=== PATIENT | female | born 1960 | race Caucasian/White ===

== ENCOUNTER 2020-05-14 14:41 | Outpatient (CLI) | payer OTHER, SELFPAY ==
--- NOTE | ~2020-05-14 | MM_ITS ---
EXAMINATION: MM screening trupti BI w alexandre HISTORY: Screening mammogram TECHNIQUE: Craniocaudal and mediolateral oblique 3-D tomosynthesis images were obtained and synthetic 2-D images were generated. Bilateral rotated lateral cc views. CAD analysis was submitted and interp reted. COMPARISON: No prior mammogram is available for comparison at this institution. BREAST PARENCHYMAL COMPOSITION: There are scattered areas of fibroglandular density. FINDINGS: 3.5 mm circumscribed low-density opacity in the lower outer left breast, likely benign. Son ographic correlation is recommended. Otherwise there is no evidence of suspicious mass, calcification, or architectural distortion to sugg est malignancy in either breast. Occasional benign calcified microhematomas. IMPRESSION: 1. 3.5 mm circumscribed mass, lower outer left breast 2. Targeted left breast ultrasound examination is recommended. BI-RADS Category 0: Incomplete: Needs additional imaging evaluation. Reviewed, dictated and finalized at location A. 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
== END 2020-05-14 14:42 | disposition home or self-care (01) ==
LOC: ANHIMG 14:51
PROVIDERS: PCP Internal Medicine; Visit Provider Obstetrics & Gynecology
DX: Z12.31 Encounter for screening mammogram for malignant neoplasm of breast (principal); R92.8 Other abnormal and inconclusive findings on diagnostic imaging of breast
CPT/HCPCS: 77063; 77067

== ENCOUNTER 2024-11-04 15:56 | Inpatient (IN) | payer SELFPAY ==
[2024-11-04] VITALS (21 sets, daily range): BP systolic 124–160; BP diastolic 69–125; PULSE 86–142; RESP 12–32; TEMP 36.6–37.1; O2SAT 96–100; BMI 18.3; BMI 21.4
--- NOTE | ~2024-11-04 | CT_ITS ---
EXAMINATION: CT diagnostic chest wo con DATE: 11/10/2024 09:56 INDICATION: COPD, hypoxia TECHNIQUE: Computed tomography (CT) of the chest was performed without intravenous contrast. Additional 3D reconstructions utilizing coronal maximum intensity projection (MIP) were performed. Automated exposure control and iterative reconstruction technique were employed. The dose-length product was 14 1.50 mGy-cm. COMPARISON: 11/04/2024 FINDINGS: Mild emphysema. Partial collapse of the right middle lobe, atelectasis at the paramediastinal right upper lobe and sagittal oriented band of discoid atelectasis in the lingula, all new since the prior study. Also new are regions of groundglass opacity and septal line thickening peripherally in the right upper lobe which are suspicious for pneumonia. No pleural effusion. There is a 9 x 7 mm spiculated nodule at the anteromedial right upper lobe. Heart size is normal. Atherosclerotic coronary artery calcification is. No pericardial effusion. Thoracic aorta is normal in caliber. No pathologically enlarged thoracic lymphadenopathy. Minimal thoracic spondylosis. IMPRESSION: 1. A few new peripheral regions of groundglass opacity and septal line thickening the right upper lobe suspicious for pneumonia. 2. New partial collapse of the right middle lobe and additional atelectasis in the left upper lobe and lingula. 3. Mild emphysema with indeterminate spiculated 8 mm right upper lobe nodule. Recommend further evaluation with either PET/CT or 3 month follow-up chest CT. Reviewed, dictated and finalized at location A. IMPRESSION: 1. A few new peripheral regions of groundglass opacity and septal line thickeni ng the right upper lobe suspicious for pneumonia. 2. New partial collapse of the right middle lobe and additional atelectasis in the left upper lobe and lingula. 3. Mild emphysema with indeterminate spiculated 8 mm right upper lobe nodule. R ecommend further evaluation with either PET/CT or 3 month follow-up chest CT.
--- NOTE | ~2024-11-04 | XR_ITS ---
XR chest 1V portable 11/14/2024 08:22 Indication: Pneumonia Procedure: AP portable chest Comparison: 11/04/[address] dated 11/10/2024 Findings: There is a small nodular opacity in the right suprahilar region likely corresponding to spiculated nodule seen on recent CT examination. Recommend follow-up evaluation with pet/CT or three-month follow-up chest CT. Left lung clear. No pleural effusion or edema. No pneumothorax. Impression: 1: No acute cardiopulmonary disease. 2: Nodular asymmetry right suprahilar region likely corresponding to spiculated nodule seen on recent CT. Recommend correlation with pet/CT scan or follow-up [address] chest[address] Reviewed, dictated and finalized at location O. Impression: 1: No acute cardiopulmonary disease. 2: Nodular asymmetry right suprahilar region likely corresponding to spiculated nodule seen on recent CT. Recommend correlation with pet/CT scan or follow-up [address] chest.
--- NOTE | ~2024-11-04 | XR_ITS ---
XR chest 1V portable 11/12/2024 16:59 Indication: COPD. Lethargy. Procedure: AP portable chest Comparison: 11/04/2024 Findings: Heart size normal. Bibasilar infiltrates may represent atelectasis or developing pneumonia. No pleural effusion, edema or pneumothorax. Impression: 1: Bibasilar infiltrates may represent atelectasis or developing pneumonia. Reviewed, dictated and finalized at location O. Impression: 1: Bibasilar infiltrates may represent atelectasis or developing pneumonia.
--- NOTE | ~2024-11-04 | XR_ITS ---
Exam: X-ray chest one view portable CLINICAL HISTORY: Shortness of breath Comparisons: None. TECHNIQUE: 2 frontal images of the chest were obtained. FINDINGS: Heart is not enlarged. No pneumothorax. No pleural effusion. No free air in the diaphragm. Lungs hyperinflated. Small opacities in the lower lungs. IMPRESSION: 1. Small opacities in the lower lungs which represents atelectasis/scarring or infiltrates. 2. Lungs are hyperinflated. Reviewed, dictated and finalized at location A.
--- NOTE | ~2024-11-04 | CT_ITS ---
EXAMINATION: CTA chest PE protocol DATE: 11/04/2024 18:27 CDT INDICATION: Shortness of breath with near, pulmonary embolus suspected clinically TECHNIQUE: Computed tomographic angiography (CTA) of the chest was performed with 100 mL Omnipaque-35 0 intravenous contrast. The dose-length product was 154.50 mGy-cm. Maximum intensity projection 3D-re constructions of the aorta and other arteries were constructed by the technologist on a separate work station. COMPARISON: None. FINDINGS/OBSERVATIONS: PULMONARY ARTERIES: No filling defect is identified within the main or proximal pulmonary artery. The main pulmonary artery is not enlarged. THORACIC AORTA: No aneurysmal dilatation or dissection is present. The great vessels are intact LUNGS: Centrilobular emphysematous disease. The lungs are otherwise clear. MEDIASTINUM: No morphologically suspicious or pathologically enlarged lymph nodes are identified with in the mediastinum or bilateral axilla. BONES OF THE CHEST: No acute fracture. Age-appropriate degenerative disease. No lytic or blastic lesions. HEART: The heart is of normal size, without pericardial effusion. IMPRESSION: No pulmonary embolus. No thoracic aortic dissection. Centrilobular emphysematous disease Reviewed, dictated and finalized at location A.
--- NOTE | 2024-11-04 16:07 | ECG_ITS ---
Test Date: 2024-11-04 16:31:16 Measurements Intervals [place] Rate: 90 P: 88 [place]: 134 QRS: 61 QRSD: 82 T: 73 QT: 351 QTc: 430 Interpretive Statements SINUS RHYTHM WITH MARKED SINUS ARRHYTHMIA POSSIBLE LEFT ATRIAL ENLARGEMENT BORDERLINE R WAVE PROGRESSION, ANTERIOR LEADS ST-T WAVE ABNORMALITY IN ANTEROLAT/INF LEADS- CONSIDER ISCHEMIA BASELINE ARTIFACT- I, II, III, AVR, AVL, AVF, V1, V4-V6 ABNORMAL ECG No previous ECG available for comparison Electronically Signed On 11-04-2024 16:37:09 CDT by Mirza Wang D.O.
--- NOTE | 2024-11-04 16:10 | PC.NURSE ---
NC turned to 4L spo2 maintaining at 100%
--- NOTE | 2024-11-04 16:21 | ED_ITS ---
HPI - SOB/Dyspnea General Chief Complaint: Shortness of Breath/Dyspnea Stated Complaint: SOB Time Seen by Provider: 11/04/24 15:59 History of Present Illness HPI Narrative: This is a 64-year-old female with no significant past medical history presents the ED for shortness of breath. Patient states that for the past couple days, she has been having runny nose and a nonproductive cough. She states that couple hours ago, she had onset shortness of breath point she was struggling to walk, prompting her to call EMS. No prior pulmonary disease that she is aware of. She has never had this issue before. Denies fevers, chills, chest pain, nausea vomiting, diarrhea constipation, abdominal pain. Related Data Home Medications ?Medication ?Instructions ?Recorded ?Confirmed ?Last Taken ?Type doxepin 10 mg capsule 10 mg PO .QHS 03/28/19 Unknown History estradiol 1 mg tablet 1 mg PO DAILY 03/28/19 Unknown History Allergies Allergy/AdvReac Type Severity Reaction Status Date / Time codeine Allergy Unknown Nausea and Verified 10/31/16 12:15 Vomiting ofloxacin Allergy Unknown Verified 10/31/16 12:15 Penicillins Allergy Unknown Verified 12/08/17 11:43 Review of Systems 2 Review of Systems: Gen.: Denies fevers or chills Eyes: Denies eye pain or visual change ENT: Denies congestion Respiratory: Shortness of breath, cough. CV: Denies chest pain or palpitations GI: Denies abdominal pain nausea, emesis or diarrhea denies burning, urgency, frequency or hematuria Musculoskeletal: Denies back pain or muscle pain Neuro: Denies numbness, tingling, weakness or focal weakness Skin: Denies rash Except as documented, all other systems reviewed and negative [facility] Surgical History Surgical History H/O exploratory laparotomy H/O joint replacement BL H/O: hysterectomy 1999 Family History Family History Father Type 2 diabetes mellitus Glaucoma Grandparent Leukemia CAD (coronary artery disease) Cancer Mother Lung disease Social History Social History Smoking status: Heavy tobacco smoker Alcohol intake: never Exam 2 Narrative: APPEARANCE: Moderate distress, sitting up in bed EYES: EOMI HEENT: Normocephalic, atraumatic, OMM RESPIRATORY: On 4 L nasal cannula. Diminished breath sounds throughout with end-expiratory wheezes. Significant accessory muscle use. CARDIOVASCULAR: Regular rate and rhythm without murmurs rubs or gallops. ABDOMINAL: Soft, nontender, nondistended, no rebound or guarding MUSCULOSKELETAl: Moves all extremities. No clubbing, cyanosis or edema. NEURO: Awake and alert. Following commands, speech normal, no focal deficits SKIN:: Warm, dry. No rashes lesions or abrasions PSYCHIATRIC: Normal affect/mood, Course Vital Signs Vital signs: Vital Signs Pulse Rate 109 H 11/04/24 15:54 Respiratory Rate 22 H 11/04/24 15:54 Blood Pressure 144/85 H 11/04/24 15:54 Pulse Oximetry 100 11/04/24 15:54 Oxygen Delivery Nasal Cannula 11/04/24 15:54 Oxygen Flow Rate 6 11/04/24 15:54 Temperature 97.8 F 11/04/24 16:01 Pulse Rate 118 H 11/04/24 17:31 Respiratory Rate 19 11/04/24 17:31 Blood Pressure 134/89 11/04/24 17:31 Pulse Oximetry 96 11/04/24 17:31 Oxygen Delivery Nasal Cannula 11/04/24 16:04 Oxygen Flow Rate 6 11/04/24 16:04 MDM - SOB/Dyspnea MDM Narrative Medical decision making narrative: 64-year-old female presenting for shortness of breath. On initial evaluation, patient was in moderate acute distress using accessory muscles. She has diminished breath sounds throughout with expiratory wheezes throughout. She was on 6 L nasal cannula due to hypoxia. She was given a DuoNeb and 125 mg Solu- Medrol. Chest x-ray showed emphysema with possible left basilar opacities. She was given Rocephin and doxycycline. She remained rather tachycardic so CTA chest was obtained which showed no evidence of pulmonary embolism. She remains on new supplemental oxygen so she will require admission for acute hypoxic respiratory failure due to COPD exacerbation. Discussed with hospitalist who will admit the patient. Differential Diagnosis Differential diagnosis: Likely acute exacerbation of chronic obstructive airways disease, congestive heart failure, community acquired pneumonia and asthma with exacerbation Lab Data Attestation: I reviewed the patient's lab results. 11/04/24 16:13 11/04/24 16:13 Labs: Lab Results 11/04/24 Range/Units 16:13 WBC 9.3 (4.5-10.0) K/mm3 RBC 4.57 (4.2-5.4) M/mm3 Hgb 14.2 (12.0-15.0) g/dL Hct 43.1 (37.0-47.0) % MCV 94.3 (80-100) fl MCH 31.1 (26-34) pg MCHC 32.9 (32-36) g/dl RDW 13.3 (11.5-14.5) % Plt Count 296 (150-375) k/mm3 MPV 9.3 (7.4-10.4) fl Immature Gran % (Auto) 0.2 (0-0.5) % Neut % (Auto) 58.2 (45.5-73.1) % Lymph % (Auto) 21.1 (18.3-44.2) % [place] % (Auto) 6.9 (2.6-8.5) % Eos % (Auto) 12.6 H (0-4.4) % Baso % (Auto) 1.0 (0.2-1.2) % Lymph # (Auto) 1.97 (0.9-3.2) K/mm3 [place] # (Auto) 0.6 (0.1-0.6) K/mm3 Eos # (Auto) 1.2 H (0-0.3) K/mm3 Baso # (Auto) 0.1 (0.0-0.1) K/mm3 Abs Immat Gran (auto) 0.02 (0.00-0.031) K/mm3 Absolute Neuts (auto) 5.4 (1.3-6.7) K/mm3 Absolute Nucleated RBC 0.000 (0.0-0.012) K/mm3 Nucleated RBC % 0.0 (0.0-0.2) % Sodium 141 (137-145) mmol/L Potassium 4.0 (3.4-5.0) mmol/L Chloride 107 (98-107) mmol/L Carbon Dioxide 25 (22-30) mmol/L Anion Gap 9 (4-12) mmol/L BUN 13 (7-17) mg/dL Creatinine 0.80 (0.7-1.0) mg/dL Estim Creat Clear Calc 58 ml/min Estimated GFR > 60 (59 - ) Glucose 127 H (65-110) mg/dL Calcium 9.6 (8.4-10.2) mg/dL Total Bilirubin 0.6 (0.2-1.3) mg/dL AST 37 H (14-36) U/L ALT 22 (6-35) U/L Alkaline Phosphatase 79 (38-126) U/L Troponin I < 0.012 (0.000-0.034) ng/mL NT-Pro-B Natriuret Pep 702 H (19.9-100) pg/mL Total Protein 8.1 (6.3-8.2) g/dL Albumin 4.6 (3.5-5.1) g/dL Influenza A (RT-PCR) Negative (Negative) Influenza B (RT-PCR) Negative (Negative) RSV (RT-PCR) Negative (Negative) SARS-CoV-2 RNA (RT-PCR) Negative (Negative) ABG Data ABG results: 11/04/24 16:36 Puncture Site Left radial ABG pH 7.378 ABG pCO2 38.0 ABG pO2 88.6 ABG PO2/FiO2 Ratio 2.73 ABG HCO3 21.9 L ABG O2 Saturation 96.6 ABG O2 Content 19.7 ABG Base Excess -2.8 A-a Gradient 98.7 Oxyhemoglobin 95.8 Total Hemoglobin 14.6 O2 Delivery Device Nasal cannula O2 Liters/Min 3.5 FiO2 33 Attestation: I personally reviewed and interpreted this ABG as follows: Interpretation: No acute abnormalities ECG Data EKG #1: Attestation: I personally reviewed and interpreted this ECG as follows: ECG completion date: 11/04/24 ECG completion time: 16:31 Interpretation: Sinus rhythm with sinus arrhythmia, normal axis, left atrial enlargement, ST depressions in inferior leads no ST elevations or T-wave changes Discharge Plan Discharge Clinical Impression: Acute hypoxemic respiratory failure, Acute exacerbation of chronic obstructive pulmonary disease Community acquired pneumonia Qualifiers: Laterality: left Lung location: lower lobe of lung Qualified Code(s): J18.9 - Pneumonia, unspecified organism Nicotine dependence Qualifiers: Nicotine product type: cigarettes Substance use status: unspecified nicotine- induced disorder Qualified Code(s): F17.219 - Nicotine dependence, cigarettes, with unspecified nicotine-induced disorders Patient Disposition: Still a Patient Condition: Stable Patient Language: Spanish Prescriptions: No Action doxepin 10 mg capsule 10 mg PO .QHS estradiol 1 mg tablet 1 mg PO DAILY citalopram 20 mg tablet 20 mg PO DAILY Qty: 30 0RF Rx Instructions: PLEASE CALL OFFICE TO SCHEDULE APPOINTMENT Follow-up/Referrals: Tonio Sorto, [Primary Care Provider] -
[2024-11-04 16:22] LABS: Hematocrit 43.1 % (37.0-47.0); Hemoglobin 14.2 g/dL (12.0-15.0); Immature Granulocyte Percent A 0.2 % (0-0.5); Lymphocytes Absolute Auto 1.97 K/mm3 (0.9-3.2); Mean Corpuscular HGB Conc 32.9 g/dl (32-36); Mean Corpuscular Hemoglobin 31.1 pg (26-34); Mean Corpuscular Volume 94.3 fl (80-100); Nucleated Red Blood Cells Absolute Auto 0.000 K/mm3 (0.0-0.012); Nucleated Red Blood Cells Perc 0.0 % (0.0-0.2); Platelet Count Result 296 k/mm3 (150-375); Red Blood Count 4.57 M/mm3 (4.2-5.4); White Blood Count 9.3 K/mm3 (4.5-10.0)
[2024-11-04 16:30] LABS: Alanine Aminotransferase 22 U/L (6-35); Albumin Level 4.6 g/dL (3.5-5.1); Alkaline Phosphatase 79 U/L (38-126); Anion Gap 9 mmol/L (4-12); Aspartate Amino Transferase 37 U/L (14-36); Bilirubin,Total 0.6 mg/dL (0.2-1.3); Blood Urea Nitrogen 13 mg/dL (7-17); Calcium 9.6 mg/dL (8.4-10.2); Carbon Dioxide 25 mmol/L (22-30); Chloride 107 mmol/L (98-107); Estimated CRCL calculation 58 ml/min; Estimated Glomerular Filt Rate > 60; Glucose 127 mg/dL (65-110); Potassium 4.0 mmol/L (3.4-5.0); Sodium 141 mmol/L (137-145); Total Protein 8.1 g/dL (6.3-8.2)
[2024-11-04] MEDS: IPRATROPIUM 0.5 MG/ALBUTEROL SULFATE 2.5 MG AMPUL.NEB 3 ML INHALATION (16:31)
[2024-11-04 16:40] LABS: Alveolar/Arterial O2 Gradient 98.7 mmHg; Fractional Inspired Oxygen 33 %; HCO3 ABG 21.9 mEq/l (22.0-26.0); Oxygen Content ABG 19.7 %vol (16.0-22.0); Oxygen Saturation ABG 96.6 % (95.0-100.0); PCO2 ABG 38.0 mmHg (35.0-45.0); PO2 ABG 88.6 mmHg (80.0-100.0); PO2 FiO2 Ratio Arterial Blood 2.73 %
[2024-11-04 16:41] LABS: Troponin I < 0.012 ng/mL (0.000-0.034)
[2024-11-04 16:42] LABS: Liters per Minute 3.5 LPM; Modified Allen's Test Pass; Site Drawn LEFT RADIAL
[2024-11-04] MEDS: LORazepam INJ (*CRX) 2 MG/ML VIAL 0.5 MG IV PUSH (16:57)
[2024-11-04 16:59] LABS: NT Pro B Type Natriuretic Pept 702 pg/mL (19.9-100)
--- OUTSIDE RECORDS SUMMARY | 2024-11-04 17:24 | XMS_ITS | Clinical Summary ---
Author Organization [facility] Address [address] [place] [address] Care Team Providers Care Budget Accountant Name Role Phone Sadi Rob MD Primary Care Provider Allergies Active Allergy Reactions Criticality Noted Date Comments Codeine Nausea & Vomiting Low 12/09/2016 Ofloxacin Blisters High 12/09/2016 Penicillins Rash Medium 12/09/2016 Medications estradiol (ESTRACE) 1 mg tablet Take 1 mg by mouth daily. Active doxycycline (doxycycline) 100 mg capsule doxycycline hyclate 100 mg tablet TAKE 1 TABLET BY MOUTH TWICE A DAY FOR 10 DAYS Active mometasone (NASONEX) 50 mcg/actuation nasal spray mometasone 50 mcg/actuation nasal spray USE 2 SPRAYS IN EACH NOSTRIL EVERY DAY Active nitrofurantoin monohydrate (MACROBID) 100 mg capsule Active Active Problems Problem Noted Date Diagnosed Date Abnormal mammography 02/09/2021 Surgical History Surgery Date Site/Laterality Comments KNEE ARTHROSCOPY HYSTERECTOMY EYE SURGERY Medical History Medical History Date Comments Anemia Depression Family History Medical History Relation Name Comments Arthritis Father Depression Father Gout Father Heart disease Father Kidney disease Father Cancer Maternal Grandfather Heart disease Maternal Grandfather Arthritis Mother COPD Mother Relation Name Status Comments Father Maternal Grandfather Mother Social History Tobacco Use Types Packs/Day Years Used Date Smoking Tobacco: Every Day Smokeless Tobacco: Current Personal Safety Answer Date Recorded Getting School Help Needed Not on file 05/17 Comments Unknown Sex and Gender Information Value Date Recorded Sex Assigned at Not on file Legal Sex Female 5:55 PM [employer]AND INSTRUMENT [employer] Gender Identity Female 02/06/2021 7:36 PM [employer] INSTRUMENT [employer] Sexual Orientation Straight 02/06/2021 7: 36 PM [employer]AND INSTRUMENT [employer] Obstetrics History Last Filed Vital Signs Vital Sign Reading Time Taken Comments Blood Pressure 131/74 06/08/2018 1:10 PM CDT Pulse 76 06/08/2018 1:10 PM CDT Temperature - - Respiratory Rate - - Oxygen Saturation - - Inhaled Oxygen Concentration - - Weight 60.3 kg (132 lb 15 oz) 02/07/2021 8:43 AM BAND INSTRUMENT [employer] Height 182.9 cm (6') 02/07/2021 8:43 AM BAND INSTRUMENT [employer]KER Body Mass Index 18.03 02/07/2021 8:43 AM BAND INSTRUMENT [employer] Plan of Treatment Not on file Insurance [employer] O/POS Care Teams Budget Accountant Relationship Specialty Start Date End Date Sadi Rob MD PCP - General Obstetrics and Gynecology 01/28/21
--- NOTE | 2024-11-04 17:37 | PC.NURSE ---
COVID SWAB WAS SENT TO LAB WITH OTHER LAB SPECIMENS, LAB WAS CONTACTED AND WAITING FOR THEM TO RUN COVID SWAB THAT HAS BEEN SENT TO THE LAB
[2024-11-04] MEDS: cefTRIAXone 2 GM in SODIUM CHLORIDE 0.9% IV 100 ML 200 ML IVPB (18:44)
[2024-11-04 19:22] LABS: Influenza A QL RT-PCR Negative (Negative); Influenza B QL RT-PCR Negative (Negative); RSV RNA, RT-PCR Negative (Negative); SARS-CoV-2 RNA PCR Negative (Negative)
[2024-11-04] MEDS: DOXYCYCLINE IV 100 MG in SODIUM CHLORIDE 0.9% IV 100 ML IVPB (20:13)
--- NOTE | 2024-11-04 20:56 | P.HP_ITS ---
H&P: HPI History of Present Illness Date/Time: 11/04/24 20:56 Chief Complaint: shortness of breath Narrative: 64-year-old female denies past medical history, not on any prescription presents the hospital with shortness of breath. Patient states that she was a 40 smoker and recently quit. She states for the last few days she has had a cough. Today she states that she was extremely short of breath and was afraid she was going to . So she called EMS. On bedside exam patient short of breath. Lab work in the ED shows ABG with pH is 7.37, pCO2 of 38, PO2 of 88, bicarb of 21.9, glucose of 127, AST of 37, proBNP of 702, influenza A/B, RSV and COVID negative. CTA shows no PE embolism with central lobular emphysema disease. Patient states that she has never been diagnosed with COPD. She states that b esides past history of smoking she has no long issues. Review of Systems Review of Systems: 12 systems were reviewed and are negativ e except for as per HPI. [facility] Surgical History Surgical History H/O exploratory laparotomy H/O joint replacement BL H/O: hysterectomy 1999 Family History Family History Father Type 2 diabetes mellitus Glaucoma Grandparent Leukemia CAD (coronary artery disease) Cancer Mother Lung disease Social History Social History Smoking packs per day: 1.5 Smoking cigarettes per day: 30.0 Smoking status: Former smoker Tobacco type: cigarettes Second hand tobacco smoke exposure: Yes Smoking end date: 10/21/24 Alcohol intake: unknown Substance use: current Substance use type: marijuana Lack of Transportation: YES Lack of Food: Never True Current Housing: I Have Housing Concerned About Future Housing: No Difficulty Paying Gas/Electric Bills: No Difficulty Paying for Meds: No Currently Unemployed: No Education: High School Diploma/GED Difficulty w/ Childcare or Family Care: No Spiritual care concerns: No Meds Home Medications and Allergies Allergies Allergy/AdvReac Type Severity Reaction Status Date / Time codeine Allergy Unknown Nausea and Verified 11/04/24 20:58 Vomiting ofloxacin Allergy Unknown SHORT OF Verified 11/04/24 20:58 BREATH Penicillins Allergy Unknown UNKNOWN Verified 11/04/24 20:58 Vital Signs Vital Signs - 24 hr 11/04/24 15:54 11/04/24 16:01 11/04/24 16:04 Temperature 97.8 F Pulse Rate 109 H 88 Respiratory Rate 22 H 19 Blood Pressure 144/85 H 136/71 Pulse Oximetry 100 100 99 Oxygen Delivery Nasal Cannula Nasal Cannula Oxygen Flow Rate 6 6 11/04/24 16:08 11/04/24 16:15 11/04/24 16:16 Temperature Pulse Rate 101 H 104 H 122 H Respiratory Rate 16 32 H 21 H Blood Pressure 124/93 H Pulse Oximetry 100 99 97 Oxygen Delivery Oxygen Flow Rate 11/04/24 16:30 11/04/24 16:32 11/04/24 16:39 Temperature Pulse Rate 91 97 86 Respiratory Rate 22 H 19 15 Blood Pressure 144/86 H Pulse Oximetry 100 100 Oxygen Delivery Oxygen Flow Rate 11/04/24 16:45 11/04/24 16:46 11/04/24 16:47 Temperature Pulse Rate 142 H 133 H 125 H Respiratory Rate 27 H 25 H 22 H Blood Pressure 160/125 H Pulse Oximetry 100 Oxygen Delivery Oxygen Flow Rate 11/04/24 16:47 11/04/24 17:00 11/04/24 17:01 Temperature Pulse Rate 121 H 105 H 105 H Respiratory Rate 18 14 Blood Pressure 142/73 H Pulse Oximetry 97 99 99 Oxygen Delivery Oxygen Flow Rate 11/04/24 17:15 11/04/24 17:16 11/04/24 17:30 Temperature Pulse Rate 98 94 134 H Respiratory Rate 12 19 19 Blood Pressure 134/69 Pulse Oximetry 98 98 96 Oxygen Delivery Oxygen Flow Rate 11/04/24 17:31 11/04/24 20:14 Temperature 98.7 F Pulse Rate 118 H 104 H Respiratory Rate 19 18 Blood Pressure 134/89 154/81 H Pulse Oximetry 96 100 Oxygen Delivery Oxygen Flow Rate Exam Narrative: General: Tachypneic, anxious HEENT: normocephalic, atraumatic. Mucous membranes moist. EOMI, PERRLA, bilateral sclera anicteric, no conjunctival injection. Neck supple without JVD, lymphadenopathy, or bruit. Respiratory: Expiratory wheezes to ascultation bilaterally. No rales/rhonic/ Cardiovascular: Regular rate and rhythm, normal S1-S2 upon ascultation. No murmurs, rubs, or clicks. PMI is nondisplaced, capillary refill less than 3 second. Abdomen: Soft, round, no pulsatile masses, nondistended and nontender. No rebound, no guarding. No CVA tenderness, no hepatosplenomegaly. Bowel sounds present to all four quadrants. No high pitch or tinkling sounds, resonant to percussion. Extremities: No cyanosis, clubbing, or edema present. Pulses are palpable 2/2. Active ROM to all four extremities. Neuro: Alert and orientated x 4. PERRLA. Cranial nerves 2-12 intact without focal deficit. Skin: Warm, dry, and intact, without rash, erythema, or lesion. Psych: Anxious 2 L O2 H&P: Results Labs Labs: Short CBC 11/04/24 Range/Units 16:13 WBC 9.3 (4.5-10.0) K/mm3 Hgb 14.2 (12.0-15.0) g/dL Hct 43.1 (37.0-47.0) % Plt Count 296 (150-375) k/mm3 BMP 11/04/24 16:13 Sodium 141 Potassium 4.0 Chloride 107 Carbon Dioxide 25 BUN 13 Creatinine 0.80 Glucose 127 H Calcium 9.6 Cardiac Enzymes 11/04/24 Range/Units 16:13 Troponin I < 0.012 (0.000-0.034) ng/mL Liver Function 11/04/24 Range/Units 16:13 Total Bilirubin 0.6 (0.2-1.3) mg/dL AST 37 H (14-36) U/L ALT 22 (6-35) U/L Alkaline Phosphatase 79 (38-126) U/L Albumin 4.6 (3.5-5.1) g/dL Assessment and Plan Assessment and plan (1) COPD (chronic obstructive pulmonary disease): Code(s): J44.9 - Chronic obstructive pulmonary disease, unspecified Status: Acute Assessment and Plan: Patient states that she has a history of COPD pulm consult Continue Rocephin and doxy DuoNebs change to Xopenex due to tachycardia IV Solu-Medrol followed by prednisone (2) Acute hypoxemic respiratory failure: Code(s): J96.01 - Acute respiratory failure with hypoxia Status: Acute Assessment and Plan: Secondary to above See plan above (3) Community acquired pneumonia: Qualifiers: Laterality: left Lung location: lower lobe of lung Qualified Code(s): J18.9 - Pneumonia, unspecified organism Code(s): J18.9 - Pneumonia, unspecified organism Status: Acute Assessment and Plan: See plan above (4) Nicotine dependence: Qualifiers: Nicotine product type: cigarettes Substance use status: unspecified nicotine-induced disorder Qualified Code(s): F17.219 - Nicotine dependence, cigarettes, with unspecified nicotine-induced disorders Code(s): F17.200 - Nicotine dependence, unspecified, uncomplicated Status: Acute Assessment and Plan: Nicotine patch ordered (5) Elevated brain natriuretic peptide (BNP) level: Code(s): R79.89 - Other specified abnormal findings of blood chemistry Status: Acute Assessment and Plan: Echocardiogram pending (6) Elevated liver enzymes: Code(s): R74.8 - Abnormal levels of other serum enzymes Status: Acute Assessment and Plan: CMP in the morning (7) Tachycardia: Code(s): R00.0 - Tachycardia, unspecified Status: Acute Assessment and Plan: EKG shows sinus tachycardia DuoNebs changed to Xopenex Quality VTE Prophylaxis VTE prophylaxis: mechanical ordered and pharmacologic ordered Hospitalist MIPS Advance Care Plan I have confirmed that the patient's Advanced Care Plan is present, code status is documented, or surrogate decision maker is listed in patient medical record.: Yes Medication Reconciliation I have utilized all available resources to obtain, update and review the patie nts current medications (includes all prescriptions, OTC, herbals, cannabis, and nutritional supplements).: Yes
[2024-11-04] MEDS: guaiFENesin 12 HR 600 MG TABCR 1200 MG PO (23:04)
--- NOTE | 2024-11-04 23:04 | ECG_ITS ---
Test Date: 2024-11-04 23:19:10 Measurements Intervals [place] Rate: 100 P: 81 NC: 152 QRS: 37 QRSD: 79 T: 63 QT: 361 QTc: 467 Interpretive Statements SINUS TACHYCARDIA POSSIBLE LEFT ATRIAL ENLARGEMENT BORDERLINE ST ABNORMALITY- ANTEROLAT/INF LEADS BASELINE ARTIFACT- I, II, III, AVR, AVL, AVF, V3 BORDERLINE ECG Compared to ECG 11/04/2024 16:31:16 Possible ischemia no longer present Electronically Signed On 11-05-2024 07:18:18 CDT by Mirza Wang D.O.
[2024-11-05] VITALS (20 sets, daily range): BP systolic 146; BP diastolic 65–76; PULSE 87–133; RESP 18–28; TEMP 36.1–37.2; O2SAT 90–99
--- NOTE | 2024-11-05 | ECHO_ITS ---
Patient Info Name: Jessica Kramer Age: 64 years : 1960 Gender: Female Ht: 71 in Wt: 128 lbs BSA: 1.69 m2 HR: 127 bpm BP: 146 / 70 mmHg Technical Quality: Fair Exam Date: 11/05/2024 9:15 AM Patient Status: O Admit Date: 11/04/2024 Exam Type: CA echo doppler color flow Complete two-dimensional, color flow and Doppler transthoracic echocardiogram is performed. Staff Referring Physician: Cain Lucas Abstract Writer: Naomi Thompson Attending Provider: Rogelio Cifuentes MD Summary 1. Complete two-dimensional, color flow and Doppler transthoracic echocardiogram is performed. 2. Left ventricular chamber dimension is normal. 3. Left ventricular systolic function is normal, estimated at 60-65. 4. The left ventricular diastolic function is grade I diastolic dysfunction. 5. E/e' 9 is minimally elevated. 6. There is trace tricuspid valve regurgitation. Left Ventricle E/e' 9 is minimally elevated. Left ventricular chamber dimension is normal. Left ventricular systolic function is normal, estimated at 60-65. The left ventricular diastolic function is grade I diastolic dysfunction. Right Ventricle Right ventricular chamber dimension is normal. Right ventricular systolic function is normal. Left Atria Left atrial chamber dimension is normal. Right Atria Right atrial chamber dimension is normal. Aortic Valve The aortic valve is trileaflet. There is no aortic valve stenosis. There is no aortic valve regurgitation. Pulmonic Valve There is no pulmonic regurgitation. Mitral Valve There is no mitral valve stenosis. There is no mitral valve regurgitation. Tricuspid Valve There is trace tricuspid valve regurgitation. RVSP is not measured due to an inadequate TR jet. Pericardium/Pleural There is no pericardial effusion. Inferior Vena Cava Normal inferior vena cava with >50% collapse upon inspiration consistent with normal right atrial pressure, 5 mmHg. Aorta The aortic root size at the sinus of Valsalva is normal. Left Ventricular Outflow Tract Name Value Normal LVOT 2D LVOT Diameter 1.8 cm LVOT Doppler LVOT Peak Velocity 110 cm/s LVOT Peak Gradient 5 mmHg LVOT Mean Gradient 3 mmHg LVOT VTI 22 cm LVOT VTI/AV VTI Ratio 0.8 LVOT Stroke Volume 58 ml LVOT CO 13.9 l/min LVOT CI 8.2 l/min/m2 Pulmonic Valve Name Value Normal PV Doppler PV Peak Velocity 98 cm/s PV Peak Gradient 4 mmHg Mitral Valve Name Value Normal MV Diastolic Function MV E Peak Velocity 68 cm/s MV A Peak Velocity 83 cm/s MV E/A 0.8 MV Decel Time (PW) 160 ms MV Annular TDI MV E/e' (Septal) 8.0 MV E/e' (Lateral) 11.4 MV E/e' (Average) 9.7 Tricuspid Valve Name Value Normal Estimated PAP/RSVP RA Pressure 5 mmHg <=5 TV Annular TDI TV Lateral Alisia s' Velocity 11.0 cm/s >=9.5 Aorta Name Value Normal Ascending Aorta Ao Root Diameter (MM) 2.5 cm Ao Root Diam Index (MM) 1.5 cm/m2 Aortic Valve Name Value Normal AV Doppler AV Peak Velocity 139 cm/s AV Peak Gradient 8 mmHg AV Mean Gradient 5 mmHg AV VTI 28 cm AV Area (Cont Eq VTI) 2.1 cm2 >=3.0 AV Area (Cont Eq Jorge) 2.1 cm2 AV DI (Jorge) 0.79 AV Regurgitation 2D LVOT Area 2.6 cm2 Ventricles Name Value Normal LV Dimensions 2D/MM IVS Diastolic Thickness (2D) 0.8 cm 0.6-1.0 LVID Diastole (2D) 3.9 cm 3.8-5.2 LVIW Diastolic Thickness (2D) 0.7 cm 0.6-0.9 LVID Systole (2D) 2.6 cm 2.2-3.5 LVOT Diameter 1.8 cm LV Mass (2D Cubed) 82.51 g 67.00-162.00 LV Mass Index (2D Cubed) 49 g/m2 43-95 Relative Wall Thickness (2D) 0.36 <=0.42 LV Fractional Shortening/Ejection Fraction 2D/MM LV Fractional Shortening (2D) 34 % 27-45 LV EF (2D Teichholz) 64 % LV Diastolic Volume (4C MOD) 66 ml LV EF (4C MOD) 57 % LV Diastolic Volume (2C MOD) 71 ml LV EF (2C MOD) 59 % LV Diastolic Volume (BP MOD) 71 ml 46-106 LV Diastolic Volume Index (BP MOD) 42 ml/m2 29-61 LV Systolic Volume (BP MOD) 29 ml 14-42 LV Systolic Volume Index (BP MOD) 17 ml/m2 8-24 LV EF (BP MOD) 59 % 54-74 LV Diastolic Length (4C) 6.4 cm LV Systolic Length (4C) 5.5 cm LV Stroke Volume (4C MOD) 38 ml RV Dimensions 2D/MM RVID Diastole (2D) 2.7 cm 2.1-3.5 Atria Name Value Normal LA Dimensions LA Dimension (MM) 0.0 cm 2.7-3.8 LA Volume (4C A-L) 17 ml LA Volume (BP A-L) 16 ml RA Dimensions RA Systolic Major [place] Length (4C) 2.9 cm 2.2-2.8 RA Area (4C) 6.7 cm2 <=18.0 Report Signatures
[2024-11-05] MEDS: IPRATROPIUM BR 0.02% INH SOLN 0.5 MG/2.5 ML VIAL INHALATION ×5 (00:07→20:49)
[2024-11-05 05:48] LABS: Hematocrit 43.0 % (37.0-47.0); Hemoglobin 14.1 g/dL (12.0-15.0); Immature Granulocyte Percent A 0.6 % (0-0.5); Lymphocytes Absolute Auto 0.90 K/mm3 (0.9-3.2); Mean Corpuscular HGB Conc 32.8 g/dl (32-36); Mean Corpuscular Hemoglobin 31.1 pg (26-34); Mean Corpuscular Volume 94.7 fl (80-100); Nucleated Red Blood Cells Absolute Auto 0.000 K/mm3 (0.0-0.012); Nucleated Red Blood Cells Perc 0.0 % (0.0-0.2); Platelet Count Result 309 k/mm3 (150-375); Red Blood Count 4.54 M/mm3 (4.2-5.4); White Blood Count 7.9 K/mm3 (4.5-10.0)
[2024-11-05 06:10] LABS: Alanine Aminotransferase 28 U/L (6-35); Albumin Level 4.8 g/dL (3.5-5.1); Alkaline Phosphatase 68 U/L (38-126); Anion Gap 13 mmol/L (4-12); Aspartate Amino Transferase 44 U/L (14-36); Bilirubin,Total 0.5 mg/dL (0.2-1.3); Blood Urea Nitrogen 11 mg/dL (7-17); Calcium 9.6 mg/dL (8.4-10.2); Carbon Dioxide 20 mmol/L (22-30); Chloride 108 mmol/L (98-107); Estimated CRCL calculation 66 ml/min; Estimated Glomerular Filt Rate > 60; Glucose 170 mg/dL (65-110); Potassium 3.9 mmol/L (3.4-5.0); Sodium 141 mmol/L (137-145); Total Protein 8.4 g/dL (6.3-8.2)
--- OUTSIDE RECORDS SUMMARY | 2024-11-05 08:45 | XMS_ITS | Clinical Summary ---
Author Organization [facility] Address [address] [place] [address] Care Team Providers Care Liner Assembler Name Role Phone Sadi Rob MD Primary [...] on file Legal Sex Female 5:55 PM BIT BENDER Gender Identity Female 02/06/2021 7:36 PM BIT BENDER Sexual Orientation Straight 02/06/2021 7: 36 PM BIT BENDER Obstetrics History Last Filed Vital Signs Vital Sign Reading Time Taken Comments Blood Pressure 131/74 06/08/2018 1:10 PM CDT Pulse 76 06/08/2018 1:10 PM CDT Temperature - - Respiratory Rate - - Oxygen Saturation - - Inhaled Oxygen Concentration - - Weight 60.3 kg (132 lb 15 oz) 02/07/2021 8:43 AM BIT BENDER Height 182.9 cm (6') 02/07/2021 8:43 AM BIT BENDER Body Mass Index 18.03 02/07/2021 8:43 AM BIT BENDER Plan of Treatment Not on file Insurance [employer] O/POS Care Teams Liner Assembler Relationship Specialty Start Date End Date Sadi Rob MD PCP - General Obstetrics and Gynecology 01/28/21
[2024-11-05] MEDS: guaiFENesin 12 HR 600 MG TABCR 1200 MG PO (08:48)
[2024-11-05] MEDS: ENOXAPARIN 40 MG/0.4 ML SYRINGE SUB-Q (08:49)
--- NOTE | 2024-11-05 14:41 | PM.IMPN ---
Progress Note: A&P Assessment and Plan (1) Acute exacerbation of chronic obstructive pulmonary disease: Code(s): J44.1 - Chronic obstructive pulmonary disease with (acute) exacerbation Status: Acute Assessment and Plan: No PE or infiltrate by CTA chest Continue ceftriaxone and doxycycline (begun in ED 11/04/2024) Continue IV methylprednisolone Continue nebulized levalbuterol and ipratropium 11/05/24: Discussed that she needs PFT and likely maintenance inhaler after discharge (2) Nicotine dependence: Qualifiers: Nicotine product type: cigarettes Substance use status: unspecified nicotine-induced disorder Qualified Code(s): F17.219 - Nicotine dependence, cigarettes, with unspecified nicotine-induced disorders Code(s): F17.200 - Nicotine dependence, unspecified, uncomplicated Status: Acute Assessment and Plan: Stopped smoking over two weeks ago so likely does not need nicotine patch (3) Acute hypoxemic respiratory failure: Code(s): J96.01 - Acute respiratory failure with hypoxia Status: Acute Assessment and Plan: Due to COPD exacerbation (4) Tachycardia: Code(s): R00.0 - Tachycardia, unspecified Status: Acute Assessment and Plan: Sinus tachycardia is likely due to acute illness, anxiety, beta-agonist (5) Elevated liver enzymes: Code(s): R74.8 - Abnormal levels of other serum enzymes Status: Acute Assessment and Plan: Minimal elevation of AST, NL ALT Denied alcohol intake Possibly reactive vs steatohepatitis, viral hepatitis less likely F/u lab Subjective Date/time seen: 11/05/24 14:41 Interval history: Presented to ED 11/04 with progressive SOB, cough, yellow sputum. At admission was unable to speak w/o sob. Smoked 15 cigarettes per day for about 40 years prior to quitting about 18 days ago. 11/05 sputum thick and green. Pressure on chest resolved. Still coughing. SOB only with activity. Denied chest pain, edema, gi/gu changes, fever, abnormal bleeding. Review of Systems Review of Systems: All systems reviewed & are unremarkable except as noted in HPI and below Exam Narrative: HEENT: PERRL, sclerae nonicteric, pharyngeal mucosa pink and intact NECK: No JVD, adenopathy, or thyromegaly CHEST: Mildly tachypneic, diffuse inspiratory and expiratory wheezes with prolonged expiratory phase, no crackles HEART: NL S1/S2, regular, tachycardic, no murmur ABDOMEN: BS+, soft, nontender, no mass, no bruits EXTREMITIES: No cyanosis, edema, or clubbing NEUROLOGIC: CN intact and symmetric to inspection. MUSCULOSKELETAL: Tone and strength symmetric PSYCH: Alert. Oriented to person, place, and time; anxious and intermittently tearful Objective Data Vital Signs Vital Signs: Vital Signs - 24 hr 11/04/24 15:54 11/04/24 16:01 11/04/24 16:04 Temperature 97.8 F Pulse Rate 109 H 88 Respiratory Rate 22 H 19 Blood Pressure 144/85 H 136/71 Pulse Oximetry 100 100 99 Oxygen Delivery Nasal Cannula Nasal Cannula Oxygen Flow Rate 6 6 11/04/24 16:08 11/04/24 16:15 11/04/24 16:16 Temperature Pulse Rate 101 H 104 H 122 H Respiratory Rate 16 32 H 21 H Blood Pressure 124/93 H Pulse Oximetry 100 99 97 Oxygen Delivery Oxygen Flow Rate 11/04/24 16:30 11/04/24 16:32 11/04/24 16:39 Temperature Pulse Rate 91 97 86 Respiratory Rate 22 H 19 15 Blood Pressure 144/86 H Pulse Oximetry 100 100 Oxygen Delivery Oxygen Flow Rate 11/04/24 16:45 11/04/24 16:46 11/04/24 16:47 Temperature Pulse Rate 142 H 133 H 125 H Respiratory Rate 27 H 25 H 22 H Blood Pressure 160/125 H Pulse Oximetry 100 Oxygen Delivery Oxygen Flow Rate 11/04/24 16:47 11/04/24 17:00 11/04/24 17:01 Temperature Pulse Rate 121 H 105 H 105 H Respiratory Rate 18 14 Blood Pressure 142/73 H Pulse Oximetry 97 99 99 Oxygen Delivery Oxygen Flow Rate 11/04/24 17:15 11/04/24 17:16 11/04/24 17:30 Temperature Pulse Rate 98 94 134 H Respiratory Rate 12 19 19 Blood Pressure 134/69 Pulse Oximetry 98 98 96 Oxygen Delivery Oxygen Flow Rate 11/04/24 17:31 11/04/24 20:14 11/04/24 22:00 Temperature 98.7 F 98.5 F Pulse Rate 118 H 104 H 103 H Respiratory Rate 19 18 22 H Blood Pressure 134/89 154/81 H 143/80 H Pulse Oximetry 96 100 98 Oxygen Delivery Oxygen Flow Rate 11/04/24 23:35 11/05/24 00:12 11/05/24 00:13 Temperature Pulse Rate 100 99 Respiratory Rate 20 Blood Pressure Pulse Oximetry 99 Oxygen Delivery Nasal Cannula Oxygen Flow Rate 4 11/05/24 00:20 11/05/24 02:52 11/05/24 04:00 Temperature Pulse Rate 96 93 87 Respiratory Rate 20 18 Blood Pressure Pulse Oximetry Oxygen Delivery Oxygen Flow Rate 11/05/24 05:25 11/05/24 08:00 11/05/24 08:00 Temperature 98.1 F Pulse Rate 115 H 120 H Respiratory Rate 24 H Blood Pressure 146/70 H Pulse Oximetry 95 90 Oxygen Delivery Nasal Cannula Oxygen Flow Rate 2 11/05/24 08:02 11/05/24 08:02 11/05/24 08:15 Temperature Pulse Rate 118 H 95 Respiratory Rate 28 H 24 H Blood Pressure Pulse Oximetry 90 Oxygen Delivery Nasal Cannula Oxygen Flow Rate 2 11/05/24 13:25 11/05/24 13:33 Temperature Pulse Rate 111 H 104 H Respiratory Rate 20 20 Blood Pressure Pulse Oximetry Oxygen Delivery Oxygen Flow Rate Intake/Output Intake/Output: Intake & Output 11/02/24 11/03/24 11/04/24 11/05/24 23:59 23:59 23:59 23:59 Intake Total 100 540 Balance 100 540 Meds/Results Medications: Active Medications Generic Name Dose Route Start Last Admin Trade Name Freq PRN Reason Stop Dose Admin Acetaminophen 650 mg 11/04/24 21:31 Acetaminophen 325 Mg Tablet PO Q4H PRN Mild Pain (1-3) or Fever Docusate Sodium 100 mg 11/04/24 21:31 Docusate Sodium 100 Mg Capsule PO BID PRN Constipation Enoxaparin Sodium 40 mg 11/05/24 09:00 11/05/24 08:49 Enoxaparin 40 Mg/0.4 Ml Syringe SUB-Q 40 mg DAILY ANDRWE Administration Guaifenesin 1,200 mg 11/04/24 21:45 11/05/24 08:48 Guaifenesin 12 Hr 600 Mg Tabcr PO 1,200 mg Q12HR ANDREW Administration Ipratropium [place] 0.5 mg 11/05/24 02:00 11/05/24 13:23 Ipratropium Br 0.02% Inh Soln 0.5 Mg/2.5 Ml Vial INHALATION 0.5 mg Q6HRT ANDREW Administration Levalbuterol HCl 0.63 mg 11/05/24 02:00 11/05/24 13:23 Levalbuterol Neb 1.25 Mg/3 Ml INHALATION 0.63 mg Q6HRT [facility] Administration Nicotine 1 patch 11/04/24 21:35 11/05/24 09:48 Nicotine (*Pbkc) 21 Mg Patch TRANSDERM Not Given DAILY [facility] Perflutren Lipid Microsphere 0 ml 11/04/24 21:33 Perflutren Lipid Microspheres 1.5 Ml Vial Diluted To 10 Ml Total Volume IV PUSH 11/07/24 21:34 ONCE PRN adequate visualization Protocol Prednisone 40 mg 11/05/24 08:00 11/05/24 08:48 Prednisone 20 Mg Tablet PO 40 mg DAILY@0800 [facility] Administration Radiology Results: ITS Impressions Chest X-Ray 11/04/24 17:04 IMPRESSION: 1. Small opacities in the lower lungs which represents atelectasis/scarring or infiltrates. 2. Lungs are hyperinflated. Chest CTA 11/04/24 18:27 IMPRESSION: No pulmonary embolus. No thoracic aortic dissection. Centrilobular emphysematous disease Labs Labs: Laboratory Results - last 24 hr 11/04/24 11/04/24 11/05/24 16:13 16:36 05:22 WBC 9.3 7.9 RBC 4.57 4.54 Hgb 14.2 14.1 Hct 43.1 43.0 MCV 94.3 94.7 MCH 31.1 31.1 MCHC 32.9 32.8 RDW 13.3 13.2 Plt Count 296 309 MPV 9.3 9.5 Immature Gran % (Auto) 0.2 0.6 H Neut % (Auto) 58.2 86.6 H Lymph % (Auto) 21.1 11.4 L [place] % (Auto) 6.9 1.1 L Eos % (Auto) 12.6 H 0.0 Baso % (Auto) 1.0 0.3 Lymph # (Auto) 1.97 0.90 [place] # (Auto) 0.6 0.1 Eos # (Auto) 1.2 H 0.0 Baso # (Auto) 0.1 0.0 Abs Immat Gran (auto) 0.02 0.05 H Absolute Neuts (auto) 5.4 6.8 H Absolute Nucleated RBC 0.000 0.000 Nucleated RBC % 0.0 0.0 Puncture Site Left radial ABG pH 7.378 ABG pCO2 38.0 ABG pO2 88.6 ABG PO2/FiO2 Ratio 2.73 ABG HCO3 21.9 L ABG O2 Saturation 96.6 ABG O2 Content 19.7 ABG Base Excess -2.8 A-a Gradient 98.7 Oxyhemoglobin 95.8 Total Hemoglobin 14.6 O2 Delivery Device Nasal cannula O2 Liters/Min 3.5 FiO2 33 Sodium 141 141 Potassium 4.0 3.9 Chloride 107 108 H Carbon Dioxide 25 20 L Anion Gap 9 13 H BUN 13 11 Creatinine 0.80 0.67 L Estim Creat Clear Calc 58 66 Estimated GFR > 60 > 60 Glucose 127 H 170 H Calcium 9.6 9.6 Total Bilirubin 0.6 0.5 AST 37 H 44 H ALT 22 28 Alkaline Phosphatase 79 68 Troponin I < 0.012 NT-Pro-B Natriuret Pep 702 H Total Protein 8.1 8.4 H Albumin 4.6 4.8 Influenza A (RT-PCR) Negative Influenza B (RT-PCR) Negative RSV (RT-PCR) Negative SARS-CoV-2 RNA (RT-PCR) Negative
[2024-11-05] MEDS: cefTRIAXone 1 GM in SODIUM CHLORIDE 0.9% IV 50 ML 100 ML IVPB (15:50)
[2024-11-05] MEDS: DOXYCYCLINE HYCLATE 100 MG TABLET PO (17:25)
[2024-11-05] MEDS: LORazepam INJ (*CRX) 2 MG/ML VIAL 0.5 MG IV PUSH (20:20)
[2024-11-05] MEDS: ACETAMINOPHEN 325 MG TABLET 650 MG PO (20:42)
[2024-11-06] VITALS (18 sets, daily range): BP systolic 136–153; BP diastolic 68–75; PULSE 83–151; RESP 16–20; TEMP 35.8–36.7; O2SAT 93–97
[2024-11-06] MEDS: IPRATROPIUM BR 0.02% INH SOLN 0.5 MG/2.5 ML VIAL INHALATION ×4 (02:24→19:43)
[2024-11-06] MEDS: DOXYCYCLINE HYCLATE 100 MG TABLET PO ×2 (06:33→17:31)
[2024-11-06] MEDS: ACETAMINOPHEN 325 MG TABLET 650 MG PO (06:35)
[2024-11-06 06:44] LABS: Alanine Aminotransferase 19 U/L (6-35); Albumin Level 4.5 g/dL (3.5-5.1); Alkaline Phosphatase 64 U/L (38-126); Anion Gap 7 mmol/L (4-12); Aspartate Amino Transferase 33 U/L (14-36); Bilirubin,Total 0.4 mg/dL (0.2-1.3); Blood Urea Nitrogen 20 mg/dL (7-17); Calcium 9.5 mg/dL (8.4-10.2); Carbon Dioxide 25 mmol/L (22-30); Chloride 108 mmol/L (98-107); Estimated CRCL calculation 66 ml/min; Estimated Glomerular Filt Rate > 60; Glucose 135 mg/dL (65-110); Potassium 4.2 mmol/L (3.4-5.0); Sodium 140 mmol/L (137-145); Total Protein 7.6 g/dL (6.3-8.2)
[2024-11-06 07:08] LABS: Thyroid Stimulating Hormone Reflex 0.322 uIU/mL (0.465-4.68)
[2024-11-06 07:09] LABS: Hepatitis B Surface Antigen Negative (Negative)
[2024-11-06] MEDS: cefTRIAXone 1 GM in SODIUM CHLORIDE 0.9% IV 50 ML 100 ML IVPB (08:22)
[2024-11-06] MEDS: ENOXAPARIN 40 MG/0.4 ML SYRINGE SUB-Q (08:23)
[2024-11-06 08:44] LABS: Free T4 Free Thyroxine Reflex 0.94 ng/dL (0.78-2.19)
[2024-11-06 09:53] LABS: Total Triiodothyronine (T3) 0.75 NG/ML (0.82-1.58)
--- NOTE | 2024-11-06 11:58 | P.PNIM_ITS ---
Progress Note: A&P Assessment and Plan (1) Acute exacerbation of chronic obstructive pulmonary disease: Code(s): J44.1 - Chronic obstructive pulmonary disease with (acute) exacerbation Status: Acute Assessment and Plan: * No PE or infiltrate by CTA chest * Continue ceftriaxone and doxycycline (begun in ED 11/04/2024) * Continue IV methylprednisolone * Continue nebulized levalbuterol and ipratropium * 11/05/24: Discussed that she needs PFT and likely maintenance inhaler after discharge 11/06/24: * Await Pulmonology evaluation. * Continue Ceftriaxone and Doxy, Solumedrol, Xopenex and Duoneb. * Wean oxygen as tolerated. (2) Anxiety: Code(s): F41.9 - Anxiety disorder, unspecified Status: Acute Assessment and Plan: * Start Prozac 20 mg po Daily. * Start Buspar 5 mg Q12 hrs BID. (3) Choking: Code(s): T17.308A - Unspecified foreign body in larynx causing other injury, initial encounter Status: Acute Assessment and Plan: 11/06/24: * Pt with witnessed choking event by RN today. * Bedside swallow eval ordered. (4) Nicotine dependence: Qualifiers: Nicotine product type: cigarettes Substance use status: unspecified nicotine-induced disorder Qualified Code(s): F17.219 - Nicotine dependence, cigarettes, with unspecified nicotine-induced disorders Code(s): F17.200 - Nicotine dependence, unspecified, uncomplicated Status: Acute Assessment and Plan: * Stopped smoking over two weeks ago so likely does not need nicotine patch 11/06/24: * Refuses need for any treatment at this time. (5) Acute hypoxemic respiratory failure: Code(s): J96.01 - Acute respiratory failure with hypoxia Status: Acute Assessment and Plan: * Due to COPD exacerbation 11/06/24: * No further signs of respiratory decompensation. (6) Tachycardia: Code(s): R00.0 - Tachycardia, unspecified Status: Acute Assessment and Plan: * Sinus tachycardia is likely due to acute illness, anxiety, beta-agonist 11/06/24: * Pt is very anxious and tearful as noted in HPI. She will be treated with SSRI and Buspar starting today, but also suspect that her Beta-agonist requirement is playing a role. (7) Elevated liver enzymes: Code(s): R74.8 - Abnormal levels of other serum enzymes Status: Resolved Assessment and Plan: * Minimal elevation of AST, NL ALT * Denied alcohol intake * Possibly reactive vs steatohepatitis, viral hepatitis less likely * F/u lab 11/06/24: * Resolved abnormal function. Time Spent With Patient Time with patient: 25 - 35 minutes Subjective Date/time seen: 11/06/24 11:58 Interval history: This very pleasant 64 year old female pt with no historical hx known other than she quit smoking cigarettes 18 days ago. She was admitted yesterday to the hospital for acute SOB. Pt becomes very tearful talking to me and notes that she is thinking a lot about her who passed two years ago and used to work in construction and she keeps seeing the machinery from the new construction site outside and she is thinking/mourning him. 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 She becomes tearful again stating she was told yesterday that she likely has Emphysema and it will ultimately kill her. Pt appears very anxious overall and admits she has not followed up with a physician for her own health as she should. She is going to be evaluated here by pulmonology and she is reassured that she has already taken the most important step of stopping smoking and we can help her manage the rest. She felt reassured after this and she was offered the initiation of SSRI and Buspar and she accepts. The RN tells me that pt had a witnessed episode of choking today attempting to take a drink. A bedside swallow evaluation is also ordered at this time. Review of Systems Review of Systems: All systems reviewed & are unremarkable except as noted in HPI and below Exam Narrative: General: well appearing, appears stated age. HEENT: Atraumatic/Normocephalic, MMM Respiratory: Coarse inspiratory and expiratory rhonchi present. No wheezing. No rales. Pt has prolonged expiratory phase present. Cardiovascular: RRR, S1 and S2 present without S3, S4,m,r,g,h Abdomen: Soft, NT, BS+x4 Extremities: No cyanosis, clubbing, or edema present. Pulses are palpable 2/2. Active ROM to all four extremities. Neuro: A&Ox4. PERRLA. CN 2-12 intact without any focal deficit. Skin: Warm, dry, and intact, without rash, erythema, or lesion. Psych: Pleasant, tearful and anxious at times. Objective Data Vital Signs Vital Signs: Vital Signs - 24 hr 11/05/24 12:00 11/05/24 13:25 11/05/24 13:33 Temperature Pulse Rate 117 H 111 H 104 H Respiratory Rate 20 20 Blood Pressure Pulse Oximetry Oxygen Delivery Oxygen Flow Rate 11/05/24 14:00 11/05/24 16:00 11/05/24 20:00 Temperature 99.0 F Pulse Rate 133 H 119 H 102 H Respiratory Rate 20 Blood Pressure 146/65 H Pulse Oximetry 94 Oxygen Delivery Oxygen Flow Rate 11/05/24 20:00 11/05/24 20:50 11/05/24 20:55 Temperature Pulse Rate 102 H 109 H 109 H Respiratory Rate 20 20 Blood Pressure Pulse Oximetry 94 96 Oxygen Delivery Nasal Cannula Nasal Cannula Oxygen Flow Rate 1 2 11/05/24 21:05 11/05/24 22:00 11/05/24 22:30 Temperature 97.0 F L Pulse Rate 105 H 110 H Respiratory Rate 20 20 Blood Pressure 146/76 H Pulse Oximetry 95 94 Oxygen Delivery Nasal Cannula Oxygen Flow Rate 1 11/06/24 00:00 11/06/24 02:07 11/06/24 02:24 Temperature Pulse Rate 96 151 H 94 Respiratory Rate 20 Blood Pressure Pulse Oximetry Oxygen Delivery Oxygen Flow Rate 11/06/24 02:35 11/06/24 04:00 11/06/24 06:00 Temperature 97.0 F L Pulse Rate 120 H 88 93 Respiratory Rate 20 16 Blood Pressure 136/68 Pulse Oximetry 93 Oxygen Delivery Oxygen Flow Rate 11/06/24 08:13 11/06/24 08:20 Temperature Pulse Rate 116 H 97 Respiratory Rate 20 Blood Pressure Pulse Oximetry 97 Oxygen Delivery Nasal Cannula Oxygen Flow Rate 1 Intake/Output Intake/Output: Intake & Output 11/03/24 11/04/24 11/05/24 11/06/24 23:59 23:59 23:59 23:59 Intake Total 100 2170 440 Balance 100 2170 440 Meds/Results Medications: Active Medications Generic Name Dose Route Start Last Admin Trade Name Freq PRN Reason Stop Dose Admin Acetaminophen 650 mg 11/04/24 21:31 11/06/24 06:35 Acetaminophen 325 Mg Tablet PO 650 mg Q4H PRN Administration Mild Pain (1-3) or Fever Docusate Sodium 100 mg 11/04/24 21:31 Docusate Sodium 100 Mg Capsule PO BID PRN Constipation Doxycycline Hyclate 100 mg 11/05/24 18:30 11/06/24 06:33 Doxycycline Hyclate 100 Mg Tablet PO 100 mg Q12H ANDREW Administration Enoxaparin Sodium 40 mg 11/05/24 09:00 11/06/24 08:23 Enoxaparin 40 Mg/0.4 Ml Syringe SUB-Q 40 mg DAILY ANDREW Administration Guaifenesin 200 mg 11/05/24 14:46 Guaifenesin 200 Mg/10 Ml Udc PO Q4H PRN Cough Ceftriaxone Sodium 1 gm/ 50 mls @ 100 mls/hr 11/05/24 14:50 11/06/24 08:22 Sodium Chloride IVPB 100 mls/hr QAM ANDREW Administration Ipratropium [place] 0.5 mg 11/05/24 02:00 11/06/24 08:09 Ipratropium Br 0.02% Inh Soln 0.5 Mg/2.5 Ml Vial INHALATION 0.5 mg Q6HRT ANDREW Administration Levalbuterol HCl 0.63 mg 11/05/24 02:00 11/06/24 08:09 Levalbuterol Neb 1.25 Mg/3 Ml INHALATION 0.63 mg Q6HRT ANDREW Administration Lorazepam 0.5 mg 11/05/24 14:45 11/05/24 20:20 Lorazepam Inj (*Crx) 2 Mg/Ml Vial IV PUSH 0.5 mg Q6H PRN Administration Anxiety Methylprednisolone Sodium Succinate 60 mg 11/05/24 21:00 11/06/24 08:23 Methylprednisolone Sod Succ 125 Mg Vial IV PUSH 60 mg Q12HR ANDREW Administration Perflutren Lipid Microsphere 0 ml 11/04/24 21:33 Perflutren Lipid Microspheres 1.5 Ml Vial Diluted To 10 Ml Total Volume IV PUSH 11/07/24 21:34 ONCE PRN adequate visualization Protocol Radiology Results: ITS Impressions Chest X-Ray 11/04/24 17:04 IMPRESSION: 1. Small opacities in the lower lungs which represents atelectasis/scarring or infiltrates. 2. Lungs are hyperinflated. Chest CTA 11/04/24 18:27 IMPRESSION: No pulmonary embolus. No thoracic aortic dissection. Centrilobular emphysematous disease Labs Labs: Laboratory Results - last 24 hr 11/06/24 05:29 Sodium 140 Potassium 4.2 Chloride 108 H Carbon Dioxide 25 Anion Gap 7 BUN 20 H Creatinine 0.67 L Estim Creat Clear Calc 66 Estimated GFR > 60 Glucose 135 H Calcium 9.5 Total Bilirubin 0.4 AST 33 ALT 19 Alkaline Phosphatase 64 Total Protein 7.6 Albumin 4.5 TSH (Reflex) 0.322 L Free T4 0.94 Total T3 0.75 L Hep Bs Antigen Negative Hepatitis C Ab Screen Negative Quality VTE Prophylaxis VTE prophylaxis: pharmacologic ordered
--- NOTE | 2024-11-06 13:24 | PCSTNOTE ---
Please refer to the Bedside Swallow Evaluation in the EMR. Please note, silent aspiration cannot be ruled out at bedside.
[2024-11-06] MEDS: LORazepam INJ (*CRX) 2 MG/ML VIAL 0.5 MG IV PUSH (18:33)
[2024-11-07] VITALS (24 sets, daily range): BP systolic 142–169; BP diastolic 73–103; PULSE 76–154; RESP 17–20; TEMP 35.7–36.2; O2SAT 86–99
[2024-11-07] MEDS: IPRATROPIUM BR 0.02% INH SOLN 0.5 MG/2.5 ML VIAL INHALATION ×5 (01:47→20:28)
--- NOTE | 2024-11-07 03:19 | ECG_ITS ---
Test Date: 2024-11-07 03:31:59 Measurements Intervals [place] Rate: 133 P: 82 GA: 137 QRS: 42 QRSD: 74 T: 74 QT: 283 QTc: 422 Interpretive Statements SINUS TACHYCARDIA ST-T WAVE ABNORMALITY IN ANTEROLAT/INF LEADS- CONSIDER ISCHEMIA BASELINE ARTIFACT- I, II, III, AVR, AVL, V3-V6 ABNORMAL ECG Compared to ECG 11/04/2024 23:19:10 ST (T wave) deviation now present POSSIBLE ISCHEMIA NOW PRESENT Electronically Signed On 11-07-2024 07:10:13 CDT by Mirza Wang D.O.
[2024-11-07] MEDS: KETOROLAC 30 MG/ML VIAL (*BKC) IV PUSH (03:34)
[2024-11-07] MEDS: LORazepam INJ (*CRX) 2 MG/ML VIAL 0.5 MG IV PUSH ×3 (03:35→19:34)
[2024-11-07 04:37] LABS: Troponin I < 0.012 ng/mL (0.000-0.034)
[2024-11-07] MEDS: DOXYCYCLINE HYCLATE 100 MG TABLET PO ×2 (05:06→17:44)
[2024-11-07] MEDS: ENOXAPARIN 40 MG/0.4 ML SYRINGE SUB-Q (08:54)
[2024-11-07] MEDS: cefTRIAXone 1 GM in SODIUM CHLORIDE 0.9% IV 50 ML 100 ML IVPB (08:54)
[2024-11-07] MEDS: guaiFENesin 12 HR 600 MG TABCR 1200 MG PO ×2 (09:50→20:48)
--- NOTE | 2024-11-07 09:56 | P.CONPL_ITS ---
Assessment and Plan Assessment and plan (1) Acute exacerbation of chronic obstructive pulmonary disease: Code(s): J44.1 - Chronic obstructive pulmonary disease with (acute) exacerbation Status: Acute Assessment and Plan: Patient does smoke tobacco since age 21 on and off at 1 and half packs per day at her peak, total pack years 45 pack years, Quit 2 weeks ago. Smokes 1/2 marijuana cigarette a night for the last 7 years, quit 1 month ago. Exposed to secondhand smoke from her mother. 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 Patient tells me she had PFTs 15-20 years ago and she was told that these were fine. She denies asthma or chronic bronchitis. At baseline 2 weeks ago patient says she had no respiratory limitations in her activities of daily living and cut her grass and do gardening without respiratory limitations. She is on no home oxygen. On 11/04 the patient presented to the ER with 1-2 days worsening fatigue, rhinorrhea, cough, dyspnea on exertion and shortness of breath at rest. Her blood pressure was 144/85, heart rate 109, respirations 22, saturations were 100% on 6 L. She had decreased breath sounds and expiratory wheezes bilaterally. Her white blood cell count was 9.3, eosinophils 12.8=0757/uL, her creatinine was 0.8, BNP 702, COVID, influenza, RSV RT PCR assay negative. ABG on 3.5 L nasal cannula 7.38//89. CT angiogram of the chest showed no PE, mild apical predominant centrilobular emphysema with no infiltrates or effusions. Patient was treated for COPD exacerbation with bronchodilators, Solu-Medrol, Rocephin and doxycycline. 11/07/2024: Patient tells me she is improved but minimally improved. She has 15% back to her normal. She still has rest shortness of breath, dyspnea on exertion, wheezing. Nebulizers to help her. She has yellow to green phlegm with no Hemoptysis. When I enter the room she was on 3 L nasal cannula saturations 99%. I decreased her to room air and her saturations were 92%. Plan: I congratulated her on quitting tobacco 2 weeks ago and quitting marijuana 1 month ago. Will continue to treat patient for COPD exacerbation. She is still wheezing. She is on day 4 Solu-Medrol 60 q.12 and still has wheezes. I will change her to 30 q.6. I will increase the frequency of her ipratropium and levalbuterol nebulizers from q.6 hours to q.4 hours. Patient is on Rocephin and doxycycline day 4 of both. She had no focal infiltrates on her CT scan of the chest and will discontinue Rocephin today. I will order alpha 1 anti trypsin genotype and level for tomorrow. I have ordered a respiratory pathogen panel looking for etiology of her COPD exacerbation. I will order overnight oximetry on room air to assess for nocturnal hypoxemia. Discussed with Dr. Calvillo, will follow with you. History of Present Illness History of Present Illness Consult date: 11/07/24 Chief complaint: COPD Exacerbation Narrative: 2024: This is a new pulmonary consult for COPD exacerbation. 64-year-old with no previous medical diagnosis on no home medicines. Patient does smoke tobacco since age 21 on and off at 1 and half packs per day at her peak, total pack years 45 pack years, Quit 2 weeks ago. Smokes 1/2 marijuana cigarette a night for the last 7 years, quit 1 month ago. Exposed to secondhand smoke from her mother. 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 Patient tells me she had PFTs 15-20 years ago and she was told that these were fine. She denies asthma or chronic bronchitis. At baseline 2 weeks ago patient says she had no respiratory limitations in her activities of daily living and cut her grass and do gardening without respiratory limitations. She is on no home oxygen. On 11/04 the patient presented to the ER with 1-2 days worsening fatigue, rhinorrhea, cough, dyspnea on exertion and shortness of breath at rest. Her blood pressure was 144/85, heart rate 109, respirations 22, saturations were 100% on 6 L. She had decreased breath sounds and expiratory wheezes bilaterally. Her white blood cell count was 9.3, eosinophils 12.0=4437/uL, her creatinine was 0.8, BNP 702, COVID, influenza, RSV RT PCR assay negative. ABG on 3.5 L nasal cannula 7.38/38/89. CT angiogram of the chest showed no PE, mild apical predominant centrilobular emphysema with no infiltrates or effusions. Patient was treated for COPD exacerbation with bronchodilators, Solu-Medrol, Rocephin and doxycycline. 11/07/2024: Patient tells me she is improved but minimally improved. She has 15% back to her normal. She still has rest shortness of breath, dyspnea on exertion, wheezing. Nebulizers to help her. She has yellow to green phlegm with no Hemoptysis. When I enter the room she was on 3 L nasal cannula saturations 99%. I decreased her to room air and her saturations were 92%. DATA: 11/05/24: Summary 1. Complete two-dimensional, color flow and Doppler transthoracic echocardiogram is performed. 2. Left ventricular chamber dimension is normal. 3. Left ventricular systolic function is normal, estimated at 60-65. 4. The left ventricular diastolic function is grade I diastolic dysfunction. 5. E/e' 9 is minimally elevated. 6. There is trace tricuspid valve regurgitation. Right Ventricle Right ventricular chamber dimension is normal. Right ventricular systolic function is normal. Right Atria Right atrial chamber dimension is normal. Tricuspid Valve There is trace tricuspid valve regurgitation. RVSP is not measured due to an inadequate TR jet. 11/04/24: EXAMINATION: CTA chest PE protocol INDICATION: Shortness of breath with near, pulmonary embolus suspected clinically COMPARISON: None. FINDINGS/OBSERVATIONS: PULMONARY ARTERIES: No filling defect is identified within the main or proximal pulmonary artery. The main pulmonary artery is not enlarged. THORACIC AORTA: No aneurysmal dilatation or dissection is present. The great vessels are intact LUNGS: Centrilobular emphysematous disease. The lungs are otherwise clear. MEDIASTINUM: No morphologically suspicious or pathologically enlarged lymph nodes are identified within the mediastinum or bilateral axilla. BONES OF THE CHEST: No acute fracture. Age-appropriate degenerative disease. No lytic or blastic lesions. HEART: The heart is of normal size, without pericardial effusion. IMPRESSION: No pulmonary embolus. No thoracic aortic dissection. Centrilobular emphysematous disease. Review of Systems 2 Constitutional: Constitutional: Reports no additional constitutional complaints Eyes: Eyes: Reports no additional eye complaints ENT: Reports system reviewed and no additional complaints, except as documented Cardiovascular: Cardiovascular: Reports no additional cardiovascular complaints Respiratory: Respiratory: Reports no additional respiratory complaints Gastrointestinal: Gastrointestinal: Reports no additional gastrointestinal complaints Musculoskeletal: Musculoskeletal: Reports no additional musculoskeletal complaints Neurologic: Reports system reviewed and no additional complaints, except as documented Psychiatric: Psychiatric: Reports no additional psychiatric complaints Endocrine: Endocrine: Reports no additional endocrine complaints Hematologic/Lymphatic: Hematologic/Lymphatic: Reports no additional hematologic/lymphatic complaints Allergic/Immunologic: Allergic/Immunologic: Reports no additional allergic/immunologic complaints FOR[facility], [facility] Past Medical History Medical History (Updated 11/06/24 @ 12:19 by ZENIA Fowler) Choking Anxiety Surgical History Surgical History H/O exploratory laparotomy H/O joint replacement BL H/O: hysterectomy 1999 Family History Family History Father Type 2 diabetes mellitus Glaucoma Grandparent Leukemia CAD (coronary artery disease) Cancer Mother Lung disease Social History Social History Smoking packs per day: 1.5 Smoking cigarettes per day: 30.0 Smoking status: Former smoker Tobacco type: cigarettes Second hand tobacco smoke exposure: Yes Smoking end date: 10/21/24 Alcohol intake: unknown Substance use: current Substance use type: marijuana Lack of Transportation: YES Lack of Food: Never True Current Housing: I Have Housing Concerned About Future Housing: No Difficulty Paying Gas/Electric Bills: No Difficulty Paying for Meds: No Currently Unemployed: No Education: High School Diploma/GED Difficulty w/ Childcare or Family Care: No Spiritual care concerns: No Meds Home Medications and Allergies Home Medications ?Medication ?Instructions ?Recorded ?Confirmed ?Type No Home Medications 11/05/24 11/05/24 History Allergies Allergy/AdvReac Type Severity Reaction Status Date / Time codeine Allergy Unknown Nausea and Verified 11/04/24 20:58 Vomiting ofloxacin Allergy Unknown SHORT OF Verified 11/04/24 20:58 BREATH Penicillins Allergy Unknown UNKNOWN Verified 11/04/24 20:58 fluoxetine AdvReac Severe Suicidal Verified 11/06/24 16:09 Ideation Vital Signs Vital Signs - 24 hr 11/06/24 12:00 11/06/24 14:00 11/06/24 14:15 Temperature 36.7 C Pulse Rate 88 102 H 107 H Respiratory Rate 20 18 Blood Pressure 149/68 H Pulse Oximetry 96 Oxygen Delivery Oxygen Flow Rate 11/06/24 14:24 11/06/24 16:00 11/06/24 19:43 Temperature Pulse Rate 104 H 94 102 H Respiratory Rate 20 18 Blood Pressure Pulse Oximetry Oxygen Delivery Oxygen Flow Rate 11/06/24 19:53 11/06/24 20:00 11/06/24 20:30 Temperature 35.8 C L Pulse Rate 102 H 91 85 Respiratory Rate 18 16 Blood Pressure 153/75 H Pulse Oximetry 93 Oxygen Delivery Oxygen Flow Rate 11/07/24 00:00 11/07/24 01:45 11/07/24 02:00 Temperature Pulse Rate 77 102 H 102 H Respiratory Rate 18 18 Blood Pressure Pulse Oximetry Oxygen Delivery Oxygen Flow Rate 11/07/24 03:16 11/07/24 04:00 11/07/24 04:30 Temperature 35.7 C L Pulse Rate 153 H 115 H 120 H Respiratory Rate 18 Blood Pressure 169/103 H 154/86 H Pulse Oximetry 93 99 Oxygen Delivery Oxygen Flow Rate 11/07/24 04:35 11/07/24 04:40 11/07/24 05:00 Temperature 36.1 C L Pulse Rate 154 H 80 83 Respiratory Rate 20 Blood Pressure 169/103 H 150/85 H Pulse Oximetry 89 L 98 Oxygen Delivery Nasal Cannula Oxygen Flow Rate 1 11/07/24 08:39 11/07/24 08:39 11/07/24 08:51 Temperature Pulse Rate 120 H 120 H 111 H Respiratory Rate 20 20 20 Blood Pressure Pulse Oximetry 86 L Oxygen Delivery Room Air Oxygen Flow Rate Exam 2 Const: General: cooperative, healthy appearing and comfortable O rientation/consciousness: oriented to person, oriented to place and oriented to time HENMT: Head: normal to inspection Ears: hearing grossly normal bilaterally Eyes: General: appearance normal, both eyes and all related structures Neck: Neck: normal visual inspection Chest: Chest palpation & inspection: normal inspection of the chest Resp: Effort & Inspection: normal respiratory effort and able to speak in complete sentences Auscultation: no crackles, no rales, no rhonchi, wheezes and lung sounds not diminished Other: Inspiratory and expiratory wheezes Cardio: Jugular venous distension: no JVD GI: Inspection: normal to inspection GI Palp: No abdominal tenderness Skin: General skin exam: normal color Neuro: General: oriented to person, oriented to place and oriented to time Extrem: General: normal to inspection Psych: Appearance: grossly normal Results Laboratory Findings 11/05/24 05:22 11/06/24 05:29 ABG, PT/INR, D-dimer: ABG ABG pH 7.378 (7.350-7.450) 11/04/24 16:36 ABG pCO2 38.0 mmHg (35.0-45.0) 11/04/24 16:36 ABG pO2 88.6 mmHg (80.0-100.0) 11/04/24 16:36 ABG O2 Saturation 96.6 % (95.0-100.0) 11/04/24 16:36 Abnormal lab findings: Abnormal Labs 11/04/24 11/04/24 11/05/24 16:13 16:36 05:22 Immature Gran % (Auto) 0.6 H Neut % (Auto) 86.6 H Lymph % (Auto) 11.4 L [place] % (Auto) 1.1 L Eos % (Auto) 12.6 H Eos # (Auto) 1.2 H Abs Immat Gran (auto) 0.05 H Absolute Neuts (auto) 6.8 H ABG HCO3 21.9 L Chloride 108 H Carbon Dioxide 20 L Anion Gap 13 H BUN Creatinine 0.67 L Glucose 127 H 170 H AST 37 H 44 H NT-Pro-B Natriuret Pep 702 H Total Protein 8.4 H TSH (Reflex) Total T3 11/06/24 05:29 Immature Gran % (Auto) Neut % (Auto) Lymph % (Auto) [place] % (Auto) Eos % (Auto) Eos # (Auto) Abs Immat Gran (auto) Absolute Neuts (auto) ABG HCO3 Chloride 108 H Carbon Dioxide Anion Gap BUN 20 H Creatinine 0.67 L Glucose 135 H AST NT-Pro-B Natriuret Pep Total Protein TSH (Reflex) 0.322 L Total T3 0.75 L Diagnostic Findings Additional studies: ITS Impressions Chest X-Ray 11/04/24 17:04 IMPRESSION: 1. Small opacities in the lower lungs which represents atelectasis/scarring or infiltrates. 2. Lungs are hyperinflated. Chest CTA 11/04/24 18:27
--- NOTE | 2024-11-07 15:09 | P.PNIM_ITS ---
Progress Note: A&P Assessment and Plan (1) Acute exacerbation of chronic obstructive pulmonary disease: Code(s): J44.1 - Chronic obstructive pulmonary disease with (acute) exacerbation Status: Acute Assessment and Plan: * No PE or infiltrate by CTA chest * Continue ceftriaxone and doxycycline (begun in ED 11/04/2024) * Continue IV methylprednisolone * Continue nebulized levalbuterol and ipratropium Pulmonary consulted Oxygen supplementation and wean as tolerated (2) Anxiety: Code(s): F41.9 - Anxiety disorder, unspecified Status: Acute Assessment and Plan: * Start Prozac 20 mg po Daily. * Start Buspar 5 mg Q12 hrs BID. (3) Choking: Code(s): T17.308A - Unspecified foreign body in larynx causing other injury, initial encounter Status: Acute Assessment and Plan: On 11/06/2024. Swallow evaluation (4) Nicotine dependence: Qualifiers: Nicotine product type: cigarettes Substance use status: unspecified nicotine-induced disorder Qualified Code(s): F17.219 - Nicotine dependence, cigarettes, with unspecified nicotine-induced disorders Code(s): F17.200 - Nicotine dependence, unspecified, uncomplicated Status: Acute Assessment and Plan: * Stopped smoking over two weeks ago so likely does not need nicotine patch 11/06/24: * Refuses need for any treatment at this time. (5) Acute hypoxemic respiratory failure: Code(s): J96.01 - Acute respiratory failure with hypoxia Status: Acute Assessment and Plan: * Due to COPD exacerbation (6) Tachycardia: Code(s): R00.0 - Tachycardia, unspecified Status: Acute Assessment and Plan: * Sinus tachycardia is likely due to acute illness, anxiety, beta-agonist Switched to Xopenex (7) Elevated liver enzymes: Code(s): R74.8 - Abnormal levels of other serum enzymes Status: Resolved Assessment and Plan: * Minimal elevation of AST, NL ALT * Denied alcohol intake * Possibly reactive vs steatohepatitis, viral hepatitis less likely * F/u lab with resolution Subjective Date/time seen: 11/07/24 15:09 Interval history: Feels short of breath still wheezy. No nausea vomiting no abdominal pain Review of Systems Review of Systems: All systems reviewed & are unremarkable except as noted in HPI and below Exam Narrative: General: well appearing, appears stated age. HEENT: Atraumatic/Normocephalic, MMM Respiratory: Coarse inspiratory and expiratory rhonchi present. No wheezing. No rales. Cardiovascular: RRR, S1 and S2 present without S3, S4,m,r,g,h Abdomen: Soft, NT, BS+x4 Extremities: No cyanosis, clubbing, or edema present. Pulses are palpable 2/2. Active ROM to all four extremities. Neuro: A&Ox4. PERRLA. CN 2-12 intact without any focal deficit. Skin: Warm, dry, and intact, without rash, erythema, or lesion. Psych: Pleasant, anxious at times. Objective Data Vital Signs Vital Signs: Vital Signs - 24 hr 11/06/24 16:00 11/06/24 19:43 11/06/24 19:53 Temperature Pulse Rate 94 102 H 102 H Respiratory Rate 18 18 Blood Pressure Pulse Oximetry Oxygen Delivery Oxygen Flow Rate 11/06/24 20:00 11/06/24 20:30 11/07/24 00:00 Temperature 96.4 F L Pulse Rate 91 85 77 Respiratory Rate 16 Blood Pressure 153/75 H Pulse Oximetry 93 Oxygen Delivery Oxygen Flow Rate 11/07/24 01:45 11/07/24 02:00 11/07/24 03:16 Temperature 96.3 F L Pulse Rate 102 H 102 H 153 H Respiratory Rate 18 18 18 Blood Pressure 169/103 H Pulse Oximetry 93 Oxygen Delivery Oxygen Flow Rate 11/07/24 04:00 11/07/24 04:30 11/07/24 04:35 Temperature Pulse Rate 115 H 120 H 154 H Respiratory Rate Blood Pressure 154/86 H 169/103 H Pulse Oximetry 99 89 L Oxygen Delivery Nasal Cannula Oxygen Flow Rate 1 11/07/24 04:40 11/07/24 05:00 11/07/24 08:00 Temperature 97 F L Pulse Rate 80 83 Respiratory Rate 20 Blood Pressure 150/85 H Pulse Oximetry 98 93 Oxygen Delivery Nasal Cannula Oxygen Flow Rate 1 11/07/24 08:00 11/07/24 08:39 11/07/24 08:39 Temperature Pulse Rate 76 120 H 120 H Respiratory Rate 20 20 Blood Pressure Pulse Oximetry 86 L Oxygen Delivery Room Air Oxygen Flow Rate 11/07/24 08:51 11/07/24 12:31 11/07/24 12:31 Temperature Pulse Rate 111 H 115 H 115 H Respiratory Rate 20 20 20 Blood Pressure Pulse Oximetry 91 Oxygen Delivery Nasal Cannula Oxygen Flow Rate 1 11/07/24 12:43 Temperature Pulse Rate 111 H Respiratory Rate 20 Blood Pressure Pulse Oximetry Oxygen Delivery Oxygen Flow Rate Intake/Output Intake/Output: Intake & Output 11/04/24 11/05/24 11/06/24 11/07/24 23:59 23:59 23:59 23:59 Intake Total 100 2170 2070 150 Balance 100 2170 2070 150 Meds/Results Medications: Active Medications Generic Name Dose Route Start Last Admin Trade Name Freq PRN Reason Stop Dose Admin Acetaminophen 650 mg 11/04/24 21:31 11/06/24 06:35 Acetaminophen 325 Mg Tablet PO 650 mg Q4H PRN Administration Mild Pain (1-3) or Fever Buspirone HCl 5 mg 11/06/24 12:20 11/07/24 08:54 Buspirone Hcl 5 Mg Tablet PO 5 mg Q12HR ANDREW Administration Docusate Sodium 100 mg 11/04/24 21:31 Docusate Sodium 100 Mg Capsule PO BID PRN Constipation Doxycycline Hyclate 100 mg 11/05/24 18:30 11/07/24 05:06 Doxycycline Hyclate 100 Mg Tablet PO 100 mg Q12H ANDREW Administration Enoxaparin Sodium 40 mg 11/05/24 09:00 11/07/24 08:54 Enoxaparin 40 Mg/0.4 Ml Syringe SUB-Q 40 mg DAILY ANDREW Administration Guaifenesin 200 mg 11/05/24 14:46 11/07/24 03:23 Guaifenesin 200 Mg/10 Ml Udc PO 200 mg Q4H PRN Administration Cough Guaifenesin 1,200 mg 11/07/24 09:30 11/07/24 09:50 Guaifenesin 12 Hr 600 Mg Tabcr PO 1,200 mg Q12HR ANDREW Administration Ipratropium [facility] [facility] 0.5 mg 11/07/24 12:00 11/07/24 12:29 Ipratropium Br 0.02% Inh Soln 0.5 Mg/2.5 Ml Vial INHALATION 0.5 mg Q4HRT ANDREW Administration Levalbuterol HCl 0.63 mg 11/07/24 12:00 11/07/24 12:29 Levalbuterol Neb 1.25 Mg/3 Ml INHALATION 0.63 mg Q4HRT ANDREW Administration Lorazepam 0.5 mg 11/05/24 14:45 11/07/24 10:28 Lorazepam Inj (*Crx) 2 Mg/Ml Vial IV PUSH 0.5 mg Q6H PRN Administration Anxiety Methylprednisolone Sodium Succinate 30 mg 11/07/24 12:00 11/07/24 13:10 Methylprednisolone Sod Succ 40 Mg Vial IV PUSH 30 mg Q6HR ANDREW Administration Perflutren Lipid Microsphere 0 ml 11/04/24 21:33 Perflutren Lipid Microspheres 1.5 Ml Vial Diluted To 10 Ml Total Volume IV PUSH 11/07/24 21:34 ONCE PRN adequate visualization Protocol Radiology Results: ITS Impressions Chest X-Ray 11/04/24 17:04 IMPRESSION: 1. Small opacities in the lower lungs which represents atelectasis/scarring or infiltrates. 2. Lungs are hyperinflated. Chest CTA 11/04/24 18:27 IMPRESSION: No pulmonary embolus. No thoracic aortic dissection. Centrilobular emphysematous disease Labs Labs: Laboratory Results - last 24 hr 11/07/24 04:00 Troponin I < 0.012
[2024-11-07] MEDS: SALINE 0.65% NAS SOLN 44 ML BTL 1 SPRAY NASAL (17:44)
[2024-11-07] MEDS: ACETAMINOPHEN 325 MG TABLET 650 MG PO (19:33)
--- NOTE | 2024-11-07 22:36 | PC.NURSE ---
TONIGHT AFTER READING SUPERINTENDENT METERS NOTE ABOUT OVERNIGHT PULSE OXIMETRY TESTING. RECOMMENDED TO ATTEMPT TO PUT PATIENT ON ROOM AIR AND MEASURE PULSE OXIMETRY THROUGH TELE MONITOR. PATIENT AGREEDED AND MADE CHARGE AWARE. AFTER ATTEMPTING THIS PATIENT'S HR WAS CONSISTENTLY TACHYCARDIC IN THE 130-150'S NORMAL SINUS. RECOMMENDED TO PATIENT TO PUT BACK ON OXYGEN, PATIENT AT THIS TIME REFUSING TO WEAR OXYGEN, MADE CHARGE NURSE AWAY. 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
--- NOTE | 2024-11-07 23:33 | PCRCNOTE ---
Pt does not want to do apnea link @ this time, has stated several reasons
[2024-11-08] VITALS (26 sets, daily range): BP systolic 141–178; BP diastolic 78–105; PULSE 83–126; RESP 18–24; TEMP 35.8–36.4; O2SAT 85–96
[2024-11-08] MEDS: IPRATROPIUM BR 0.02% INH SOLN 0.5 MG/2.5 ML VIAL INHALATION ×6 (01:10→20:57)
[2024-11-08] MEDS: DOXYCYCLINE HYCLATE 100 MG TABLET PO ×2 (05:26→18:10)
[2024-11-08] MEDS: LORazepam INJ (*CRX) 2 MG/ML VIAL 0.5 MG IV PUSH ×2 (05:27→20:27)
--- NOTE | 2024-11-08 08:05 | P.PNIM_ITS ---
Progress Note: A&P Assessment and Plan (1) Acute exacerbation of chronic obstructive pulmonary disease: Code(s): J44.1 - Chronic obstructive pulmonary disease with (acute) exacerbation Status: Acute Assessment and Plan: * No PE or infiltrate by CTA chest * Continue ceftriaxone and doxycycline (begun in ED 11/04/2024) * Continue IV methylprednisolone * Continue nebulized levalbuterol and ipratropium Pulmonary consulted Oxygen supplementation and wean as tolerated On pep therapy (2) Anxiety: Code(s): F41.9 - Anxiety disorder, unspecified Status: Acute Assessment and Plan: * On Prozac 20 mg po Daily. * On Buspar 5 mg Q12 hrs BID. (3) Choking: Code(s): T17.308A - Unspecified foreign body in larynx causing other injury, initial encounter Status: Acute Assessment and Plan: On 11/06/2024. Swallow evaluation (4) Nicotine dependence: Qualifiers: Nicotine product type: cigarettes Substance use status: unspecified nicotine-induced disorder Qualified Code(s): F17.219 - Nicotine dependence, cigarettes, with unspecified nicotine-induced disorders Code(s): F17.200 - Nicotine dependence, unspecified, uncomplicated Status: Acute Assessment and Plan: * Stopped smoking over two weeks ago so likely does not need nicotine patch 11/06/24: * Refuses need for any treatment at this time. (5) Acute hypoxemic respiratory failure: Code(s): J96.01 - Acute respiratory failure with hypoxia Status: Acute Assessment and Plan: * Due to COPD exacerbation (6) Tachycardia: Code(s): R00.0 - Tachycardia, unspecified Status: Acute Assessment and Plan: * Sinus tachycardia is likely due to acute illness, anxiety, beta-agonist Switched to Xopenex (7) Elevated liver enzymes: Code(s): R74.8 - Abnormal levels of other serum enzymes Status: Resolved Assessment and Plan: * Minimal elevation of AST, NL ALT * Denied alcohol intake * Possibly reactive vs steatohepatitis, viral hepatitis less likely * F/u lab with resolution Subjective Date/time seen: 11/08/24 08:05 Interval history: Feels about the same today. Short of breath with exertion. Still having cough quite frequently. Greenish in color sputum Review of Systems Review of Systems: All systems reviewed & are unremarkable except as noted in HPI and below Exam Narrative: General: well appearing, appears stated age. HEENT: Atraumatic/Normocephalic, MMM Respiratory: Coarse inspiratory and expiratory rhonchi present. No rales. Cardiovascular: RRR, S1 and S2 present without S3, S4,m,r,g,h Abdomen: Soft, NT, BS+x4 Extremities: No cyanosis, clubbing, or edema present. Pulses are palpable 2/2. Active ROM to all four extremities. Neuro: A&Ox4. PERRLA. CN 2-12 intact without any focal deficit. Skin: Warm, dry, and intact, without rash, erythema, or lesion. Psych: Pleasant, anxious at times. Objective Data Vital Signs Vital Signs: Vital Signs - 24 hr 11/07/24 08:39 11/07/24 08:39 11/07/24 08:51 Temperature Pulse Rate 120 H 120 H 111 H Respiratory Rate 20 20 20 Blood Pressure Pulse Oximetry 86 L Oxygen Delivery Room Air Oxygen Flow Rate 11/07/24 12:00 11/07/24 12:31 11/07/24 12:31 Temperature Pulse Rate 92 115 H 115 H Respiratory Rate 20 20 Blood Pressure Pulse Oximetry 91 Oxygen Delivery Nasal Cannula Oxygen Flow Rate 1 11/07/24 12:43 11/07/24 14:32 11/07/24 16:00 Temperature 97.0 F L Pulse Rate 111 H 127 H 97 Respiratory Rate 20 17 Blood Pressure 146/73 H Pulse Oximetry 92 Oxygen Delivery Oxygen Flow Rate 11/07/24 16:36 11/07/24 16:36 11/07/24 16:53 Temperature Pulse Rate 109 H 109 H 119 H Respiratory Rate 20 20 20 Blood Pressure Pulse Oximetry 90 Oxygen Delivery Nasal Cannula Oxygen Flow Rate 1 11/07/24 20:00 11/07/24 20:00 11/07/24 20:29 Temperature Pulse Rate 108 H 110 H Respiratory Rate 20 Blood Pressure Pulse Oximetry Oxygen Delivery Room Air Oxygen Flow Rate 11/07/24 20:42 11/07/24 20:45 11/07/24 20:46 Temperature 97.1 F L Pulse Rate 109 H 120 H 98 Respiratory Rate 20 20 20 Blood Pressure 142/79 H Pulse Oximetry 91 93 Oxygen Delivery Nasal Cannula Oxygen Flow Rate 1 11/08/24 00:00 11/08/24 01:11 11/08/24 01:23 Temperature Pulse Rate 94 101 H 98 Respiratory Rate 20 20 Blood Pressure Pulse Oximetry Oxygen Delivery Oxygen Flow Rate 11/08/24 04:00 11/08/24 04:45 11/08/24 04:59 Temperature Pulse Rate 87 99 103 H Respiratory Rate 20 20 Blood Pressure Pulse Oximetry Oxygen Delivery Oxygen Flow Rate 11/08/24 05:00 11/08/24 06:25 11/08/24 07:41 Temperature 96.4 F L Pulse Rate 116 H Respiratory Rate 20 Blood Pressure 178/105 H 141/78 H Pulse Oximetry 85 L 92 Oxygen Delivery Nasal Cannula Oxygen Flow Rate 2 11/08/24 07:41 11/08/24 07:53 Temperature Pulse Rate 98 112 H Respiratory Rate 20 20 Blood Pressure Pulse Oximetry Oxygen Delivery Oxygen Flow Rate Intake/Output Intake/Output: Intake & Output 11/05/24 11/06/24 11/07/24 11/08/24 23:59 23:59 23:59 23:59 Intake Total 2170 2070 1100 380 Balance 2170 2070 1100 380 Meds/Results Medications: Active Medications Generic Name Dose Route Start Last Admin Trade Name Freq PRN Reason Stop Dose Admin Acetaminophen 650 mg 11/04/24 21:31 11/07/24 19:33 Acetaminophen 325 Mg Tablet PO 650 mg Q4H PRN Administration Mild Pain (1-3) or Fever Buspirone HCl 5 mg 11/06/24 12:20 11/07/24 20:48 Buspirone Hcl 5 Mg Tablet PO 5 mg Q12HR ANDREW Administration Docusate Sodium 100 mg 11/04/24 21:31 Docusate Sodium 100 Mg Capsule PO BID PRN Constipation Doxycycline Hyclate 100 mg 11/05/24 18:30 11/08/24 05:26 Doxycycline Hyclate 100 Mg Tablet PO 100 mg Q12H ANDREW Administration Enoxaparin Sodium 40 mg 11/05/24 09:00 11/07/24 08:54 Enoxaparin 40 Mg/0.4 Ml Syringe SUB-Q 40 mg DAILY ANDREW Administration Guaifenesin 200 mg 11/05/24 14:46 11/07/24 03:23 Guaifenesin 200 Mg/10 Ml Udc PO 200 mg Q4H PRN Administration Cough Guaifenesin 1,200 mg 11/07/24 09:30 11/07/24 20:48 Guaifenesin 12 Hr 600 Mg Tabcr PO 1,200 mg Q12HR ANDREW Administration Ipratropium [place] 0.5 mg 11/07/24 12:00 11/08/24 07:35 Ipratropium Br 0.02% Inh Soln 0.5 Mg/2.5 Ml Vial INHALATION 0.5 mg Q4HRT ANDREW Administration Levalbuterol HCl 0.63 mg 11/07/24 12:00 11/08/24 07:35 Levalbuterol Neb 1.25 Mg/3 Ml INHALATION 0.63 mg Q4HRT ANDREW Administration Lorazepam 0.5 mg 11/05/24 14:45 11/08/24 05:27 Lorazepam Inj (*Crx) 2 Mg/Ml Vial IV PUSH 0.5 mg Q6H PRN Administration Anxiety Methylprednisolone Sodium Succinate 30 mg 11/07/24 12:00 11/08/24 05:26 Methylprednisolone Sod Succ 40 Mg Vial IV PUSH 30 mg Q6HR ANDREW Administration Sodium Chloride 1 spray 11/07/24 16:55 11/07/24 17:44 Saline 0.65% Flynn Soln 44 Ml Btl NASAL 1 spray Q6HR PRN Administration Congestion Radiology Results: ITS Impressions Chest X-Ray 11/04/24 17:04 IMPRESSION: 1. Small opacities in the lower lungs which represents atelectasis/scarring or infiltrates. 2. Lungs are hyperinflated. Chest CTA 11/04/24 18:27 IMPRESSION: No pulmonary embolus. No thoracic aortic dissection. Centrilobular emphysematous disease
[2024-11-08] MEDS: guaiFENesin 12 HR 600 MG TABCR 1200 MG PO ×2 (08:52→20:28)
[2024-11-08] MEDS: ENOXAPARIN 40 MG/0.4 ML SYRINGE SUB-Q (08:54)
--- NOTE | 2024-11-08 09:24 | P.PNPL_ITS ---
Progress Note: A&P Assessment and Plan (1) Acute exacerbation of chronic obstructive pulmonary disease: Code(s): J44.1 - Chronic obstructive pulmonary disease with (acute) exacerbation Status: Acute Assessment and Plan: Patient does smoke tobacco since age 21 on and off at 1 and half packs per day at her peak, total pack years 45 pack years, Quit 2 weeks ago. Smokes 1/2 marijuana cigarette a night for the last 7 years, quit 1 month ago. Exposed to secondhand smoke from her mother. 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 Patient tells me she had PFTs 15-20 years ago and she was told that these were fine. She denies asthma or chronic bronchitis. At baseline 2 weeks ago patient says she had no respiratory limitations in her activities of daily living and cut her grass and do gardening without respiratory limitations. She is on no home oxygen. On 11/04 the patient presented to the ER with 1-2 days worsening fatigue, rhinorrhea, cough, dyspnea on exertion and shortness of breath at rest. Her blood pressure was 144/85, heart rate 109, respirations 22, saturations were 100% on 6 L. She had decreased breath sounds and expiratory wheezes bilat erally. Her white blood cell count was 9.3, eosinophils 12.8=1432/uL, her creatinine was 0.8, BNP 702, COVID, influenza, RSV RT PCR assay negative. ABG on 3.5 L nasal cannula 7.38/38/89. CT angiogram of the chest showed no PE, mild apical predominant centrilobular emphysema with no infiltrates or effusions. Patient was treated for COPD exacerbation with bronchodilators, Solu-Medrol, Rocephin and doxycycline. 11/07/2024: Patient tells me she is improved but minimally improved. She has 15% back to her normal. She still has rest shortness of breath, dyspnea on exertion, wheezing. Nebulizers to help her. She has yellow to green phlegm with no Hemoptysis. When I enter the room she was on 3 L nasal cannula saturations 99%. I decreased her to room air and her saturations were 92%. Plan: I congratulated her on quitting tobacco 2 weeks ago and quitting marijuana 1 month ago. Will continue to treat patient for COPD exacerbation. She is still wheezing. She is on day 4 Solu-Medrol 60 q.12 and still has wheezes. I will change her to 30 q.6. I will increase the frequency of her ipratropium and levalbuterol nebulizers from q.6 hours to q.4 hours. Patient is on Rocephin and doxycycline day 4 of both. She had no focal infiltrates on her CT scan of the chest and will discontinue Rocephin today. I will order alpha 1 anti trypsin genotype and level for tomorrow. I have ordered a respiratory pathogen panel looking for etiology of her COPD exacerbation. I will order overnight oximetry on room air to assess for nocturnal hypoxemia. 11/08/24: Patient tells me is she is improved. She coughed up green phlegm this morning and says that her breathing is much better after this. She denies hemoptysis. She has intermittent wheezing. Currently she is on 2 L nasal cannula with saturations 92%. She tells me she has improved and ready for discharge today. Smoking cessation counseling was provided. She has quit about 2 weeks ago and says that she called a friend who has removed all smoking remnants from her house today. From a pulmonary perspective patient is ready to be discharged on these pulmonary medications: Prednisone 40 mg p.o. q.day x2 days Doxycycline 100 mg p.o. b.i.d. x2 days Triple inhaler: Beta agonist, muscarinic antagonist and inhaled corticosteroids that insurance will cover (Trelegy 200/62.5/24 at 1 puffs Q day or Breztri 160/9/4.8 at 2 puffs BID) OR Beta agonsit and inhaled corticosteroid (Advair discus 500/50 at 1 puff BID, Advair HFA 230/21 at 2 puffs BID, Breo Ellipts 200/25 at 1 puff Q day, Dulera 200/5 at 2 puffs BID, or symbicort 160/4.5 at 2 puffs BID) PLUS Muscarinic antagonist that insurance will cover (atrovent 2 puffs Q 6 HR, incruse ellipta 62.5 at 1 puffs Q day, spireva 18 mics at 1 puff Q day or spireva respimat 2.5 mics at 2 puff Q day). Rescue albuterol 2 puffs q.4 hours p.r.n. shortness of breath or wheezing. Guaifenesin 1200 mg p.o. b.i.d. p.r.n. congestion Oxygen At rest and with activity per formal home O2 assessment which I have ordered. oxygen at night at the same L flow as she requires with activity. Smoking cessation. Follow-up in the Pulmonary Clinic in 4 weeks. I gave her a business card and informed our production control scheduler. Discussed with Dr. Calvillo, will sign off, call with questions. Subjective Date/time seen: 11/08/24 09:24 Interval history: 11/07/2024: This is a new pulmonary consult for COPD exacerbation. 64-year-old with no previous medical diagnosis on no home medicines. Patient does smoke tobacco since age 21 on and off at 1 and half packs per day at her peak, total pack years 45 pack years, Quit 2 weeks ago. Smokes 1/2 marijuana cigarette a night for the last 7 years, quit 1 month ago. Exposed to secondhand smoke from her mother. 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 Patient tells me she had PFTs 15-20 years ago and she was told that these were fine. She denies asthma or chronic bronchitis. At baseline 2 weeks ago patient says she had no respiratory limitations in her activities of daily living and cut her grass and do gardening without respiratory limitations. She is on no home oxygen. On 11/04 the patient presented to the ER with 1-2 days worsening fatigue, rhinorrhea, cough, dyspnea on exertion and shortness of breath at rest. Her blood pressure was 144/85, heart rate 109, respirations 22, saturations were 100% on 6 L. She had decreased breath sounds and expiratory wheezes bilaterally. Her white blood cell count was 9.3, eosinophils 12.4=7780/uL, her creatinine was 0.8, BNP 702, COVID, influenza, RSV RT PCR assay negative. ABG on 3.5 L nasal cannula 7.38/38/89. CT angiogram of the chest showed no PE, mild apical predominant centrilobular emphysema with no infiltrates or effusions. Patient was treated for COPD exacerbation with bronchodilators, Solu-Medrol, Rocephin and doxycycline. 11/07/2024: Patient tells me she is improved but minimally improved. She has 15% back to her normal. She still has rest shortness of breath, dyspnea on exertion, wheezing. Nebulizers to help her. She has yellow to green phlegm with no Hemoptysis. When I enter the room she was on 3 L nasal cannula saturations 99%. I decreased her to room air and her saturations were 92%. 11/08/24: Patient tells me is she is improved. She coughed up green phlegm this morning and says that her breathing is much better after this. She denies hemoptysis. She has intermittent wheezing. Currently she is on 2 L nasal cannula with saturations 92%. She tells me she has improved and ready for d ischarge today. DATA: 11/05/24: Echo Summary 1. Complete two-dimensional, color flow and Doppler transthoracic echocardiogram is performed. 2. Left ventricular chamber dimension is normal. 3. Left ventricular systolic function is normal, estimated at 60-65. 4. The left ventricular diastolic function is grade I diastolic dysfunction. 5. E/e' 9 is minimally elevated. 6. There is trace tricuspid valve regurgitation. Right Ventricle Right ventricular chamber dimension is normal. Right ventricular systolic function is normal. Right Atria Right atrial chamber dimension is normal. Tricuspid Valve There is trace tricuspid valve regurgitation. RVSP is not measured due to an inadequate TR jet. 11/04/24: EXAMINATION: CTA chest PE protocol INDICATION: Shortness of breath with near, pulmonary embolus suspected clinically COMPARISON: None. FINDINGS/OBSERVATIONS: PULMONARY ARTERIES: No filling defect is identified within the main or proximal pulmonary artery. The main pulmonary artery is not enlarged. THORACIC AORTA: No aneurysmal dilatation or dissection is present. The great vessels are intact LUNGS: Centrilobular emphysematous disease. The lungs are otherwise clear. MEDIASTINUM: No morphologically suspicious or pathologically enlarged lymph nodes are identified within the mediastinum or bilateral axilla. BONES OF THE CHEST: No acute fracture. Age-appropriate degenerative disease. No lytic or blastic lesions. HEART: The heart is of normal size, without pericardial effusion. IMPRESSION: No pulmonary embolus. No thoracic aortic dissection. Centrilobular emphysematous disease. Review of Systems Constitutional: Constitutional: Reports no additional constitutional complaints Eyes: Eyes: Reports no additional eye complaints ENT: Reports system reviewed and no additional complaints, except as documented Cardiovascular: Cardiovascular: Reports no additional cardiovascular complaints Respiratory: Respiratory: Reports no additional respiratory complaints Gastrointestinal: Gastrointestinal: Reports no additional gastrointestinal complaints Musculoskeletal: Musculoskeletal: Reports no additional musculoskeletal complaints Neurologic: Reports system reviewed and no additional complaints, except as documented Psychiatric: Psychiatric: Reports no additional psychiatric complaints Endocrine: Endocrine: Reports no additional endocrine complaints Hematologic/Lymphatic: Hematologic/Lymphatic: Reports no additional hematologic/lymphatic complaints Allergic/Immunologic: Allergic/Immunologic: Reports no additional allergic/immunologic complaints Exam Const: General: cooperative, healthy appearing and comfortable Orientation/consciousness: oriented to person, oriented to place and oriented to time HENMT: Head: normal to inspection Ears: hearing grossly normal bilaterally Eyes: General: appearance normal, both eyes and all related structures Neck: Neck: normal visual inspection Chest: Chest palpation & inspection: normal inspection of the chest Resp: Effort & Inspection: normal respiratory effort and able to speak in complete sentences Auscultation: no crackles, no rales, no rhonchi, no wheezes and lung sounds not diminished Other: No wheezes today Cardio: Jugular venous distension: no JVD GI: Inspection: normal to inspection Skin: General skin exam: normal color Neuro: General: oriented to person, oriented to place and oriented to time Extrem: General: normal to inspection Psych: Appearance: grossly normal Objective Data Vital Signs Vital Signs: Vital Signs - 24 hr 11/07/24 12:00 11/07/24 12:31 11/07/24 12:31 Temperature Pulse Rate 92 115 H 115 H Respiratory Rate 20 20 Blood Pressure Pulse Oximetry 91 Oxygen Delivery Nasal Cannula Oxygen Flow Rate 1 11/07/24 12:43 11/07/24 14:32 11/07/24 16:00 Temperature 36.1 C L Pulse Rate 111 H 127 H 97 Respiratory Rate 20 17 Blood Pressure 146/73 H Pulse Oximetry 92 Oxygen Delivery Oxygen Flow Rate 11/07/24 16:36 11/07/24 16:36 11/07/24 16:53 Temperature Pulse Rate 109 H 109 H 119 H Respiratory Rate 20 20 20 Blood Pressure Pulse Oximetry 90 Oxygen Delivery Nasal Cannula Oxygen Flow Rate 1 11/07/24 20:00 11/07/24 20:00 11/07/24 20:29 Temperature Pulse Rate 108 H 110 H Respiratory Rate 20 Blood Pressure Pulse Oximetry Oxygen Delivery Room Air Oxygen Flow Rate 11/07/24 20:42 11/07/24 20:45 11/07/24 20:46 Temperature 36.2 C L Pulse Rate 109 H 120 H 98 Respiratory Rate 20 20 20 Blood Pressure 142/79 H Pulse Oximetry 91 93 Oxygen Delivery Nasal Cannula Oxygen Flow Rate 1 11/08/24 00:00 11/08/24 01:11 11/08/24 01:23 Temperature Pulse Rate 94 101 H 98 Respiratory Rate 20 20 Blood Pressure Pulse Oximetry Oxygen Delivery Oxygen Flow Rate 11/08/24 04:00 11/08/24 04:45 11/08/24 04:59 Temperature Pulse Rate 87 99 103 H Respiratory Rate 20 20 Blood Pressure Pulse Oximetry Oxygen Delivery Oxygen Flow Rate 11/08/24 05:00 11/08/24 06:25 11/08/24 07:41 Temperature 35.8 C L Pulse Rate 116 H Respiratory Rate 20 Blood Pressure 178/105 H 141/78 H Pulse Oximetry 85 L 92 Oxygen Delivery Nasal Cannula Oxygen Flow Rate 2 11/08/24 07:41 11/08/24 07:53 Temperature Pulse Rate 98 112 H Respiratory Rate 20 20 Blood Pressure Pulse Oximetry Oxygen Delivery Oxygen Flow Rate Intake/Output Intake/Output: Intake & Output 11/05/24 11/06/24 11/07/24 11/08/24 23:59 23:59 23:59 23:59 Intake Total 2170 2070 1100 380 Balance 2170 2070 1100 380 Meds/Results Medications: Active Medications Generic Name Dose Route Start Last Admin Trade Name Freq PRN Reason Stop Dose Admin Acetaminophen 650 mg 11/04/24 21:31 11/07/24 19:33 Acetaminophen 325 Mg Tablet PO 650 mg Q4H PRN Administration Mild Pain (1-3) or Fever Buspirone HCl 5 mg 11/06/24 12:20 11/08/24 08:52 Buspirone Hcl 5 Mg Tablet PO 5 mg Q12HR ANDREW Administration Docusate Sodium 100 mg 11/04/24 21:31 Docusate Sodium 100 Mg Capsule PO BID PRN Constipation Doxycycline Hyclate 100 mg 11/05/24 18:30 11/08/24 05:26 Doxycycline Hyclate 100 Mg Tablet PO 100 mg Q12H ANDREW Administration Enoxaparin Sodium 40 mg 11/05/24 09:00 11/08/24 08:54 Enoxaparin 40 Mg/0.4 Ml Syringe SUB-Q 40 mg DAILY ANDREW Administration Guaifenesin 200 mg 11/05/24 14:46 11/07/24 03:23 Guaifenesin 200 Mg/10 Ml Udc PO 200 mg Q4H PRN Administration Cough Guaifenesin 1,200 mg 11/07/24 09:30 11/08/24 08:52 Guaifenesin 12 Hr 600 Mg Tabcr PO 1,200 mg Q12HR ANDREW Administration Ipratropium [place] 0.5 mg 11/07/24 12:00 11/08/24 07:35 Ipratropium Br 0.02% Inh Soln 0.5 Mg/2.5 Ml Vial INHALATION 0.5 mg Q4HRT ANDREW Administration Levalbuterol HCl 0.63 mg 11/07/24 12:00 11/08/24 07:35 Levalbuterol Neb 1.25 Mg/3 Ml INHALATION 0.63 mg Q4HRT ANDREW Administration Lorazepam 0.5 mg 11/05/24 14:45 11/08/24 05:27 Lorazepam Inj (*Crx) 2 Mg/Ml Vial IV PUSH 0.5 mg Q6H PRN Administration Anxiety Methylprednisolone Sodium Succinate 30 mg 11/07/24 12:00 11/08/24 05:26 Methylprednisolone Sod Succ 40 Mg Vial IV PUSH 30 mg Q6HR ANDREW Administration Sodium Chloride 1 spray 11/07/24 16:55 11/07/24 17:44 Saline 0.65% [place] Soln 44 Ml Btl NASAL 1 spray Q6HR PRN Administration Congestion Radiology Results: ITS Impressions Chest X-Ray 11/04/24 17:04 IMPRESSION: 1. Small opacities in the lower lungs which represents atelectasis/scarring or infiltrates. 2. Lungs are hyperinflated. Chest CTA 11/04/24 18:27
--- NOTE | 2024-11-08 10:40 | HOMEO2EVAL ---
Evaluation was performed at [facility] Home Oxygen Evaluation RC: Home Oxygen (O2) Evaluation Start: 11/08/24 09:02 Freq: ONCE Status: Active Protocol: RPE Activity Type Activity Date Activity User E-sign Co-sign Detail Recorded Client Recorded Date Recorded By Document 11/08/24 10:00 [email or web address] [email or web address] 11/08/24 10:40 VIKY Document 11/08/24 10:01 [email or web address] [email or web address] 11/08/24 10:40 VIKY Document 11/08/24 10:02 [email or web address] [email or web address] 11/08/24 10:40 VIKY Document 11/08/24 10:06 [email or web address] [email or web address] 11/08/24 10:40 VIKY Document 11/08/24 10:20 [email or web address] [email or web address] 11/08/24 10:40 VIKY 11/08/24 11/08/24 11/08/24 10:00 10:01 10:02 Home O2 Evaluation [Oxygen] -Test Phase Resting Resting Resting -Oxygen Delivery Room Air Nasal Cannula Nasal Cannula -Oxygen Flow Rate (L/min) 1 2 [Pulse Oximetry] -Pulse Oximetry (90-100 %) 86 L 87 L 93 [Pulse Rate] -Pulse Rate (60-100 beats/min) 98 [Exercise] -Ambulation Distance (feet) -Ambulation Distance (meters) [Comments] -Home Oxygen Evaluation Comments [Charges] -Evaluation Charges O2 Evaluation by Pulmonary 11/08/24 11/08/24 10:06 10:20 Home O2 Evaluation [Oxygen] -Test Phase Exercise Resting -Oxygen Delivery Nasal Cannula Nasal Cannula -Oxygen Flow Rate (L/min) 2 2 [Pulse Oximetry] -Pulse Oximetry (90-100 %) 90 93 [Pulse Rate] -Pulse Rate (60-100 beats/min) 126 H 100 [Exercise] -Ambulation Distance (feet) 600 -Ambulation Distance (meters) 182.87 [Comments] -Home Oxygen Evaluation Comments Patient requires 2 liters home O2 with rest and exertion [Charges] -Evaluation Charges
--- NOTE | 2024-11-08 10:40 | PCRCNOTE ---
Home O2 eval done, pt requires 2 liters resting and activity, POC requested. Set up with IV resp care. Transport concentrator in room for D/C home. DME
--- NOTE | 2024-11-08 14:30 | PC.NURSE ---
Dr Isaacs notified of patients's heart rate in 170's while coughing. Patient sat dropped to 86% when coughing and became sob. After coughing stopped heart rate went back in low 100's and o2 sat in 90's again.
[2024-11-09] VITALS (21 sets, daily range): BP systolic 146–164; BP diastolic 82–87; PULSE 84–112; RESP 18–22; TEMP 36.3–36.9; O2SAT 90–96
[2024-11-09] MEDS: IPRATROPIUM BR 0.02% INH SOLN 0.5 MG/2.5 ML VIAL INHALATION ×5 (05:04→19:18)
[2024-11-09] MEDS: DOXYCYCLINE HYCLATE 100 MG TABLET PO ×2 (05:20→17:07)
--- NOTE | 2024-11-09 08:02 | P.PNIM_ITS ---
Progress Note: A&P Assessment and Plan (1) Acute exacerbation of chronic obstructive pulmonary disease: Code(s): J44.1 - Chronic obstructive pulmonary disease with (acute) exacerbation Status: Acute Assessment and Plan: * No PE or infiltrate by CTA chest * Continue ceftriaxone and doxycycline (begun in ED 11/04/2024) * Continue IV methylprednisolone * Continue nebulized levalbuterol and ipratropium Pulmonary consulted Oxygen supplementation and wean as tolerated home oxygen evaluation with oxygen requirement 2l at rest and activity. did not tolerate overnight pulse oximetry to evaluate nocturnal oxygen needs On pep therapy (2) Anxiety: Code(s): F41.9 - Anxiety disorder, unspecified Status: Acute Assessment and Plan: * On Prozac 20 mg po Daily. * On Buspar 5 mg Q12 hrs BID. (3) Choking: Code(s): T17.308A - Unspecified foreign body in larynx causing other injury, initial encounter Status: Acute Assessment and Plan: Swallow evaluation (4) Nicotine dependence: Qualifiers: Nicotine product type: cigarettes Substance use status: unspecified nicotine-induced disorder Qualified Code(s): F17.219 - Nicotine dependence, cigarettes, with unspecified nicotine-induced disorders Code(s): F17.200 - Nicotine dependence, unspecified, uncomplicated Status: Acute Assessment and Plan: * Stopped smoking over two weeks ago so likely does not need nicotine patch * Refuses need for any treatment at this time. (5) Acute hypoxemic respiratory failure: Code(s): J96.01 - Acute respiratory failure with hypoxia Status: Acute Assessment and Plan: * Due to COPD exacerbation (6) Tachycardia: Code(s): R00.0 - Tachycardia, unspecified Status: Acute Assessment and Plan: * Sinus tachycardia is likely due to acute illness, anxiety, beta-agonist Switched to Xopenex (7) Elevated liver enzymes: Code(s): R74.8 - Abnormal levels of other serum enzymes Status: Resolved Assessment and Plan: * Minimal elevation of AST, NL ALT * Denied alcohol intake * Possibly reactive vs steatohepatitis, viral hepatitis less likely * F/u lab with resolution Subjective Date/time seen: 11/09/24 08:02 Interval history: was wanting to go home yesterday, but had respiratory distress with ambulation yesterday and held. still sob with exertion. no chest pain. cough with thick mucus still present. continues on mucinex and steroid Review of Systems Review of Systems: All systems reviewed & are unremarkable except as noted in HPI and below Exam Narrative: General: well appearing, appears stated age. HEENT: Atraumatic/Normocephalic, MMM Respiratory: Coarse inspiratory and expiratory rhonchi present. No rales. Cardiovascular: RRR, S1 and S2 present without S3, S4,m,r,g,h Abdomen: Soft, NT, BS+x4 Extremities: No cyanosis, clubbing, or edema present. Pulses are palpable 2/2. Active ROM to all four extremities. Neuro: A&Ox4. PERRLA. CN 2-12 intact without any focal deficit. Skin: Warm, dry, and intact, without rash, erythema, or lesion. Psych: Pleasant, anxious at times. Objective Data Vital Signs Vital Signs: Vital Signs - 24 hr 11/08/24 10:00 11/08/24 10:01 11/08/24 10:02 Temperature Pulse Rate 98 Respiratory Rate Blood Pressure Pulse Oximetry 86 L 87 L 93 Oxygen Delivery Room Air Nasal Cannula Nasal Cannula Oxygen Flow Rate 1 2 Fraction of Inspired Oxygen 11/08/24 10:06 11/08/24 10:20 11/08/24 11:49 Temperature Pulse Rate 126 H 100 104 H Respiratory Rate 24 H Blood Pressure Pulse Oximetry 90 93 Oxygen Delivery Nasal Cannula Nasal Cannula Oxygen Flow Rate 2 2 Fraction of Inspired Oxygen 11/08/24 12:00 11/08/24 14:00 11/08/24 15:55 Temperature 97.5 F L Pulse Rate 104 H 105 H 89 Respiratory Rate 22 H 20 Blood Pressure 159/86 H Pulse Oximetry 96 Oxygen Delivery Oxygen Flow Rate Fraction of Inspired Oxygen 11/08/24 16:00 11/08/24 16:05 11/08/24 20:00 Temperature Pulse Rate 100 91 Respiratory Rate 20 Blood Pressure Pulse Oximetry 91 Oxygen Delivery Nasal Cannula Oxygen Flow Rate 2 Fraction of Inspired Oxygen 11/08/24 20:00 11/08/24 20:20 11/08/24 20:58 Temperature 97.1 F L Pulse Rate 114 H 92 83 Respiratory Rate 18 20 Blood Pressure 160/85 H Pulse Oximetry 92 Oxygen Delivery Oxygen Flow Rate Fraction of Inspired Oxygen 11/08/24 21:00 11/09/24 00:00 11/09/24 04:00 Temperature Pulse Rate 97 91 91 Respiratory Rate 20 Blood Pressure Pulse Oximetry 85 L Oxygen Delivery Nasal Cannula Oxygen Flow Rate 2 Fraction of Inspired Oxygen 28 11/09/24 05:04 11/09/24 05:13 11/09/24 05:30 Temperature 98.4 F Pulse Rate 100 95 105 H Respiratory Rate 20 20 22 H Blood Pressure 164/82 H Pulse Oximetry 93 Oxygen Delivery Oxygen Flow Rate Fraction of Inspired Oxygen 11/09/24 07:46 11/09/24 07:56 Temperature Pulse Rate 108 H 96 Respiratory Rate 20 20 Blood Pressure Pulse Oximetry Oxygen Delivery Oxygen Flow Rate Fraction of Inspired Oxygen Intake/Output Intake/Output: Intake & Output 11/06/24 11/07/24 11/08/24 11/09/24 23:59 23:59 23:59 23:59 Intake Total 2069 1100 800 200 Balance 2069 1100 800 200 Meds/Results Medications: Active Medications Generic Name Dose Route Start Last Admin Trade Name Freq PRN Reason Stop Dose Admin Acetaminophen 650 mg 11/04/24 21:31 11/07/24 19:33 Acetaminophen 325 Mg Tablet PO 650 mg Q4H PRN Administration Mild Pain (1-3) or Fever Buspirone HCl 5 mg 11/06/24 12:20 11/08/24 20:28 Buspirone Hcl 5 Mg Tablet PO 5 mg Q12HR ANDREW Administration Docusate Sodium 100 mg 11/04/24 21:31 Docusate Sodium 100 Mg Capsule PO BID PRN Constipation Doxycycline Hyclate 100 mg 11/05/24 18:30 11/09/24 05:20 Doxycycline Hyclate 100 Mg Tablet PO 100 mg Q12H ANDREW Administration Enoxaparin Sodium 40 mg 11/05/24 09:00 11/08/24 08:54 Enoxaparin 40 Mg/0.4 Ml Syringe SUB-Q 40 mg DAILY ANDREW Administration Guaifenesin 200 mg 11/05/24 14:46 11/07/24 03:23 Guaifenesin 200 Mg/10 Ml Udc PO 200 mg Q4H PRN Administration Cough Guaifenesin 1,200 mg 11/07/24 09:30 11/08/24 20:28 Guaifenesin 12 Hr 600 Mg Tabcr PO 1,200 mg Q12HR ANDREW Administration Ipratropium [place] 0.5 mg 11/07/24 12:00 11/09/24 07:44 Ipratropium Br 0.02% Inh Soln 0.5 Mg/2.5 Ml Vial INHALATION 0.5 mg Q4HRT ANDREW Administration Levalbuterol HCl 0.63 mg 11/07/24 12:00 11/09/24 07:43 Levalbuterol Neb 1.25 Mg/3 Ml INHALATION 0.63 mg Q4HRT ANDREW Administration Lorazepam 0.5 mg 11/05/24 14:45 11/08/24 20:27 Lorazepam Inj (*Crx) 2 Mg/Ml Vial IV PUSH 0.5 mg Q6H PRN Administration Anxiety Prednisone 40 mg 11/09/24 12:00 Prednisone 20 Mg Tablet PO DAILY@0800 ANDREW Sodium Chloride 1 spray 11/07/24 16:55 11/07/24 17:44 Saline 0.65% Flynn Soln 44 Ml Btl NASAL 1 spray Q6HR PRN Administration Congestion Radiology Results: ITS Impressions Chest X-Ray 11/04/24 17:04 IMPRESSION: 1. Small opacities in the lower lungs which represents atelectasis/scarring or infiltrates. 2. Lungs are hyperinflated. Chest CTA 11/04/24 18:27 IMPRESSION: No pulmonary embolus. No thoracic aortic dissection. Centrilobular emphysematous disease Labs Labs: Laboratory Results - last 24 hr 11/07/24 16:16 Chlamy pneumoniae PCR Not detected Adenovirus (PCR) Not detected B. pertussis DNA (PCR) Not detected B.parapertussis DNA PCR Not detected Coronavirus OC43 (PCR) Not detected Coronavirus HKU1 (PCR) Not detected Coronavirus 229E (PCR) Not detected Coronavirus NL63 (PCR) Not detected Human Metapneumovir PCR Not detected Influenza A (H1) PCR Not detected Influ A (H1/09) PCR Not detected Influenza A (H3) PCR Not detected Influenza Type A (PCR) Not detected Influenza Type B (PCR) Not detected M. pneumoniae (PCR) Not detected Parainfluenza 1 (PCR) Not detected Parainfluenza 2 (PCR) Not detected Parainfluenza 3 (PCR) Not detected Parainfluenza 4 (PCR) Not detected RSV (PCR) Not detected Entero/Rhino (PCR) Not detected SARS-CoV-2 (PCR) Not detected
[2024-11-09] MEDS: LORazepam (*CRX) 0.5 MG TABLET PO ×2 (08:26→17:07)
[2024-11-09] MEDS: ENOXAPARIN 40 MG/0.4 ML SYRINGE SUB-Q (08:28)
--- NOTE | 2024-11-09 09:50 | PM.PNPUL ---
Progress Note: A&P Assessment and Plan (1) Acute exacerbation of chronic obstructive pulmonary disease: Code(s): J44.1 - Chronic obstructive pulmonary disease with (acute) exacerbation Status: Acute Assessment and Plan: Patient does smoke tobacco since age 21 on and off at 1 and half packs per day at her peak, total pack years 45 pack years, Quit 2 weeks ago. Smokes 1/2 marijuana cigarette a night for the last 7 years, quit 1 month ago. Exposed to secondhand smoke from her mother. 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 Patient tells me she had PFTs 15-20 years ago and she was told that these were fine. She denies asthma or chronic bronchitis. At baseline 2 weeks ago patient says she had no respiratory limitations in her activities of daily living and cut her grass and do gardening without respiratory limitations. She is on no home oxygen. On 11/04 the patient presented to the ER with 1-2 days worsening fatigue, rhinorrhea, cough, dyspnea on exertion and shortness of breath at rest. Her blood pressure was 144/85, heart rate 109, respirations 22, saturations were 100% on 6 L. She had decreased breath sounds and expiratory wheezes bilaterally. Her white blood cell count was 9.3, eosinophils 12.3=4008/uL, her creatinine was 0.8, BNP 702, COVID, influenza, RSV RT PCR assay negative. ABG on 3.5 L nasal cannula 7.38/38/89. CT angiogram of the chest showed no PE, mild apical predominant centrilobular emphysema with no infiltrates or effusions. Patient was treated for COPD exacerbation with bronchodilators, Solu-Medrol, Rocephin and doxycycline. 11/07/2024: Patient tells me she is improved but minimally improved. She has 15% back to her normal. She still has rest shortness of breath, dyspnea on exertion, wheezing. Nebulizers to help her. She has yellow to green phlegm with no Hemoptysis. When I enter the room she was on 3 L nasal cannula saturations 99%. I decreased her to room air and her saturations were 92%. Plan: I congratulated her on quitting tobacco 2 weeks ago and quitting marijuana 1 month ago. Will continue to treat patient for COPD exacerbation. She is still wheezing. She is on day 4 Solu-Medrol 60 q.12 and still has wheezes. I will change her to 30 q.6. I will increase the frequency of her ipratropium and levalbuterol nebulizers from q.6 hours to q.4 hours. Patient is on Rocephin and doxycycline day 4 of both. She had no focal infiltrates on her CT scan of the chest and will discontinue Rocephin today. I will order alpha 1 anti trypsin genotype and level for tomorrow. I have ordered a respiratory pathogen panel looking for etiology of her COPD exacerbation. I will order overnight oximetry on room air to assess for nocturnal hypoxemia. 11/08/24: Patient tells me is she is improved. She coughed up green phlegm this morning and says that her breathing is much better after this. She denies hemoptysis. She has intermittent wheezing. Currently she is on 2 L nasal cannula with saturations 92%. She tells me she has improved and ready for discharge today. Smoking cessation counseling was provided. She has quit about 2 weeks ago and says that she called a friend who has removed all smoking remnants from her house today. Home O2 assessment: Rest room air saturation 86%. Rest nasal cannula 1 L saturation 87%. Rest nasal cannula 2 L saturation 93%. Exercise nasal cannula 2 L saturation 90%. Patient ambulated 183 m. Patient requires 2 L at rest and with exertion. Later in the day patient had an episode where phlegm got stuck in her throat and she could not breathe and turned blue. Eventually she expectorated and improved. Discharge was canceled. 11/09/24: Patient slept overnight on 2 L nasal cannula. This morning she was doing well and then she walked to the door on room air and became dizzy and hypoxemic. I entered the room immediately after this and her saturations on 2 L were 83%. I increased her to 5 L nasal cannula and her saturations were 90%. She was no longer dizzy after 5 minutes. Patient still complains of chest tightness, she has thick green phlegm with no hemoptysis. She states she is talking better and overall improved from when she was admitted. She is afebrile. Her weight today is 60.5. Her respiratory pathogen panel is negative. Patient had an overnight oximetry on 2 L nasal cannula with recording duration of 8 hours and 43 minutes. Average saturation 85%, low saturation 74%. Time with saturation less than or equal to 88% was 390 minutes, oxygen desaturation index 5.1. Plan: Patient has no wheezing today. I will discontinue her Solu-Medrol and place her on prednisone 40 mg p.o. q.day, I will start budesonide nebulizers 500 mcg Q 12 hours. I will continue levalbuterol and ipratropium nebulizers q.4 hours, continue guaifenesin 1200 b.i.d., continue Cornet flutter valve. Discussed with Dr. Calvillo, will follow with you Subjective Date/time seen: 11/09/24 09:50 Interval history: 11/07/2024: This is a new pulmonary consult for COPD exacerbation. 64-year-old with no previous medical diagnosis on no home medicines. Patient does smoke tobacco since age 21 on and off at 1 and half packs per day at her peak, total pack years 45 pack years, Quit 2 weeks ago. Smokes 1/2 marijuana cigarette a night for the last 7 years, quit 1 month ago. Exposed to secondhand smoke from her mother. 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 Patient tells me she had PFTs 15-20 years ago and she was told that these were fine. She denies asthma or chronic bronchitis. At baseline 2 weeks ago patient says she had no respiratory limitations in her activities of daily living and cut her grass and do gardening without respiratory limitations. She is on no home oxygen. On 11/04 the patient presented to the ER with 1-2 days worsening fatigue, rhinorrhea, cough, dyspnea on exertion and shortness of breath at rest. Her blood pressure was 144/85, heart rate 109, respirations 22, saturations were 100% on 6 L. She had decreased breath sounds and expiratory wheezes bilaterally. Her white blood cell count was 9.3, eosinophils 12.6=0121/uL, her creatinine was 0.8, BNP 702, COVID, influenza, RSV RT PCR assay negative. ABG on 3.5 L nasal cannula 7.38/38/89. CT angiogram of the chest showed no PE, mild apical predominant centrilobular emphysema with no infiltrates or effusions. Patient was treated for COPD exacerbation with bronchodilators, Solu-Medrol, Rocephin and doxycycline. 11/07/2024: Patient tells me she is improved but minimally improved. She has 15% back to her normal. She still has rest shortness of breath, dyspnea on exertion, wheezing. Nebulizers to help her. She has yellow to green phlegm with no Hemoptysis. When I enter the room she was on 3 L nasal cannula saturations 99%. I decreased her to room air and her saturations were 92%. 11/08/24: Patient tells me is she is improved. She coughed up green phlegm this morning and says that her breathing is much better after this. She denies hemoptysis. She has intermittent wheezing. Currently she is on 2 L nasal cannula with saturations 92%. She tells me she has improved and ready for discharge today. Home O2 assessment: Rest room air saturation 86%. Rest nasal cannula 1 L saturation 87%. Rest nasal cannula 2 L saturation 93%. Exercise nasal cannula 2 L saturation 90%. Patient ambulated 183 m. Patient requires 2 L at rest and with exertion. Later in the day patient had an episode where phlegm got stuck in her throat and she could not breathe and turned blue. Eventually she expectorated and improved. Discharge was canceled. 11/09/24: Patient slept overnight on 2 L nasal cannula. This morning she was doing well and then she walked to the door on room air and became dizzy and hypoxemic. I entered the room immediately after this and her saturations on 2 L were 83%. I increased her to 5 L nasal cannula and her saturations were 90%. She was no longer dizzy after 5 minutes. Patient still complains of chest tightness, she has thick green phlegm with no hemoptysis. She states she is talking better and overall improved from when she was admitted. She is afebrile. Her weight today is 60.5. Her respiratory pathogen panel is negative. Patient had an overnight oximetry on 2 L nasal cannula with recording duration of 8 hours and 43 minutes. Average saturation 85%, low saturation 74%. Time with saturation less than or equal to 88% was 390 minutes, oxygen desaturation index 5.1. DATA: 11/08/24: Patient had an overnight oximetry on 2 L nasal cannula with recording duration of 8 hours and 43 minutes. Average saturation 85%, low saturation 74%. Time with saturation less than or equal to 88% was 390 minutes, oxygen desaturation index 5.1. 11/08/2024: Home O2 assessment: Rest room air saturation 86%. Rest nasal cannula 1 L saturation 87%. Rest nasal cannula 2 L saturation 93%. Exercise nasal cannula 2 L saturation 90%. Patient ambulated 183 m. Patient requires 2 L at rest and with exertion. 11/05/24: Echo Summary 1. Complete two-dimensional, color flow and Doppler transthoracic echocardiogram is performed. 2. Left ventricular chamber dimension is normal. 3. Left ventricular systolic function is normal, estimated at 60-65. 4. The left ventricular diastolic function is grade I diastolic dysfunction. 5. E/e' 9 is minimally elevated. 6. There is trace tricuspid valve regurgitation. Right Ventricle Right ventricular chamber dimension is normal. Right ventricular systolic function is normal. Right Atria Right atrial chamber dimension is normal. Tricuspid Valve There is trace tricuspid valve regurgitation. RVSP is not measured due to an inadequate TR jet. 11/04/24: EXAMINATION: CTA chest PE protocol INDICATION: Shortness of breath with near, pulmonary embolus suspected clinically COMPARISON: None. FINDINGS/OBSERVATIONS: PULMONARY ARTERIES: No filling defect is identified within the main or proximal pulmonary artery. The main pulmonary artery is not enlarged. THORACIC AORTA: No aneurysmal dilatation or dissection is present. The great vessels are intact LUNGS: Centrilobular emphysematous disease. The lungs are otherwise clear. MEDIASTINUM: No morphologically suspicious or pathologically enlarged lymph nodes are identified within the mediastinum or bilateral axilla. BONES OF THE CHEST: No acute fracture. Age-appropriate degenerative disease. No lytic or blastic lesions. HEART: The heart is of normal size, without pericardial effusion. IMPRESSION: No pulmonary embolus. No thoracic aortic dissection. Centrilobular emphysematous disease. Review of Systems Constitutional: Constitutional: Reports no additional constitutional complaints Eyes: Eyes: Reports no additional eye complaints ENT: Reports system reviewed and no additional complaints, except as documented Cardiovascular: Cardiovascular: Reports no additional cardiovascular complaints Respiratory: Respiratory: Reports no additional respiratory complaints Gastrointestinal: Gastrointestinal: Reports no additional gastrointestinal complaints Musculoskeletal: Musculoskeletal: Reports no additional musculoskeletal complaints Neurologic: Reports system reviewed and no additional complaints, except as documented Psychiatric: Psychiatric: Reports no additional psychiatric complaints Endocrine: Endocrine: Reports no additional endocrine complaints Hematologic/Lymphatic: Hematologic/Lymphatic: Reports no additional hematologic/lymphatic complaints Allergic/Immunologic: Allergic/Immunologic: Reports no additional allergic/immunologic complaints Exam Const: General: cooperative, healthy appearing and comfortable Orientation/consciousness: oriented to person, oriented to place and oriented to time HENMT: Head: normal to inspection Ears: hearing grossly normal bilaterally Eyes: General: appearance normal, both eyes and all related structures Neck: Neck: normal visual inspection Chest: Chest palpation & inspection: normal inspection of the chest Resp: Effort & Inspection: normal respiratory effort and able to speak in complete sentences Auscultation: no crackles, no rales, no rhonchi, no wheezes and lung sounds not diminished Other: No wheezes today Cardio: Jugular venous distension: no JVD GI: Inspection: normal to inspection Skin: General skin exam: normal color Neuro: General: oriented to person, oriented to place and oriented to time Extrem: General: normal to inspection Psych: Appearance: grossly normal Objective Data Vital Signs Vital Signs: Vital Signs - 24 hr 11/08/24 10:00 11/08/24 10:01 11/08/24 10:02 Temperature Pulse Rate 98 Respiratory Rate Blood Pressure Pulse Oximetry 86 L 87 L 93 Oxygen Delivery Room Air Nasal Cannula Nasal Cannula Oxygen Flow Rate 1 2 Fraction of Inspired Oxygen 11/08/24 10:06 11/08/24 10:20 11/08/24 11:49 Temperature Pulse Rate 126 H 100 104 H Respiratory Rate 24 H Blood Pressure Pulse Oximetry 90 93 Oxygen Delivery Nasal Cannula Nasal Cannula Oxygen Flow Rate 2 2 Fraction of Inspired Oxygen 11/08/24 12:00 11/08/24 14:00 11/08/24 15:55 Temperature 36.4 C L Pulse Rate 104 H 105 H 89 Respiratory Rate 22 H 20 Blood Pressure 159/86 H Pulse Oximetry 96 Oxygen Delivery Oxygen Flow Rate Fraction of Inspired Oxygen 11/08/24 16:00 11/08/24 16:05 11/08/24 20:00 Temperature Pulse Rate 100 91 Respiratory Rate 20 Blood Pressure Pulse Oximetry 91 Oxygen Delivery Nasal Cannula Oxygen Flow Rate 2 Fraction of Inspired Oxygen 11/08/24 20:00 11/08/24 20:20 11/08/24 20:58 Temperature 36.2 C L Pulse Rate 114 H 92 83 Respiratory Rate 18 20 Blood Pressure 160/85 H Pulse Oximetry 92 Oxygen Delivery Oxygen Flow Rate Fraction of Inspired Oxygen 11/08/24 21:00 11/09/24 00:00 11/09/24 04:00 Temperature Pulse Rate 97 91 91 Respiratory Rate 20 Blood Pressure Pulse Oximetry 85 L Oxygen Delivery Nasal Cannula Oxygen Flow Rate 2 Fraction of Inspired Oxygen 28 11/09/24 05:04 11/09/24 05:13 11/09/24 05:30 Temperature 36.9 C Pulse Rate 100 95 105 H Respiratory Rate 20 20 22 H Blood Pressure 164/82 H Pulse Oximetry 93 Oxygen Delivery Oxygen Flow Rate Fraction of Inspired Oxygen 11/09/24 07:46 11/09/24 07:56 11/09/24 08:00 Temperature Pulse Rate 108 H 96 Respiratory Rate 20 20 Blood Pressure Pulse Oximetry 90 Oxygen Delivery Nasal Cannula Oxygen Flow Rate 5 Fraction of Inspired Oxygen 28 11/09/24 08:00 11/09/24 08:33 11/09/24 09:36 Temperature Pulse Rate 109 H Respiratory Rate Blood Pressure Pulse Oximetry 90 94 Oxygen Delivery Nasal Cannula Nasal Cannula Oxygen Flow Rate 5 5 Fraction of Inspired Oxygen Intake/Output Intake/Output: Intake & Output 11/06/24 11/07/24 11/08/24 11/09/24 23:59 23:59 23:59 23:59 Intake Total 0 1100 800 440 Balance 2069 1100 800 440 Meds/Results Medications: Active Medications Generic Name Dose Route Start Last Admin Trade Name Freq PRN Reason Stop Dose Admin Acetaminophen 650 mg 11/04/24 21:31 11/07/24 19:33 Acetaminophen 325 Mg Tablet PO 650 mg Q4H PRN Administration Mild Pain (1-3) or Fever Buspirone HCl 5 mg 11/06/24 12:20 11/09/24 08:27 Buspirone Hcl 5 Mg Tablet PO 5 mg Q12HR ANDREW Administration Docusate Sodium 100 mg 11/04/24 21:31 Docusate Sodium 100 Mg Capsule PO BID PRN Constipation Doxycycline Hyclate 100 mg 11/05/24 18:30 11/09/24 05:20 Doxycycline Hyclate 100 Mg Tablet PO 100 mg Q12H ANDREW Administration Enoxaparin Sodium 40 mg 11/05/24 09:00 11/09/24 08:28 Enoxaparin 40 Mg/0.4 Ml Syringe SUB-Q 40 mg DAILY ANDREW Administration Guaifenesin 200 mg 11/05/24 14:46 11/09/24 08:27 Guaifenesin 200 Mg/10 Ml Udc PO 200 mg Q4H PRN Administration Cough Guaifenesin 1,200 mg 11/07/24 09:30 11/09/24 08:27 Guaifenesin 12 Hr 600 Mg Tabcr PO Not Given Q12HR ANDREW Ipratropium [place] 0.5 mg 11/07/24 12:00 11/09/24 07:44 Ipratropium Br 0.02% Inh Soln 0.5 Mg/2.5 Ml Vial INHALATION 0.5 mg Q4HRT ANDREW Administration Levalbuterol HCl 0.63 mg 11/07/24 12:00 11/09/24 07:43 Levalbuterol Neb 1.25 Mg/3 Ml INHALATION 0.63 mg Q4HRT ANDREW Administration Lorazepam 0.5 mg 11/05/24 14:45 11/08/24 20:27 Lorazepam Inj (*Crx) 2 Mg/Ml Vial IV PUSH 0.5 mg Q6H PRN Administration Anxiety Lorazepam 0.5 mg 11/09/24 08:04 11/09/24 08:26 Lorazepam (*Crx) 0.5 Mg Tablet PO 0.5 mg Q6H PRN Administration Anxiety Prednisone 40 mg 11/09/24 12:00 Prednisone 20 Mg Tablet PO DAILY@0800 [facility] Sodium Chloride 1 spray 11/07/24 16:55 11/07/24 17:44 Saline 0.65% Flynn Soln 44 Ml Btl NASAL 1 spray Q6HR PRN Administration Congestion Radiology Results: ITS Impressions Chest X-Ray 11/04/24 17:04 IMPRESSION: 1. Small opacities in the lower lungs which represents atelectasis/scarring or infiltrates. 2. Lungs are hyperinflated. Chest CTA 11/04/24 18:27 IMPRESSION: No pulmonary embolus. No thoracic aortic dissection. Centrilobular emphysematous disease Labs Labs: Laboratory Results - last 24 hr 11/07/24 16:16 Chlamy pneumoniae PCR Not detected Adenovirus (PCR) Not detected B. pertussis DNA (PCR) Not detected B.parapertussis DNA PCR Not detected Coronavirus OC43 (PCR) Not detected Coronavirus HKU1 (PCR) Not detected Coronavirus 229E (PCR) Not detected Coronavirus NL63 (PCR) Not detected Human Metapneumovir PCR Not detected Influenza A (H1) PCR Not detected Influ A (H1/09) PCR Not detected Influenza A (H3) PCR Not detected Influenza Type A (PCR) Not detected Influenza Type B (PCR) Not detected M. pneumoniae (PCR) Not detected Parainfluenza 1 (PCR) Not detected Parainfluenza 2 (PCR) Not detected Parainfluenza 3 (PCR) Not detected Parainfluenza 4 (PCR) Not detected RSV (PCR) Not detected Entero/Rhino (PCR) Not detected SARS-CoV-2 (PCR) Not detected
[2024-11-09] MEDS: NYSTATIN 100,000 UNITS/ML SUSP 5 ML ORAL.SUSP PO (17:46)
[2024-11-09] MEDS: BUDESONIDE RESPULE NEB 0.5 MG/2 ML AMP INHALATION (19:18)
[2024-11-09] MEDS: guaiFENesin 12 HR 600 MG TABCR 1200 MG PO (20:21)
[2024-11-10] VITALS (21 sets, daily range): BP systolic 133–153; BP diastolic 82–86; PULSE 76–116; RESP 17–20; TEMP 36–36.8; O2SAT 86–97
--- NOTE | 2024-11-10 | ECHO_ITS ---
Patient Info Name: Jessica Kramer Age: 64 years : 1960 Gender: Female Ht: 72 in Wt: 135 lbs BSA: 1.75 m2 HR: 95 bpm BP: 135 / 86 mmHg Technical Quality: Good Exam Date: 11/10/2024 10:53 AM Patient Status: I Admit Date: 11/06/2024 Exam Type: CA echo limited w bubble study Complete two-dimensional, color flow and Doppler transthoracic echocardiogram is performed with agitated saline. Staff Referring Physician: José Antonio Lara Rn Cardiovascular Icu: Shirley Sevilla Attending Provider: Rogelio Cifuentes MD Contrast/Agitated Saline Contrast/Ag. Saline: Agitated Saline Amount: 20.00 ml Summary 1. Left ventricular chamber dimension is normal. 2. Left ventricular systolic function is normal, estimated at 55-60. 3. The left ventricular diastolic function is grade I diastolic dysfunction. 4. E/e' 9 is minimally elevated. 5. There is trace pulmonic regurgitation. Left Ventricle E/e' 9 is minimally elevated. Left ventricular chamber dimension is normal. Left ventricular systolic function is normal, estimated at 55-60. The left ventricular diastolic function is grade I diastolic dysfunction. Right Ventricle Right ventricular chamber dimension is normal. Right ventricular systolic function is normal. Left Atria Left atrial chamber dimension is normal. Right Atria Right atrial chamber dimension is normal. Atrial Septum Intact interatrial septum visualized by 2D and agitated saline imaging. Agitated saline injection with and without valsalva maneuver opacified right side cardiac chambers without shunt to left side cardiac chambers. Aortic Valve The aortic valve is trileaflet. There is no aortic valve stenosis. There is no aortic valve regurgitation. Pulmonic Valve There is trace pulmonic regurgitation. Mitral Valve There is no mitral valve stenosis. There is no mitral valve regurgitation. Tricuspid Valve There is no tricuspid valve regurgitation. Pericardium/Pleural There is no pericardial effusion. Inferior Vena Cava Normal inferior vena cava with >50% collapse upon inspiration consistent with normal right atrial pressure, 5 mmHg. Aorta The aortic root size at the sinus of Valsalva is normal. Left Ventricular Outflow Tract Name Value Normal LVOT 2D LVOT Diameter 2.0 cm LVOT Doppler LVOT Peak Velocity 114 cm/s LVOT Peak Gradient 5 mmHg LVOT Mean Gradient 3 mmHg LVOT VTI 23 cm LVOT Stroke Volume 69 ml LVOT CO 6.5 l/min LVOT CI 3.7 l/min/m2 Pulmonic Valve Name Value Normal RVOT Doppler RVOT Peak Velocity 80 cm/s RVOT Peak Gradient 3 mmHg PV Doppler PV Peak Velocity 93 cm/s PV Peak Gradient 3 mmHg Mitral Valve Name Value Normal MV Diastolic Function MV E Peak Velocity 63 cm/s MV A Peak Velocity 89 cm/s MV E/A 0.7 MV Decel Time (PW) 262 ms MV Annular TDI MV E/e' (Septal) 10.4 MV E/e' (Lateral) 8.4 MV E/e' (Average) 9.4 Tricuspid Valve Name Value Normal Estimated PAP/RSVP RA Pressure 5 mmHg <=5 Aortic Valve Name Value Normal AV Doppler AV Peak Velocity 135 cm/s AV Peak Gradient 7 mmHg AV Area (Cont Eq Jorge) 2.5 cm2 AV DI (Jorge) 0.84 AV Regurgitation 2D LVOT Area 3.0 cm2 Ventricles Name Value Normal LV Dimensions 2D/MM IVS Diastolic Thickness (2D) 0.9 cm 0.6-1.0 LVID Diastole (2D) 4.2 cm 3.8-5.2 LVIW Diastolic Thickness (2D) 0.9 cm 0.6-0.9 LVID Systole (2D) 3.0 cm 2.2-3.5 LVOT Diameter 2.0 cm LV Mass (2D Cubed) 118.05 g 67.00-162.00 LV Mass Index (2D Cubed) 68 g/m2 43-95 Relative Wall Thickness (2D) 0.44 <=0.42 LV Fractional Shortening/Ejection Fraction 2D/MM LV Fractional Shortening (2D) 27 % 27-45 LV EF (2D Teichholz) 54 % LV Diastolic Volume (4C MOD) 78 ml LV EF (4C MOD) 56 % LV Diastolic Volume (2C MOD) 66 ml LV EF (2C MOD) 51 % LV Diastolic Volume (BP MOD) 72 ml 46-106 LV Diastolic Volume Index (BP MOD) 41 ml/m2 29-61 LV Systolic Volume (BP MOD) 34 ml 14-42 LV Systolic Volume Index (BP MOD) 20 ml/m2 8-24 LV EF (BP MOD) 53 % 54-74 LV Diastolic Length (4C) 7.4 cm LV Systolic Length (4C) 6.5 cm LV Stroke Volume (4C MOD) 44 ml Atria Name Value Normal LA Dimensions LA Volume (4C A-L) 20 ml RA Dimensions RA Systolic Major [place] Length (4C) 4.0 cm 2.2-2.8 RA Area (4C) 9.9 cm2 <=18.0 Report Signatures
--- NOTE | 2024-11-10 01:42 | PCRCNOTE ---
0000 and 0200 TX not given due to patent participating in sleep study.11/10/24.
[2024-11-10] MEDS: IPRATROPIUM BR 0.02% INH SOLN 0.5 MG/2.5 ML VIAL INHALATION ×5 (04:59→20:09)
--- NOTE | 2024-11-10 05:12 | PC.NURSE ---
Pt. states that she was up to the commode twice through the night WITHOUT calling for assistance. Bed alarm in place and set to zone 2. Pt. states 'I know how things work. I placed my hand on the bed to keep the alarm from going off while I got up to the commode.' Pt. instructed need to call for assistance to commode and re-enforced need as her SpO2 dropped to 83% this morning while on O2 at 2 LPM when she got up to the bathroom. According to Pulmonology note, he increased her O2 to 5 LPM due to this. Bed alarm in place, call light in reach & Pt. informed to call for help out of bed or if she needed anything.
[2024-11-10] MEDS: DOXYCYCLINE HYCLATE 100 MG TABLET PO ×2 (06:02→17:32)
[2024-11-10 06:26] LABS: Hematocrit 44.3 % (37.0-47.0); Hemoglobin 14.4 g/dL (12.0-15.0); Immature Granulocyte Percent A 0.7 % (0-0.5); Lymphocytes Absolute Auto 2.89 K/mm3 (0.9-3.2); Mean Corpuscular HGB Conc 32.5 g/dl (32-36); Mean Corpuscular Hemoglobin 30.3 pg (26-34); Mean Corpuscular Volume 93.3 fl (80-100); Nucleated Red Blood Cells Absolute Auto 0.000 K/mm3 (0.0-0.012); Nucleated Red Blood Cells Perc 0.0 % (0.0-0.2); Platelet Count Result 303 k/mm3 (150-375); Red Blood Count 4.75 M/mm3 (4.2-5.4); White Blood Count 14.8 K/mm3 (4.5-10.0)
[2024-11-10 06:51] LABS: Alanine Aminotransferase 29 U/L (6-35); Albumin Level 4.0 g/dL (3.5-5.1); Alkaline Phosphatase 65 U/L (38-126); Anion Gap 6 mmol/L (4-12); Aspartate Amino Transferase 43 U/L (14-36); Bilirubin,Total 0.5 mg/dL (0.2-1.3); Blood Urea Nitrogen 19 mg/dL (7-17); Calcium 9.6 mg/dL (8.4-10.2); Carbon Dioxide 27 mmol/L (22-30); Chloride 104 mmol/L (98-107); Estimated CRCL calculation 67 ml/min; Estimated Glomerular Filt Rate > 60; Glucose 98 mg/dL (65-110); Potassium 4.0 mmol/L (3.4-5.0); Sodium 137 mmol/L (137-145); Total Protein 7.2 g/dL (6.3-8.2)
[2024-11-10 06:54] LABS: NT Pro B Type Natriuretic Pept 2490 pg/mL (19.9-100)
[2024-11-10] MEDS: BUDESONIDE RESPULE NEB 0.5 MG/2 ML AMP INHALATION ×2 (07:49→20:09)
[2024-11-10 07:55] LABS: CRP 1.5 mg/dL (<1.0)
--- NOTE | 2024-11-10 08:20 | P.PNIM_ITS ---
Progress Note: A&P Assessment and Plan (1) Acute exacerbation of chronic obstructive pulmonary disease: Code(s): J44.1 - Chronic obstructive pulmonary disease with (acute) exacerbation Status: Acute Assessment and Plan: * No PE or infiltrate by CTA chest * Continue ceftriaxone and doxycycline (begun in ED 11/04/2024) * Continue IV methylprednisolone * Continue nebulized levalbuterol and ipratropium Pulmonary consulted Oxygen supplementation and wean as tolerated home oxygen evaluation with oxygen requirement 2l at rest and activity. Overnight pulse oximetry reviewed Still hypoxic and getting bubble study along with repeat CT chest BNP elevated at 2490 On pep therapy (2) Anxiety: Code(s): F41.9 - Anxiety disorder, unspecified Status: Acute Assessment and Plan: * On Prozac 20 mg po Daily. * On Buspar 5 mg Q12 hrs BID. (3) Choking: Code(s): T17.308A - Unspecified foreign body in larynx causing other injury, initial encounter Status: Acute Assessment and Plan: Swallow evaluation (4) Nicotine dependence: Qualifiers: Nicotine product type: cigarettes Substance use status: unspecified nicotine-induced disorder Qualified Code(s): F17.219 - Nicotine dependence, cigarettes, with unspecified nicotine-induced disorders Code(s): F17.200 - Nicotine dependence, unspecified, uncomplicated Status: Acute Assessment and Plan: * Stopped smoking over two weeks ago so likely does not need nicotine patch * Refuses need for any treatment at this time. (5) Acute hypoxemic respiratory failure: Code(s): J96.01 - Acute respiratory failure with hypoxia Status: Acute Assessment and Plan: * Due to COPD exacerbation (6) Tachycardia: Code(s): R00.0 - Tachycardia, unspecified Status: Acute Assessment and Plan: * Sinus tachycardia is likely due to acute illness, anxiety, beta-agonist Switched to Xopenex (7) Elevated liver enzymes: Code(s): R74.8 - Abnormal levels of other serum enzymes Status: Resolved Assessment and Plan: * Minimal elevation of AST, NL ALT * Denied alcohol intake * Possibly reactive vs steatohepatitis, viral hepatitis less likely * F/u lab with resolution Subjective Date/time seen: 11/10/24 08:20 Interval history: Overnight events noted. Still short of breath with exertion. On 5 L oxygen. No leg swelling. Cough with minimal expectoration. Difficult to expectorate Review of Systems Review of Systems: All systems reviewed & are unremarkable except as noted in HPI and below Exam Narrative: General: well appearing, appears stated age. HEENT: Atraumatic/Normocephalic, MMM Respiratory: Coarse inspiratory with no wheezes. Some rhonchi present. No rales. Cardiovascular: RRR, S1 and S2 present without S3, S4,m,r,g,h Abdomen: Soft, NT, BS+x4 Extremities: No cyanosis, clubbing, or edema present. Pulses are palpable 2/2. Active ROM to all four extremities. Neuro: A&Ox4. PERRLA. CN 2-12 intact without any focal deficit. Skin: Warm, dry, and intact, without rash, erythema, or lesion. Psych: Pleasant, anxious at times. Objective Data Vital Signs Vital Signs: Vital Signs - 24 hr 11/09/24 08:33 11/09/24 09:36 11/09/24 11:33 Temperature Pulse Rate Respiratory Rate Blood Pressure Pulse Oximetry 90 94 93 Oxygen Delivery Nasal Cannula Nasal Cannula Nasal Cannula Oxygen Flow Rate 5 5 5 11/09/24 11:33 11/09/24 11:47 11/09/24 12:00 Temperature Pulse Rate 84 92 107 H Respiratory Rate 20 20 Blood Pressure Pulse Oximetry Oxygen Delivery Oxygen Flow Rate 11/09/24 14:00 11/09/24 15:54 11/09/24 16:00 Temperature 97.4 F L Pulse Rate 95 100 86 Respiratory Rate 18 20 Blood Pressure 158/86 H Pulse Oximetry 94 Oxygen Delivery Oxygen Flow Rate 11/09/24 16:03 11/09/24 19:19 11/09/24 19:19 Temperature Pulse Rate 97 96 Respiratory Rate 20 18 Blood Pressure Pulse Oximetry 96 Oxygen Delivery Nasal Cannula Oxygen Flow Rate 5 11/09/24 19:30 11/09/24 20:00 11/09/24 20:00 Temperature Pulse Rate 107 H 99 Respiratory Rate 18 Blood Pressure Pulse Oximetry 92 Oxygen Delivery Nasal Cannula Oxygen Flow Rate 5 11/09/24 21:44 11/10/24 00:00 11/10/24 04:00 Temperature 98.4 F Pulse Rate 112 H 76 101 H Respiratory Rate 20 Blood Pressure 146/87 H Pulse Oximetry 92 Oxygen Delivery Oxygen Flow Rate 11/10/24 05:00 11/10/24 05:04 11/10/24 05:06 Temperature 97.8 F Pulse Rate 86 80 92 Respiratory Rate 18 18 20 Blood Pressure 135/86 Pulse Oximetry 97 Oxygen Delivery Oxygen Flow Rate 11/10/24 07:51 11/10/24 07:52 11/10/24 08:01 Temperature Pulse Rate 108 H 108 H 109 H Respiratory Rate 20 20 20 Blood Pressure Pulse Oximetry 86 L Oxygen Delivery Nasal Cannula Oxygen Flow Rate 5 11/10/24 08:04 Temperature Pulse Rate 109 H Respiratory Rate 20 Blood Pressure Pulse Oximetry 96 Oxygen Delivery Nasal Cannula Oxygen Flow Rate 5 Intake/Output Intake/Output: Intake & Output 11/07/24 11/08/24 11/09/24 11/10/24 23:59 23:59 23:59 23:59 Intake Total 1100 800 920 350 Balance 1100 800 920 350 Meds/Results Medications: Active Medications Generic Name Dose Route Start Last Admin Trade Name Freq PRN Reason Stop Dose Admin Acetaminophen 650 mg 11/04/24 21:31 11/07/24 19:33 Acetaminophen 325 Mg Tablet PO 650 mg Q4H PRN Administration Mild Pain (1-3) or Fever Budesonide 0.5 mg 11/09/24 20:00 11/10/24 07:49 Budesonide Respule Neb 0.5 Mg/2 Ml Amp INHALATION 0.5 mg Q12HRT ANDREW Administration Buspirone HCl 5 mg 11/06/24 12:20 11/09/24 20:21 Buspirone Hcl 5 Mg Tablet PO 5 mg Q12HR ANDREW Administration Docusate Sodium 100 mg 11/04/24 21:31 Docusate Sodium 100 Mg Capsule PO BID PRN Constipation Doxycycline Hyclate 100 mg 11/05/24 18:30 11/10/24 06:02 Doxycycline Hyclate 100 Mg Tablet PO 100 mg Q12H ANDREW Administration Enoxaparin Sodium 40 mg 11/05/24 09:00 11/09/24 08:28 Enoxaparin 40 Mg/0.4 Ml Syringe SUB-Q 40 mg DAILY ANDREW Administration Guaifenesin 200 mg 11/05/24 14:46 11/09/24 17:07 Guaifenesin 200 Mg/10 Ml Udc PO 200 mg Q4H PRN Administration Cough Guaifenesin 1,200 mg 11/07/24 09:30 11/09/24 20:21 Guaifenesin 12 Hr 600 Mg Tabcr PO 1,200 mg Q12HR ANDREW Administration Ipratropium [place] 0.5 mg 11/07/24 12:00 11/10/24 07:49 Ipratropium Br 0.02% Inh Soln 0.5 Mg/2.5 Ml Vial INHALATION 0.5 mg Q4HRT ANDREW Administration Levalbuterol HCl 0.63 mg 11/07/24 12:00 11/10/24 07:49 Levalbuterol Neb 1.25 Mg/3 Ml INHALATION 0.63 mg Q4HRT ANDREW Administration Lorazepam 0.5 mg 11/05/24 14:45 11/08/24 20:27 Lorazepam Inj (*Crx) 2 Mg/Ml Vial IV PUSH 0.5 mg Q6H PRN Administration Anxiety Lorazepam 0.5 mg 11/09/24 08:04 11/09/24 17:07 Lorazepam (*Crx) 0.5 Mg Tablet PO 0.5 mg Q6H PRN Administration Anxiety Nystatin 5 ml 11/09/24 21:00 11/09/24 17:46 Nystatin 100,000 Units/Ml Susp 5 Ml Oral.Susp PO 5 ml QID ANDREW Administration Perflutren Lipid Microsphere 0 ml 11/10/24 07:14 Perflutren Lipid Microspheres 1.5 Ml Vial Diluted To 10 Ml Total Volume IV PUSH 11/13/24 07:14 ONCE PRN adequate visualization Protocol Prednisone 40 mg 11/09/24 12:00 11/09/24 12:13 Prednisone 20 Mg Tablet PO 40 mg DAILY@0800 ANDREW Administration Sodium Chloride 1 spray 11/07/24 16:55 11/07/24 17:44 Saline 0.65% Flynn Soln 44 Ml Btl NASAL 1 spray Q6HR PRN Administration Congestion Radiology Results: ITS Impressions Chest X-Ray 11/04/24 17:04 IMPRESSION: 1. Small opacities in the lower lungs which represents atelectasis/scarring or infiltrates. 2. Lungs are hyperinflated. Chest CTA 11/04/24 18:27 IMPRESSION: No pulmonary embolus. No thoracic aortic dissection. Centrilobular emphysematous disease Labs Labs: Laboratory Results - last 24 hr 11/08/24 11/10/24 05:25 06:19 WBC 14.8 H RBC 4.75 Hgb 14.4 Hct 44.3 MCV 93.3 MCH 30.3 MCHC 32.5 RDW 13.5 Plt Count 303 MPV 9.5 Immature Gran % (Auto) 0.7 H Neut % (Auto) 69.4 Lymph % (Auto) 19.6 [place] % (Auto) 9.9 H Eos % (Auto) 0.3 Baso % (Auto) 0.1 L Lymph # (Auto) 2.89 [place] # (Auto) 1.5 H Eos # (Auto) 0.0 Baso # (Auto) 0.0 Abs Immat Gran (auto) 0.10 H Absolute Neuts (auto) 10.3 H Absolute Nucleated RBC 0.000 Nucleated RBC % 0.0 D-Dimer 0.38 Sodium 137 Potassium 4.0 Chloride 104 Carbon Dioxide 27 Anion Gap 6 BUN 19 H Creatinine 0.66 L Estim Creat Clear Calc 67 Estimated GFR > 60 Glucose 98 Calcium 9.6 Total Bilirubin 0.5 AST 43 H ALT 29 Alkaline Phosphatase 65 C-Reactive Protein 1.5 H NT-Pro-B Natriuret Pep 2490 H Total Protein 7.2 Albumin 4.0 [id number] 166
[2024-11-10] MEDS: NYSTATIN 100,000 UNITS/ML SUSP 5 ML ORAL.SUSP PO ×4 (08:42→20:57)
[2024-11-10 08:43] LABS: Procalcitonin 0.0 ng/mL
[2024-11-10] MEDS: ENOXAPARIN 40 MG/0.4 ML SYRINGE SUB-Q (08:43)
[2024-11-10] MEDS: LORazepam (*CRX) 0.5 MG TABLET PO (08:50)
--- NOTE | 2024-11-10 09:18 | PM.PNPUL ---
Progress Note: A&P Assessment and Plan (1) Acute exacerbation of chronic obstructive pulmonary disease: Code(s): J44.1 - Chronic obstructive pulmonary disease with (acute) exacerbation Status: Acute Assessment and Plan: Patient does smoke tobacco since age 21 on and off at 1 and half packs per day at her peak, total pack years 45 pack years, Quit 2 weeks ago. Smokes 1/2 marijuana cigarette a night for the last 7 years, quit 1 month ago. Exposed to secondhand smoke from her mother. 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 Patient tells me she had PFTs 15-20 years ago and she was told that these were fine. She denies asthma or chronic bronchitis. At baseline 2 weeks ago patient says she had no respiratory limitations in her activities of daily living and cut her grass and do gardening without respiratory limitations. She is on no home oxygen. On 11/04 the patient presented to the ER with 1-2 days worsening fatigue, rhinorrhea, cough, dyspnea on exertion and shortness of breath at rest. Her blood pressure was 144/85, heart rate 109, respirations 22, saturations were 100% on 6 L. She had decreased breath sounds and expiratory wheezes bilaterally. Her white blood cell count was 9.3, eosinophils 12.7=5491/uL, her creatinine was 0.8, BNP 702, COVID, influenza, RSV RT PCR assay negative. ABG on 3.5 L nasal cannula 7.38/38/89. CT angiogram of the chest showed no PE, mild apical predominant centrilobular emphysema with no infiltrates or effusions. Patient was treated for COPD exacerbation with bronchodilators, Solu-Medrol, Rocephin and doxycycline. 11/07/2024: Patient tells me she is improved but minimally improved. She has 15% back to her normal. She still has rest shortness of breath, dyspnea on exertion, wheezing. Nebulizers to help her. She has yellow to green phlegm with no Hemoptysis. When I enter the room she was on 3 L nasal cannula saturations 99%. I decreased her to room air and her saturations were 92%. Plan: I congratulated her on quitting tobacco 2 weeks ago and quitting marijuana 1 month ago. Will continue to treat patient for COPD exacerbation. She is still wheezing. She is on day 4 Solu-Medrol 60 q.12 and still has wheezes. I will change her to 30 q.6. I will increase the frequency of her ipratropium and levalbuterol nebulizers from q.6 hours to q.4 hours. Patient is on Rocephin and doxycycline day 4 of both. She had no focal infiltrates on her CT scan of the chest and will discontinue Rocephin today. I will order alpha 1 anti trypsin genotype and level for tomorrow. I have ordered a respiratory pathogen panel looking for etiology of her COPD exacerbation. I will order overnight oximetry on room air to assess for nocturnal hypoxemia. 11/08/24: Patient tells me is she is improved. She coughed up green phlegm this morning and says that her breathing is much better after this. She denies hemoptysis. She has intermittent wheezing. Currently she is on 2 L nasal cannula with saturations 92%. She tells me she has improved and ready for discharge today. Smoking cessation counseling was provided. She has quit about 2 weeks ago and says that she called a friend who has removed all smoking remnants from her house today. Home O2 assessment: Rest room air saturation 86%. Rest nasal cannula 1 L saturation 87%. Rest nasal cannula 2 L saturation 93%. Exercise nasal cannula 2 L saturation 90%. Patient ambulated 183 m. Patient requires 2 L at rest and with exertion. Later in the day patient had an episode where phlegm got stuck in her throat and she could not breathe and turned blue. Eventually she expectorated and improved. Discharge was canceled. 11/09/24: Patient slept overnight on 2 L nasal cannula. This morning she was doing well and then she walked to the door on room air and became dizzy and hypoxemic. I entered the room immediately after this and her saturations on 2 L were 83%. I increased her to 5 L nasal cannula and her saturations were 90%. She was no longer dizzy after 5 minutes. Patient still complains of chest tightness, she has thick green phlegm with no hemoptysis. She states she is talking better and overall improved from when she was admitted. She is afebrile. Her weight today is 60.5. Her respiratory pathogen panel is negative. Patient had an overnight oximetry on 2 L nasal cannula with recording duration of 8 hours and 43 minutes. Average saturation 85%, low saturation 74%. Time with saturation less than or equal to 88% was 390 minutes, oxygen desaturation index 5.1. Plan: Patient has no wheezing today. I will discontinue her Solu-Medrol and place her on prednisone 40 mg p.o. q.day, I will start budesonide nebulizers 500 mcg Q 12 hours. I will continue levalbuterol and ipratropium nebulizers q.4 hours, continue guaifenesin 1200 b.i.d., continue Cornet flutter valve. 11/10/2024: Patient remained hypoxic yesterday requiring 5-6 L. patient tells me she could not sleep well, she still has shortness of breath, she still has chest heaviness which is relieved by nebulizer treatments as well as expectorating phlegm. She denies fever chills rigors. No hemoptysis. She is afebrile. White blood cell count 14.8, creatinine 0.66, BNP 2490, D-dimer 0.38, normal. CRP 1.5. Procalcitonin 0. Patient has bright red finger nail Cam[place]onian on and her overnight oximetry on 6 L was done with this finger nail Cam[place]onian and this morning this finger had pulse oximetry that was 3-4 points lower than a finger without the nail Cam[place]onian. Recording duration 6 hours and 22 minutes, average saturation 89%, low saturation 79%, time with saturation less than or equal to 88% was 79 minutes, oxygen desaturation index 5.6. Plan: Regarding patient's worsening oxygenation. She has a negative D-dimer. I will perform a CT scan of the chest without contrast to assess for lobar collapse from mucus plugging, pneumonia, fluid overload. I will obtain an echocardiogram with a bubble study. Continue prednisone 40 mg q.day, today is day 7 of steroids. Continue doxycycline 100 mg p.o. b.i.d., day 7. She cannot take the Mucinex pills and I will change her to Mucinex liquid 400 q.4 hours. I will add Mucomyst nebulizers twice a day. Continue Cornet flutter valve. Continue levalbuterol and ipratropium nebulizers q.4 hours and budesonide nebulizer b.i.d.. complained of worsening sinus congestion and I will add Flonase 1 spray each nostril twice a day and Claritin 10 mg a day. Patient with grade 1 diastolic dysfunction, weight is up 2.9 kg and her BNP is 2490. Recommend 20 mg IV Lasix x1 today. Discussed with Dr. Calvillo, will follow with you Subjective Date/time seen: 11/10/24 09:18 Interval history: 11/07/2024: This is a new pulmonary consult for COPD exacerbation. 64-year-old with no previous medical diagnosis on no home medicines. Patient does smoke tobacco since age 21 on and off at 1 and half packs per day at her peak, total pack years 45 pack years, Quit 2 weeks ago. Smokes 1/2 marijuana cigarette a night for the last 7 years, quit 1 month ago. Exposed to secondhand smoke from her mother. 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 Patient tells me she had PFTs 15-20 years ago and she was told that these were fine. She denies asthma or chronic bronchitis. At baseline 2 weeks ago patient says she had no respiratory limitations in her activities of daily living and cut her grass and do gardening without respiratory limitations. She is on no home oxygen. On 11/04 the patient presented to the ER with 1-2 days worsening fatigue, rhinorrhea, cough, dyspnea on exertion and shortness of breath at rest. Her blood pressure was 144/85, heart rate 109, respirations 22, saturations were 100% on 6 L. She had decreased breath sounds and expiratory wheezes bilaterally. Her white blood cell count was 9.3, eosinophils 12.6=8129/uL, her creatinine was 0.8, BNP 702, COVID, influenza, RSV RT PCR assay negative. ABG on 3.5 L nasal cannula 7.38/38/. CT angiogram of the chest showed no PE, mild apical predominant centrilobular emphysema with no infiltrates or effusions. Patient was treated for COPD exacerbation with bronchodilators, Solu-Medrol, Rocephin and doxycycline. 11/07/2024: Patient tells me she is improved but minimally improved. She has 15% back to her normal. She still has rest shortness of breath, dyspnea on exertion, wheezing. Nebulizers to help her. She has yellow to green phlegm with no Hemoptysis. When I enter the room she was on 3 L nasal cannula saturations 99%. I decreased her to room air and her saturations were 92%. 11/08/24: Patient tells me is she is improved. She coughed up green phlegm this morning and says that her breathing is much better after this. She denies hemoptysis. She has intermittent wheezing. Currently she is on 2 L nasal cannula with saturations 92%. She tells me she has improved and ready for discharge today. Home O2 assessment: Rest room air saturation 86%. Rest nasal cannula 1 L saturation 87%. Rest nasal cannula 2 L saturation 93%. Exercise nasal cannula 2 L saturation 90%. Patient ambulated 183 m. Patient requires 2 L at rest and with exertion. Later in the day patient had an episode where phlegm got stuck in her throat and she could not breathe and turned blue. Eventually she expectorated and improved. Discharge was canceled. 11/09/24: Patient slept overnight on 2 L nasal cannula. This morning she was doing well and then she walked to the door on room air and became dizzy and hypoxemic. I entered the room immediately after this and her saturations on 2 L were 83%. I increased her to 5 L nasal cannula and her saturations were 90%. She was no longer dizzy after 5 minutes. Patient still complains of chest tightness, she has thick green phlegm with no hemoptysis. She states she is talking better and overall improved from when she was admitted. She is afebrile. Her weight today is 60.5. Her respiratory pathogen panel is negative. Patient had an overnight oximetry on 2 L nasal cannula with recording duration of 8 hours and 43 minutes. Average saturation 85%, low saturation 74%. Time with saturation less than or equal to 88% was 390 minutes, oxygen desaturation index 5.1. 11/10/2024: Patient remained hypoxic yesterday requiring 5-6 L. patient tells me she could not sleep well, she still has shortness of breath, she still has chest heaviness which is relieved by nebulizer treatments as well as expectorating phlegm. She denies fever chills rigors. No hemoptysis. She is afebrile. White blood cell count 14.8, creatinine 0.66, BNP 2490, D-dimer 0.38, normal. CRP 1.5. Procalcitonin 0. Patient has bright red finger nail Cam[place]onian on and her overnight oximetry on 6 L was done with this finger nail Cam[place]onian and this morning this finger had pulse oximetry that was 3-4 points lower than a finger without the nail Cam[place]onian. Recording duration 6 hours and 22 minutes, average saturation 89%, low saturation 79%, time with saturation less than or equal to 88% was 79 minutes, oxygen desaturation index 5.6. DATA: 11/10/24: Patient has bright red finger nail Cameroonian on and her overnight oximetry on 6 L was done with this finger nail Cameroonian and this morning this finger had pulse oximetry that was 3-4 points lower than a finger without the nail Cam[place]onian. Recording duration 6 hours and 22 minutes, average saturation 89%, low saturation 79%, time with saturation less than or equal to 88% was 79 minutes, oxygen desaturation index 5.6. 11/08/24: Patient had an overnight oximetry on 2 L nasal cannula with recording duration of 8 hours and 43 minutes. Average saturation 85%, low saturation 74%. Time with saturation less than or equal to 88% was 390 minutes, oxygen desaturation index 5.1. 11/08/2024: Home O2 assessment: Rest room air saturation 86%. Rest nasal cannula 1 L saturation 87%. Rest nasal cannula 2 L saturation 93%. Exercise nasal cannula 2 L saturation 90%. Patient ambulated 183 m. Patient requires 2 L at rest and with exertion. 11/05/24: Echo Summary 1. Complete two-dimensional, color flow and Doppler transthoracic echocardiogram is performed. 2. Left ventricular chamber dimension is normal. 3. Left ventricular systolic function is normal, estimated at 60-65. 4. The left ventricular diastolic function is grade I diastolic dysfunction. 5. E/e' 9 is minimally elevated. 6. There is trace tricuspid valve regurgitation. Right Ventricle Right ventricular chamber dimension is normal. Right ventricular systolic function is normal. Right Atria Right atrial chamber dimension is normal. Tricuspid Valve There is trace tricuspid valve regurgitation. RVSP is not measured due to an inadequate TR jet. 11/04/24: EXAMINATION: CTA chest PE protocol INDICATION: Shortness of breath with near, pulmonary embolus suspected clinically COMPARISON: None. FINDINGS/OBSERVATIONS: PULMONARY ARTERIES: No filling defect is identified within the main or proximal pulmonary artery. The main pulmonary artery is not enlarged. THORACIC AORTA: No aneurysmal dilatation or dissection is present. The great vessels are intact LUNGS: Centrilobular emphysematous disease. The lungs are otherwise clear. MEDIASTINUM: No morphologically suspicious or pathologically enlarged lymph nodes are identified within the mediastinum or bilateral axilla. BONES OF THE CHEST: No acute fracture. Age-appropriate degenerative disease. No lytic or blastic lesions. HEART: The heart is of normal size, without pericardial effusion. IMPRESSION: No pulmonary embolus. No thoracic aortic dissection. Centrilobular emphysematous disease. Review of Systems Constitutional: Constitutional: Reports no additional constitutional complaints Eyes: Eyes: Reports no additional eye complaints ENT: Reports system reviewed and no additional complaints, except as documented Cardiovascular: Cardiovascular: Reports no additional cardiovascular complaints Respiratory: Respiratory: Reports no additional respiratory complaints Gastrointestinal: Gastrointestinal: Reports no additional gastrointestinal complaints Musculoskeletal: Musculoskeletal: Reports no additional musculoskeletal complaints Neurologic: Reports system reviewed and no additional complaints, except as documented Psychiatric: Psychiatric: Reports no additional psychiatric complaints Endocrine: Endocrine: Reports no additional endocrine complaints Hematologic/Lymphatic: Hematologic/Lymphatic: Reports no additional hematologic/lymphatic complaints Allergic/Immunologic: Allergic/Immunologic: Reports no additional allergic/immunologic complaints Exam Const: General: cooperative, healthy appearing and comfortable Orientation/consciousness: oriented to person, oriented to place and oriented to time HENMT: Head: normal to inspection Ears: hearing grossly normal bilaterally Eyes: General: appearance normal, both eyes and all related structures Neck: Neck: normal visual inspection Chest: Chest palpation & inspection: normal inspection of the chest Resp: Effort & Inspection: normal respiratory effort and able to speak in complete sentences Auscultation: no crackles, no rales, no rhonchi, no wheezes and lung sounds not diminished Other: No wheezes today Cardio: Jugular venous distension: no JVD GI: Inspection: normal to inspection Skin: General skin exam: normal color Neuro: General: oriented to person, oriented to place and oriented to time Extrem: General: normal to inspection Psych: Appearance: grossly normal Objective Data Vital Signs Vital Signs: Vital Signs - 24 hr 11/09/24 09:36 11/09/24 11:33 11/09/24 11:33 Temperature Pulse Rate 84 Respiratory Rate 20 Blood Pressure Pulse Oximetry 94 93 Oxygen Delivery Nasal Cannula Nasal Cannula Oxygen Flow Rate 5 5 11/09/24 11:47 11/09/24 12:00 11/09/24 14:00 Temperature 36.3 C L Pulse Rate 92 107 H 95 Respiratory Rate 20 18 Blood Pressure 158/86 H Pulse Oximetry 94 Oxygen Delivery Oxygen Flow Rate 11/09/24 15:54 11/09/24 16:00 11/09/24 16:03 Temperature Pulse Rate 100 86 97 Respiratory Rate 20 20 Blood Pressure Pulse Oximetry Oxygen Delivery Oxygen Flow Rate 11/09/24 19:19 11/09/24 19:19 11/09/24 19:30 Temperature Pulse Rate 96 107 H Respiratory Rate 18 18 Blood Pressure Pulse Oximetry 96 Oxygen Delivery Nasal Cannula Oxygen Flow Rate 5 11/09/24 20:00 11/09/24 20:00 11/09/24 21:44 Temperature 36.9 C Pulse Rate 99 112 H Respiratory Rate 20 Blood Pressure 146/87 H Pulse Oximetry 92 92 Oxygen Delivery Nasal Cannula Oxygen Flow Rate 5 11/10/24 00:00 11/10/24 04:00 11/10/24 05:00 Temperature Pulse Rate 76 101 H 86 Respiratory Rate 18 Blood Pressure Pulse Oximetry Oxygen Delivery Oxygen Flow Rate 11/10/24 05:04 11/10/24 05:06 11/10/24 07:51 Temperature 36.6 C Pulse Rate 80 92 108 H Respiratory Rate 18 20 20 Blood Pressure 135/86 Pulse Oximetry 97 Oxygen Delivery Oxygen Flow Rate 11/10/24 07:52 11/10/24 08:01 11/10/24 08:04 Temperature Pulse Rate 108 H 109 H 109 H Respiratory Rate 20 20 20 Blood Pressure Pulse Oximetry 86 L 96 Oxygen Delivery Nasal Cannula Nasal Cannula Oxygen Flow Rate 5 5 Intake/Output Intake/Output: Intake & Output 11/07/24 11/08/24 11/09/24 11/10/24 23:59 23:59 23:59 23:59 Intake Total 1100 800 920 350 Balance 1100 800 920 350 Meds/Results Medications: Active Medications Generic Name Dose Route Start Last Admin Trade Name Freq PRN Reason Stop Dose Admin Acetaminophen 650 mg 11/04/24 21:31 11/07/24 19:33 Acetaminophen 325 Mg Tablet PO 650 mg Q4H PRN Administration Mild Pain (1-3) or Fever Acetylcysteine 200 mg 11/10/24 21:00 Acetylcysteine 20% Inhal Soln 800 Mg/4 Ml Vial INHALATION Q12HR ANDREW Budesonide 0.5 mg 11/09/24 20:00 11/10/24 07:49 Budesonide Respule Neb 0.5 Mg/2 Ml Amp INHALATION 0.5 mg Q12HRT [facility] Administration Buspirone HCl 5 mg 11/06/24 12:20 11/10/24 08:42 Buspirone Hcl 5 Mg Tablet PO 5 mg Q12HR ANDREW Administration Docusate Sodium 100 mg 11/04/24 21:31 Docusate Sodium 100 Mg Capsule PO BID PRN Constipation Doxycycline Hyclate 100 mg 11/05/24 18:30 11/10/24 06:02 Doxycycline Hyclate 100 Mg Tablet PO 100 mg Q12H [facility] Administration Enoxaparin Sodium 40 mg 11/05/24 09:00 11/10/24 08:43 Enoxaparin 40 Mg/0.4 Ml Syringe SUB-Q 40 mg DAILY ANDREW Administration Fluticasone Propionate 1 spray 11/10/24 09:15 Fluticasone Propionate 0.05% Na Spr 16 Gm Btl (*Bkc) NASAL Q12HR ANDREW Guaifenesin 200 mg 11/05/24 14:46 11/10/24 08:42 Guaifenesin 200 Mg/10 Ml Udc PO 200 mg Q4H PRN Administration Cough Guaifenesin 1,200 mg 11/07/24 09:30 11/10/24 08:52 Guaifenesin 12 Hr 600 Mg Tabcr PO Not Given Q12HR ANDREW Ipratropium [place] 0.5 mg 11/07/24 12:00 11/10/24 07:49 Ipratropium Br 0.02% Inh Soln 0.5 Mg/2.5 Ml Vial INHALATION 0.5 mg Q4HRT ANDREW Administration Levalbuterol HCl 0.63 mg 11/07/24 12:00 11/10/24 07:49 Levalbuterol Neb 1.25 Mg/3 Ml INHALATION 0.63 mg Q4HRT ANDREW Administration Loratadine 10 mg 11/10/24 09:15 Loratadine 10 Mg Tablet PO QAM ANDREW Lorazepam 0.5 mg 11/09/24 08:04 11/10/24 08:50 Lorazepam (*Crx) 0.5 Mg Tablet PO 0.5 mg Q6H PRN Administration Anxiety Nystatin 5 ml 11/09/24 21:00 11/10/24 08:42 Nystatin 100,000 Units/Ml Susp 5 Ml Oral.Susp PO 5 ml QID ANDREW Administration Perflutren Lipid Microsphere 0 ml 11/10/24 07:14 Perflutren Lipid Microspheres 1.5 Ml Vial Diluted To 10 Ml Total Volume IV PUSH 11/13/24 07:14 ONCE PRN adequate visualization Protocol Prednisone 40 mg 11/09/24 12:00 11/10/24 08:42 Prednisone 20 Mg Tablet PO 40 mg DAILY@0800 ANDREW Administration Sodium Chloride 1 spray 11/07/24 16:55 11/07/24 17:44 Saline 0.65% Flynn Soln 44 Ml Btl NASAL 1 spray Q6HR PRN Administration Congestion Radiology Results: ITS Impressions Chest X-Ray 11/04/24 17:04 IMPRESSION: 1. Small opacities in the lower lungs which represents atelectasis/scarring or infiltrates. 2. Lungs are hyperinflated. Chest CTA 11/04/24 18:27 IMPRESSION: No pulmonary embolus. No thoracic aortic dissection. Centrilobular emphysematous disease Labs Labs: Laboratory Results - last 24 hr 11/08/24 11/10/24 05:25 06:19 WBC 14.8 H RBC 4.75 Hgb 14.4 Hct 44.3 MCV 93.3 MCH 30.3 MCHC 32.5 RDW 13.5 Plt Count 303 MPV 9.5 Immature Gran % (Auto) 0.7 H Neut % (Auto) 69.4 Lymph % (Auto) 19.6 [place] % (Auto) 9.9 H Eos % (Auto) 0.3 Baso % (Auto) 0.1 L Lymph # (Auto) 2.89 [place] # (Auto) 1.5 H Eos # (Auto) 0.0 Baso # (Auto) 0.0 Abs Immat Gran (auto) 0.10 H Absolute Neuts (auto) 10.3 H Absolute Nucleated RBC 0.000 Nucleated RBC % 0.0 D-Dimer 0.38 Sodium 137 Potassium 4.0 Chloride 104 Carbon Dioxide 27 Anion Gap 6 BUN 19 H Creatinine 0.66 L Estim Creat Clear Calc 67 Estimated GFR > 60 Glucose 98 Calcium 9.6 Total Bilirubin 0.5 AST 43 H ALT 29 Alkaline Phosphatase 65 C-Reactive Protein 1.5 H NT-Pro-B Natriuret Pep 2490 H Total Protein 7.2 Albumin 4.0 [id number] 166 Procalcitonin 0.0
[2024-11-10] MEDS: LORATADINE 10 MG TABLET PO (11:26)
[2024-11-10] MEDS: FUROSEMIDE INJ 40 MG/4 ML VIAL 20 MG IV PUSH (11:26)
[2024-11-10] MEDS: FLUTICASONE PROPIONATE 0.05% NA SPR 16 GM BTL (*BKC) 1 SPRAY NASAL ×2 (11:26→20:57)
[2024-11-10] MEDS: ACETYLCYSTEINE 20% INHAL SOLN 800 MG/4 ML VIAL 200 MG INHALATION ×2 (11:38→20:09)
[2024-11-10] MEDS: MEROPENEM 1 GM in SODIUM CHLORIDE 0.9% IV 100 ML 200 ML IVPB ×2 (15:44→22:50)
[2024-11-10 15:51] LABS: Influenza A QL RT-PCR Negative (Negative); Influenza B QL RT-PCR Negative (Negative); RSV RNA, RT-PCR Negative (Negative); SARS-CoV-2 RNA PCR Negative (Negative)
[2024-11-10 16:27] LABS: MRSA (PCR) NOT DETECTED (NOT DETECTE)
[2024-11-10] MEDS: ACETAMINOPHEN 325 MG TABLET 650 MG PO (21:08)
[2024-11-11] VITALS (22 sets, daily range): BP systolic 128–147; BP diastolic 77–86; PULSE 87–176; RESP 16–22; TEMP 36.3–36.4; O2SAT 92–100
[2024-11-11] MEDS: IPRATROPIUM BR 0.02% INH SOLN 0.5 MG/2.5 ML VIAL INHALATION ×5 (01:05→19:54)
[2024-11-11] MEDS: DOXYCYCLINE HYCLATE 100 MG TABLET PO ×2 (05:50→17:24)
[2024-11-11] MEDS: MEROPENEM 1 GM in SODIUM CHLORIDE 0.9% IV 100 ML 200 ML IVPB ×3 (05:51→22:09)
[2024-11-11 06:25] LABS: Hematocrit 45.4 % (37.0-47.0); Hemoglobin 15.0 g/dL (12.0-15.0); Immature Granulocyte Percent A 0.4 % (0-0.5); Lymphocytes Absolute Auto 2.97 K/mm3 (0.9-3.2); Mean Corpuscular HGB Conc 33.0 g/dl (32-36); Mean Corpuscular Hemoglobin 30.9 pg (26-34); Mean Corpuscular Volume 93.4 fl (80-100); Nucleated Red Blood Cells Absolute Auto 0.000 K/mm3 (0.0-0.012); Nucleated Red Blood Cells Perc 0.0 % (0.0-0.2); Platelet Count Result 318 k/mm3 (150-375); Red Blood Count 4.86 M/mm3 (4.2-5.4); White Blood Count 12.8 K/mm3 (4.5-10.0)
[2024-11-11 07:05] LABS: Alanine Aminotransferase 37 U/L (6-35); Albumin Level 3.9 g/dL (3.5-5.1); Alkaline Phosphatase 68 U/L (38-126); Anion Gap 4 mmol/L (4-12); Aspartate Amino Transferase 50 U/L (14-36); Bilirubin,Total 0.6 mg/dL (0.2-1.3); Blood Urea Nitrogen 27 mg/dL (7-17); Calcium 9.3 mg/dL (8.4-10.2); Carbon Dioxide 29 mmol/L (22-30); Chloride 104 mmol/L (98-107); Estimated CRCL calculation 64 ml/min; Estimated Glomerular Filt Rate > 60; Glucose 84 mg/dL (65-110); Magnesium 2.1 mg/dL (1.6-2.3); Potassium 3.9 mmol/L (3.4-5.0); Sodium 137 mmol/L (137-145); Total Protein 7.0 g/dL (6.3-8.2)
[2024-11-11] MEDS: BUDESONIDE RESPULE NEB 0.5 MG/2 ML AMP INHALATION ×2 (07:35→19:54)
[2024-11-11] MEDS: ACETYLCYSTEINE 20% INHAL SOLN 800 MG/4 ML VIAL 200 MG INHALATION ×3 (07:35→20:00)
[2024-11-11] MEDS: NYSTATIN 100,000 UNITS/ML SUSP 5 ML ORAL.SUSP PO ×4 (08:43→20:34)
[2024-11-11] MEDS: LORATADINE 10 MG TABLET PO (08:43)
[2024-11-11] MEDS: ACETAMINOPHEN 325 MG TABLET 650 MG PO (08:44)
[2024-11-11] MEDS: ENOXAPARIN 40 MG/0.4 ML SYRINGE SUB-Q (08:45)
[2024-11-11] MEDS: LORazepam (*CRX) 0.5 MG TABLET PO ×2 (08:45→20:35)
[2024-11-11] MEDS: FLUTICASONE PROPIONATE 0.05% NA SPR 16 GM BTL (*BKC) 1 SPRAY NASAL (08:50)
--- NOTE | 2024-11-11 09:55 | PM.PNPUL ---
Progress Note: A&P Assessment and Plan (1) Acute exacerbation of chronic obstructive pulmonary disease: Code(s): J44.1 - Chronic obstructive pulmonary disease with (acute) exacerbation Status: Acute Assessment and Plan: Patient does smoke tobacco since age 21 on and off at 1 and half packs per day at her peak, total pack years 45 pack years, Quit 2 weeks ago. Smokes 1/2 marijuana cigarette a night for the last 7 years, quit 1 month ago. Exposed to secondhand smoke from her mother. 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 Patient tells me she had PFTs 15-20 years ago and she was told that these were fine. She denies asthma or chronic bronchitis. At baseline 2 weeks ago patient says she had no respiratory limitations in her activities of daily living and cut her grass and do gardening without respiratory limitations. She is on no home oxygen. On 11/04 the patient presented to the ER with 1-2 days worsening fatigue, rhinorrhea, cough, dyspnea on exertion and shortness of breath at rest. Her blood pressure was 144/85, heart rate 109, respirations 22, saturations were 100% on 6 L. She had decreased breath sounds and expiratory wheezes bilaterally. Her white blood cell count was 9.3, eosinophils 12.2=7031/uL, her creatinine was 0.8, BNP 702, COVID, influenza, RSV RT PCR assay negative. ABG on 3.5 L nasal cannula 7.38/38/89. CT angiogram of the chest showed no PE, mild apical predominant centrilobular emphysema with no infiltrates or effusions. Patient was treated for COPD exacerbation with bronchodilators, Solu-Medrol, Rocephin and doxycycline. 11/07/2024: Patient tells me she is improved but minimally improved. She has 15% back to her normal. She still has rest shortness of breath, dyspnea on exertion, wheezing. Nebulizers to help her. She has yellow to green phlegm with no Hemoptysis. When I enter the room she was on 3 L nasal cannula saturations 99%. I decreased her to room air and her saturations were 92%. Plan: I congratulated her on quitting tobacco 2 weeks ago and quitting marijuana 1 month ago. Will continue to treat patient for COPD exacerbation. She is still wheezing. She is on day 4 Solu-Medrol 60 q.12 and still has wheezes. I will change her to 30 q.6. I will increase the frequency of her ipratropium and levalbuterol nebulizers from q.6 hours to q.4 hours. Patient is on Rocephin and doxycycline day 3 of both. She had no focal infiltrates on her CT scan of the chest and will discontinue Rocephin today. I will order alpha 1 anti trypsin genotype and level for tomorrow. I have ordered a respiratory pathogen panel looking for etiology of her COPD exacerbation. I will order overnight oximetry on room air to assess for nocturnal hypoxemia. 11/08/24: Patient tells me is she is improved. She coughed up green phlegm this morning and says that her breathing is much better after this. She denies hemoptysis. She has intermittent wheezing. Currently she is on 2 L nasal cannula with saturations 92%. She tells me she has improved and ready for discharge today. Smoking cessation counseling was provided. She has quit about 2 weeks ago and says that she called a friend who has removed all smoking remnants from her house today. Home O2 assessment: Rest room air saturation 86%. Rest nasal cannula 1 L saturation 87%. Rest nasal cannula 2 L saturation 93%. Exercise nasal cannula 2 L saturation 90%. Patient ambulated 183 m. Patient requires 2 L at rest and with exertion. Later in the day patient had an episode where phlegm got stuck in her throat and she could not breathe and turned blue. Eventually she expectorated and improved. Discharge was canceled. 11/09/24: Patient slept overnight on 2 L nasal cannula. This morning she was doing well and then she walked to the door on room air and became dizzy and hypoxemic. I entered the room immediately after this and her saturations on 2 L were 83%. I increased her to 5 L nasal cannula and her saturations were 90%. She was no longer dizzy after 5 minutes. Patient still complains of chest tightness, she has thick green phlegm with no hemoptysis. She states she is talking better and overall improved from when she was admitted. She is afebrile. Her weight today is 60.5. Her respiratory pathogen panel is negative. Patient had an overnight oximetry on 2 L nasal cannula with recording duration of 8 hours and 43 minutes. Average saturation 85%, low saturation 74%. Time with saturation less than or equal to 88% was 390 minutes, oxygen desaturation index 5.1. Plan: Patient has no wheezing today. I will discontinue her Solu-Medrol and place her on prednisone 40 mg p.o. q.day, I will start budesonide nebulizers 500 mcg Q 12 hours. I will continue levalbuterol and ipratropium nebulizers q.4 hours, continue guaifenesin 1200 b.i.d., continue Cornet flutter valve. 11/10/2024: Patient remained hypoxic yesterday requiring 5-6 L. patient tells me she could not sleep well, she still has shortness of breath, she still has chest heaviness which is relieved by nebulizer treatments as well as expectorating phlegm. She denies fever chills rigors. No hemoptysis. She is afebrile. White blood cell count 14.8, creatinine 0.66, BNP 2490, D-dimer 0.38, normal. CRP 1.5. Procalcitonin 0. Patient has bright red finger nail Cameroonian on and her overnight oximetry on 6 L was done with this finger nail Cameroonian and this morning this finger had pulse oximetry that was 3-4 points lower than a finger without the nail Cam[place]onian. Recording duration 6 hours and 22 minutes, average saturation 89%, low saturation 79%, time with saturation less than or equal to 88% was 79 minutes, oxygen desaturation index 5.6. Plan: Regarding patient's worsening oxygenation. She has a negative D-dimer. I will perform a CT scan of the chest without contrast to assess for lobar collapse from mucus plugging, pneumonia, fluid overload. I will obtain an echocardiogram with a bubble study. Continue prednisone 40 mg q.day, today is day 7 of steroids. Continue doxycycline 100 mg p.o. b.i.d., day 6. She cannot take the Mucinex pills and I will change her to Mucinex liquid 400 q.4 hours. I will add Mucomyst nebulizers twice a day. Continue Cornet flutter valve. Continue levalbuterol and ipratropium nebulizers q.4 hours and budesonide nebulizer b.i.d.. complained of worsening sinus congestion and I will add Flonase 1 spray each nostril twice a day and Claritin 10 mg a day. Patient with grade 1 diastolic dysfunction, weight is up 2.9 kg and her BNP is 2490. Recommend 20 mg IV Lasix x1 today. For her worsening oxygen requirements: MRSA swab was negative, COVID influenza and RSV RT PCR assay negative, Lasix 20 mg IV given. bubble study was ordered which was negative for [id number] shunt. CT scan without contrast compared to 11/04/2024 showed new right upper lobe and right middle lobe infiltrates, new collapse of the medial segment of the right middle lobe and mild atelectasis in the lingula. For new healthcare associated pneumonia meropenem was started, doxycycline continued. For collapse Mucomyst was started. With new infiltrate steroids were discontinued. 11/11/2024: The patient said she slept well for the 1st time since being in the hospital last night. Overall she has improved and states she is 65% back to her normal. She has no rest shortness of breath. Her phlegm production is thinner and more easily expectorated and is now yellow and not as green. She has no hemoptysis. She has no wheezing. Patient is on 5 L nasal cannula saturations 93%. White blood cell count 12.8, creatinine 0.7. Yesterday she was positive 830 mL. Her weight is 61.5. Plan: Patient being treated for healthcare associated pneumonia status post ceftriaxone 11/04-11/07, on doxycycline day 6 of 7. goal oxygen saturation 90-94%, wean as tolerated. Will repeat Lasix 20 IV today. Patient states the Mucomyst is helping her. Will decrease levalbuterol and ipratropium to q.6 hours and increase the Mucomyst to q.6 hours. Continue Cornet flutter valve and Mucinex liquid 400 q.4 hours. Will continue these treatments through the weekend. Pulmonary inpatient services will resume on 11/14/2024, called the on-call physician for questions. Discussed with Dr. Mcgarry, will follow with you. Subjective Date/time seen: 11/11/24 09:55 Interval history: 11/07/2024: This is a new pulmonary consult for COPD exacerbation. 64-year-old with no previous medical diagnosis on no home medicines. Patient does smoke tobacco since age 21 on and off at 1 and half packs per day at her peak, total pack years 45 pack years, Quit 2 weeks ago. Smokes 1/2 marijuana cigarette a night for the last 7 years, quit 1 month ago. Exposed to secondhand smoke from her mother. 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 Patient tells me she had PFTs 15-20 years ago and she was told that these were fine. She denies asthma or chronic bronchitis. At baseline 2 weeks ago patient says she had no respiratory limitations in her activities of daily living and cut her grass and do gardening without respiratory limitations. She is on no home oxygen. On 11/04 the patient presented to the ER with 1-2 days worsening fatigue, rhinorrhea, cough, dyspnea on exertion and shortness of breath at rest. Her blood pressure was 144/85, heart rate 109, respirations 22, saturations were 100% on 6 L. She had decreased breath sounds and expiratory wheezes bilaterally. Her white blood cell count was 9.3, eosinophils 12.4=5848/uL, her creatinine was 0.8, BNP 702, COVID, influenza, RSV RT PCR assay negative. ABG on 3.5 L nasal cannula 7.38/38/89. CT angiogram of the chest showed no PE, mild apical predominant centrilobular emphysema with no infiltrates or effusions. Patient was treated for COPD exacerbation with bronchodilators, Solu-Medrol, Rocephin and doxycycline. 11/07/2024: Patient tells me she is improved but minimally improved. She has 15% back to her normal. She still has rest shortness of breath, dyspnea on exertion, wheezing. Nebulizers to help her. She has yellow to green phlegm with no Hemoptysis. When I enter the room she was on 3 L nasal cannula saturations 99%. I decreased her to room air and her saturations were 92%. 11/08/24: Patient tells me is she is improved. She coughed up green phlegm this morning and says that her breathing is much better after this. She denies hemoptysis. She has intermittent wheezing. Currently she is on 2 L nasal cannula with saturations 92%. She tells me she has improved and ready for discharge today. Home O2 assessment: Rest room air saturation 86%. Rest nasal cannula 1 L saturation 87%. Rest nasal cannula 2 L saturation 93%. Exercise nasal cannula 2 L saturation 90%. Patient ambulated 183 m. Patient requires 2 L at rest and with exertion. Later in the day patient had an episode where phlegm got stuck in her throat and she could not breathe and turned blue. Eventually she expectorated and improved. Discharge was canceled. 11/09/24: Patient slept overnight on 2 L nasal cannula. This morning she was doing well and then she walked to the door on room air and became dizzy and hypoxemic. I entered the room immediately after this and her saturations on 2 L were 83%. I increased her to 5 L nasal cannula and her saturations were 90%. She was no longer dizzy after 5 minutes. Patient still complains of chest tightness, she has thick green phlegm with no hemoptysis. She states she is talking better and overall improved from when she was admitted. She is afebrile. Her weight today is 60.5. Her respiratory pathogen panel is negative. Patient had an overnight oximetry on 2 L nasal cannula with recording duration of 8 hours and 43 minutes. Average saturation 85%, low saturation 74%. Time with saturation less than or equal to 88% was 390 minutes, oxygen desaturation index 5.1. 11/10/2024: Patient remained hypoxic yesterday requiring 5-6 L. patient tells me she could not sleep well, she still has shortness of breath, she still has chest heaviness which is relieved by nebulizer treatments as well as expectorating phlegm. She denies fever chills rigors. No hemoptysis. She is afebrile. White blood cell count 14.8, creatinine 0.66, BNP 2490, D-dimer 0.38, normal. CRP 1.5. Procalcitonin 0. Patient has bright red finger nail Cameroonian on and her overnight oximetry on 6 L was done with this finger nail Cameroonian and this morning this finger had pulse oximetry that was 3-4 points lower than a finger without the nail Cam[place]onian. Recording duration 6 hours and 22 minutes, average saturation 89%, low saturation 79%, time with saturation less than or equal to 88% was 79 minutes, oxygen desaturation index 5.6. For her worsening oxygen requirements: MRSA swab was negative, COVID influenza and RSV RT PCR assay negative, Lasix 20 mg IV given. bubble study was ordered which was negative for [id number] shunt. CT scan without contrast compared to 11/04/2024 showed new right upper lobe and right middle lobe infiltrates, new collapse of the medial segment of the right middle lobe and mild atelectasis in the lingula. For new healthcare associated pneumonia meropenem was started, doxycycline continued. For collapse Mucomyst was started. 11/11/2024: The patient said she slept well for the 1st time since being in the hospital last night. Overall she has improved and states she is 65% back to her normal. She has no rest shortness of breath. Her phlegm production is thinner and more easily expectorated and is now yellow and not as green. She has no hemoptysis. She has no wheezing. Patient is on 5 L nasal cannula saturations 93%. White blood cell count 12.8, creatinine 0.7. Yesterday she was positive 830 mL. Her weight is 61.5. DATA: 11/10/24: EXAMINATION: CT diagnostic chest wo con INDICATION: COPD, hypoxia COMPARISON: 11/04/2024 FINDINGS: Mild emphysema. Partial collapse of the right middle lobe, atelectasis at the paramediastinal right upper lobe and sagittal oriented band of discoid atelectasis in the lingula, all new since the prior study. Also new are regions of groundglass opacity and septal line thickening peripherally in the right upper lobe which are suspicious for pneumonia. No pleural effusion. There is a 9 x 7 mm spiculated nodule at the anteromedial right upper lobe. Heart size is normal. Atherosclerotic coronary artery calcification is. No pericardial effusion. Thoracic aorta is normal in caliber. No pathologically enlarged thoracic lymphadenopathy. Minimal thoracic spondylosis. IMPRESSION: 1. A few new peripheral regions of groundglass opacity and septal line thickening the right upper lobe suspicious for pneumonia. 2. New partial collapse of the right middle lobe and additional atelectasis in the left upper lobe and lingula. 3. Mild emphysema with indeterminate spiculated 8 mm right upper lobe nodule. Recommend further evaluation with either PET/CT or 3 month follow-up chest CT. 11/10/24: Summary 1. Left ventricular chamber dimension is normal. 2. Left ventricular systolic function is normal, estimated at 55-60. 3. The left ventricular diastolic function is grade I diastolic dysfunction. 4. E/e' 9 is minimally elevated. 5. There is trace pulmonic regurgitation. Right Ventricle Right ventricular chamber dimension is normal. Right ventricular systolic function is normal. Left Atria Left atrial chamber dimension is normal. Right Atria Right atrial chamber dimension is normal. Atrial Septum Intact interatrial septum visualized by 2D and agitated saline imaging. Agitated saline injection with and without valsalva maneuver opacified right side cardiac chambers without shunt to left side cardiac chambers. 11/10/24: Patient has bright red finger nail Cameroonian on and her overnight oximetry on 6 L was done with this finger nail Cameroonian and this morning this finger had pulse oximetry that was 3-4 points lower than a finger without the nail Cam[place]onian. Recording duration 6 hours and 22 minutes, average saturation 89%, low saturation 79%, time with saturation less than or equal to 88% was 79 minutes, oxygen desaturation index 5.6. 11/08/24: Patient had an overnight oximetry on 2 L nasal cannula with recording duration of 8 hours and 43 minutes. Average saturation 85%, low saturation 74%. Time with saturation less than or equal to 88% was 390 minutes, oxygen desaturation index 5.1. 11/08/2024: Home O2 assessment: Rest room air saturation 86%. Rest nasal cannula 1 L saturation 87%. Rest nasal cannula 2 L saturation 93%. Exercise nasal cannula 2 L saturation 90%. Patient ambulated 183 m. Patient requires 2 L at rest and with exertion. 11/05/24: Echo Summary 1. Complete two-dimensional, color flow and Doppler transthoracic echocardiogram is performed. 2. Left ventricular chamber dimension is normal. 3. Left ventricular systolic function is normal, estimated at 60-65. 4. The left ventricular diastolic function is grade I diastolic dysfunction. 5. E/e' 9 is minimally elevated. 6. There is trace tricuspid valve regurgitation. Right Ventricle Right ventricular chamber dimension is normal. Right ventricular systolic function is normal. Right Atria Right atrial chamber dimension is normal. Tricuspid Valve There is trace tricuspid valve regurgitation. RVSP is not measured due to an inadequate TR jet. 11/04/24: EXAMINATION: CTA chest PE protocol INDICATION: Shortness of breath with near, pulmonary embolus suspected clinically COMPARISON: None. FINDINGS/OBSERVATIONS: PULMONARY ARTERIES: No filling defect is identified within the main or proximal pulmonary artery. The main pulmonary artery is not enlarged. THORACIC AORTA: No aneurysmal dilatation or dissection is present. The great vessels are intact LUNGS: Centrilobular emphysematous disease. The lungs are otherwise clear. MEDIASTINUM: No morphologically suspicious or pathologically enlarged lymph nodes are identified within the mediastinum or bilateral axilla. BONES OF THE CHEST: No acute fracture. Age-appropriate degenerative disease. No lytic or blastic lesions. HEART: The heart is of normal size, without pericardial effusion. IMPRESSION: No pulmonary embolus. No thoracic aortic dissection. Centrilobular emphysematous disease. Review of Systems Constitutional: Constitutional: Reports no additional constitutional complaints Eyes: Eyes: Reports no additional eye complaints ENT: Reports system reviewed and no additional complaints, except as documented Cardiovascular: Cardiovascular: Reports no additional cardiovascular complaints Respiratory: Respiratory: Reports no additional respiratory complaints Gastrointestinal: Gastrointestinal: Reports no additional gastrointestinal complaints Musculoskeletal: Musculoskeletal: Reports no additional musculoskeletal complaints Neurologic: Reports system reviewed and no additional complaints, except as documented Psychiatric: Psychiatric: Reports no additional psychiatric complaints Endocrine: Endocrine: Reports no additional endocrine complaints Hematologic/Lymphatic: Hematologic/Lymphatic: Reports no additional hematologic/lymphatic complaints Allergic/Immunologic: Allergic/Immunologic: Reports no additional allergic/immunologic complaints Exam Const: General: cooperative, healthy appearing and comfortable Orientation/consciousness: oriented to person, oriented to place and oriented to time HENMT: Head: normal to inspection Ears: hearing grossly normal bilaterally Eyes: General: appearance normal, both eyes and all related structures Neck: Neck: normal visual inspection Chest: Chest palpation & inspection: normal inspection of the chest Resp: Effort & Inspection: normal respiratory effort and able to speak in complete sentences Auscultation: no crackles, no rales, no rhonchi, no wheezes and lung sounds not diminished Other: No wheezes today Cardio: Jugular venous distension: no JVD GI: Inspection: normal to inspection Skin: General skin exam: normal color Neuro: General: oriented to person, oriented to place and oriented to time Extrem: General: normal to inspection Psych: Appearance: grossly normal Objective Data Vital Signs Vital Signs: Vital Signs - 24 hr 11/10/24 11:42 11/10/24 11:50 11/10/24 12:00 Temperature Pulse Rate 103 H 105 H 105 H Respiratory Rate 18 18 Blood Pressure Pulse Oximetry Oxygen Delivery Oxygen Flow Rate 11/10/24 14:00 11/10/24 16:00 11/10/24 16:16 Temperature 36.0 C L Pulse Rate 115 H 111 H 103 H Respiratory Rate 17 19 Blood Pressure 133/83 Pulse Oximetry 95 Oxygen Delivery Oxygen Flow Rate 11/10/24 16:26 11/10/24 20:00 11/10/24 20:00 Temperature Pulse Rate 116 H 100 Respiratory Rate 20 Blood Pressure Pulse Oximetry 92 Oxygen Delivery Nasal Cannula Oxygen Flow Rate 5 11/10/24 20:12 11/10/24 20:12 11/10/24 20:27 Temperature Pulse Rate 95 112 H Respiratory Rate 20 20 Blood Pressure Pulse Oximetry 92 Oxygen Delivery Nasal Cannula Oxygen Flow Rate 5 11/10/24 21:06 11/11/24 00:00 11/11/24 01:06 Temperature 36.8 C Pulse Rate 111 H 97 94 Respiratory Rate 18 20 Blood Pressure 153/82 H Pulse Oximetry 92 Oxygen Delivery Oxygen Flow Rate 11/11/24 01:13 11/11/24 04:00 11/11/24 04:43 Temperature Pulse Rate 97 88 93 Respiratory Rate 20 20 Blood Pressure Pulse Oximetry Oxygen Delivery Oxygen Flow Rate 11/11/24 04:52 11/11/24 05:06 11/11/24 07:40 Temperature 36.4 C L Pulse Rate 96 92 91 Respiratory Rate 20 22 H 20 Blood Pressure 147/86 H Pulse Oximetry 92 Oxygen Delivery Oxygen Flow Rate 11/11/24 07:41 11/11/24 07:50 Temperature Pulse Rate 91 95 Respiratory Rate 20 20 Blood Pressure Pulse Oximetry 98 Oxygen Delivery Nasal Cannula Oxygen Flow Rate 5 Intake/Output Intake/Output: Intake & Output 11/08/24 11/09/24 11/10/24 11/11/24 23:59 23:59 23:59 23:59 Intake Total 482 297 3265 690 Output Total 1100 400 Balance 800 920 830 290 Meds/Results Medications: Active Medications Generic Name Dose Route Start Last Admin Trade Name Freq PRN Reason Stop Dose Admin Acetaminophen 650 mg 11/04/24 21:31 11/11/24 08:44 Acetaminophen 325 Mg Tablet PO 650 mg Q4H PRN Administration Mild Pain (1-3) or Fever Acetylcysteine 200 mg 11/10/24 09:20 11/11/24 07:35 Acetylcysteine 20% Inhal Soln 800 Mg/4 Ml Vial INHALATION 200 mg Q12HRT ANDREW Administration Budesonide 0.5 mg 11/09/24 20:00 11/11/24 07:35 Budesonide Respule Neb 0.5 Mg/2 Ml Amp INHALATION 0.5 mg Q12HRT ANDREW Administration Buspirone HCl 5 mg 11/06/24 12:20 11/11/24 08:44 Buspirone Hcl 5 Mg Tablet PO 5 mg Q12HR ANDREW Administration Docusate Sodium 100 mg 11/04/24 21:31 Docusate Sodium 100 Mg Capsule PO BID PRN Constipation Doxycycline Hyclate 100 mg 11/05/24 18:30 11/11/24 05:50 Doxycycline Hyclate 100 Mg Tablet PO 11/12/24 06:31 100 mg Q12H ANDREW Administration Enoxaparin Sodium 40 mg 11/05/24 09:00 11/11/24 08:45 Enoxaparin 40 Mg/0.4 Ml Syringe SUB-Q 40 mg DAILY ANDREW Administration Fluticasone Propionate 1 spray 11/10/24 09:15 11/11/24 08:50 Fluticasone Propionate 0.05% Na Spr 16 Gm Btl (*Bkc) NASAL 1 spray Q12HR ANDREW Administration Guaifenesin 200 mg 11/05/24 14:46 11/10/24 15:45 Guaifenesin 200 Mg/10 Ml Udc PO 200 mg Q4H PRN Administration Cough Meropenem 1 gm/ Sodium 100 mls @ 200 mls/hr 11/10/24 15:45 11/11/24 06:21 Chloride IVPB Infused Q8HR ANDREW Infusion Ipratropium [place] 0.5 mg 11/07/24 12:00 11/11/24 07:34 Ipratropium Br 0.02% Inh Soln 0.5 Mg/2.5 Ml Vial INHALATION 0.5 mg Q4HRT ANDREW Administration Levalbuterol HCl 0.63 mg 11/07/24 12:00 11/11/24 07:34 Levalbuterol Neb 1.25 Mg/3 Ml INHALATION 0.63 mg Q4HRT ANDREW Administration Loratadine 10 mg 11/10/24 09:15 11/11/24 08:43 Loratadine 10 Mg Tablet PO 10 mg QAM ANDREW Administration Lorazepam 0.5 mg 11/09/24 08:04 11/11/24 08:45 Lorazepam (*Crx) 0.5 Mg Tablet PO 0.5 mg Q6H PRN Administration Anxiety Nystatin 5 ml 11/09/24 21:00 11/11/24 08:43 Nystatin 100,000 Units/Ml Susp 5 Ml Oral.Susp PO 5 ml QID ANDREW Administration Perflutren Lipid Microsphere 0 ml 11/10/24 07:14 Perflutren Lipid Microspheres 1.5 Ml Vial Diluted To 10 Ml Total Volume IV PUSH 11/13/24 07:14 ONCE PRN adequate visualization Protocol Sodium Chloride 1 spray 11/07/24 16:55 11/07/24 17:44 Saline 0.65% Flynn Soln 44 Ml Btl NASAL 1 spray Q6HR PRN Administration Congestion Radiology Results: ITS Impressions Chest X-Ray 11/04/24 17:04 IMPRESSION: 1. Small opacities in the lower lungs which represents atelectasis/scarring or infiltrates. 2. Lungs are hyperinflated. Chest CTA 11/04/24 18:27 IMPRESSION: No pulmonary embolus. No thoracic aortic dissection. Centrilobular emphysematous disease Chest CT 11/10/24 10:04 IMPRESSION: 1. A few new peripheral regions of groundglass opacity and septal line thickening the right upper lobe suspicious for pneumonia. 2. New partial collapse of the right middle lobe and additional atelectasis in the left upper lobe and lingula. 3. Mild emphysema with indeterminate spiculated 8 mm right upper lobe nodule. Recommend further evaluation with either PET/CT or 3 month follow-up chest CT. Labs Labs: Laboratory Results - last 24 hr 11/10/24 11/10/24 11/11/24 15:08 17:22 05:25 WBC 12.8 H RBC 4.86 Hgb 15.0 Hct 45.4 MCV 93.4 MCH 30.9 MCHC 33.0 RDW 13.4 Plt Count 318 MPV 9.9 Immature Gran % (Auto) 0.4 Neut % (Auto) 65.2 Lymph % (Auto) 23.2 [place] % (Auto) 9.7 H Eos % (Auto) 1.3 Baso % (Auto) 0.2 Lymph # (Auto) 2.97 [place] # (Auto) 1.2 H Eos # (Auto) 0.2 Baso # (Auto) 0.0 Abs Immat Gran (auto) 0.05 H Absolute Neuts (auto) 8.4 H Absolute Nucleated RBC 0.000 Nucleated RBC % 0.0 Sodium 137 Potassium 3.9 Chloride 104 Carbon Dioxide 29 Anion Gap 4 BUN 27 H Creatinine 0.70 Estim Creat Clear Calc 64 Estimated GFR > 60 Glucose 84 Calcium 9.3 Magnesium 2.1 Total Bilirubin 0.6 AST 50 H ALT 37 H Alkaline Phosphatase 68 Total Protein 7.0 Albumin 3.9 Nasal MRSA (PCR) Not detected Influenza A (RT-PCR) Negative Influenza B (RT-PCR) Negative RSV (RT-PCR) Negative SARS-CoV-2 RNA (RT-PCR) Negative Urine Pneumococcal Ag Cancelled
--- NOTE | 2024-11-11 10:23 | PCNWS ---
Weekly nutritional screen. Patient is tolerating current regular diet with adequate intake 50-100%. No weight loss reported. No nutritional recommendations at this time.
--- NOTE | 2024-11-11 15:49 | P.PNIM_ITS ---
Progress Note: A&P Assessment and Plan (1) Acute exacerbation of chronic obstructive pulmonary disease: Code(s): J44.1 - Chronic obstructive pulmonary disease with (acute) exacerbation Status: Acute Assessment and Plan: Patient was presented with chest tightness, and frequency of coughing On admission, CT P was negative for PE/infiltrate or consolidation Antibiotics was started (ceftriaxone switched to Meropenem/doxycycline (11/04- 11/12)) Pulmonology is following, appreciate rec Mucus plug was noted recently: Mucomyst added, diuresed x2 iv lasix 20mg Titrate supplemental oxygen to maintain SpO2 88-92%, titrate down as tolerated If she remains on supplemental oxygen, will evaluate her for home oxygen requirement 2D limited ech EF 55-60%, without wall motion abnormality Continue Pulmicort, Atrovent nebs, and Xopenex Will repeat BNP tomorrow CBC and BMP daily (2) Anxiety: Code(s): F41.9 - Anxiety disorder, unspecified Status: Acute Assessment and Plan: * On Prozac 20 mg po Daily. * On Buspar 5 mg Q12 hrs BID. (3) Choking: Code(s): T17.308A - Unspecified foreign body in larynx causing other injury, initial encounter Status: Acute Assessment and Plan: Swallow evaluation (4) Nicotine dependence: Qualifiers: Nicotine product type: cigarettes Substance use status: unspecified nicotine-induced disorder Qualified Code(s): F17.219 - Nicotine dependence, cigarettes, with unspecified nicotine-induced disorders Code(s): F17.200 - Nicotine dependence, unspecified, uncomplicated Status: Acute Assessment and Plan: Quit smoking cigarettes about 2 weeks ago, denies having craving for tobacco If she requests nicotine patch will give her (5) Acute hypoxemic respiratory failure: Code(s): J96.01 - Acute respiratory failure with hypoxia Status: Acute Assessment and Plan: Acute hypoxic respiratory failure secondary to COPD exacerbation On 5 L nasal cannula, titrate down as tolerated Treatment like above (6) Tachycardia: Code(s): R00.0 - Tachycardia, unspecified Status: Acute Assessment and Plan: She remains sinus tachy-likely 2/2 acute illness, anxiety and stress in the new environment Afebrile, hemodynamically stable If heart rates greater than 120, will give beta-geraldine Xopenex is switched for tachycardia (7) Elevated liver enzymes: Code(s): R74.8 - Abnormal levels of other serum enzymes Status: Resolved Assessment and Plan: Trending up T/ALT Denies abdominal pain CMP daily Subjective Date/time seen: 11/11/24 15:49 Interval history: Patient is doing well today. Breathing is not labored. Denies chest tightness. She cough up more phlegm today. Denies any fever or chills. Exam Const: General: comfortable and no acute distress HENMT: Mouth: Yes moist mucous membranes Eyes: Sclera: sclerae normal Neck: Neck: supple and no JVD Resp: Effort & Inspection: normal respiratory effort Other: Wheezing on auscultation on the left to walk Cardio: Rate: regular rate and tachycardic Rhythm: regular rhythm Heart sounds: Gallop heart sound present, Murmur heart sound present and Rub heart sound present GI: GI Palp: Yes Soft to palpation, Yes Tenderness to palpation present (GI) and Yes Guarding due to palpation present (GI) Objective Data Vital Signs Vital Signs: Vital Signs - 24 hr 11/10/24 16:00 11/10/24 16:16 11/10/24 16:26 Temperature Pulse Rate 111 H 103 H 116 H Respiratory Rate 19 20 Blood Pressure Pulse Oximetry Oxygen Delivery Oxygen Flow Rate 11/10/24 20:00 11/10/24 20:00 11/10/24 20:12 Temperature Pulse Rate 100 Respiratory Rate Blood Pressure Pulse Oximetry 92 92 Oxygen Delivery Nasal Cannula Nasal Cannula Oxygen Flow Rate 5 5 11/10/24 20:12 11/10/24 20:27 11/10/24 21:06 Temperature 36.8 C Pulse Rate 95 112 H 111 H Respiratory Rate 20 20 18 Blood Pressure 153/82 H Pulse Oximetry 92 Oxygen Delivery Oxygen Flow Rate 11/11/24 00:00 11/11/24 01:06 11/11/24 01:13 Temperature Pulse Rate 97 94 97 Respiratory Rate 20 20 Blood Pressure Pulse Oximetry Oxygen Delivery Oxygen Flow Rate 11/11/24 04:00 11/11/24 04:43 11/11/24 04:52 Temperature Pulse Rate 88 93 96 Respiratory Rate 20 20 Blood Pressure Pulse Oximetry Oxygen Delivery Oxygen Flow Rate 11/11/24 05:06 11/11/24 07:40 11/11/24 07:41 Temperature 36.4 C L Pulse Rate 92 91 91 Respiratory Rate 22 H 20 20 Blood Pressure 147/86 H Pulse Oximetry 92 98 Oxygen Delivery Nasal Cannula Oxygen Flow Rate 5 11/11/24 07:50 11/11/24 08:00 11/11/24 08:00 Temperature Pulse Rate 95 95 Respiratory Rate 20 Blood Pressure Pulse Oximetry 93 Oxygen Delivery Nasal Cannula Oxygen Flow Rate 5 11/11/24 12:51 11/11/24 12:59 11/11/24 14:00 Temperature 36.4 C Pulse Rate 101 H 113 H 113 H Respiratory Rate 18 16 18 Blood Pressure 143/77 H Pulse Oximetry 94 Oxygen Delivery Oxygen Flow Rate Intake/Output Intake/Output: Intake & Output 11/08/24 11/09/24 11/10/24 11/11/24 23:59 23:59 23:59 23:59 Intake Total 491 868 7471 930 Output Total 1100 400 Balance 800 920 830 530 Meds/Results Medications: Active Medications Generic Name Dose Route Start Last Admin Trade Name Freq PRN Reason Stop Dose Admin Acetaminophen 650 mg 11/04/24 21:31 11/11/24 08:44 Acetaminophen 325 Mg Tablet PO 650 mg Q4H PRN Administration Mild Pain (1-3) or Fever Acetylcysteine 200 mg 11/11/24 14:00 11/11/24 12:54 Acetylcysteine 20% Inhal Soln 800 Mg/4 Ml Vial INHALATION 200 mg Q6HRT ANDREW Administration Budesonide 0.5 mg 11/09/24 20:00 11/11/24 07:35 Budesonide Respule Neb 0.5 Mg/2 Ml Amp INHALATION 0.5 mg Q12HRT ANDREW Administration Buspirone HCl 5 mg 11/06/24 12:20 11/11/24 08:44 Buspirone Hcl 5 Mg Tablet PO 5 mg Q12HR ANDREW Administration Docusate Sodium 100 mg 11/04/24 21:31 Docusate Sodium 100 Mg Capsule PO BID PRN Constipation Doxycycline Hyclate 100 mg 11/05/24 18:30 11/11/24 05:50 Doxycycline Hyclate 100 Mg Tablet PO 11/12/24 06:31 100 mg Q12H ANDREW Administration Enoxaparin Sodium 40 mg 11/05/24 09:00 11/11/24 08:45 Enoxaparin 40 Mg/0.4 Ml Syringe SUB-Q 40 mg DAILY ANDREW Administration Fluticasone Propionate 2 spray 11/11/24 21:00 Fluticasone Propionate 0.05% Na Spr 16 Gm Btl (*Bkc) NASAL Q12HR ANDREW Guaifenesin 200 mg 11/05/24 14:46 11/10/24 15:45 Guaifenesin 200 Mg/10 Ml Udc PO 200 mg Q4H PRN Administration Cough Meropenem 1 gm/ Sodium 100 mls @ 200 mls/hr 11/10/24 15:45 11/11/24 13:29 Chloride IVPB 200 mls/hr Q8HR ANDREW Administration Ipratropium [place] 0.5 mg 11/11/24 14:00 11/11/24 12:50 Ipratropium Br 0.02% Inh Soln 0.5 Mg/2.5 Ml Vial INHALATION 0.5 mg Q6HRT ANDREW Administration Levalbuterol HCl 0.63 mg 11/11/24 14:00 11/11/24 12:51 Levalbuterol Neb 1.25 Mg/3 Ml INHALATION 0.63 mg Q6HRT ANDREW Administration Loratadine 10 mg 11/10/24 09:15 11/11/24 08:43 Loratadine 10 Mg Tablet PO 10 mg QAM ANDREW Administration Lorazepam 0.5 mg 11/09/24 08:04 11/11/24 08:45 Lorazepam (*Crx) 0.5 Mg Tablet PO 0.5 mg Q6H PRN Administration Anxiety Nystatin 5 ml 11/09/24 21:00 11/11/24 13:30 Nystatin 100,000 Units/Ml Susp 5 Ml Oral.Susp PO 5 ml QID ANDREW Administration Perflutren Lipid Microsphere 0 ml 11/10/24 07:14 Perflutren Lipid Microspheres 1.5 Ml Vial Diluted To 10 Ml Total Volume IV PUSH 11/13/24 07:14 ONCE PRN adequate visualization Protocol Sodium Chloride 1 spray 11/07/24 16:55 11/07/24 17:44 Saline 0.65% [place] Soln 44 Ml Btl NASAL 1 spray Q6HR PRN Administration Congestion Radiology Results: ITS Impressions Chest X-Ray 11/04/24 17:04 IMPRESSION: 1. Small opacities in the lower lungs which represents atelectasis/scarring or infiltrates. 2. Lungs are hyperinflated. Chest CTA 11/04/24 18:27 IMPRESSION: No pulmonary embolus. No thoracic aortic dissection. Centrilobular emphysematous disease Chest CT 11/10/24 10:04 IMPRESSION: 1. A few new peripheral regions of groundglass opacity and septal line thickening the right upper lobe suspicious for pneumonia. 2. New partial collapse of the right middle lobe and additional atelectasis in the left upper lobe and lingula. 3. Mild emphysema with indeterminate spiculated 8 mm right upper lobe nodule. Recommend further evaluation with either PET/CT or 3 month follow-up chest CT. Labs Labs: Laboratory Results - last 24 hr 11/10/24 11/10/24 11/11/24 15:08 17:22 05:25 WBC 12.8 H RBC 4.86 Hgb 15.0 Hct 45.4 MCV 93.4 MCH 30.9 MCHC 33.0 RDW 13.4 Plt Count 318 MPV 9.9 Immature Gran % (Auto) 0.4 Neut % (Auto) 65.2 Lymph % (Auto) 23.2 [place] % (Auto) 9.7 H Eos % (Auto) 1.3 Baso % (Auto) 0.2 Lymph # (Auto) 2.97 [place] # (Auto) 1.2 H Eos # (Auto) 0.2 Baso # (Auto) 0.0 Abs Immat Gran (auto) 0.05 H Absolute Neuts (auto) 8.4 H Absolute Nucleated RBC 0.000 Nucleated RBC % 0.0 Sodium 137 Potassium 3.9 Chloride 104 Carbon Dioxide 29 Anion Gap 4 BUN 27 H Creatinine 0.70 Estim Creat Clear Calc 64 Estimated GFR > 60 Glucose 84 Calcium 9.3 Magnesium 2.1 Total Bilirubin 0.6 AST 50 H ALT 37 H Alkaline Phosphatase 68 Total Protein 7.0 Albumin 3.9 Nasal MRSA (PCR) Not detected Influenza A (RT-PCR) Negative Influenza B (RT-PCR) Negative RSV (RT-PCR) Negative SARS-CoV-2 RNA (RT-PCR) Negative Urine Pneumococcal Ag Cancelled Quality VTE Prophylaxis VTE prophylaxis: pharmacologic ordered (Lovenox)
[2024-11-11 17:58] LABS: Hematocrit 46.2 % (37.0-47.0); Hemoglobin 15.1 g/dL (12.0-15.0); Mean Corpuscular HGB Conc 32.7 g/dl (32-36); Mean Corpuscular Hemoglobin 30.6 pg (26-34); Mean Corpuscular Volume 93.7 fl (80-100); Platelet Count Result 306 k/mm3 (150-375); Red Blood Count 4.93 M/mm3 (4.2-5.4); White Blood Count 12.9 K/mm3 (4.5-10.0)
[2024-11-11 18:18] LABS: Alanine Aminotransferase 39 U/L (6-35); Albumin Level 3.8 g/dL (3.5-5.1); Alkaline Phosphatase 73 U/L (38-126); Anion Gap 5 mmol/L (4-12); Aspartate Amino Transferase 44 U/L (14-36); Bilirubin,Total 0.6 mg/dL (0.2-1.3); Blood Urea Nitrogen 31 mg/dL (7-17); Calcium 8.9 mg/dL (8.4-10.2); Carbon Dioxide 30 mmol/L (22-30); Chloride 100 mmol/L (98-107); Estimated CRCL calculation 59 ml/min; Estimated Glomerular Filt Rate > 60; Glucose 100 mg/dL (65-110); Potassium 4.1 mmol/L (3.4-5.0); Sodium 135 mmol/L (137-145); Total Protein 6.9 g/dL (6.3-8.2)
--- NOTE | 2024-11-11 20:03 | PC.NURSE ---
Patient had 19 beat run vtach, patient stated she felt like my heart flipped her VS 128/85, 116 HR, 92 on 5L. Patient alert and oriented up in chair. notified Jolly Burnette. Ordered a Mag add on labs.
[2024-11-11 20:13] LABS: Magnesium 2.0 mg/dL (1.6-2.3)
[2024-11-11] MEDS: FLUTICASONE PROPIONATE 0.05% NA SPR 16 GM BTL (*BKC) 2 SPRAY NASAL (20:34)
[2024-11-12] VITALS (19 sets, daily range): BP systolic 108–131; BP diastolic 56–78; PULSE 86–112; RESP 16–20; TEMP 36–37.2; O2SAT 93–100
[2024-11-12] MEDS: ACETYLCYSTEINE 20% INHAL SOLN 800 MG/4 ML VIAL 200 MG INHALATION ×4 (02:26→20:15)
[2024-11-12] MEDS: IPRATROPIUM BR 0.02% INH SOLN 0.5 MG/2.5 ML VIAL INHALATION ×4 (02:26→20:22)
[2024-11-12] MEDS: MEROPENEM 1 GM in SODIUM CHLORIDE 0.9% IV 100 ML 200 ML IVPB ×3 (05:54→21:21)
[2024-11-12] MEDS: DOXYCYCLINE HYCLATE 100 MG TABLET PO (05:54)
[2024-11-12] MEDS: BUDESONIDE RESPULE NEB 0.5 MG/2 ML AMP INHALATION ×2 (07:49→20:22)
[2024-11-12] MEDS: DOCUSATE SODIUM 100 MG CAPSULE PO (08:40)
[2024-11-12] MEDS: ACETAMINOPHEN 325 MG TABLET 650 MG PO (08:41)
[2024-11-12] MEDS: LORATADINE 10 MG TABLET PO (08:41)
[2024-11-12] MEDS: ENOXAPARIN 40 MG/0.4 ML SYRINGE SUB-Q (08:41)
[2024-11-12] MEDS: LORazepam (*CRX) 0.5 MG TABLET PO (08:41)
[2024-11-12] MEDS: FLUTICASONE PROPIONATE 0.05% NA SPR 16 GM BTL (*BKC) 2 SPRAY NASAL ×2 (08:42→21:25)
[2024-11-12] MEDS: NYSTATIN 100,000 UNITS/ML SUSP 5 ML ORAL.SUSP PO ×3 (08:43→21:33)
--- NOTE | 2024-11-12 11:51 | PM.IMPN ---
Progress Note: A&P Assessment and Plan (1) Acute exacerbation of chronic obstructive pulmonary disease: Code(s): J44.1 - Chronic obstructive pulmonary disease with (acute) exacerbation Status: Acute Assessment and Plan: Patient was presented with chest tightness, and frequency of coughing On admission, CT P was negative for PE/infiltrate or consolidation Antibiotics was started (ceftriaxone switched to Meropenem/doxycycline (11/04-11/12)) Pulmonology is following, appreciate rec Mucus plug was noted recently: Mucomyst added, diuresed x2 iv lasix 20mg Titrate supplemental oxygen to maintain SpO2 88-92%, titrate down as tolerated If she remains on supplemental oxygen, will evaluate her for home oxygen requirement 2D limited ech EF 55-60%, without wall motion abnormality Continue Pulmicort, Atrovent nebs, and Xopenex, incentive spirometry and PEP therapy check BNP CBC and BMP daily (2) Anxiety: Code(s): F41.9 - Anxiety disorder, unspecified Status: Acute Assessment and Plan: On Prozac 20 mg po Daily. On Buspar 5 mg Q12 hrs BID. (3) Choking: Code(s): T17.308A - Unspecified foreign body in larynx causing other injury, initial encounter Status: Acute Assessment and Plan: Status post swallow study-her swallowing is intact Continue regular diet (4) Nicotine dependence: Qualifiers: Nicotine product type: cigarettes Substance use status: unspecified nicotine-induced disorder Qualified Code(s): F17.219 - Nicotine dependence, cigarettes, with unspecified nicotine-induced disorders Code(s): F17.200 - Nicotine dependence, unspecified, uncomplicated Status: Acute Assessment and Plan: Quit smoking cigarettes about 2 weeks ago, denies having craving for tobacco If she requests nicotine patch will give her (5) Acute hypoxemic respiratory failure: Code(s): J96.01 - Acute respiratory failure with hypoxia Status: Acute Assessment and Plan: Acute hypoxic respiratory failure secondary to COPD exacerbation On 5 L nasal cannula, titrate down as tolerated Treatment like above (6) Tachycardia: Code(s): R00.0 - Tachycardia, unspecified Status: Acute Assessment and Plan: She remains sinus tachy-likely 2/2 acute illness, anxiety and stress in the new environment Afebrile, hemodynamically stable If heart rates greater than 120, will give beta-geraldine Xopenex is switched for tachycardia (7) Elevated liver enzymes: Code(s): R74.8 - Abnormal levels of other serum enzymes Status: Resolved Assessment and Plan: Trending up ALT/trending down AST Denies abdominal pain CMP daily Subjective Date/time seen: 11/12/24 11:51 Interval history: Overnight, she had chest palpitation prior to having 19 beats of ventricular tachycardia. mag blood level was 2.0. This morning she is doing better. Denies fever, chills, chest pain or palpitation, abdominal pain or diarrhea. She is using incentive spirometry. Exam Narrative: General: well appearing, appears stated age. HEENT: Atraumatic/Normocephalic, MMM Respiratory: no wheezing or rhonchi. No rales. Cardiovascular: RRR, S1 and S2 present without S3, S4,m,r,g,h Abdomen: Soft, NT, BS+x4 Extremities: No cyanosis, clubbing, or edema present. Pulses are palpable 2/2. Active ROM to all four extremities. Neuro: A&Ox4. PERRLA. CN 2-12 intact without any focal deficit. Skin: Warm, dry, and intact, without rash, erythema, or lesion. Psych: Pleasant. Const: General: comfortable and no acute distress HENMT: Mouth: Yes moist mucous membranes Eyes: Sclera: sclerae normal Neck: Neck: supple and no JVD Resp: Effort & Inspection: normal respiratory effort Other: Wheezing on auscultation on the left to walk Cardio: Rate: regular rate and tachycardic Rhythm: regular rhythm Heart sounds: Gallop heart sound present, Murmur heart sound present and Rub heart sound present Objective Data Vital Signs Vital Signs: Vital Signs - 24 hr 11/11/24 12:00 11/11/24 12:51 11/11/24 12:59 Temperature Pulse Rate 87 101 H 113 H Respiratory Rate 18 16 Blood Pressure Pulse Oximetry Oxygen Delivery Oxygen Flow Rate Fraction of Inspired Oxygen 11/11/24 14:00 11/11/24 16:00 11/11/24 19:54 Temperature 36.4 C Pulse Rate 113 H 106 H 170 H Respiratory Rate 18 18 Blood Pressure 143/77 H Pulse Oximetry 94 Oxygen Delivery Oxygen Flow Rate Fraction of Inspired Oxygen 11/11/24 19:59 11/11/24 20:00 11/11/24 20:00 Temperature Pulse Rate 116 H 116 H 176 H Respiratory Rate 20 20 Blood Pressure 128/85 Pulse Oximetry 92 92 Oxygen Delivery Nasal Cannula Oxygen Flow Rate 5 Fraction of Inspired Oxygen 28 11/11/24 20:01 11/11/24 20:15 11/11/24 22:00 Temperature 36.3 C L Pulse Rate 122 H 130 H 99 Respiratory Rate 18 18 Blood Pressure 128/85 Pulse Oximetry 100 Oxygen Delivery Oxygen Flow Rate Fraction of Inspired Oxygen 11/12/24 00:00 11/12/24 02:30 11/12/24 06:00 Temperature 36.4 C L Pulse Rate 86 105 H 95 Respiratory Rate 16 18 Blood Pressure 123/78 Pulse Oximetry 99 Oxygen Delivery Oxygen Flow Rate Fraction of Inspired Oxygen 11/12/24 07:52 11/12/24 07:55 11/12/24 08:16 Temperature Pulse Rate 105 H 100 Respiratory Rate 18 18 Blood Pressure Pulse Oximetry 95 Oxygen Delivery Nasal Cannula Oxygen Flow Rate 5 Fraction of Inspired Oxygen Intake/Output Intake/Output: Intake & Output 11/09/24 11/10/24 11/11/24 11/12/24 23:59 23:59 23:59 23:59 Intake Total 920 1930 1370 910 Output Total 1100 400 500 Balance 920 830 970 410 Meds/Results Medications: Active Medications Generic Name Dose Route Start Last Admin Trade Name Freq PRN Reason Stop Dose Admin Acetaminophen 650 mg 11/04/24 21:31 11/12/24 08:41 Acetaminophen 325 Mg Tablet PO 650 mg Q4H PRN Administration Mild Pain (1-3) or Fever Acetylcysteine 200 mg 11/11/24 14:00 11/12/24 07:49 Acetylcysteine 20% Inhal Soln 800 Mg/4 Ml Vial INHALATION 200 mg Q6HRT ANDREW Administration Budesonide 0.5 mg 11/09/24 20:00 11/12/24 07:49 Budesonide Respule Neb 0.5 Mg/2 Ml Amp INHALATION 0.5 mg Q12HRT ANDREW Administration Buspirone HCl 5 mg 11/06/24 12:20 11/12/24 08:41 Buspirone Hcl 5 Mg Tablet PO 5 mg Q12HR ANDREW Administration Docusate Sodium 100 mg 11/04/24 21:31 11/12/24 08:40 Docusate Sodium 100 Mg Capsule PO 100 mg BID PRN Administration Constipation Enoxaparin Sodium 40 mg 11/05/24 09:00 11/12/24 08:41 Enoxaparin 40 Mg/0.4 Ml Syringe SUB-Q 40 mg DAILY ANDREW Administration Fluticasone Propionate 2 spray 11/11/24 21:00 11/12/24 08:42 Fluticasone Propionate 0.05% Na Spr 16 Gm Btl (*Bkc) NASAL 2 spray Q12HR ANDREW Administration Guaifenesin 200 mg 11/05/24 14:46 11/10/24 15:45 Guaifenesin 200 Mg/10 Ml Udc PO 200 mg Q4H PRN Administration Cough Meropenem 1 gm/ Sodium 100 mls @ 200 mls/hr 11/10/24 15:45 11/12/24 05:54 Chloride IVPB 200 mls/hr Q8HR ANDREW Administration Ipratropium [place] 0.5 mg 11/11/24 14:00 11/12/24 07:50 Ipratropium Br 0.02% Inh Soln 0.5 Mg/2.5 Ml Vial INHALATION 0.5 mg Q6HRT ANDREW Administration Levalbuterol HCl 0.63 mg 11/11/24 14:00 11/12/24 07:49 Levalbuterol Neb 1.25 Mg/3 Ml INHALATION 0.63 mg Q6HRT ANDREW Administration Loratadine 10 mg 11/10/24 09:15 11/12/24 08:41 Loratadine 10 Mg Tablet PO 10 mg QAM ANDREW Administration Lorazepam 0.5 mg 11/09/24 08:04 11/12/24 08:41 Lorazepam (*Crx) 0.5 Mg Tablet PO 0.5 mg Q6H PRN Administration Anxiety Nystatin 5 ml 11/09/24 21:00 11/12/24 08:43 Nystatin 100,000 Units/Ml Susp 5 Ml Oral.Susp PO 5 ml QID ANDREW Administration Perflutren Lipid Microsphere 0 ml 11/10/24 07:14 Perflutren Lipid Microspheres 1.5 Ml Vial Diluted To 10 Ml Total Volume IV PUSH 11/13/24 07:14 ONCE PRN adequate visualization Protocol Sodium Chloride 1 spray 11/07/24 16:55 11/07/24 17:44 Saline 0.65% [place] Soln 44 Ml Btl NASAL 1 spray Q6HR PRN Administration Congestion Radiology Results: ITS Impressions Chest X-Ray 11/04/24 17:04 IMPRESSION: 1. Small opacities in the lower lungs which represents atelectasis/scarring or infiltrates. 2. Lungs are hyperinflated. Chest CTA 11/04/24 18:27 IMPRESSION: No pulmonary embolus. No thoracic aortic dissection. Centrilobular emphysematous disease Chest CT 11/10/24 10:04 IMPRESSION: 1. A few new peripheral regions of groundglass opacity and septal line thickening the right upper lobe suspicious for pneumonia. 2. New partial collapse of the right middle lobe and additional atelectasis in the left upper lobe and lingula. 3. Mild emphysema with indeterminate spiculated 8 mm right upper lobe nodule. Recommend further evaluation with either PET/CT or 3 month follow-up chest CT. Labs Labs: Laboratory Results - last 24 hr 11/11/24 17:44 WBC 12.9 H RBC 4.93 Hgb 15.1 H Hct 46.2 MCV 93.7 MCH 30.6 MCHC 32.7 RDW 13.4 Plt Count 306 MPV 9.5 Sodium 135 L Potassium 4.1 Chloride 100 Carbon Dioxide 30 Anion Gap 5 BUN 31 H Creatinine 0.76 Estim Creat Clear Calc 59 Estimated GFR > 60 Glucose 100 Calcium 8.9 Magnesium 2.0 Total Bilirubin 0.6 AST 44 H ALT 39 H Alkaline Phosphatase 73 Total Protein 6.9 Albumin 3.8
[2024-11-12 12:27] LABS: Hematocrit 43.1 % (37.0-47.0); Hemoglobin 14.6 g/dL (12.0-15.0); Mean Corpuscular HGB Conc 33.9 g/dl (32-36); Mean Corpuscular Hemoglobin 31.5 pg (26-34); Mean Corpuscular Volume 93.1 fl (80-100); Platelet Count Result 299 k/mm3 (150-375); Red Blood Count 4.63 M/mm3 (4.2-5.4); White Blood Count 13.8 K/mm3 (4.5-10.0)
[2024-11-12 12:53] LABS: Alanine Aminotransferase 30 U/L (6-35); Albumin Level 3.7 g/dL (3.5-5.1); Alkaline Phosphatase 73 U/L (38-126); Anion Gap 5 mmol/L (4-12); Aspartate Amino Transferase 33 U/L (14-36); Bilirubin,Total 0.4 mg/dL (0.2-1.3); Blood Urea Nitrogen 27 mg/dL (7-17); Calcium 9.0 mg/dL (8.4-10.2); Carbon Dioxide 27 mmol/L (22-30); Chloride 102 mmol/L (98-107); Estimated CRCL calculation 61 ml/min; Estimated Glomerular Filt Rate > 60; Glucose 105 mg/dL (65-110); Potassium 4.4 mmol/L (3.4-5.0); Sodium 134 mmol/L (137-145); Total Protein 6.7 g/dL (6.3-8.2)
[2024-11-12 12:58] LABS: NT Pro B Type Natriuretic Pept 555 pg/mL (19.9-100)
[2024-11-12] MEDS: ONDANSETRON INJ 4 MG/2 ML VIAL IV PUSH (13:17)
[2024-11-12 16:26] LABS: Magnesium 2.1 mg/dL (1.6-2.3)
[2024-11-12 16:32] LABS: Alveolar/Arterial O2 Gradient 166.4 mmHg; Fractional Inspired Oxygen 40 %; HCO3 ABG 27.1 mEq/l (22.0-26.0); Oxygen Content ABG 19.1 %vol (16.0-22.0); Oxygen Saturation ABG 94.8 % (95.0-100.0); PCO2 ABG 41.2 mmHg (35.0-45.0); PO2 ABG 71.4 mmHg (80.0-100.0); PO2 FiO2 Ratio Arterial Blood 1.79 %
[2024-11-12 16:33] LABS: Liters per Minute 5.0 LPM; Modified Allen's Test Pass; Site Drawn RIGHT RADIAL
[2024-11-13] VITALS (16 sets, daily range): BP systolic 120–134; BP diastolic 60–86; PULSE 75–104; RESP 18–20; TEMP 36.5–37; O2SAT 94–99
[2024-11-13] MEDS: ACETYLCYSTEINE 20% INHAL SOLN 800 MG/4 ML VIAL 200 MG INHALATION ×4 (01:28→19:55)
[2024-11-13] MEDS: IPRATROPIUM BR 0.02% INH SOLN 0.5 MG/2.5 ML VIAL INHALATION ×4 (01:29→19:54)
[2024-11-13] MEDS: MEROPENEM 1 GM in SODIUM CHLORIDE 0.9% IV 100 ML 200 ML IVPB ×3 (05:24→21:22)
[2024-11-13] MEDS: BUDESONIDE RESPULE NEB 0.5 MG/2 ML AMP INHALATION ×2 (08:13→19:55)
[2024-11-13] MEDS: LORATADINE 10 MG TABLET PO (09:12)
[2024-11-13] MEDS: NYSTATIN 100,000 UNITS/ML SUSP 5 ML ORAL.SUSP PO ×4 (09:12→21:21)
[2024-11-13] MEDS: FLUTICASONE PROPIONATE 0.05% NA SPR 16 GM BTL (*BKC) 2 SPRAY NASAL ×2 (09:13→21:28)
[2024-11-13] MEDS: ENOXAPARIN 40 MG/0.4 ML SYRINGE SUB-Q (09:13)
[2024-11-13 10:03] LABS: Hematocrit 43.3 % (37.0-47.0); Hemoglobin 14.3 g/dL (12.0-15.0); Mean Corpuscular HGB Conc 33.0 g/dl (32-36); Mean Corpuscular Hemoglobin 31.0 pg (26-34); Mean Corpuscular Volume 93.9 fl (80-100); Platelet Count Result 304 k/mm3 (150-375); Red Blood Count 4.61 M/mm3 (4.2-5.4); White Blood Count 13.2 K/mm3 (4.5-10.0)
[2024-11-13 10:20] LABS: Alanine Aminotransferase 27 U/L (6-35); Albumin Level 3.6 g/dL (3.5-5.1); Alkaline Phosphatase 73 U/L (38-126); Anion Gap 4 mmol/L (4-12); Aspartate Amino Transferase 28 U/L (14-36); Bilirubin,Total 0.6 mg/dL (0.2-1.3); Blood Urea Nitrogen 19 mg/dL (7-17); Calcium 9.3 mg/dL (8.4-10.2); Carbon Dioxide 30 mmol/L (22-30); Chloride 101 mmol/L (98-107); Estimated CRCL calculation 65 ml/min; Estimated Glomerular Filt Rate > 60; Glucose 126 mg/dL (65-110); Potassium 4.1 mmol/L (3.4-5.0); Sodium 135 mmol/L (137-145); Total Protein 6.6 g/dL (6.3-8.2)
--- NOTE | 2024-11-13 12:16 | P.PNIM_ITS ---
Progress Note: A&P Assessment and Plan (1) Acute exacerbation of chronic obstructive pulmonary disease: Code(s): J44.1 - Chronic obstructive pulmonary disease with (acute) exacerbation Status: Acute Assessment and Plan: Patient was presented with chest tightness, and increased frequency of coughing On admission, CT P was negative for PE/infiltrate or consolidation Antibiotics was started (ceftriaxone switched to Meropenem/doxycycline (11/04- 11/12)) Pulmonology is following, appreciate rec Mucus plug was noted recently: Mucomyst added, diuresed x2 iv lasix 20mg Titrate supplemental oxygen to maintain SpO2 88-92%, titrate down as tolerated If she remains on supplemental oxygen, will evaluate her for home oxygen requirement 2D limited ECHO EF 55-60%, without wall motion abnormality Continue Pulmicort, Atrovent nebs, and Xopenex, incentive spirometry and PEP therapy Continue Meropenem (11/10-) CBC and BMP daily (2) Anxiety: Code(s): F41.9 - Anxiety disorder, unspecified Status: Acute Assessment and Plan: On Prozac 20 mg po Daily. On Buspar 5 mg Q12 hrs BID. (3) Choking: Code(s): T17.308A - Unspecified foreign body in larynx causing other injury, initial encounter Status: Acute Assessment and Plan: Status post swallow study-her swallowing is intact Continue regular diet (4) Nicotine dependence: Qualifiers: Nicotine product type: cigarettes Substance use status: unspecified nicotine-induced disorder Qualified Code(s): F17.219 - Nicotine dependence, cigarettes, with unspecified nicotine-induced disorders Code(s): F17.200 - Nicotine dependence, unspecified, uncomplicated Status: Acute Assessment and Plan: Quit smoking cigarettes about 2 weeks ago, denies having craving for tobacco If she requests nicotine patch will give her (5) Acute hypoxemic respiratory failure: Code(s): J96.01 - Acute respiratory failure with hypoxia Status: Acute Assessment and Plan: Acute hypoxic respiratory failure secondary to COPD exacerbation On 5 L nasal cannula, titrate down as tolerated Treatment like above Walking study tomorrow (6) Tachycardia: Code(s): R00.0 - Tachycardia, unspecified Status: Acute Assessment and Plan: She remains sinus tachy-likely 2/2 acute illness, anxiety and stress in the new environment Afebrile, hemodynamically stable If heart rates greater than 120, will give beta-geraldine Xopenex is switched for tachycardia (7) Elevated liver enzymes: Code(s): R74.8 - Abnormal levels of other serum enzymes Status: Resolved Assessment and Plan: Downtrending ALT/AST Denies abdominal pain CMP daily Subjective Date/time seen: 11/13/24 12:16 Interval history: Since 11/12, she has been sleepy. ABG and chest x-ray was unremarkable. She is alert and oriented to person, place, time and situation but she endorses she is exhausted. She wants to sleep. She denies fever, chills, chest pain shortness of breath, abdominal pain and diarrhea. She remains on 5 L nasal cannula. Exam Narrative: General: well appearing, appears stated age. HEENT: Atraumatic/Normocephalic, MMM Respiratory: no wheezing or rhonchi. No rales. Cardiovascular: RRR, S1 and S2 present without S3, S4,m,r,g,h Abdomen: Soft, NT, BS+x4 Extremities: No cyanosis, clubbing, or edema present. Pulses are palpable 2/2. Active ROM to all four extremities. Neuro: A&Ox4. PERRLA. CN 2-12 intact without any focal deficit. Skin: Warm, dry, and intact, without rash, erythema, or lesion. Psych: Pleasant. Objective Data Vital Signs Vital Signs: Vital Signs - 24 hr 11/12/24 13:12 11/12/24 13:24 11/12/24 14:00 Temperature 36.0 C L Pulse Rate 112 H 105 H 100 Respiratory Rate 18 18 18 Blood Pressure 108/70 Pulse Oximetry 93 Oxygen Delivery Oxygen Flow Rate Fraction of Inspired Oxygen 11/12/24 16:00 11/12/24 16:35 11/12/24 20:00 Temperature Pulse Rate 92 102 H Respiratory Rate Blood Pressure Pulse Oximetry 100 Oxygen Delivery High Flow Therapy with Na Oxygen Flow Rate 5 Fraction of Inspired Oxygen 11/12/24 20:15 11/12/24 20:20 11/12/24 20:41 Temperature Pulse Rate 108 H 108 H 100 Respiratory Rate 20 20 20 Blood Pressure Pulse Oximetry 98 Oxygen Delivery Nasal Cannula Oxygen Flow Rate 4 Fraction of Inspired Oxygen 36 11/12/24 21:24 11/12/24 21:38 11/13/24 00:00 Temperature 37.2 C Pulse Rate 98 96 Respiratory Rate 16 Blood Pressure 131/56 L Pulse Oximetry 95 96 Oxygen Delivery High Flow Therapy with Na Oxygen Flow Rate 4 Fraction of Inspired Oxygen 38 11/13/24 01:30 11/13/24 01:44 11/13/24 04:00 Temperature Pulse Rate 103 H 101 H 93 Respiratory Rate 20 20 Blood Pressure Pulse Oximetry Oxygen Delivery Oxygen Flow Rate Fraction of Inspired Oxygen 11/13/24 05:46 11/13/24 08:00 11/13/24 08:00 Temperature 36.9 C Pulse Rate 90 96 75 Respiratory Rate 20 20 Blood Pressure 120/60 Pulse Oximetry 96 96 Oxygen Delivery High Flow Therapy with Na Oxygen Flow Rate 4 Fraction of Inspired Oxygen 38 11/13/24 08:16 Temperature Pulse Rate 96 Respiratory Rate 20 Blood Pressure Pulse Oximetry Oxygen Delivery Oxygen Flow Rate Fraction of Inspired Oxygen Intake/Output Intake/Output: Intake & Output 11/10/24 11/11/24 11/12/24 11/13/24 23:59 23:59 23:59 23:59 Intake Total 1930 1370 1950 150 Output Total 9742 668 2150 500 Balance 830 970 750 -350 Meds/Results Medications: Active Medications Generic Name Dose Route Start Last Admin Trade Name Freq PRN Reason Stop Dose Admin Acetaminophen 650 mg 11/04/24 21:31 11/12/24 08:41 Acetaminophen 325 Mg Tablet PO 650 mg Q4H PRN Administration Mild Pain (1-3) or Fever Acetylcysteine 200 mg 11/11/24 14:00 11/13/24 08:13 Acetylcysteine 20% Inhal Soln 800 Mg/4 Ml Vial INHALATION 200 mg Q6HRT ANDREW Administration Budesonide 0.5 mg 11/09/24 20:00 11/13/24 08:13 Budesonide Respule Neb 0.5 Mg/2 Ml Amp INHALATION 0.5 mg Q12HRT ANDREW Administration Buspirone HCl 5 mg 11/06/24 12:20 11/13/24 09:12 Buspirone Hcl 5 Mg Tablet PO 5 mg Q12HR ANDREW Administration Docusate Sodium 100 mg 11/04/24 21:31 11/12/24 08:40 Docusate Sodium 100 Mg Capsule PO 100 mg BID PRN Administration Constipation Enoxaparin Sodium 40 mg 11/05/24 09:00 11/13/24 09:13 Enoxaparin 40 Mg/0.4 Ml Syringe SUB-Q 40 mg DAILY ANDREW Administration Fluticasone Propionate 2 spray 11/11/24 21:00 11/13/24 09:13 Fluticasone Propionate 0.05% Na Spr 16 Gm Btl (*Bkc) NASAL 2 spray Q12HR ANDREW Administration Guaifenesin 200 mg 11/05/24 14:46 11/10/24 15:45 Guaifenesin 200 Mg/10 Ml Udc PO 200 mg Q4H PRN Administration Cough Meropenem 1 gm/ Sodium 100 mls @ 200 mls/hr 11/10/24 15:45 11/13/24 06:15 Chloride IVPB Infused Q8HR ANDREW Infusion Ipratropium [place] 0.5 mg 11/11/24 14:00 11/13/24 08:13 Ipratropium Br 0.02% Inh Soln 0.5 Mg/2.5 Ml Vial INHALATION 0.5 mg Q6HRT ANDREW Administration Levalbuterol HCl 0.63 mg 11/11/24 14:00 11/13/24 08:12 Levalbuterol Neb 1.25 Mg/3 Ml INHALATION 0.62 mg Q6HRT ANDREW Administration Loratadine 10 mg 11/10/24 09:15 11/13/24 09:12 Loratadine 10 Mg Tablet PO 10 mg QAM ANDREW Administration Lorazepam 0.5 mg 11/09/24 08:04 11/12/24 08:41 Lorazepam (*Crx) 0.5 Mg Tablet PO 0.5 mg Q6H PRN Administration Anxiety Nystatin 5 ml 11/09/24 21:00 11/13/24 09:12 Nystatin 100,000 Units/Ml Susp 5 Ml Oral.Susp PO 5 ml QID ANDREW Administration Sodium Chloride 1 spray 11/07/24 16:55 11/07/24 17:44 Saline 0.65% Flynn Soln 44 Ml Btl NASAL 1 spray Q6HR PRN Administration Congestion Radiology Results: ITS Impressions Chest CTA 11/04/24 18:27 IMPRESSION: No pulmonary embolus. No thoracic aortic dissection. Centrilobular emphysematous disease Chest CT 11/10/24 10:04 IMPRESSION: 1. A few new peripheral regions of groundglass opacity and septal line thic kening the right upper lobe suspicious for pneumonia. 2. New partial collapse of the right middle lobe and additional atelectasis in the left upper lobe and lingula. 3. Mild emphysema with indeterminate spiculated 8 mm right upper lobe nodule. Recommend further evaluation with either PET/CT or 3 month follow-up chest CT. Chest X-Ray 11/12/24 17:06 Impression: 1: Bibasilar infiltrates may represent atelectasis or developing pneumonia. Labs Labs: Laboratory Results - last 24 hr 11/11/24 11/12/24 11/12/24 13:53 12:18 16:16 WBC 13.8 H RBC 4.63 Hgb 14.6 Hct 43.1 MCV 93.1 MCH 31.5 MCHC 33.9 RDW 13.2 Plt Count 299 MPV 9.6 Puncture Site ABG pH ABG pCO2 ABG pO2 ABG PO2/FiO2 Ratio ABG HCO3 ABG O2 Saturation ABG O2 Content ABG Base Excess A-a Gradient Oxyhemoglobin Total Hemoglobin O2 Delivery Device O2 Liters/Min FiO2 Sodium 134 L Potassium 4.4 Chloride 102 Carbon Dioxide 27 Anion Gap 5 BUN 27 H Creatinine 0.73 Estim Creat Clear Calc 61 Estimated GFR > 60 Glucose 105 POC Capillary Glucose 104 Calcium 9.0 Magnesium 2.1 Total Bilirubin 0.4 AST 33 ALT 30 Alkaline Phosphatase 73 NT-Pro-B Natriuret Pep 555 H Total Protein 6.7 Albumin 3.7 Chlamy pneumoniae PCR Not detected Adenovirus (PCR) Not detected B. pertussis DNA (PCR) Not detected B.parapertussis DNA PCR Not detected Coronavirus OC43 (PCR) Not detected Coronavirus HKU1 (PCR) Not detected Coronavirus 229E (PCR) Not detected Coronavirus NL63 (PCR) Not detected Human Metapneumovir PCR Not detected Influenza A (H1) PCR Not detected Influ A (H1/09) PCR Not detected Influenza A (H3) PCR Not detected Influenza Type A (PCR) Not detected Influenza Type B (PCR) Not detected M. pneumoniae (PCR) Not detected Parainfluenza 1 (PCR) Not detected Parainfluenza 2 (PCR) Not detected Parainfluenza 3 (PCR) Not detected Parainfluenza 4 (PCR) Not detected RSV (PCR) Not detected Entero/Rhino (PCR) Not detected SARS-CoV-2 (PCR) Not detected 11/12/24 11/13/24 16:20 09:57 WBC 13.2 H RBC 4.61 Hgb 14.3 Hct 43.3 MCV 93.9 MCH 31.0 MCHC 33.0 RDW 13.2 Plt Count 304 MPV 9.4 Puncture Site Right radial ABG pH 7.436 ABG pCO2 41.2 ABG pO2 71.4 L ABG PO2/FiO2 Ratio 1.79 ABG HCO3 27.1 H ABG O2 Saturation 94.8 L ABG O2 Content 19.1 ABG Base Excess 2.7 A-a Gradient 166.4 Oxyhemoglobin 93.8 Total Hemoglobin 14.5 O2 Delivery Device Nasal cannula O2 Liters/Min 5.0 FiO2 40 Sodium 135 L Potassium 4.1 Chloride 101 Carbon Dioxide 30 Anion Gap 4 BUN 19 H Creatinine 0.69 L Estim Creat Clear Calc 65 Estimated GFR > 60 Glucose 126 H POC Capillary Glucose Calcium 9.3 Magnesium Total Bilirubin 0.6 AST 28 ALT 27 Alkaline Phosphatase 73 NT-Pro-B Natriuret Pep Total Protein 6.6 Albumin 3.6 Chlamy pneumoniae PCR Adenovirus (PCR) B. pertussis DNA (PCR) B.parapertussis DNA PCR Coronavirus OC43 (PCR) Coronavirus HKU1 (PCR) Coronavirus 229E (PCR) Coronavirus NL63 (PCR) Human Metapneumovir PCR Influenza A (H1) PCR Influ A (H1/09) PCR Influenza A (H3) PCR Influenza Type A (PCR) Influenza Type B (PCR) M. pneumoniae (PCR) Parainfluenza 1 (PCR) Parainfluenza 2 (PCR) Parainfluenza 3 (PCR) Parainfluenza 4 (PCR) RSV (PCR) Entero/Rhino (PCR) SARS-CoV-2 (PCR)
[2024-11-13] MEDS: ACETAMINOPHEN 325 MG TABLET 650 MG PO (12:29)
[2024-11-13] MEDS: LORazepam (*CRX) 0.5 MG TABLET PO (21:46)
[2024-11-13] MEDS: DOCUSATE SODIUM 100 MG CAPSULE PO (21:46)
[2024-11-14] VITALS (13 sets, daily range): BP systolic 122–124; BP diastolic 68–83; PULSE 86–123; RESP 18–20; TEMP 36.3–36.7; O2SAT 92–97
[2024-11-14] MEDS: IPRATROPIUM BR 0.02% INH SOLN 0.5 MG/2.5 ML VIAL INHALATION ×2 (01:53→09:44)
[2024-11-14] MEDS: ACETYLCYSTEINE 20% INHAL SOLN 800 MG/4 ML VIAL 200 MG INHALATION ×2 (01:53→09:44)
[2024-11-14] MEDS: LORazepam (*CRX) 0.5 MG TABLET PO (04:46)
[2024-11-14] MEDS: MEROPENEM 1 GM in SODIUM CHLORIDE 0.9% IV 100 ML 200 ML IVPB (05:04)
[2024-11-14 06:03] LABS: Alanine Aminotransferase 26 U/L (6-35); Albumin Level 3.8 g/dL (3.5-5.1); Alkaline Phosphatase 83 U/L (38-126); Anion Gap 1 mmol/L (4-12); Aspartate Amino Transferase 35 U/L (14-36); Bilirubin,Total 0.5 mg/dL (0.2-1.3); Blood Urea Nitrogen 19 mg/dL (7-17); Calcium 9.1 mg/dL (8.4-10.2); Carbon Dioxide 32 mmol/L (22-30); Chloride 100 mmol/L (98-107); Estimated CRCL calculation 71 ml/min; Estimated Glomerular Filt Rate > 60; Glucose 100 mg/dL (65-110); Potassium 4.4 mmol/L (3.4-5.0); Sodium 133 mmol/L (137-145); Total Protein 6.9 g/dL (6.3-8.2)
[2024-11-14 06:04] LABS: Hematocrit 43.8 % (37.0-47.0); Hemoglobin 14.4 g/dL (12.0-15.0); Mean Corpuscular HGB Conc 32.9 g/dl (32-36); Mean Corpuscular Hemoglobin 31.1 pg (26-34); Mean Corpuscular Volume 94.6 fl (80-100); Platelet Count Result 321 k/mm3 (150-375); Red Blood Count 4.63 M/mm3 (4.2-5.4); White Blood Count 12.1 K/mm3 (4.5-10.0)
--- NOTE | 2024-11-14 08:48 | P.PNPL_ITS ---
Progress Note: A&P Assessment and Plan (1) Acute exacerbation of chronic obstructive pulmonary disease: Code(s): J44.1 - Chronic obstructive pulmonary disease with (acute) exacerbation Status: Acute Assessment and Plan: Patient does smoke tobacco since age 21 on and off at 1 and half packs per day at her peak, total pack years 45 pack years, Quit 2 weeks ago. Smokes 1/2 marijuana cigarette a night for the last 7 years, quit 1 month ago. Exposed to secondhand smoke from her mother. 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 Patient tells me she had PFTs 15-20 years ago and she was told that these were fine. She denies asthma or chronic bronchitis. At baseline 2 weeks ago patient says she had no respiratory limitations in her activities of daily living and cut her grass and do gardening without respiratory limitations. She is on no home oxygen. On 11/04 the patient presented to the ER with 1-2 days worsening fatigue, rhinorrhea, cough, dyspnea on exertion and shortness of breath at rest. Her blood pressure was 144/85, heart rate 109, respirations 22, saturations were 100% on 6 L. She had decreased breath sounds and expiratory wheezes bilat erally. Her white blood cell count was 9.3, eosinophils 12.8=4531/uL, her creatinine was 0.8, BNP 702, COVID, influenza, RSV RT PCR assay negative. ABG on 3.5 L nasal cannula 7.38/38/89. CT angiogram of the chest showed no PE, mild apical predominant centrilobular emphysema with no infiltrates or effusions. Patient was treated for COPD exacerbation with bronchodilators, Solu-Medrol, Rocephin and doxycycline. 11/07/2024: Patient tells me she is improved but minimally improved. She has 15% back to her normal. She still has rest shortness of breath, dyspnea on exertion, wheezing. Nebulizers to help her. She has yellow to green phlegm with no Hemoptysis. When I enter the room she was on 3 L nasal cannula saturations 99%. I decreased her to room air and her saturations were 92%. Plan: I congratulated her on quitting tobacco 2 weeks ago and quitting marijuana 1 month ago. Will continue to treat patient for COPD exacerbation. She is still wheezing. She is on day 4 Solu-Medrol 60 q.12 and still has wheezes. I will change her to 30 q.6. I will increase the frequency of her ipratropium and levalbuterol nebulizers from q.6 hours to q.4 hours. Patient is on Rocephin and doxycycline day 3 of both. She had no focal infiltrates on her CT scan of the chest and will discontinue Rocephin today. I will order alpha 1 anti trypsin genotype and level for tomorrow. I have ordered a respiratory pathogen panel looking for etiology of her COPD exacerbation. I will order overnight oximetry on room air to assess for nocturnal hypoxemia. 11/08/24: Patient tells me is she is improved. She coughed up green phlegm this morning and says that her breathing is much better after this. She denies hemoptysis. She has intermittent wheezing. Currently she is on 2 L nasal cannula with saturations 92%. She tells me she has improved and ready for discharge today. Smoking cessation counseling was provided. She has quit about 2 weeks ago and says that she called a friend who has removed all smoking remnants from her house today. Home O2 assessment: Rest room air saturation 86%. Rest nasal cannula 1 L saturation 87%. Rest nasal cannula 2 L saturation 93%. Exercise nasal cannula 2 L saturation 90%. Patient ambulated 183 m. Patient requires 2 L at rest and with exertion. Later in the day patient had an episode where phlegm got stuck in her throat a nd she could not breathe and turned blue. Eventually she expectorated and improved. Discharge was canceled. 11/09/24: Patient slept overnight on 2 L nasal cannula. This morning she was doing well and then she walked to the door on room air and became dizzy and hypoxemic. I entered the room immediately after this and her saturations on 2 L were 83%. I increased her to 5 L nasal cannula and her saturations were 90%. She was no longer dizzy after 5 minutes. Patient still complains of chest tightness, she has thick green phlegm with no hemoptysis. She states she is talking better and overall improved from when she was admitted. She is afebrile. Her weight today is 60.5. Her respiratory pathogen panel is negative. Patient had an overnight oximetry on 2 L nasal cannula with recording duration of 8 hours and 43 minutes. Average saturation 85%, low saturation 74%. Time with saturation less than or equal to 88% was 390 minutes, oxygen desaturation index 5.1. Plan: Patient has no wheezing today. I will discontinue her Solu-Medrol and place her on prednisone 40 mg p.o. q.day, I will start budesonide nebulizers 500 mcg Q 12 hours. I will continue levalbuterol and ipratropium nebulizers q.4 hours, continue guaifenesin 1200 b.i.d., continue Cornet flutter valve. 11/10/2024: Patient remained hypoxic yesterday requiring 5-6 L. patient tells me she could not sleep well, she still has shortness of breath, she still has chest heaviness which is relieved by nebulizer treatments as well as expectorating phlegm. She denies fever chills rigors. No hemoptysis. She is a febrile. White blood cell count 14.8, creatinine 0.66, BNP 2490, D-dimer 0.38, normal. CRP 1.5. Procalcitonin 0. Patient has bright red finger nail [place] on and her overnight oximetry on 6 L was done with this finger nail [place] and this morning this finger had pulse oximetry that was 3-4 points lower than a finger without the nail [place]. Recording duration 6 hours and 22 minutes, average saturation 89%, low saturation 79%, time with saturation less than or equal to 88% was 79 minutes, oxygen desaturation index 5.6. Plan: Regarding patient's worsening oxygenation. She has a negative D-dimer. I will perform a CT scan of the chest without contrast to assess for lobar collapse from mucus plugging, pneumonia, fluid overload. I will obtain an echocardiogram with a bubble study. Continue prednisone 40 mg q.day, today is day 7 of steroids. Continue doxycycline 100 mg p.o. b.i.d., day 6. She cannot take the Mucinex pills and I will change her to Mucinex liquid 400 q.4 hours. I will add Mucomyst nebulizers twice a day. Continue Cornet flutter valve. Continue levalbuterol and ipratropium nebulizers q.4 hours and budesonide nebulizer b.i.d.. complained of worsening sinus congestion and I will add Flonase 1 spray each nostril twice a day and Claritin 10 mg a day. Patient with grade 1 diastolic dysfunction, weight is up 2.9 kg and her BNP is 2490. Recommend 20 mg IV Lasix x1 today. For her worsening oxygen requirements: MRSA swab was negative, COVID influenza and RSV RT PCR assay negative, Lasix 20 mg IV given. bubble study was ordered which was negative for [id number] shunt. CT scan without contrast compared to 11/04/2024 showed new right upper lobe and right middle lobe infiltrates, new collapse of the medial segment of the right middle lobe and mild atelectasis in the lingula. For new healthcare associated pneumonia meropenem was started, doxycycline continued. For collapse Mucomyst was started. With new infiltrate steroids were discontinued. 11/11/2024: The patient said she slept well for the 1st time since being in the hospital last night. Overall she has improved and states she is 65% back to her normal. She has no rest shortness of breath. Her phlegm production is thinner and more easily expectorated and is now yellow and not as green. She has no hemoptysis. She has no wheezing. Patient is on 5 L nasal cannula saturations 93%. White blood cell count 12.8, creatinine 0.7. Yesterday she was positive 830 mL. Her weight is 61.5. Plan: Patient being treated for healthcare associated pneumonia status post ceftriaxone 11/04-11/07, on doxycycline day 6 of 7. goal oxygen saturation 90- 94%, wean as tolerated. Will repeat Lasix 20 IV today. Patient states the Mucomyst is helping her. Will decrease levalbuterol and ipratropium to q.6 hours and increase the Mucomyst to q.6 hours. Continue Cornet flutter valve and Mucinex liquid 400 q.4 hours. Will continue these treatments through the weekend. Pulmonary inpatient services will resume on 11/14/2024, called the on-call physician for questions. 11/14/24: Patient continues to improve although she feels exhausted. She tells that her breathing is 90% back to her baseline. She does have a cough that is productive of yellow, green or brown phlegm. At rest she has no shortness of breath. She has not been walking since Thursday. When I enter the room she was on 4 L nasal cannula saturations 97%. I decreased her to 2 L and after 10 minutes her saturations were 96%. I decreased her to room air and after 9 minutes her saturations were 91%. She is afebrile. White blood cell count 12.1, creatinine 0.62. Yesterday she was positive 150 mL and cumulative she is positive 9.6 L since admission. Her weight is 62.6. Chest x-ray today compared to 11/12/2022 shows improved bibasilar infiltrates with no pleural effusions and no focal consolidations, pronounced right hilum. Plan: From a pulmonary perspective patient can be discharged on these pulmonary medications Augmentin 875-125 at 1 puff twice a day x6 days Levaquin 750 mg p.o. q.day x6 days Triple inhaler therapy: Beta agonist, muscarinic antagonist and inhaled corticosteroids that insurance will cover (Trelegy 200/62.5/24 at 1 puffs Q day or Breztri 160/9/4.8 at 2 puffs BID) OR Beta agonsit and inhaled corticosteroid (Advair discus 250/50 at 1 puff BID, Advair HFA 230/21 at 1 puffs BID, Breo Ellipts 100/25 at 1 puff Q day, Dulera 100/5 at 2 puffs BID, or symbicort 160/4.5 at 2 puffs BID) PLUS Muscarinic antagonist that insurance will cover (incruse ellipta 62.5 at 1 puffs Q day, spireva handihaler 18 mics at 1 puff Q day or spireva respimat 2.5 mics at 2 puff Q day, atrovent 2 puffs Q 6 HR). Rescue albuterol 2 puffs q.4 hours p.r.n. shortness of breath or wheezing Guaifenesin 600 mg p.o. b.i.d. p.r.n. mucus congestion Flonase 2 sprays each nostril twice a day Claritin 10 mg p.o. q.day Saline nasal spray 1 spray each nostril q.6 hours. Oxygen at rest and with activity per formal home O2 assessment which I have ordered Oxygen when she sleeps at the same L flow as she requires with activity Follow-up in the Pulmonary Clinic in 4 weeks. I gave her a business card and informed our lace mender. She will need outpatient PFTs and a CT scan in [address] Mcgarry, will sign off, call with questions. Subjective Date/time seen: 11/14/24 08:48 Interval history: 11/07/2024: This is a new pulmonary consult for COPD exacerbation. 64-year-old with no previous medical diagnosis on no home medicines. Patient does smoke tobacco since age 21 on and off at 1 and half packs per day at her peak, total pack years 45 pack years, Quit 2 weeks ago. Smokes 1/2 marijuana cigarette a night for the last 7 years, quit 1 month ago. Exposed to secondhand smoke from her mother. 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 Patient tells me she had PFTs 15-20 years ago and she was told that these were fine. She denies asthma or chronic bronchitis. At baseline 2 weeks ago patient says she had no respiratory limitations in her activities of daily living and cut her grass and do gardening without respiratory limitations. She is on no home oxygen. On 11/04 the patient presented to the ER with 1-2 days worsening fatigue, rhinorrhea, cough, dyspnea on exertion and shortness of breath at rest. Her blood pressure was 144/85, heart rate 109, respirations 22, saturations were 100% on 6 L. She had decreased breath sounds and expiratory wheezes bilaterally. Her white blood cell count was 9.3, eosinophils 12.2=1953/uL, her creatinine was 0.8, BNP 702, COVID, influenza, RSV RT PCR assay negative. ABG on 3.5 L nasal cannula 7.38/38/89. CT angiogram of the chest showed no PE, mild apical predominant centrilobular emphysema with no infiltrates or effusions. Patient was treated for COPD exacerbation with bronchodilators, Solu-Medrol, Rocephin and doxycycline. 11/07/2024: Patient tells me she is improved but minimally improved. She has 15% back to her normal. She still has rest shortness of breath, dyspnea on exertion, wheezing. Nebulizers to help her. She has yellow to green phlegm with no Hemoptysis. When I enter the room she was on 3 L nasal cannula saturations 99%. I decreased her to room air and her saturations were 92%. 11/08/24: Patient tells me is she is improved. She coughed up green phlegm this morning and says that her breathing is much better after this. She denies hemoptysis. She has intermittent wheezing. Currently she is on 2 L nasal c annula with saturations 92%. She tells me she has improved and ready for discharge today. Home O2 assessment: Rest room air saturation 86%. Rest nasal cannula 1 L saturation 87%. Rest nasal cannula 2 L saturation 93%. Exercise nasal cannula 2 L saturation 90%. Patient ambulated 183 m. Patient requires 2 L at rest and with exertion. Later in the day patient had an episode where phlegm got stuck in her throat and she could not breathe and turned blue. Eventually she expectorated and improved. Discharge was canceled. 11/09/24: Patient slept overnight on 2 L nasal cannula. This morning she was doing well and then she walked to the door on room air and became dizzy and hypoxemic. I entered the room immediately after this and her saturations on 2 L were 83%. I increased her to 5 L nasal cannula and her saturations were 90%. She was no longer dizzy after 5 minutes. Patient still complains of chest tightness, she has thick green phlegm with no hemoptysis. She states she is talking better and overall improved from when she was admitted. She is afebrile. Her weight today is 60.5. Her respiratory pathogen panel is negative. Patient had an overnight oximetry on 2 L nasal cannula with recording duration of 8 hours and 43 minutes. Average saturation 85%, low saturation 74%. Time with saturation less than or equal to 88% was 390 minutes, oxygen desaturation index 5.1. 11/10/2024: Patient remained hypoxic yesterday requiring 5-6 L. patient tells me she could not sleep well, she still has shortness of breath, she still has chest heaviness which is relieved by nebulizer treatments as well as expectorating phlegm. She denies fever chills rigors. No hemoptysis. She is afebrile. White blood cell count 14.8, creatinine 0.66, BNP 2490, D-dimer 0.38, normal. CRP 1.5. Procalcitonin 0. Patient has bright red finger nail [place] on and her overnight oximetry on 6 L was done with this finger nail [place] and this morning this finger had pulse oximetry that was 3-4 points lower than a finger without the nail [place]. Recording duration 6 hours and 22 minutes, average saturation 89%, low saturation 79%, time with saturation less than or equal to 88% was 79 minutes, oxygen desaturation index 5.6. For her worsening oxygen requirements: MRSA swab was negative, COVID influenza and RSV RT PCR assay negative, Lasix 20 mg IV given. bubble study was ordered which was negative for [id number] shunt. CT scan without contrast compared to 11/04/2024 showed new right upper lobe and right middle lobe infiltrates, new collapse of the medial segment of the right middle lobe and mild atelectasis in the lingula. For new healthcare associated pneumonia meropenem was started, doxycycline continued. For collapse Mucomyst was started. 11/11/2024: The patient said she slept well for the 1st time since being in the hospital last night. Overall she has improved and states she is 65% back to her normal. She has no rest shortness of breath. Her phlegm production is thinner and more easily expectorated and is now yellow and not as green. She has no hemoptysis. She has no wheezing. Patient is on 5 L nasal cannula saturations 93%. White blood cell count 12.8, creatinine 0.7. Yesterday she was positive 830 mL. Her weight is 61.5. 11/14/24: Patient continues to improve although she feels exhausted. She tells that her breathing is 90% back to her baseline. She does have a cough that is productive of yellow, green or brown phlegm. At rest she has no shortness of breath. She has not been walking since Thursday. When I enter the room she was on 4 L nasal cannula saturations 97%. I decreased her to 2 L and after 10 minutes her saturations were 96%. I decreased her to room air and after 9 minutes her saturations were 91%. She is afebrile. White blood cell count 12.1, creatinine 0.62. Yesterday she was positive 150 mL and cumulative she is positive 9.6 L since admission. Her weight is 62.6. Chest x-ray today rad red to 11/12/2022 shows improved bibasilar infiltrates with no pleural effusions and no focal consolidations, pronounced right hilum. DATA: 11/10/24: EXAMINATION: CT diagnostic chest wo con INDICATION: COPD, hypoxia COMPARISON: 11/04/2024 FINDINGS: Mild emphysema. Partial collapse of the right middle lobe, atelectasis at the paramediastinal right upper lobe and sagittal oriented band of discoid atelectasis in the lingula, all new since the prior study. Also new are regions of groundglass opacity and septal line thickening peripherally in the right upper lobe which are suspicious for pneumonia. No pleural effusion. There is a 9 x 7 mm spiculated nodule at the anteromedial right upper lobe. Heart size is normal. Atherosclerotic coronary artery calcification is. No pericardial effusion. Thoracic aorta is normal in caliber. No pathologically enlarged thoracic lymphadenopathy. Minimal thoracic spondylosis. IMPRESSION: 1. A few new peripheral regions of groundglass opacity and septal line thickening the right upper lobe suspicious for pneumonia. 2. New partial collapse of the right middle lobe and additional atelectasis in the left upper lobe and lingula. 3. Mild emphysema with indeterminate spiculated 8 mm right upper lobe nodule. Recommend further evaluation with either PET/CT or 3 month follow-up chest CT. 11/10/24: Summary 1. Left ventricular chamber dimension is normal. 2. Left ventricular systolic function is normal, estimated at 55-60. 3. The left ventricular diastolic function is grade I diastolic dysfunction. 4. E/e' 9 is minimally elevated. 5. There is trace pulmonic regurgitation. Right Ventricle Right ventricular chamber dimension is normal. Right ventricular systolic function is normal. Left Atria Left atrial chamber dimension is normal. Right Atria Right atrial chamber dimension is normal. Atrial Septum Intact interatrial septum visualized by 2D and agitated saline imaging. Agitated saline injection with and without valsalva maneuver opacified right side cardiac chambers without shunt to left side cardiac chambers. 11/10/24: Patient has bright red finger nail [place] on and her overnight oximetry on 6 L was done with this finger nail [place] and this morning this finger had pulse oximetry that was 3-4 points lower than a finger without the nail [place]. Recording duration 6 hours and 22 minutes, average saturation 89%, low saturation 79%, time with saturation less than or equal to 88% was 79 minutes, oxygen desaturation index 5.6. 11/08/24: Patient had an overnight oximetry on 2 L nasal cannula with recording duration of 8 hours and 43 minutes. Average saturation 85%, low saturation 74%. Time with saturation less than or equal to 88% was 390 minutes, oxygen desaturation index 5.1. 11/08/2024: Home O2 assessment: Rest room air saturation 86%. Rest nasal cannula 1 L saturation 87%. Rest nasal cannula 2 L saturation 93%. Exercise nasal cannula 2 L saturation 90%. Patient ambulated 183 m. Patient requires 2 L at rest and with exertion. 11/05/24: Echo Summary 1. Complete two-dimensional, color flow and Doppler transthoracic echocardiogram is performed. 2. Left ventricular chamber dimension is normal. 3. Left ventricular systolic function is normal, estimated at 60-65. 4. The left ventricular diastolic function is grade I diastolic dysfunction. 5. E/e' 9 is minimally elevated. 6. There is trace tricuspid valve regurgitation. Right Ventricle Right ventricular chamber dimension is normal. Right ventricular systolic function is normal. Right Atria Right atrial chamber dimension is normal. Tricuspid Valve There is trace tricuspid valve regurgitation. RVSP is not measured due to an inadequate TR jet. 11/04/24: EXAMINATION: CTA chest PE protocol INDICATION: Shortness of breath with near, pulmonary embolus suspected clinically COMPARISON: None. FINDINGS/OBSERVATIONS: PULMONARY ARTERIES: No filling defect is identified within the main or proximal pulmonary artery. The main pulmonary artery is not enlarged. THORACIC AORTA: No aneurysmal dilatation or dissection is present. The great vessels are intact LUNGS: Centrilobular emphysematous disease. The lungs are otherwise clear. MEDIASTINUM: No morphologically suspicious or pathologically enlarged lymph nodes are identified within the mediastinum or bilateral axilla. BONES OF THE CHEST: No acute fracture. Age-appropriate degenerative disease. No lytic or blastic lesions. HEART: The heart is of normal size, without pericardial effusion. IMPRESSION: No pulmonary embolus. No thoracic aortic dissection. Centrilobular emphysematous disease. Review of Systems Constitutional: Constitutional: Reports no additional constitutional complaints Eyes: Eyes: Reports no additional eye complaints ENT: Reports system reviewed and no additional complaints, except as documented Cardiovascular: Cardiovascular: Reports no additional cardiovascular complaints Respiratory: Respiratory: Reports no additional respiratory complaints Gastrointestinal: Gastrointestinal: Reports no additional gastrointestinal complaints Musculoskeletal: Musculoskeletal: Reports no additional musculoskeletal complaints Neurologic: Reports system reviewed and no additional complaints, except as documented Psychiatric: Psychiatric: Reports no additional psychiatric complaints Endocrine: Endocrine: Reports no additional endocrine complaints Hematologic/Lymphatic: Hematologic/Lymphatic: Reports no additional hematologic/lymphatic complaints Allergic/Immunologic: Allergic/Immunologic: Reports no additional allergic/immunologic complaints Exam Const: General: cooperative, healthy appearing and comfortable Orientation/consciousness: oriented to person, oriented to place and oriented to time HENMT: Head: normal to inspection Ears: hearing grossly normal bilaterally Eyes: General: appearance normal, both eyes and all related structures Neck: Neck: normal visual inspection Chest: Chest palpation & inspection: normal inspection of the chest Resp: Effort & Inspection: normal respiratory effort and able to speak in complete sentences Auscultation: no crackles, no rales, no rhonchi, no wheezes and lung sounds not diminished Other: No wheezes today Cardio: Jugular venous distension: no JVD GI: Inspection: normal to inspection Skin: General skin exam: normal color Neuro: General: oriented to person, oriented to place and oriented to time Extrem: General: normal to inspection Psych: Appearance: grossly normal Objective Data Vital Signs Vital Signs: Vital Signs - 24 hr 11/13/24 12:00 11/13/24 14:00 11/13/24 14:01 Temperature 36.5 C Pulse Rate 99 89 94 Respiratory Rate 20 20 Blood Pressure 127/65 Pulse Oximetry 94 Oxygen Delivery Oxygen Flow Rate 11/13/24 16:00 11/13/24 19:58 11/13/24 20:04 Temperature Pulse Rate 79 94 93 Respiratory Rate 18 20 Blood Pressure Pulse Oximetry 98 Oxygen Delivery Nasal Cannula Oxygen Flow Rate 4 11/13/24 20:04 11/13/24 20:22 11/13/24 21:21 Temperature Pulse Rate 94 94 Respiratory Rate 18 Blood Pressure Pulse Oximetry 99 Oxygen Delivery High Flow Therapy with Na Oxygen Flow Rate 4 11/13/24 21:36 11/14/24 00:02 11/14/24 01:53 Temperature 37.0 C Pulse Rate 104 H 88 94 Respiratory Rate 20 18 Blood Pressure 134/86 Pulse Oximetry 99 Oxygen Delivery Oxygen Flow Rate 11/14/24 02:08 11/14/24 04:04 11/14/24 05:58 Temperature 36.7 C Pulse Rate 94 96 107 H Respiratory Rate 18 20 Blood Pressure 124/83 Pulse Oximetry 97 Oxygen Delivery Oxygen Flow Rate Intake/Output Intake/Output: Intake & Output 11/11/24 11/12/24 11/13/24 11/14/24 23:59 23:59 23:59 23:59 Intake Total 1370 1950 1450 300 Output Total 400 1200 1300 550 Balance 970 750 150 -250 Meds/Results Medications: Active Medications Generic Name Dose Route Start Last Admin Trade Name Freq PRN Reason Stop Dose Admin Acetaminophen 650 mg 11/04/24 21:31 11/13/24 12:29 Acetaminophen 325 Mg Tablet PO 650 mg Q4H PRN Administration Mild Pain (1-3) or Fever Acetylcysteine 200 mg 11/11/24 14:00 11/14/24 01:53 Acetylcysteine 20% Inhal Soln 800 Mg/4 Ml Vial INHALATION 200 mg Q6HRT ANDREW Administration Budesonide 0.5 mg 11/09/24 20:00 11/13/24 19:55 Budesonide Respule Neb 0.5 Mg/2 Ml Amp INHALATION 0.5 mg Q12HRT ANDREW Administration Buspirone HCl 5 mg 11/06/24 12:20 11/13/24 21:22 Buspirone Hcl 5 Mg Tablet PO 5 mg Q12HR ANDREW Administration Docusate Sodium 100 mg 11/04/24 21:31 11/13/24 21:46 Docusate Sodium 100 Mg Capsule PO 100 mg BID PRN Administration Constipation Enoxaparin Sodium 40 mg 11/05/24 09:00 11/13/24 09:13 Enoxaparin 40 Mg/0.4 Ml Syringe SUB-Q 40 mg DAILY ANDREW Administration Fluticasone Propionate 2 spray 11/11/24 21:00 11/13/24 21:28 Fluticasone Propionate 0.05% Na Spr 16 Gm Btl (*Bkc) NASAL 2 spray Q12HR ANDREW Administration Guaifenesin 200 mg 11/05/24 14:46 11/14/24 04:46 Guaifenesin 200 Mg/10 Ml Udc PO 200 mg Q4H PRN Administration Cough Meropenem 1 gm/ Sodium 100 mls @ 200 mls/hr 11/10/24 15:45 11/14/24 05:34 Chloride IVPB Infused Q8HR ANDREW Infusion Ipratropium [place] 0.5 mg 11/11/24 14:00 11/14/24 01:53 Ipratropium Br 0.02% Inh Soln 0.5 Mg/2.5 Ml Vial INHALATION 0.5 mg Q6HRT ANDREW Administration Levalbuterol HCl 0.63 mg 11/11/24 14:00 11/14/24 01:53 Levalbuterol Neb 1.25 Mg/3 Ml INHALATION 0.63 mg Q6HRT ANDREW Administration Loratadine 10 mg 11/10/24 09:15 11/13/24 09:12 Loratadine 10 Mg Tablet PO 10 mg QAM ANDREW Administration Lorazepam 0.5 mg 11/09/24 08:04 11/14/24 04:46 Lorazepam (*Crx) 0.5 Mg Tablet PO 0.5 mg Q6H PRN Administration Anxiety Nystatin 5 ml 11/09/24 21:00 11/13/24 21:21 Nystatin 100,000 Units/Ml Susp 5 Ml Oral.Susp PO 5 ml QID ANDREW Administration Sodium Chloride 1 spray 11/07/24 16:55 11/07/24 17:44 Saline 0.65% Flynn Soln 44 Ml Btl NASAL 1 spray Q6HR PRN Administration Congestion Radiology Results: ITS Impressions Chest CTA 11/04/24 18:27 IMPRESSION: No pulmonary embolus. No thoracic aortic dissection. Centrilobular emphysematous disease Chest CT 11/10/24 10:04 IMPRESSION: 1. A few new peripheral regions of groundglass opacity and septal line thickening the right upper lobe suspicious for pneumonia. 2. New partial collapse of the right middle lobe and additional atelectasis in the left upper lobe and lingula. 3. Mild emphysema with indeterminate spiculated 8 mm right upper lobe nodule. Recommend further evaluation with either PET/CT or 3 month follow-up chest CT. Labs Labs: Laboratory Results - last 24 hr 11/08/24 11/13/24 11/14/24 05:25 09:57 05:15 WBC 13.2 H 12.1 H RBC 4.61 4.63 Hgb 14.3 14.4 Hct 43.3 43.8 MCV 93.9 94.6 MCH 31.0 31.1 MCHC 33.0 32.9 RDW 13.2 13.1 Plt Count 304 321 MPV 9.4 9.8 Sodium 135 L 133 L Potassium 4.1 4.4 Chloride 101 100 Carbon Dioxide 30 32 H Anion Gap 4 1 L BUN 19 H 19 H Creatinine 0.69 L 0.62 L Estim Creat Clear Calc 65 71 Estimated GFR > 60 > 60 Glucose 126 H 100 Calcium 9.3 9.1 Total Bilirubin 0.6 0.5 AST 28 35 ALT 27 26 Alkaline Phosphatase 73 83 Total Protein 6.6 6.9 Albumin 3.6 3.8 Crkgl-2-Dyejdsujbjy 162 Alpha-1-AT Phenotype Mm
[2024-11-14] MEDS: BUDESONIDE RESPULE NEB 0.5 MG/2 ML AMP INHALATION (09:44)
[2024-11-14] MEDS: LORATADINE 10 MG TABLET PO (10:22)
[2024-11-14] MEDS: ENOXAPARIN 40 MG/0.4 ML SYRINGE SUB-Q (10:22)
[2024-11-14] MEDS: FLUTICASONE PROPIONATE 0.05% NA SPR 16 GM BTL (*BKC) 2 SPRAY NASAL (10:22)
[2024-11-14] MEDS: NYSTATIN 100,000 UNITS/ML SUSP 5 ML ORAL.SUSP PO ×2 (10:22→13:27)
--- NOTE | 2024-11-14 11:40 | PCRCNOTE ---
Home O2 eval repeated, no home O2 needed.
[2024-11-14] MEDS: SULFAMETHOXAZOLE/TRIMETHOPRIM 800/160 MG DS TABLET 1 TAB PO (11:54)
--- NOTE | 2024-11-14 13:56 | P.DS_ITS ---
DS: Admitting Diagnosis Discharge Date 11/14/2024 Admitting Diagnosis COPD exacerbation DS: Discharge Diagnosis Discharge Diagnosis (1) Choking: Code(s): T17.308A - Unspecified foreign body in larynx causing other injury, initial encounter Status: Acute (2) Anxiety: Code(s): F41.9 - Anxiety disorder, unspecified Status: Acute (3) Tachycardia: Code(s): R00.0 - Tachycardia, unspecified Status: Acute (4) Elevated liver enzymes: Code(s): R74.8 - Abnormal levels of other serum enzymes Status: Resolved (5) Elevated brain natriuretic peptide (BNP) level: Code(s): R79.89 - Other specified abnormal findings of blood chemistry Status: Acute (6) COPD (chronic obstructive pulmonary disease): Code(s): J44.9 - Chronic obstructive pulmonary disease, unspecified Status: Acute (7) Nicotine dependence: Qualifiers: Nicotine product type: cigarettes Substance use status: unspecified nicotine-induced disorder Qualified Code(s): F17.219 - Nicotine dependence, cigarettes, with unspecified nicotine-induced disorders Code(s): F17.200 - Nicotine dependence, unspecified, uncomplicated Status: Acute (8) Acute exacerbation of chronic obstructive pulmonary disease: Code(s): J44.1 - Chronic obstructive pulmonary disease with (acute) exacerbation Status: Acute (9) Community acquired pneumonia: Qualifiers: Laterality: left Lung location: lower lobe of lung Qualified Code(s): J18.9 - Pneumonia, unspecified organism Code(s): J18.9 - Pneumonia, unspecified organism Status: Acute (10) Acute hypoxemic respiratory failure: Code(s): J96.01 - Acute respiratory failure with hypoxia Status: Acute Plan Outpatient PFT studies and CT scan in 3 months DS: Summary Hospital Course Hospital Course: Jessica Kramer is a 64 year old female with chronic tobacco use disorder -45 pack years smoking history who was here for worsening fatigue, rhinorrhea, cough, dyspnea on exertion and shortness of breath at rest which progressively worse for the last 1 or 2 days prior to admission. Vital signs was normal except tachycardia. CT angio the chest shows no PE, mild apical predominant and centrilobular emphysema with no infiltrates or effusion. Patient was treated for COPD exacerbation with bronchodilators, steroid, Rocephin and doxycycline. Workups has been negative including alpha-1 antitrypsin, Legionella antigen, strep pneumo antigen, mycoplasma antibodies, and respiratory panels. Pulmonology was consulted. While she was inpatient patient condition was worsening. She had hospital-acquired pneumonia-her on antibiotics get prolonged and broadened. As that time CT chest without contrast was obtained which showed new right upper lobe and right middle lobe infiltrates, new collapse of the medial segment of the right middle lobe and mild atelectasis in the lingula. Patient continues to do well. She is in room air. Should be discharged with antibiotics for 6 days cefuroxime for 6 days and Bactrim for 6 days. Please see the new medication below. She will see pulmonology in 4 weeks as outpatient with PFT studies and CT scan of the chest in 3 months. Time Spent with Patient Time attestation: Total time spent providing and/or coordinating discharge services: Exam Eyes: Other: APPEARANCE: Pleasant, cooperative, in room air, excited to go home EYES: EOMI HEENT: Normocephalic, atraumatic, OMM RESPIRATORY: No respiratory distress Clear to auscultation bilaterally with no rhonchi wheezing or rales. CARDIOVASCULAR: RRR, S1 and S2 without murmurs rubs or gallops. ABDOMINAL: Soft, nontender, nondistended, no rebound or guarding MSK: 4/5 motor strength in all 4 extremities. She stated she is exhausted. NEURO: Awake and alert. Following commands, speech normal, no focal deficits SKIN:: Warm, dry. No rashes lesions or abrasions PSYCHIATRIC: Normal affect/mood, DS: Data Data Completed and Pending Labs on day of discharge: Labs from last 24 hours 11/14/24 11/11/24 11/08/24 05:15 05:25 05:25 WBC 12.1 H RBC 4.63 Hgb 14.4 Hct 43.8 MCV 94.6 MCH 31.1 MCHC 32.9 RDW 13.1 Plt Count 321 MPV 9.8 Sodium 133 L Potassium 4.4 Chloride 100 Carbon Dioxide 32 H Anion Gap 1 L BUN 19 H Creatinine 0.62 L Estim Creat Clear Calc 71 Estimated GFR > 60 Glucose 100 Calcium 9.1 Total Bilirubin 0.5 AST 35 ALT 26 Alkaline Phosphatase 83 Total Protein 6.9 Albumin 3.8 Rprjq-1-Jjddrbzaejz 162 Alpha-1-AT Phenotype Mm M.pneumoniae IgM Titer <770 Discharge Plan Discharge Attending physician on discharge: Eve Yuan Consulting providers: José Antonio Lara Discharging Clinician: Eve Yuan Anticipated Discharge Date/Time: 11/14/24 13:40 Patient Disposition: Home Activity: unlimited Diet: as tolerated and regular Patient Instructions: Antibiotic Form Patient Language: Bots[place] Stand Alone Forms: General Discharge Information Follow-up/Referrals: José Antonio Lara MD [Physician, Pulmonology] - 4 Weeks Discharge Medications: New Breztri Aerosphere 160-9-4.8 mcg/actuation HFA aerosol inhaler 2 inh inhalation QAM AND QPM Qty: 10.7 0RF Trelegy Ellipta 200-62.5-25 mcg blister with device 1 inh inhalation Q24H Qty: 60 0RF buspirone 5 mg Tablet 5 mg PO Q12HR Qty: 60 0RF nystatin 100,000 unit/mL Suspension 5 ml PO QID Qty: 1 0RF cefuroxime axetil 250 mg Tablet 500 mg PO Q12HR Qty: 12 0RF sulfamethoxazole-trimethoprim 800-160 mg Tablet 1 tab PO Q12HR Qty: 12 0RF guaifenesin 100 mg/5 mL Liquid 200 mg PO Q4H PRN (Reason: Cough) Qty: 10 0RF fluticasone propionate 50 mcg/actuation [place],Suspension 2 spray intranasal Q12HR Qty: 10 0RF loratadine 10 mg Tablet 10 mg PO QAM Qty: 100 0RF ipratropium bromide 0.02 % Solution 0.5 mg inhalation Q6HRT Qty: 60 0RF Saline Mist 0.65 % Aerosol,[place] 1 spray intranasal Q6HR PRN (Reason: Congestion) Qty: 6 0RF acetaminophen 325 mg Tablet 650 mg PO Q4H PRN (Reason: Mild Pain (1-3) Or Fever) Qty: 30 0RF Date of admission: 11/06/24 11:49 Primary Care Provider: Tonio Sorto Admitting Provider: Rogelio Cifuentes Attending physician on admission: Rogelio Cifuentes Condition: Stable
== END 2024-11-14 15:46 | disposition home or self-care (01) | DRG 140 ==
LOC: ANHED 20:08 → ANH3MEDSUR 11-05 08:43
PROVIDERS: Internal Medicine; Internal Medicine Pulmonary Disease; Nurse Practitioner Gerontology; Admitting Provider Family Medicine; Emergency Provider Student in an Organized Health Care Education/Training Program; PCP Internal Medicine; Visit Provider Student in an Organized Health Care Education/Training Program
DX: J44.1 Chronic obstructive pulmonary disease with (acute) exacerbation (principal); J96.01 Acute respiratory failure with hypoxia; J18.9 Pneumonia, unspecified organism; J44.0 Chronic obstructive pulmonary disease with (acute) lower respiratory infection; T17.308A Unspecified foreign body in larynx causing other injury, initial encounter; I47.20 Ventricular tachycardia, unspecified; R74.8 Abnormal levels of other serum enzymes; F41.9 Anxiety disorder, unspecified; Z20.822 Contact with and (suspected) exposure to COVID-19; Z87.891 Personal history of nicotine dependence
CPT/HCPCS: 36415; 36600; 71045; 71250; 71275; 80053; 82103; 82104; 82805; 82948; 83735; 83880; 84145; 84439; 84443; 84480; 84484; 85018; 85025; 85027; 85380; 86140; 86738; 86803; 87040; 87070; 87205; 87340; 87449; 87637; 87641; 87899; 92610; 93005; 93306; 93308; 94618; 94640; 94667; 94668; 94762; 96375; 99285; A9270; G0378; J0696; J1650; J1885; J1938; J2060; J2185; J2405; J2919; J7512; Q9967

== ENCOUNTER 2024-12-17 18:47 | Observation (INO) | payer SELFPAY ==
[2024-12-17] VITALS (26 sets, daily range): BP systolic 113–167; BP diastolic 61–86; PULSE 109–138; RESP 9–29; TEMP 36.6; O2SAT 94–98
--- NOTE | ~2024-12-17 | XR_ITS ---
EXAMINATION: XR chest 1V portable COMPARISON: No comparisons available. HISTORY: SOB FINDINGS: The lungs are clear, no effusion. No pneumothorax. Heart is normal size. Mediastinal and hilar contours are within normal limits. Bony thorax no acute abnormality. Miscellaneous: None Impression: No acute cardiopulmonary abnormality. Reviewed, dictated and finalized at location P. Impression: No acute cardiopulmonary abnormality.
--- NOTE | 2024-12-17 18:50 | ECG_ITS ---
Test Date: 2024-12-17 18:51:46 Measurements Intervals [place] Rate: 130 P: 84 SD: 142 QRS: 27 QRSD: 65 T: 69 QT: 333 QTc: 491 Interpretive Statements SINUS TACHYCARDIA SEPTAL MYOCARDIAL INFARCTION , OF INDETERMINATE AGE Electronically Signed On 12-18-2024 20:47:23 CDT by Himanshu Lindsey D.O
[2024-12-17 19:33] LABS: Hematocrit 42.8 % (37.0-47.0); Hemoglobin 14.3 g/dL (12.0-15.0); Immature Granulocyte Percent A 0.6 % (0-0.5); Lymphocytes Absolute Auto 1.90 K/mm3 (0.9-3.2); Mean Corpuscular HGB Conc 33.4 g/dl (32-36); Mean Corpuscular Hemoglobin 31.0 pg (26-34); Mean Corpuscular Volume 92.6 fl (80-100); Nucleated Red Blood Cells Absolute Auto 0.000 K/mm3 (0.0-0.012); Nucleated Red Blood Cells Perc 0.0 % (0.0-0.2); Platelet Count Result 320 k/mm3 (150-375); Red Blood Count 4.62 M/mm3 (4.2-5.4); White Blood Count 10.6 K/mm3 (4.5-10.0)
[2024-12-17 19:37] LABS: Alveolar/Arterial O2 Gradient 43.7 mmHg; Carboxyhemoglobin 0.9 % THb (0-2.0); Fractional Inspired Oxygen 21 %; HCO3 ABG 23.4 mEq/l (22.0-26.0); Methemoglobin ABG 0.3 %THb (0-1.5); Oxygen Content ABG 18.5 %vol (16.0-22.0); Oxygen Saturation ABG 92.8 % (95.0-100.0); PCO2 ABG 36.1 mmHg (35.0-45.0); PO2 ABG 62.8 mmHg (80.0-100.0); PO2 FiO2 Ratio Arterial Blood 2.99 %; Reduced Hemoglobin 7.8 %THb (0-5.0)
[2024-12-17 19:38] LABS: Modified Allen's Test Pass; Site Drawn RIGHT RADIAL
[2024-12-17 19:43] LABS: Alanine Aminotransferase 18 U/L (6-35); Albumin Level 4.6 g/dL (3.5-5.1); Alkaline Phosphatase 99 U/L (38-126); Anion Gap 9 mmol/L (4-12); Aspartate Amino Transferase 31 U/L (14-36); Bilirubin,Total 0.7 mg/dL (0.2-1.3); Blood Urea Nitrogen 11 mg/dL (7-17); Calcium 9.7 mg/dL (8.4-10.2); Carbon Dioxide 27 mmol/L (22-30); Chloride 101 mmol/L (98-107); Estimated CRCL calculation 53 ml/min; Estimated Glomerular Filt Rate > 60; Glucose 124 mg/dL (65-110); Magnesium 3.3 mg/dL (1.6-2.3); Potassium 3.6 mmol/L (3.4-5.0); Sodium 137 mmol/L (137-145); Total Protein 8.4 g/dL (6.3-8.2)
[2024-12-17] MEDS: SODIUM CHLORIDE 0.9% IV 1,000 ML 999 ML IV CONT (19:46)
--- OUTSIDE RECORDS SUMMARY | 2024-12-17 19:48 | XMS_ITS | Clinical Summary ---
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 Gender Identity Female 02/06/2021 7:36 PM [employer]UCATION Sexual Orientation Straight 02/06/2021 7: 36 PM [employer] OF SPECIAL EDUCATION Obstetrics History Last Filed Vital Signs Vital Sign Reading Time Taken Comments Blood Pressure 131/74 06/08/2018 1:10 PM CDT Pulse 76 06/08/2018 1:10 PM CDT Temperature - - Respiratory Rate - - Oxygen Saturation - - Inhaled Oxygen Concentration - - Weight 60.3 kg (132 lb 15 oz) 02/07/2021 8:43 AM [employer] EDUCATION Height 182.9 cm (6') 02/07/2021 8:43 AM [employer] SPECIAL EDUCATION Body Mass Index 18.03 02/07/2021 8:43 AM DIRECTOR OF SPECIAL EDUCATION Plan of Treatment Not on file Insurance [employer] O/POS Care Teams Governor Assembler Relationship Specialty Start Date End Date Sadi Rob MD PCP - General Obstetrics and Gynecology 01/28/21
--- OUTSIDE RECORDS SUMMARY | 2024-12-17 19:48 | XMS_ITS | Data Portability ---
Author Organization [facility] Address [address] [place] [address] Care Team Providers Care Manager Warehouse Name Role Phone KELSI CASTILLO Parachute Cushion Installer [phone] Assessment Encounter Date Assessment Date Assessment LastModified by Organization Details LastModified Time 10/17/2021 10/17/2021 Ilana LEVY-Nanette Not available 10/17/2021 13:14:52 Plan of Treatment Reminders Order Date Submit Date Provider Last Modified By Organization Details Last Modified Time Details Appointments None recorded . Lab culture, urine 2021 022 [facility], [address], [place], [address], 04:07:47 urinalys is, dipstick 2021 022 [email or web address] In-Office Order, Internal Use Only DO Not Attach Compendium DO Not Attach Compendium, Do Not Delete/merge, [id number] 11:39:46 Pap smear tests - FPAR 2.0 set 2021 022 [facility], [address], [address], [place], [address], 09:36:22 bacteria l vaginosi s score, NELLY+prob e, vaginal fluid (OBS) 2021 022 [facility], [address], [address], [place], [address], 2 10:37:19 CMP, serum or plasma 2021 022 [facility], [address], [address], [place], [address], 2 07:13:24 CBC 2021 022 [facility], [address], [address], [place], [address], 2 07:13:25 vitamin D, 25-hydro xy, total, serum 2021 022 [facility], [address], [address], [place], [address], 2 07:13:26 TSH + free T4, serum 2021 022 [facility], [address], [address], [place], [address], 2 07:13:24 lipid panel, serum 2021 022 [facility], [address], [address], [place], [address], 2 07:13:25 culture, urine 2020 021 [facility], [address], [address], [place], [address], 1 20:09:09 urinalys is, dipstick 2020 021 [email or web address] In-Office Order, Internal Use Only DO Not Attach Compendium DO Not Attach Compendium, Do Not Delete/merge, [id number] 12:52:53 Referral urologis t referral 2021 022 [email or web address] Tyron Carrion MD, [address], [place], [address], 3 13:57:59 breast surgery referral [address], [address] [place], [address], 3 13:06:13 breast surgery referral 2021 022 [facility], [facility] [place], [address], 2 18:14:42 gynecolo gist referral 2021 022 sol LEVY, [address] [place] [address], [address], 2 16:09:45 Procedures None recorded . Surgeries None recorded . Imaging US, breast, unilater al 2021 [facility], [address] [place] [address] [address]/ [id number], [place], [address], 3 16:04:26 bone density 2021 022 [facility] (Imaging), [address] [place] [address], [id number], 3 13:18:05 US, bone density 2021 022 [facility], [address], [address] [address], [place], [address], 2 14:24:31 MAMMO, screenin g, bilatera l 2020 021 [facility], [address] [place] [address], [address], 1 10:55:37 DEXA, axial skeleton 2020 021 [facility], [address] [place] [address], [address], 13:15:59 mammogra m, screenin g 2014 015 [email or web address] Not available 5 14:57:17 Medication Orders Zithroma x Z-Otoniel 250 mg tablet 2021 [id number], [address] [facility], [place], [address], 12:33:13 Cepacol Sore Throat (benzoca ine-ment hol) 15 mg-3.6 mg lozenges 2021 [id number], [address] [facility], [place], [address], 10:51:25 Macrobid 100 mg capsule 2021 022 [facility] #[id number], [address] [facility], [place], [address], 12:33:24 calcium 600 mg (as carbonat e)-vitam in D3 10 mcg (400 unit) tablet 2021 022 [email or web address] [facility] #[id number], [address] [facility], [place], [address], 10:56:46 Linzess 145 mcg capsule [address] [facility], [address] [place] [address], [id number], 16:10:04 Reglan 10 mg tablet 2020 021 [id number], [address], [place], [address], 16:10:07 Macrobid 100 mg capsule 2020 021 [id number], [address], [place], [address], 12:33:24 famotidi ne 20 mg tablet 2020 021 [facility], [address] [place], [address], 16:09:58 escitalo pram 10 mg tablet 2020 021 [id number], [address], [place], [address], 16:09:55 estradio l 1 mg tablet 2020 021 [email or web address] [id number], [address] [place], [address], 17:16:52 multivit ely tablet 2020 021 [id number], [address], [place], [address], 16:10:17 Calcium with Vitamin D 600 mg-10 mcg (400 unit) tablet 2020 021 [id number], [address] [place], [address], 16:09:48 Linzess 145 mcg capsule 2014 015 [facility][id number], [address], [id number], 16:10:04 Viibryd 40 mg tablet 2014 015 [id number], [address], [id number], 12:35:18 Patient TargetsNo targets recorded. Patient Instructions Encounter Date Encounter Id Patient Instructions Last Modified By Organization Details Last Modified Time 07/05/2014 [id number] irritable bowel syndrome: care instructions mwasserman Not available 07/06/2014 03:28:14 learning about m ood disorders mwasserman Not available 07/06/2014 03:28:14 04/03/2020 [id number] mammogram: about this test mwasserman Not available 04/03/2020 12:40:41 mammogram screen ing patient instructions mwasserman Not available 04/03/2020 12:40:41 Urinary Tract Infection (UTI) in Women: Care Instructions mwasserman Not available 04/03/2020 12:51:36 gastroesophageal reflux disease (GERD): care instructions mwasserman Not available 04/03/2020 13:15:33 learning about m ood disorders mwasserman Not available 04/03/2020 12:52:25 10/17/2021 [id number] well visit, wome n 50 to 65: care instructions Not available 10/17/2021 10:56:45 Reason for Referral Breast Surgery Referral for Mass of left breast Left breast mass Referring Physician: Barbara Valente, Internal Medicine, Encounter Date: 08/27/2021 Hand Nailer Referral for Hi story of hysterectomy Referring Physician: Barbara Valente Internal Medicine, Encounter Date: 08/27/2021 Breast Surgery Referral for Mass of left breast Referring Physician: Kelsi Castillo, [place], Encounter Date: 10/17/2021 Urologist Referral for Micro scopic hematuria Referring Physician: Kelsi Castillo [place], Encounter Date: 10/17/2021 Results Created Date Observation Date Name Description Value Unit Range Abnormal Flag Note LastModifiedBy Organization Detail LastModifiedTime 04/03/19 21 04/03/2020 urina lysis , dipst ick Leukocytes Negati ve Not Available In-Office Order Internal Use Only DO Not Attach Compendium DO Not Attach Compendium, Do Not Delete/merge, [facility] 04/03/2020 12:46:04 04/03/1904/03/2020 urina lysis , dipst ick Nitrite positi ve Not Available In-Office Order Internal Use Only DO Not Attach Compendium DO Not Attach Compendium, Do Not Delete/merge, [facility] 04/03/2020 12:46:04 04/03/19 21 04/03/2020 urina lysis , dipst ick Urobilinogen .2 Not Available In-Of fice Order Internal Use Only DO Not Attach Compendium DO Not Attach Compendium, Do Not Delete/merge, [facility] 04/03/2020 12:46:04 04/03/19 21 04/03/2020 urina lysis , dipst ick Protein Negati ve Not Available In-Office Order Internal Use Only DO Not Attach Compendium DO Not Attach Compendium, Do Not Delete/merge, [facility] 04/03/2020 12:46:04 04/03/1904/03/2020 urina lysis , dipst ick pH 5.5 Not Available In-Office Order Internal Use Only DO Not Attach Compendium DO Not Attach Compendium, Do Not Delete/merge, [facility] 04/03/2020 12:46:04 04/03/1904/03/2020 urina lysis , dipst ick Blood Non-He molyze d: Trace Not Available In-Office Order Internal Use Only DO Not Attach Compendium DO Not Attach Compendium, Do Not Delete/merge, [facility] 04/03/2020 12:46:04 04/03/1904/03/2020 urina lysis , dipst ick Specific [place] Level 1.030 Not Available In-Off ice Order Internal Use Only DO Not Attach Compendium DO Not Attach Compendium, Do Not Delete/merge, [facility] 04/03/2020 12:46:04 04/03/1904/03/2020 urina lysis , dipst ick Ketone Negati ve Not Available In-Office Order Internal Use Only DO Not Attach Compendium DO Not Attach Compendium, Do Not Delete/merge, [facility] 04/03/2020 12:46:04 04/03/19 21 04/03/2020 urina lysis , dipst ick Bilirubin Negati ve Not Available In-Office Order Internal Use Only DO Not Attach Compendium DO Not Attach Compendium, Do Not Delete/merge, [id number] 04/03/2020 12:46:04 04/03/19 21 04/03/2020 urina lysis , dipst ick Glucose Negati ve Not Available In-Office Order Internal Use Only DO Not Attach Compendium DO Not Attach Compendium, Do Not Delete/merge, [id number] 04/03/2020 12:46:04 04/03/19 21 04/05/2020 cultu re, urine urine culture, routine Final report abnormal Not Available [facility] ([facility]) [address] [facility], [place], [address], 04/05/2020 20:09:09 04/03/19 21 04/05/2020 cultu re, urine result 1 Escher ichia coli abnormal Great er than 100,0 00 colon y formi ng units per mL Cefaz charisse <=4 ug/mL Cefaz charisse with an YUSUF <=16 predi cts susce ptibi lity to the oral agent s cefac marbella, cefdi kasia, cefpo doxim e, cefpr ozil, cefur oxime , cepha lexin , and lorac arbef when used for thera py of uncom plica felisa urina ry tract infec tions due to E. coli, Klebs iella pneum oniae , and Prote us mirab ilis. Not Available [facility] ([facility]) [address] [facility], [place], [address], 04/05/2020 20:09:09 04/03/19 21 04/05/2020 cultu re, urine antimicrobia l susceptibili ty Commen t S = Susce ptibl e; I = Inter media te; R = Resis tant P = Posit maximo; N = Negat maximo MICS are expre ssed in micro grams per mL Antib iotic RSLT# 1 RSLT# 2 RSLT# 3 RSLT# 4 Amoxi cilli n/Cla vulan ic Acid S Ampic illin I Cefep yarely S Ceftr iaxon e S Cefur oxime I Cipro floxa sunita S Ertap enem S Genta micin S Imipe nem S Levof loxac in S Merop enem S Nitro furan toin S Piper acill in/Ta zobac beckett S Tetra cycli ne S Tobra mycin S Trime thopr im/Barrios lfa S Not Available [facility] ([facility]) [address] [facility], [place], [address], 04/05/2020 20:09:09 05/02/19 21 05/02/2020 nonin vasiv e color ectal cance r DNA + occul t blood scree jayde, stool cologuard result reportable Positi ve not applic able abnormal It is recom ginny d that a posit maximo Colog uard scree n be clini shavon corre lated and follo wed-u p with a struc tural exami natio n of the colon such as diagn ostic colon oscop y. Colon oscop ies perfo rmed for a posit maximo Colog uard may find as the most clini shavon signi fican t lesio n: color ectal cance r [4.0% ], advan felecia adeno ma (incl uding sessi le zaid felisa polyp s great er than or equal to 1cm diame ter) [20%] or non- advan felecia adeno ma [31%] ; or no color ectal neopl giovanni [45%] . These estim ates are deriv ed from a prosp ectiv e cross -sect ional scree jayde study of 10,00 0 indiv idual s at [facility] ge risk for color ectal cance r who were scree jayden with both Colog uard and colon oscop y. (Tabl e 3, Imper salo T. et al, N Engl J Med 2014; 370(1 4):12 86-12 97.) The jason l value (refe rence range ) for this assay is negat maximo. TEST TYPE: [place] site algor ithmi c [place] sis of stool DNA-b iomar kers with hemog lobin immun oassa y. Quant itati ve value s of indiv idual bioma rkers are not repor table and are not assoc iated with indiv idual bioma rker resul t refer ence range s. PRECA UTION S AND LIMIT ATION S: Colog uard is inten ded for color ectal cance r scree jayde of adult s of eithe r sex, 45 years or older , who are at [facility] for color ectal cance r (CRC) . Colog uard has been appro mag for use by the U.S. FDA. Colog uard may produ ce a false negat maximo or false posit maximo resul t. A negat maximo Colog uard test resul t does not guara ntee the absen ce of CRC or advan felecia adeno ma (pre- cance r). Patie nts with a negat maximo Colog uard test resul t shoul d be advis ed to wilfredo nue parti cipat ing in a color ectal cance r scree jayde progr am. The scree jayde inter david for Colog uard is curre ntly recom ginny d at an inter david of every 3 years by the Ameri can Cance r Socie ty and U.S. Multi -Soci ety Task Force . A false posit maximo resul t occur s when Colog uard produ glynn a posit maximo resul t, even thoug h a colon oscop y may not find color ectal cance r or preca ncero us polyp s. The perfo rmanc e of Colog uard has been estab lishe d in a cross secti onal study (i.e. , singl e point in time) of [facility] adult s aged 50-84 . Colog uard perfo rmanc e in patie nts ages 45 to 49 years was estim ated by sub-g roup [place] sis of near- age group s. Colog uard perfo rmanc e data in a 10,00 0 patie nt pivot al study using colon oscop y as the refer ence metho d can be acces sed at the follo wing locat ion: www.e xactl abs.c om/re sults . Addit ional descr iptio n of the Colog uard test proce ss, warni ngs and preca ution s can be found at www.c manny poe .ny m. Rx only. Not Available [facility] (Cologuard Orders Only) [address], [place], [address], 05/07/2020 00:31:01 10/18/19 22 10/18/2021 TSH+F REE T4 TSH 4.200 uIU/m L 0.450- 4.500 Not Available [facility] ([facility]) [address] [place], [address], 10/18/2021 07:13:24 10/18/19 22 10/18/2021 TSH+F REE T4 T4,free(dire ct) 1.09 NG/dL 0.82-1 .77 Not Available [facility] ([facility]) [address] [place], [address], 10/18/2021 07:13:24 10/18/19 22 10/18/2021 COMP. METAB OLIC PANEL (14) glucose 100 mg/dL 65-99 above high normal Not Available [facility] ([facility]) [address] [place], [address], 10/18/2021 07:13:24 10/18/19 22 10/18/2021 COMP. METAB OLIC PANEL (14) BUN 16 mg/dL 8-27 Not Available [facility] ([facility]) [address] [place], [address], 10/18/2021 07:13:24 10/18/19 22 10/18/2021 COMP. METAB OLIC PANEL (14) creatinine 0.98 mg/dL 0.57-1 .00 Not Available [facility] ([facility]) [address] [place], [address], 10/18/2021 07:13:24 10/18/19 22 10/18/2021 COMP. METAB OLIC PANEL (14) eGFR 66 mL/mi n/1.7 3 >59 Not Available [facility] ([facility]) [address], [place], [address], 10/18/2021 07:13:24 10/18/19 22 10/18/2021 COMP. METAB OLIC PANEL (14) BUN/creatini ne ratio 16 12-28 Not Available [facility] ([facility]) [address] [facility], [place], [address], 10/18/2021 07:13:24 10/18/19 22 10/18/2021 COMP. METAB OLIC PANEL (14) sodium 142 mmol/ L 134-14 4 Not Available [facility] ([facility]) [address] [facility], [place], [address], 10/18/2021 07:13:24 10/18/19 22 10/18/2021 COMP. METAB OLIC PANEL (14) potassium 4.8 mmol/ L 3.5-5. 2 Not Available [facility] ([facility]) [address] [facility], [place], [address], 10/18/2021 07:13:24 10/18/19 22 10/18/2021 COMP. METAB OLIC PANEL (14) chloride 102 mmol/ L 96-106 Not Available [facility] ([facility]) [address] [facility], [place], [address], 10/18/2021 07:13:24 10/18/19 22 10/18/2021 COMP. METAB OLIC PANEL (14) carbon dioxide, total 24 mmol/ L 20-29 Not Available [facility] ([facility]) [address] [facility], [place], [address], 10/18/2021 07:13:24 10/18/19 22 10/18/2021 COMP. METAB OLIC PANEL (14) calcium 9.7 mg/dL 8.7-10 .3 Not Available [facility] ([facility]) [address] [facility], [place], [address], 10/18/2021 07:13:24 10/18/19 22 10/18/2021 COMP. METAB OLIC PANEL (14) protein, total 7.5 g/dL 6.0-8. 5 Not Available [facility] ([facility]) [address], [place], [address], 10/18/2021 07:13:24 10/18/19 22 10/18/2021 COMP. METAB OLIC PANEL (14) albumin 4.9 g/dL 3.8-4. 9 Not Available [facility] ([facility]) [address], [place], [address], 10/18/2021 07:13:24 10/18/19 22 10/18/2021 COMP. METAB OLIC PANEL (14) globulin, total 2.6 g/dL 1.5-4. 5 Not Available [facility] ([facility]) [address], [place], [address], 10/18/2021 07:13:24 10/18/19 22 10/18/2021 COMP. METAB OLIC PANEL (14) A/G ratio 1.9 1.2-2. 2 Not Available [facility] ([facility]) [address], [place], [address], 10/18/2021 07:13:24 10/18/19 22 10/18/2021 COMP. METAB OLIC PANEL (14) bilirubin, total 0.5 mg/dL 0.0-1. 2 Not Available [facility] ([facility]) [address], [place], [address], 10/18/2021 07:13:24 10/18/19 22 10/18/2021 COMP. METAB OLIC PANEL (14) alkaline phosphatase 72 IU/L 44-121 Not Available [facility] ([facility]) [address], [place], [address], 10/18/2021 07:13:24 07/28/20 22 10/18/2021 COMP. METAB OLIC PANEL (14) AST (SGOT) 23 IU/L 0-40 Not Available [facility] ([facility]) [address] [facility], [place], [address], 10/18/2021 07:13:24 10/18/19 22 10/18/2021 COMP. METAB OLIC PANEL (14) ALT (SGPT) 13 IU/L 0-32 Not Available [facility] ([facility]) [address] [facility], [place], [address], 10/18/2021 07:13:24 10/18/19 22 10/18/2021 CBC, PLATE LET, NO DIFFE RENTI AL WBC 8.6 x10e3 /uL 3.4-10 .8 Not Available [facility] ([facility]) [address] [facility], [place], [address], 10/18/2021 07:13:25 10/18/1910/18/2021 CBC, PLATE LET, NO DIFFE RENTI AL RBC 4.48 x10e6 /uL 3.77-5 .28 Not Available [facility] ([facility]) [address] [facility], [place], [address], 10/18/2021 07:13:25 10/18/1910/18/2021 CBC, PLATE LET, NO DIFFE RENTI AL hemoglobin 14.4 g/dL 11.1-1 5.9 Not Available [facility] ([facility]) [address] [facility], [place], [address], 10/18/2021 07:13:25 10/18/1910/18/2021 CBC, PLATE LET, NO DIFFE RENTI AL hematocrit 43.2 % 34.0-4 6.6 Not Available [facility] ([facility]) [address] [facility], [place], [address], 10/18/2021 07:13:25 10/18/19 10/18/2021 CBC, PLATE LET, NO DIFFE RENTI AL MCV 96 fL 79-97 Not Available [facility] ([facility]) [address] [place], [address], 10/18/2021 07:13:25 10/18/19 22 10/18/2021 CBC, PLATE LET, NO DIFFE RENTI AL MCH 32.1 pg 26.6-3 3.0 Not Available [facility] ([facility]) [address] [facility], [place], [address], 10/18/2021 07:13:25 10/18/1910/18/2021 CBC, PLATE LET, NO DIFFE RENTI AL MCHC 33.3 g/dL 31.5-3 5.7 Not Available [facility] ([facility]) [address] [facility], [place], [address], 10/18/2021 07:13:25 10/18/19 22 10/18/2021 CBC, PLATE LET, NO DIFFE RENTI AL RDW 12.3 % 11.7-1 5.4 Not Available [facility] ([facility]) [address] [place], [address], 10/18/2021 07:13:25 10/18/19 22 10/18/2021 CBC, PLATE LET, NO DIFFE RENTI AL platelets 303 x10e3 /uL 150-45 0 Not Available [facility] ([facility]) [address] [place], [address], 10/18/2021 07:13:25 10/18/19 22 10/18/2021 CBC, PLATE LET, NO DIFFE RENTI AL NRBC LINOLEUM MECHANIC Not Available [facility] ([facility]) [address] [place], [address], 10/18/2021 07:13:25 10/18/19 22 10/18/2021 LIPID PANEL cholesterol, total 268 mg/dL 100-19 9 above high normal Not Available [facility] ([facility]) [address] [place] [place], [address], 10/18/2021 07:13:25 10/18/19 22 10/18/2021 LIPID PANEL triglyceride s 81 mg/dL 0-149 Not Available [facility] ([facility]) [address] [place] [place], [address], 10/18/2021 07:13:25 10/18/19 22 10/18/2021 LIPID PANEL HDL cholesterol 57 mg/dL >39 Not Available [facility] ([facility]) [address] [place], [address], 10/18/2021 07:13:25 10/18/19 22 10/18/2021 LIPID PANEL VLDL cholesterol erik 13 mg/dL 5-40 Not Available [facility] ([facility]) [address] [place], [address], 10/18/2021 07:13:25 10/18/19 22 10/18/2021 LIPID PANEL LDL chol calc ([facility]) 198 mg/dL 0-99 above high normal Not Available [facility] ([facility]) [address] [place], [address], 10/18/2021 07:13:25 10/18/19 22 10/18/2021 LIPID PANEL comment: LINOLEUM MECHANIC Not Available [facility] ([facility]) [address] [place], [address], 10/18/2021 07:13:25 10/18/19 22 10/18/2021 VITAM IN D, 25-HY DROXY vitamin D, 25-hydroxy 31.8 NG/mL 30.0-1 00.0 Vitam in D defic iency has been defin ed by the Insti tute of Medic ine and an Endoc rine Socie ty pract ice guide line as a level of serum 25-OH vitam in D less than 20 ng/mL (1,2) . The Endoc rine Socie ty went on to furth er defin e vitam in D insuf ficie ncy as a level betwe en 21 and 29 ng/mL (2). 1. IOM (Inst itute of Medic ine). 2010. Dieta ry refer ence intak es for calci um and D. Saad dave [place]: [facility] . 2. Henri chavez [place], Deandra silveira [place], [place] off-F errar i RAMÍREZ, et al. Evalu ation , treat ment, and preve ntion of vitam in D defic iency : an Endoc rine Socie ty clini erik pract ice guide line. JCEM. 2010; 96(7) :1911 -30. Not Available [facility] ([facility]) [address] [place], [address], 10/18/2021 07:13:26 10/18/19 22 10/19/2021 URINE CULTU RE, ROUTI NE urine culture, routine Final report Not Available [facility] ([facility]) [address] [place], [address], 10/19/2021 04:07:46 10/18/19 22 10/19/2021 URINE CULTU REOLY NE result 1 No growth Not Available [facility] ([facility]) [address] [place], [address], 10/19/2021 04:07:46 10/18/19 22 10/19/2021 IGP, APTIM A HPV HPV aptima Negati ve negati ve This nucle ic acid ampli ficat ion test detec ts fourt een high- risk HPV types (16,1 8,31, 33,35 ,39,4 5,51, 52,56 ,58,5 9,66, 68) witho ut diffe renti ation . Not Available [facility] ([facility]) [address] [place], [address], 10/21/2021 09:36:22 10/18/19 22 10/21/2021 IGP, APTIM A HPV diagnosis: Kayla bains NEGAT MAXIMO FOR INTRA EPITH ELIAL LESIO N OR MALIG MARTITA . Not Available [facility] ([facility]) [address] [place], [address], 10/21/2021 09:36:22 10/18/19 22 10/21/2021 IGP, APTIM A HPV specimen adequacy: Kayla bains Satis facto ry for evalu ation . No endoc ervic al cells are prese nt. This is consi stent with a histo ry of hyste recto my. Not Available [facility] ([facility]) [address] [place], [address], 10/21/2021 09:36:22 10/18/19 22 10/21/2021 IGP, APTIM A HPV clinician provided ICD10: Kayla bains Z01.4 19 Not Available [facility] ([facility]) [address] [place], [address], 10/21/2021 09:36:22 10/18/19 22 10/21/2021 IGP, APTIM A HPV performed by: Tanika Garsia (ASCP ) Not Available [facility] ([facility]) [address] [place], [address], 10/21/2021 09:36:22 10/18/19 22 10/21/2021 IGP, APTIM A HPV . . Not Available [facility] ([facility]) [address] [place], [address], 10/21/2021 09:36:22 10/18/19 22 10/21/2021 IGP, APTIM A HPV note: Kayla t The Pap smear is a scree jayde test desig jayden to aid in the detec tion of wanda ligna nt and malig nant condi tions of the uteri ne cervi x. It is not a diagn ostic proce dure and shoul d not be used as the sole means of detec ting cervi erik cance r. Both false -posi tive and false -nega tive repor ts do occur . Not Available [facility] ([facility]) [address] [facility], [place], [address], 10/21/2021 09:36:22 10/18/19 22 10/21/2021 IGP, APTIM A HPV test methodology: Commen t This liqui d based ThinP rep(R ) pap test was scree jayden with the use of an image guide sarah vargas. Not Available [facility] ([facility]) [address] [place], [address], 10/21/2021 09:36:22 10/18/19 22 10/21/2021 NUSWA B VG+, HSV atopobium vaginae High - 2 score abnormal Not Available [facility] ([facility]) [address] [place], [address], 10/22/2021 10:37:19 10/18/19 22 10/21/2021 NUSWA B VG+, HSV bvab 2 Low - 0 score Not Available [facility] ([facility]) [address] [place], [address], 10/22/2021 10:37:19 10/18/19 22 10/21/2021 NUSWA B VG+, HSV megasphaera 1 Low - 0 score Calcu late total score by fatoumata batista the 3 indiv idual bacte rial vagin osis (BV) marke r score s toget her. Total score is inter prete d as follo ws: Total score 0-1: Indic ates the absen ce of BV. Total score 2: Indet ermin ate for BV. Addit ional clini erik data shoul d be evalu ated to estab adama a diagn osis. Total score 3-6: Indic ates the prese nce of BV. This test was devel oped and its perfo rmanc e page cteri stics deter mined by [facility]. It has not been clear ed or appro mag by the Food and Drug Admin istra tion. Not Available [facility] ([facility]) [address] [facility], [place], [address], 10/22/2021 10:37:19 10/18/19 22 10/21/2021 NUSWA B VG+, HSV jorge albicans, NELLY Negati ve negati ve Not Available [facility] ([facility]) [address] [facility], [place], [address], 10/22/2021 10:37:19 10/18/19 22 10/21/2021 NUSWA B VG+, HSV jorge glabrata, NELLY Negati ve negati ve Not Available [facility] ([facility]) [address] [facility], [place], [address], 10/22/2021 10:37:19 10/18/19 22 10/21/2021 NUSWA B VG+, HSV trich vag by NELLY Negati ve negati ve Not Available [facility] ([facility]) [address] [facility], [place], [address], 10/22/2021 10:37:19 10/18/19 22 10/21/2021 NUSWA B VG+, HSV chlamydia trachomatis, NELLY Negati ve negati ve Not Available [facility] ([facility]) [address] [facility], [place], [address], 10/22/2021 10:37:19 10/18/19 22 10/21/2021 NUSWA B VG+, HSV neisseria gonorrhoeae, NELLY Negati ve negati ve Not Available [facility] ([facility]) [address] [place], [address], 10/22/2021 10:37:19 10/18/19 22 10/22/2021 NUSWA B VG+, HSV hsv 1 NELLY Negati ve negati ve Not Available [facility] ([facility]) [address] [facility], [place], [address], 10/22/2021 10:37:19 10/18/19 22 10/22/2021 NUSWA B VG+, HSV hsv 2 NELLY Negati ve negati ve Not Available [facility] ([facility]) [address] [facility], [place], [address], 10/22/2021 10:37:19 10/18/19 22 10/17/2021 urina lysis , dipst ick Leukocytes Negati ve Not Available In-Office Order Internal Use Only DO Not Attach Compendium DO Not Attach Compendium, Do Not Delete/merge, 10/17/2021 10:23:59 10/18/19 22 10/17/2021 urina lysis , dipst ick Nitrite negati ve Not Available In-Office Order Internal Use Only DO Not Attach Compendium DO Not Attach Compendium, Do Not Delete/merge, 10/17/2021 10:23:59 10/18/19 22 10/17/2021 urina lysis , dipst ick Urobilinogen .2 Not Available In-Of fice Order Internal Use Only DO Not Attach Compendium DO Not Attach Compendium, Do Not Delete/merge, 10/17/2021 10:23:59 10/18/19 22 10/17/2021 urina lysis , dipst ick Protein Negati ve Not Available In-Office Order Internal Use Only DO Not Attach Compendium DO Not Attach Compendium, Do Not Delete/merge, 10/17/2021 10:23:59 10/18/19 22 10/17/2021 urina lysis , dipst ick pH 6.5 Not Available In-Office Order Internal Use Only DO Not Attach Compendium DO Not Attach Compendium, Do Not Delete/merge, 10/17/2021 10:23:59 10/18/19 22 10/17/2021 urina lysis , dipst ick Blood Hemoly zed: Trace Not Available In-Office Order Internal Use Only DO Not Attach Compendium DO Not Attach Compendium, Do Not Delete/merge, 10/17/2021 10:23:59 10/18/19 22 10/17/2021 urina lysis , dipst ick Specific [place] Level 1.025 Not Available In-Off ice Order Internal Use Only DO Not Attach Compendium DO Not Attach Compendium, Do Not Delete/merge, [facility] 10/17/2021 10:23:59 10/18/19 22 10/17/2021 urina lysis , dipst ick Ketone Negati ve Not Available In-Office Order Internal Use Only DO Not Attach Compendium DO Not Attach Compendium, Do Not Delete/merge, [id number] 10/17/2021 10:23:59 10/18/19 22 10/17/2021 urina lysis , dipst ick Bilirubin Negati ve Not Available In-Office Order Internal Use Only DO Not Attach Compendium DO Not Attach Compendium, Do Not Delete/merge, [facility] 10/17/2021 10:23:59 10/18/19 22 10/17/2021 urina lysis , dipst ick Glucose Negati ve Not Available In-Office Order Internal Use Only DO Not Attach Compendium DO Not Attach Compendium, Do Not Delete/merge, [facility] 10/17/2021 10:23:59 01/27/20 15 01/26/2015 imagi ng/di agnos tic resul t No observ ation record ed. [facility] (Imaging) [address] [place], [address], 04/03/2020 13:19:12 02/20/20 15 02/19/2015 imagi ng/di agnos tic resul t No observ ation record ed. [facility] (Im[facility]) [address] [place], [address], 04/03/2020 13:19:12 05/15/19 21 05/14/2020 MAMMO , scree jayde, bilat eral No observ ation record ed. [address], [place], [address], 05/21/2020 15:17:04 05/15/19 21 05/14/2020 MAMMO , scregilbert hernandezg, bilat eral No observ ation record ed. [address], [place], [address], 05/21/2020 15:17:05 05/30/19 21 05/14/2020 MAMMO jhon, bilat eral No observ ation record ed. [address], [place], [address], 05/30/2020 17:04:40 05/31/19 21 05/14/2020 MAMMO jhon, bilat eral No observ ation record ed. [address] [facility], [place], [address], 05/31/2020 13:42:41 01/25/20 21 01/24/2021 US breas t limit ed - left Examin ation: Unilat eral left diagno stic mammog jeri and ultras ound Access ion: [id number] , [id number] Exam Date/T yarely: 12:15 PM Reason For Exam: [id number] 104: Inconc lusive mammog greg findin g Left outer breast mass Compar eren: Outsid e facili ty study dated Techni que: Digita l diagno stic mammog greg and ultras ound of the of the leftbr east was perfor med. This study was read with the assist ance of a [employer] er-aid ed detect ion system . 3-D tomogr aphic images were perfor med. Tissue densit y: The breast tissue contai ns scatte red fibrog landul ar densit ies. Findin gs: Mammog jeri: Left outer breast mass persis ts with spot compre ssion and is furthe r evalua felisa with ultras ound. Ultras ound: 3:00 positi on 4 cm from the nipple : Round hypoec hoic mass with a small amount of shadow ing measur es 4 x 3 x 4 mm. This is slight ly hetero geneou s. This appear s solid. Sampli ng recomm ended. ===== IMPRES SOBEIDA: ===== 1. Round, slight ly hetero geneou s circum scribe d mass at the 3:00 positi on left breast . Assess ment: ACR BI-RAD S Catego ry 4A - Suspic ious (low). Recomm endati on: 1: Needle biopsy left Commen ts: READ BY: KAUSHIK DEY, CORNEL Date: 2020 13:41 [facility] [address] [place], [address], 01/31/2021 15:46:50 01/25/20 21 01/24/2021 trupti diagn ostic digit al breas t tomos ynthe sis ? left Examin ation: Unilat eral left diagno stic mammog jeri and ultras ound Access ion: [id number] , [id number] Exam Date/T yarely: 12:15 PM Reason For Exam: [id number] 104: Inconc lusive mammog greg findin g Left outer breast mass Compar eren: Outsid e facili ty study dated Techni que: Digita l diagno stic mammog greg and ultras ound of the of the left east was perfor med. This study was read with the assist ance of a [employer] er-aid ed detect ion system . 3-D tomogr aphic images were perfor med. Tissue densit y: The breast tissue contai ns scatte red fibrog landul ar densit ies. Findin gs: Mammog jeri: Left outer breast mass persis ts with spot compre ssion and is furthe r evalua felisa with ultras ound. Ultras ound: 3:00 positi on 4 cm from the nipple : Round hypoec hoic mass with a small amount of shadow ing measur es 4 x 3 x 4 mm. This is slight ly hetero geneou s. This appear s solid. Sampli ng recomm ended. ===== IMPRES SOBEIDA: ===== 1. Round, slight ly hetero geneou s circum scribe d mass at the 3:00 positi on left breast . Assess ment: ACR BI-RAD S Catego ry 4A - Suspic ious (low). Recomm endati on: 1: Needle biopsy left Commen ts: READ BY: KAUSHIK DEY, CORNEL Date: 2020 [facility] [address] [place], [address], 01/31/2021 15:46:50 Result Notes None recorded. Problems Name Problem SNOMED Code Status Onset Date Resolution Date Notes Provider Name and Address Organization Details Recorded Time Chronic sinusitis 80148415 Active Pratima Morthland , [place], [place] - [facility] 16:03:25 Menopause present 497925543 Active Pratima Morthland , [place] [facility] 16:03:25 Depressive disorder 58181188 Active Pratima Morthland , [place] [facility] 16:03:25 Irritable bowel syndrome 72134790 Active Pratima Morthland , [place] [facility] 16:03:25 Candidiasis of vagina 65041552 Active Pratima Morthland , [place] [facility] 16:03:25 History of hysterectom y 983005918 Active 2020 Pratima Morthland , [place] [facility] 16:03:25 Acute urinary tract infection 458516959 Active 2020 Pratima Morthland , [place] [facility] 16:03:25 Mammography assessment (Category 0) - Need additional imaging evaluation 571625108 Active 2020 Pratima Morthland , [place] [facility] 16:03:25 Mammography assessment (Category 4) - Suspicious abnormality , biopsy should be considered 522659905 Active 2020 Pratima Morthland , [place] [facility] 16:03:25 Mass of left breast 0462361174252 9103 Active 2021 Pratima Morthland , [place] [facility] 16:03:25 Adult health examination Active 2021 Pratima Chinchilla LPN [place] [facility] 16:03:25 Pharyngitis 108320405 Active 2021 Pratima Chinchilla LPN [place] [facility] 16:03:25 Problem Notes None recorded. Procedures Surgical History Date Name Laterality Status Provider Name and Address Organization Details Recorded Time 05/04/19 12 Most Recent Mammogram completed Debbi Weaver [place] - [facility] 07/05/2014 12:45:39 03/23/19 00 excision of bilateral fallopian tubes and ovaries completed MILDRED AVILA Attn: Accounting,[address] [facility], [place], [address], [facility] - [facility] 10/17/2021 10:14:50 07/05/18 96 Total hysterectomy completed MILDRED AVILA Attn: Accounting,[address] [facility], [place], [address], [facility] - [facility] 10/17/2021 10:03:00 07/05/18 96 Hysterectomy completed Debbi Weaver [place] - [facility] 07/05/2014 12:45:39 01/04/19 78 Tonsillectomy completed Debbi Weaver MA [facility] 07/05/2014 12:45:39 Imaging Results None recorded. Procedure Notes None recorded. Medical Equipment None Reported. Allergies Allergen ID Allergen Name Allergen Category Reaction Reaction Severity Criticality Documentation Date Start Date Code Code System Note Provider Name and Address Organization Details Recorded Time 92128 Product containin g penicilli n (product) medicatio n rash severe Not available 07/05/2014 60558 8001 SNOMED ALLAN [place], [place] [facility] 5 12:45:39 49371 codeine medicatio n nausea moderate Not available 07/05/2014 2670 RxNorm ALLAN [place], [place] [facility] 12:45:39 32926 Floxin medicatio n rash severe Not available 07/05/201407204 8 RxNorm ALLAN [place], [place] - [facility] 5 12:45:39 Medications Name Sig Start Date Stop Date Status Note LastModified by Organization Details LastModified Time multivitami n tablet Take 1 tablet every day by oral route. 08/27 completed Not Available Not Available Not Available azithromyci n 250 mg tablet TAKE 2 TABLETS BY MOUTH TODAY, THEN TAKE 1 TABLET DAILY FOR 4 DAYS 02/28 completed Not Available Not Available Not Available citalopram 10 mg tablet TK 1 T PO QD 04/03 completed Not Available Not Available Not Available hydrocodone 5 mg-acetamin ophen 325 mg tablet 08/27 completed Not Available Not Available Not Available metronidazo le 0.75 % (37.5 mg/5 gram) vaginal gel INSERT 1 APPLICATO RFUL VAGINALLY EVERY DAY AT BEDTIME FOR 5 DAYS 02/28 completed Not Available Not Available Not Available clindamycin HCl 150 mg capsule 08/27 completed Not Available Not Available Not Available metronidazo le 500 mg tablet 08/27 completed Not Available Not Available Not Available ciprofloxac in 500 mg tablet 08/27 completed Not Available Not Available Not Available Terazol 3 0.8 % vaginal cream Insert 1 applicato rful every day by vaginal route for 3 days. 04/03 completed Not Available Not Available Not Available tramadol 50 mg tablet TAKE 1 TABLET BY MOUTH ONCE EVERY 8 HOURS NEEDED 08/27 completed Not Available Not Available Not Available famotidine 20 mg tablet TAKE 1 TABLET BY MOUTH TWICE A DAY 08/27 completed Not Available Not Available Not Available estradiol 1 mg tablet TAKE 1 TABLET BY MOUTH EVERY DAY 08/27 completed Not Available Not Available Not Available nystatin 100,000 unit/gram topical cream APPLY TO THE AFFECTED AREA(S) BY TOPICAL ROUTE 2 TIMES PER DAY 04/03 completed Not Available Not Available Not Available mometasone 50 mcg/actuati on nasal spray USE 2 SPRAYS IN EACH NOSTRIL EVERY DAY 08/27 completed Not Available Not Available Not Available bisacodyl 5 mg tablet,nicko yed release 08/27 completed Not Available Not Available Not Available doxycycline hyclate 100 mg tablet TAKE 1 TABLET BY MOUTH TWICE A DAY FOR 10 DAYS 08/27 completed Not Available Not Available Not Available metoclopram chaya 10 mg tablet TAKE 1 TABLET BY MOUTH FOUR TIMES A DAY . (1 HOUR BEFORE MEALS AND AT BEDTIME) 08/27 completed Not Available Not Available Not Available escitalopra m 10 mg tablet TAKE 1 TABLET BY MOUTH EVERY DAY 08/27 completed Not Available Not Available Not Available nitrofurant oin monohydrate /macrocryst als 100 mg capsule TAKE 1 CAPSULE BY MOUTH EVERY 12 HOURS DIRECTED FOR 7 DAYS 02/28 completed Not Available Not Available Not Available calcium 600 mg (as carbonate)- vitamin D3 10 mcg (400 unit) tablet TAKE 1 TABLET BY MOUTH TWICE A DAY active Not Available Not Available No t Available Cepacol Sore Throat (benzocaine -menthol) 15 mg-3.6 mg lozenges Take 1 lozenge every 4 hours by mucous route as needed. 2021 active Not Available Not Available Not Avai lable Suprep Bowel Prep Kit 17.5 gram-3.13 gram-1.6 gram oral solution 08/27 completed Not Available Not Available Not Available Viibryd 40 mg tablet Take 1 tablet every day by oral route. 04/03 completed Not Available Not Available Not Available Linzess 145 mcg capsule Take 1 capsule every day by oral route for 30 days. 08/27 completed Not Available Not Available Not Available Flublok Quad (PF) 180 mcg (45 mcg x 4)/0.5 mL IM syringe [facility]ARMACY [facility] 04/03 completed Not Available Not Available Not Available Daily-Renetta (with folic acid) 400 mcg tablet 08/27 completed Not Available Not Available Not Available Vitals Date Recorded Body weight Body mass index (BMI) Body height Systolic And Diastolic Provider Name and Address Organization Details Last Updated DateTime 04/03/2020 33354.34 g 18.9 kg/m2 182.88 cm 116/74 mm[Hg] Velma Aguilar [place] - [facility] 04/03/2020 12:42:52 Date Recorded Systolic And Diastolic Provider Name and Address Organization Details Last Updated DateTime 07/05/2014 110/78 mm[Hg] Sadi Rob [place] - [facility] 015 18:26:38 Date Recorded Body height Body mass index (BMI) Body weight Provider Name and Address Organization Details Last Updated DateTime 07/05/2014 177.8 cm 20.1 kg/m2 64812.9318 g Debbi Weaver MA [facility] 07/05/2014 12:45:39 Date Recorded Body height Body temperature Body mass index (BMI) Body weight Heart rate Oxygen saturation Oxygen saturation in Arterial blood by Pulse oximetry Systolic And Diastolic Provider Name and Address Organization Details Last Updated DateTime 182.88 cm 98 [degF] 19.1 kg/m2 47997.5 2 g 74 /min 98 % 98 % 100/70 mm[Hg] Mary Hassan MA [facility] 16:11:57 Date Recorded Body height Body mass index (BMI) Body weight Systolic And Diastolic Provider Name and Address Organization Details Last Updated DateTime 10/17/2021 182.88 cm 18.7 kg/m2 39159.75 g 100/62 mm[Hg] Suze Rosario MA [facility] 10/17/2021 09:41:47 Date Recorded Body height Body mass index (BMI) Body weight Provider Name and Address Organization Details Last Updated DateTime 01/14/2022 182.88 cm 18.7 kg/m2 29287.75 g Mary Hassan MA [facility] 01/14/2022 09:33:33 Social History Question Answer Notes LastModified by Organizat ion Details LastModified Time Tobacco Smoking Status Current Every Day Smoker Sadi moreno [facility] 07/05/2014 18:26:09 Do You Have An Advance Directive? No Information not available 07/05/2014 Is Blood Transfusion Acceptable In An Emergency? Yes Information not available 07/05/2014 What Is Your Level Of Caffeine Consumption? Occasional Information not available 07/05/2014 How Much Tobacco Do You Chew? None Information not available 07/05/2014 What Type Of Diet Are You Following? REGULAR Information not available 07/05/2014 Education 2 Year College Informatio n not available 07/05/2014 Live Alone Or With Others? Alone Information not available 07/05/2014 What Was The Date Of Your Most Recent Tobacco Screening? 01/14/2022 Information not available 01/14/2022 How Many Children Do You Have? 1 Information not available 07/05/2014 Performs Monthly Self-breast Exam? Yes Information no t available 07/05/2014 Do You Use Protection During Sex? No Information not available 07/05/2014 What Is Your Relationship Status? Single Information not available 07/05/2014 Seat Belts Used Routinely Yes Information not available 07/05/2014 Are You Sexually Active? No Information not available 07/05/2014 How Much Tobacco Do You Smoke? 0.5 PPD Information not available 07/05/2014 General Stress Level Medium Information not available 07/05/2014 Do You Use Sunscreen Routinely? No Information not available 07/05/2014 On What Date Was Tobacco Cessation Counseling Provided? 01/14/2022 Information not available 01/14/2022 How Many Years Have You Smoked Tobacco? 30 Information not available 04/03/2020 Sex: Unknown Functional Status Question Answer Note LastModified by [employer] ion Details LastModified Time What is your level of alcohol consumption? Occasional Information not available 07/05/2014 Do you or have you ever used smokeless tobacco? Never used smokeless tobacco Information not available 04/03/2020 Are you currently employed? 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 Never used electronic cigarettes Information not available 04/03/2020 What is your exercise level? Occasional Information not available 07/05/2014 Mental Status None recorded. Family History Nothing Reported. Medical History Condition Response Coronary Artery Disease N Blood Diseases N Kidney Cyst N Hyperthyroidism N Blood disorders N MRSA N Blood Transfusion N Emphysema N Depression N COPD N Blood Clots N Pneumonia N Peripheral Arterial Disease N Premature N Edema N TIA Y Headaches/Migraines N Anxiety Disorder Y Obesity N Polyps N Infertility N Acid Reflux (GERD) Y Hematuria N Stroke N Neck Injury N Polio N Hospital Admission other than N Neurologic Disorder N Other Sleep Disorders N Rheumatoid Arthritis N Fibromyalgia N Abdominal Aortic Aneurysm Repair N Kidney Disease N Heart Conditions N Heart Disease/Heart Problems N Hospitalizations N Brain Tumors N Acne N Skin Problems N Eating Disorder N Meningitis N Constipation N Tuberculosis N Cerebral Palsy N Myocardial Infarction N Asthma N Substance Abuse N Peripheral Vascular Disease N Vertigo N Sleep Disorder N Cirrhosis N Pulmonary Embolism N Chicken Pox N Hematologic Disease N Flomax Use Past or Present N Anxiety/Depression N Thyroid Disease N Colon Cancer N Lung Disease N Glaucoma N Developmental or Behavioral Disorders N Bipolar N Pacemaker N Diverticulitis/Diverticulosis N Orthopedic Problems N Anesthesia Complications N Orthotics N Head Injury/Concussion N Congenital Anomalies N Hickey Bite N Chronic Kidney Disease N Endometriosis N Liver Disease N Schizophrenia N Dialysis N Speech Delay N Chronic Obstructive Pulmonary Disease N Parkinson's Disease N Thyroid Problems N GI Problems N Developmental Delay N Anemia N Multiple Sclerosis N Immune System Disorder N Colon Polyps N Heart Attack (AK) N Diabetes N Cardiomyopathy N Blood Transfusions N Heart Problems/Murmur N Eye Trauma Y Congestive Heart Failure (CHF) N Valvular Heart Disease N Hyperlipidemia N Double Vision N Abuse/Domestic Violence N Hepatitis B N Lupus N Epilepsy/Seizures N Reflux/GERD N Aneurysm N Heart Disease N Bronchitis N Pre-Eclampsia N Hypertension N Heart Failure Y Other N Gout N High Blood Pressure N Atrial Fibrillation N Kidney Stones N Head Trauma/Injury N Congenital Heart Disease N Spine Problems N Gastrointestinal Disease N Lung Mass N Sinusitis N Obstructive Sleep Apnea N Muscle, Joint, or Bone Problems N Autoimmune disease N Vision or Eye Problems N Arthritis N Blood Clot N Cancer N Seasonal allergies N Leg or Foot Ulcers N Raynaud's Disease N Aortic Aneurysm N Arrhythmia N Headaches N Heart Problems N Ambloypia N Ear or Hearing Problems N Hyperparathyroidism N Migraines N Artificial Joints N Kidney or Bladder Problems N NSAID Use N Encephalitis N PTSD N Ulcers N Prostate Hypertrophy N Bleeding Disorder N AIDS/HIV N Urinary Tract Infection N Back Problems N Allergies Y Atrial Flutter N GERD/Reflux Y Hepatitis N Autism Spectrum Disorder (ASD) N Breast Cancer N Hernia N Hypothyroidism N Breast Problem N Genitourinary Disease N Deep Vein Thrombosis N Varicose Veins N Cystic Fibrosis N Hearing Loss N Developmental Problems N Carotid Disease N Vitamin D Deficiency N ADHD N Bladder or Kidney Problems N High Cholesterol N [place] N Valvular Abnormalities N Psychiatric/Mental Health Condition N Organ Transplant N Foot Deformity N Allergies/Hayfever N Dyslipidemia N Hyponatremia N Diabetic Eye Disease N Osteoporosis/Osteopenia N Back Pain N Proteinuria N Mental Illness N Neurological Problems N Ovarian Cancer N Bedwetting N Seizures/Epilepsy N Kidney Failure N Ocular trauma N Diverticulitis N Dementia N Sleep Apnea N Mental Problems N Warfarin Management N Osteoporosis N Gynecological History Statement/Question Response Abnormal Pap Y On BCP's at Conception? N STIs/STDs N HPV Vaccine N Most Recent Mammogram 05/04/2011 Age at Menarche 17 Current Control Method Hysterectom y Age at First Child 29 Sexually Active? Y Menses Monthly N Sexual Problems? Y Desired Control Method None Obstetrics History GPAL:G 5 P 1 0 4 1 Type Value Multiple Births 0 Full Term 1 Induced 0 Spontaneous 4 Premature 0 Living 1 Ectopics 0 Total 5 Past Encounters Encounter ID Performer Location Encounter Start Date Encounter Closed Date Diagnosis/Indication Diagnosis SNOMED-CT Code Diagnosis ICD10 Code Diagnosis IMO Codes Diagnosis [id number] [address] [place] [phone] 07/05/2014 11:22:57 07/05/2014 13:28:37 Menopause present 087073703 Screening mammography 48528276 Depressive disorder 90913116 Irritable bowel syndrome 88824934 [id number] [facility] [address] [place] [address] [phone] 04/03/2020 11:50:46 04/04/2020 12:15:07 History of hysterectomy 904215071 Z90.711 Screening mammography 24 366729 Z12.31 Menopause present 209216 006 N95.1 Acute urin palmer tract infection 817518951 N39.0 Depressive disorder 3548 9007 F32.9 Screening for malignant neoplasm of colon 745588928 Z12.11 Screening for osteoporosis 638580951 Z13.820 Irritable bowel syndrome [id number] K58.9 Gastroesop hageal reflux disease [id number] K21.9 [id number] MD [facility] [address] [place] [address] [phone] 08/27/2021 15:56:57 08/28/2021 11:29:06 History of hysterectomy [id number] Z90.711 Mass of left breast 1224 [id number] N63.20 Adult [facility] th examination [id number] Z00.00 [id number] MILDRED AVILA (MAKE READY WORKER) [address] [place] [address] [phone] 10/17/2021 09:18:37 10/21/2021 17:44:12 Gynecologic examination [id number] Z01.419 Normal gynecologi c exam today.Cookie ent s/p total hysterecto my. Vaginal pap performed due to reported cancer hx and nuswab due to fishy smelling discharge. Breast cancer screening: [facility] monitoring lesion in left breast.Col onoscopy: UTD ~1 year agoDiet/ex ercise: Counseled regarding importance of physical activity, healthy diet and appropriat e calcium intake.RTC in 1yr Mass of left breast 1224 [id number] N63.20 Last imaging Jan 2021, BIRADS 3. Referred back to [facility] for repeat imaging. Screening for osteoporosis [id number] Z13.820 Risk factors including early menopause, smoking status, and previous fracture. DEXA scan to evaluate bone density. Start calcium and vitamin D supplement ation. Discussed weight bearing exercise. Acute urin palmer tract infection [id number] N39.0 Patient complainin g of dysuria, frequency, urgency and pelvic/fla nk pain. UA showed microscopi c blood. Will treat empiricall y with Macrobid while waiting on culture results. Microscopic hematuria 19 [id number] R31.29 Urine cx as above. Referral to urology for further assessment of hematuria given pt's extensive surgical history. [id number] MD Annita Dupont (Adult Med) [address] [place] [address] [phone] 01/14/2022 09:28:36 01/15/2022 10:36:10 Pharyngitis [id number] J02.9 Health Concerns Section Related Observation LastModified by Organization Detai ls LastModified Time None Recorded Concern Status LastModified by Organization Details LastModified Time None Recorded Advance Directives Directive N: Payers Insurance Date Sequence Insurance Name Policy Number Policy Avalos Covered Member ID Avalos Member ID Guarantor Name 01/14/2022 1 *SELF PAY* Ji james Page 06/30/2022 1 [place] [id number] Jessica Page [id number] Jessica Page 01/13/2022 1 [employer] T[employer] - ACCESS DIRECT (PPO) Jessica Page [id number] Jessica Page 04/03/2020 1 [place] Jessica Page [id number] Jessica Page 11/05/2021 1 [place] Jessica Page [id number] Jessica Page 11/05/2021 1 [place] Jessica Page [id number] Jessica Page 11/05/2021 1 [place] Jessica Page [id number] Jessica Page 04/03/2020 1 *SELF PAY* Ji ll Page 02/26/2022 1 [employer] - MULTIPLAN Jessica Page [id number] Jessica Page 04/03/[address] 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 For vaginal bleeding, patient reportshistory of menopause having occurred. For urinary symptoms, patient reportsno hematuria,no incontinence,no nocturia, andno urinary frequency. For vulva, patient reportsno genital lesionandno vulvar atrophy. For vagina, patient reportsnormal vaginal dischargeandno vaginal atrophy.Breast symptomsFor breast, patient reportsno breast lump,no nipple discharge, andno breast pain.Psychological symptomsFor sexual complaints, patient reportssexual complaintsandpain during intercourse: at entrybut reportsnormal libido. 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 For vaginal bleeding, patient reportshistory of menopause having occurred. For urinary symptoms, patient reportsno hematuria,no incontinence,no nocturia, andno urinary frequency. For vulva, patient reportsno genital lesionandno vulvar atrophy. For vagina, patient reportsnormal vaginal dischargeandno vaginal atrophy.Breast symptomsFor breast, patient reportsno breast lump,no nipple discharge, andno breast pain.Psychological symptomsFor sexual complaints, patient reportssexual complaintsandpain during intercourse: at entrybut reportsnormal libido. 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 Was on replacement hormone therapy post hysterectomy Barbara Valente MD Attn: Accounting,[address] [place], [address], [facility] 08/27/2021 16:52:36 2 text/html ROS as noted in the HPI 61 yo F s/p total hysterectomy with PMH of endometriosis presents today to establish obstetrics gyn physician care and for urinary symptoms. Patient was previously following with Dr. Rob. She has a complicated obstetrics gyn physician history and reports 23 surgeries for endometriosis and ?cancer. With these surgeries she had uterus, ovaries, tubes removed, mesh placed. She reports she started menopause at 37 and has been on estrogen since for hot flashes. However, one month ago her prescription and she has been off for one month. Since discontinuation she has been getting hot flashes twice a day. Mammogram on 05/14/20 showed a 3.5 mm circumscribed lesion in her left breast. It was further assessed with US and patient was referred to [facility] for further evaluation. Per patient, repeat imaging showed benign looking lesion. Plan was to follow up in one year. She never underwent needle biopsy. She has been following with her PCP and reports her last colonoscopy was in 04/2020. She reports diverticulosis was found and a couple of polyps were removed. She was instructed to follow up in 5 years. Patient is a current 1/2 pack per day smoker. She has never had a bone density scan done. She does note that about 5 years ago she fell and broke her clavicle. She is not currently taking calcium or vitamin D. Finally today, patient reports she has been having urinary symptoms for 1.5 weeks. She complains of dark urine, minor dysuria, urinary frequency, urinary urgency, bloating, pelvic pressure and left flank pain. No fever or chills. She states that she has had several UTIs in the past and this feels similar. Patient also notes fishy smelling vaginal discharge. MILDRED AVILA Attn: Accounting[address] [place], [address], [facility] 10/23/2021 12:52:56 2 text/html Telephone visit due to Sars-CoV-2 precautions. She has been running a temperature and a sore throat for the past seven days and has been using OTC naproxen She did have a negative Sars-CoV-2 NAAT rest at a local pharmacy. She has pleuritic pain but denies cough, diarrhea and muscle soreness, SOB, rhinitis and nasal congestion. She did have a slight headache. Barbara Valente MD Attn: Accounting[address] [place], [address], [facility] 01/14/2022 10:52:35 OBGyn Episode No OBEpisode recorded.
--- NOTE | 2024-12-17 19:50 | ED_ITS ---
HPI - SOB/Dyspnea General Chief Complaint: Shortness of Breath/Dyspnea Stated Complaint: SOB Time Seen by Provider: 12/17/24 18:57 Source: patient, EMS, RN notes reviewed and old records reviewed Mode of arrival: EMS Limitations: no limitations History of Present Illness HPI Narrative: This is a 64 year old former smoker who presents for evaluation of shortness of breath. PAtient states that she developed difficulty breathing last night. She went to [facility] this morning for evaluation. She reports that she had CT chest with contrast and she was told that it was negative for blood clots or pneumonia. She was discharged home. She reports cough with clear phlegm, constant right chest pain for 1 day. She denies fever, chills, nausea or vomiting. She is using nebulizer at home without improvement. EMS found patient in respiratory distress and she was given 3 duonebs, dexamethasone 10 mg and magnesium 2 g. Patient still complaints of shortness of breath. She also feels really anxious at this time. Related Data Allergies Allergy/AdvReac Type Severity Reaction Status Date / Time codeine Allergy Unknown Nausea and Verified 12/17/24 18:55 Vomiting ofloxacin Allergy Unknown SHORT OF Verified 12/17/24 18:55 BREATH Penicillins Allergy Unknown UNKNOWN Verified 12/17/24 18:55 fluoxetine AdvReac Severe Suicidal Verified 12/17/24 18:55 Ideation PMFSH Past Medical History Medical History (Updated 12/17/24 @ 21:10 by Zeny Gonzales MD) Emphysema/COPD Choking Anxiety Surgical History Surgical History H/O exploratory laparotomy H/O joint replacement BL H/O: hysterectomy 1999 Family History Family History Father Type 2 diabetes mellitus Glaucoma Grandparent Leukemia CAD (coronary artery disease) Cancer Mother Lung disease Social History Social History Smoking packs per day: 1.5 Smoking cigarettes per day: 30.0 Smoking status: Former smoker Tobacco type: cigarettes Second hand tobacco smoke exposure: Yes Smoking end date: 10/21/24 Alcohol intake: unknown Substance use: current Substance use type: marijuana Lack of Transportation: YES Lack of Food: Never True Current Housing: I Have Housing Concerned About Future Housing: No Difficulty Paying Gas/Electric Bills: No Difficulty Paying for Meds: No Currently Unemployed: No Education: High School Diploma/GED Difficulty w/ Childcare or Family Care: No Spiritual care concerns: No Exam 2 Const: General: alert Nutritional Appearance: thin O rientation/consciousness: patient oriented x3 Other: mild respiratory distress with purse lip breathing HENMT: Head: normal to inspection Eyes: EOM: EOMs intact bilaterally Chest: Chest palpation & inspection: normal inspection of the chest Resp: Effort & Inspection: no retractions and tachypneic Auscultation: w heezes expiratory wheezes, inspiratory wheezes and lower bilaterally Cardio: Rate: tachycardic Rhythm: regular rhythm Heart sounds: Murmur heart sound present GI: GI Palp: Yes Soft to palpation, No Tenderness to palpation present (GI), No Guarding due to palpation present (GI) and No Rigid due to palpation A uscultation: normal bowel sounds Neuro: General: patient oriented x3, moves all extremities and CN's II-XI intact bilaterally Extrem: General: normal to inspection Psych: Mental Status: mental status grossly normal Affect: normal affect Attitude: cooperative Course Reevaluation(s) Reevaluation #1: PAtient appears to be breathing better. She is able to speak in complete sentences. oxygen 90-93% so I placed on 2 liter oxygen. She is still wheezing so ordered neb tx. Date: 12/17/24 Time: 19:58 Reevaluation #2: Evening MD to speak to hospitalist for admission. Pending call back from hospitalist Date: 12/17/24 Time: 20:10 Vital Signs Vital signs: Vital Signs Temperature 97.8 F 12/17/24 18:50 Pulse Rate 132 H 12/17/24 18:50 Respiratory Rate 20 12/17/24 18:50 Blood Pressure 118/77 12/17/24 18:50 Pulse Oximetry 96 12/17/24 18:50 Oxygen Delivery Room Air 12/17/24 18:50 Temperature 97.8 F 12/17/24 18:50 Pulse Rate 118 H 12/17/24 19:59 Respiratory Rate 18 12/17/24 19:59 Blood Pressure 118/77 12/17/24 18:50 Pulse Oximetry 96 12/17/24 18:50 Oxygen Delivery Room Air 12/17/24 18:50 MDM - SOB/Dyspnea Differential Diagnosis Differential diagnosis: Likely acute exacerbation of chronic obstructive airways disease, congestive heart failure, community acquired pneumonia and asthma with exacerbation Lab Data 12/17/24 19:22 12/17/24 19:21 Labs: Lab Results 12/17/24 12/17/24 12/17/24 Range/Units 19:15 19:21 19:21 WBC (4.5-10.0) K/mm3 RBC (4.2-5.4) M/mm3 Hgb (12.0-15.0) g/dL Hct (37.0-47.0) % MCV (80-100) fl MCH (26-34) pg MCHC (32-36) g/dl RDW (11.5-14.5) % Plt Count (150-375) k/mm3 MPV (7.4-10.4) fl Immature Gran % (Auto) (0-0.5) % Neut % (Auto) (45.5-73.1) % Lymph % (Auto) (18.3-44.2) % Ross % (Auto) (2.6-8.5) % Eos % (Auto) (0-4.4) % Baso % (Auto) (0.2-1.2) % Lymph # (Auto) (0.9-3.2) K/mm3 Ross # (Auto) (0.1-0.6) K/mm3 Eos # (Auto) (0-0.3) K/mm3 Baso # (Auto) (0.0-0.1) K/mm3 Abs Immat Gran (auto) (0.00-0.031) K/mm3 Absolute Neuts (auto) (1.3-6.7) K/mm3 Absolute Nucleated RBC (0.0-0.012) K/mm3 Nucleated RBC % (0.0-0.2) % Methemoglobin 0.3 (0-1.5) %THb Sodium 137 (137-145) mmol/L Potassium 3.6 (3.4-5.0) mmol/L Chloride 101 (98-107) mmol/L Carbon Dioxide 27 (22-30) mmol/L Anion Gap 9 (4-12) mmol/L BUN 11 D (7-17) mg/dL Creatinine 0.86 (0.7-1.0) mg/dL Estim Creat Clear Calc 53 ml/min Estimated GFR > 60 (59 - ) Glucose 124 H (65-110) mg/dL Lactic Acid (0.7-2.0) mmol/L Calcium 9.7 (8.4-10.2) mg/dL Magnesium 3.3 H Cancelled (1.6-2.3) mg/dL Total Bilirubin 0.7 (0.2-1.3) mg/dL AST 31 (14-36) U/L ALT 18 (6-35) U/L Alkaline Phosphatase 99 (38-126) U/L Troponin I < 0.012 (0.000-0.034) ng/mL NT-Pro-B Natriuret Pep (19.9-100) pg/mL Total Protein (6.3-8.2) g/dL Albumin (3.5-5.1) g/dL SARS-CoV-2 RNA (RT-PCR) (Negative) 12/17/24 12/17/24 12/17/24 Range/Units 19:21 19:21 19:22 WBC 10.6 H (4.5-10.0) K/mm3 RBC 4.62 (4.2-5.4) M/mm3 Hgb 14.3 (12.0-15.0) g/dL Hct 42.8 (37.0-47.0) % MCV 92.6 (80-100) fl MCH 31.0 (26-34) pg MCHC 33.4 (32-36) g/dl RDW 13.2 (11.5-14.5) % Plt Count 320 (150-375) k/mm3 MPV 9.0 (7.4-10.4) fl Immature Gran % (Auto) 0.6 H (0-0.5) % Neut % (Auto) 68.4 (45.5-73.1) % Lymph % (Auto) 17.9 L (18.3-44.2) % Ross % (Auto) 5.1 (2.6-8.5) % Eos % (Auto) 7.1 H (0-4.4) % Baso % (Auto) 0.9 (0.2-1.2) % Lymph # (Auto) 1.90 (0.9-3.2) K/mm3 Ross # (Auto) 0.5 (0.1-0.6) K/mm3 Eos # (Auto) 0.8 H (0-0.3) K/mm3 Baso # (Auto) 0.1 (0.0-0.1) K/mm3 Abs Immat Gran (auto) 0.06 H (0.00-0.031) K/mm3 Absolute Neuts (auto) 7.2 H (1.3-6.7) K/mm3 Absolute Nucleated RBC 0.000 (0.0-0.012) K/mm3 Nucleated RBC % 0.0 (0.0-0.2) % Methemoglobin (0-1.5) %THb Sodium (137-145) mmol/L Potassium (3.4-5.0) mmol/L Chloride (98-107) mmol/L Carbon Dioxide (22-30) mmol/L Anion Gap (4-12) mmol/L BUN (7-17) mg/dL Creatinine (0.7-1.0) mg/dL Estim Creat Clear Calc ml/min Estimated GFR (59 - ) Glucose (65-110) mg/dL Lactic Acid 1.8 (0.7-2.0) mmol/L Calcium (8.4-10.2) mg/dL Magnesium (1.6-2.3) mg/dL Total Bilirubin (0.2-1.3) mg/dL AST (14-36) U/L ALT (6-35) U/L Alkaline Phosphatase (38-126) U/L Troponin I Cancelled (0.000-0.034) ng/mL NT-Pro-B Natriuret Pep 559 H Cancelled (19.9-100) pg/mL Total Protein 8.4 H (6.3-8.2) g/dL Albumin 4.6 (3.5-5.1) g/dL SARS-CoV-2 RNA (RT-PCR) Negative (Negative) ABG Data ABG results: 12/17/24 19:15 Puncture Site Right radial ABG pH 7.429 ABG pCO2 36.1 ABG pO2 62.8 L ABG PO2/FiO2 Ratio 2.99 ABG HCO3 23.4 ABG O2 Saturation 92.8 L ABG O2 Content 18.5 ABG Base Excess -0.5 A-a Gradient 43.7 Oxyhemoglobin 91.0 Carboxyhemoglobin 0.9 Reduced Hemoglobin 7.8 H Total Hemoglobin 14.5 O2 Delivery Device Not Reportable O2 Liters/Min Not Reportable FiO2 21 Discharge Plan Discharge Clinical Impression: Acute exacerbation of chronic obstructive pulmonary disease Patient Disposition: Still a Patient Condition: Guarded Prognosis Patient Language: Bolivian Prescriptions: No Action Breztri Aerosphere 160-9-4.8 mcg/actuation HFA aerosol inhaler 2 inh inhalation QAM AND QPM Qty: 10.7 0RF Trelegy Ellipta 200-62.5-25 mcg blister with device 1 inh inhalation Q24H Qty: 60 0RF buspirone 5 mg Tablet 5 mg PO Q12HR Qty: 60 0RF cefuroxime axetil 250 mg Tablet 500 mg PO Q12HR Qty: 12 0RF sulfamethoxazole-trimethoprim 800-160 mg Tablet 1 tab PO Q12HR Qty: 12 0RF guaifenesin 100 mg/5 mL Liquid 200 mg PO Q4H PRN (Reason: Cough) Qty: 10 0RF fluticasone propionate 50 mcg/actuation Harrison,Suspension 2 spray intranasal Q12HR Qty: 10 0RF loratadine 10 mg Tablet 10 mg PO QAM Qty: 100 0RF ipratropium bromide 0.02 % Solution 0.5 mg inhalation Q6HRT Qty: 60 0RF Saline Mist 0.65 % Aerosol,Harrison 1 spray intranasal Q6HR PRN (Reason: Congestion) Qty: 6 0RF acetaminophen 325 mg Tablet 650 mg PO Q4H PRN (Reason: Mild Pain (1-3) Or Fever) Qty: 30 0RF nystatin 100,000 unit/mL suspension 5 ml PO QID Qty: 100 3RF Follow-up/Referrals: Tonio Sorto DO [Primary Care Provider, Internal Medicine]
[2024-12-17 19:55] LABS: NT Pro B Type Natriuretic Pept 559 pg/mL (19.9-100); Troponin I < 0.012 ng/mL (0.000-0.034)
[2024-12-17] MEDS: ALBUTEROL SULFATE NEB 2.5 MG/3 ML INH INHALATION (19:58)
[2024-12-17 20:57] LABS: SARS-CoV-2 RNA PCR Negative (Negative)
--- NOTE | 2024-12-17 23:05 | ECG_ITS ---
Test Date: 2024-12-17 23:08:16 Measurements Intervals [place] Rate: 127 P: 78 OK: 145 QRS: 24 QRSD: 70 T: 68 QT: 335 QTc: 488 Interpretive Statements SINUS TACHYCARDIA PROBABLE SEPTAL MYOCARDIAL INFARCTION , OF INDETERMINATE AGE Electronically Signed On 12-18-2024 20:48:56 CDT by Himanshu Lindsey D.O
--- NOTE | 2024-12-17 23:14 | PC.NURSE ---
Pt up to restroom. Upon return, became sob and anxious. Sats 95%. Tachycardia at 140's. Obtained repeat EKG and shown to Dr Rivera. No new orders at this time. Pt back down to 120's which is closer to where she was at admission.
[2024-12-18] VITALS (74 sets, daily range): BP systolic 103–135; BP diastolic 51–81; PULSE 96–124; RESP 7–29; TEMP 36.7–37.1; O2SAT 90–100; BMI 17.6
[2024-12-18] MEDS: ALBUTEROL SULFATE NEB 2.5 MG/3 ML INH 5 MG INHALATION (02:02)
--- NOTE | 2024-12-18 07:19 | PM.IMHP ---
H&P: HPI History of Present Illness Date/Time: 12/18/24 07:19 Chief Complaint: Severe shortness of breath Narrative: Extremely anxious and loquacious 64-year-old female with a past medical history of COPD/emphysema who presented to the ER with severe shortness of breath. The patient was admitted in October for COPD exacerbation and right upper lobe and middle lobe pneumonia. She reports that after she went home she felt better until about 3 days ago. Three days ago she became acutely short of breath with tightness more so in her right lung with increased wheezing. She denied significant increasing cough and has not had any fevers or chills. Her symptoms have persisted despite use of rescue inhaler multiple times. Rescue inhaler when she 1st developed symptoms seem to be helping for the 1st day but as time progressed her symptoms were worsening. She called EMS on the morning of the due to severe shortness of breath and they took her to [place]. She stated they did a CTA of her chest at that time which was negative for pneumonia or pulmonary embolism. She was told that she has emphysema and was discharged with out steroids. She reported that she was increasingly short of breath in this was increasing her anxiety. She stated foot like he felt like her heart was going to race away and was dancing in her chest. She does admit to a significant history of anxiety his upset that no one would discharge her on benzodiazepines after last hospitalization. She stated that she did call to have a follow-up appointment with her primary care physician but they could not get her in firm over a month. But appears the patient was evidently started on BusPar at some point and was filled the last week in October. She reports that at home prior to calling EMS the 1st time her oxygen saturations on her pulse oximeter were 85%. She reports significant improvement in symptoms with nebulizers and steroid treatment given during this ER visit. The patient remains tachycardic in the ER but her heart rate fluctuates based on her degree of anxiety. When she is distracted her heart rate is in the upper 90s to low 100s. She reports decreased appetite chronically for last 7 years since the of her . She reports that she did lose about 40 lb but her stay weight has been stable in recent months. The patient received 3 nebulizer treatments in route to the ER and 2 g of magnesium sulfate as well as 10 mg of Decadron per EMS Review of Systems Review of Systems: 12 systems were reviewed with pertinent positives and negatives per HPI. Except as documented in the HPI, all other systems were reviewed and are negative. [facility] Past Medical History Medical History (Updated 12/18/24 @ 08:00 by Korina Grant DO) Emphysema/COPD Anxiety Surgical History Surgical History (Updated 12/18/24 @ 07:34 by Korina Grant DO) Amblyopia of left eye With surgical repair as a child History of left knee surgery Multiple ligament repairs History of right knee surgery Multiple arthroscopic procedures H/O exploratory laparotomy X5 H/O: hysterectomy the patient reports that she had her reproductive organs removed over the course of ?5 surgeries with the last surgery being in 1999 Family History Family History (Updated 12/18/24 @ 07:35 by Korina Grant DO) Father Type 2 diabetes mellitus Glaucoma Grandparent CAD (coronary artery disease) Leukemia Cancer Mother Lung cancer COPD (chronic obstructive pulmonary disease) Sibling Primary chronic progressive multiple sclerosis Social History Social History (Updated 12/18/24 @ 07:41 by Korina Grant DO) Social History: She reports that she is since 2018. She lives with her 2 cats. 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 She smoked up to 2 packs of cigarettes per day from the time she was a teenager until age 64. She quit smoking August 2024. She denies any history of alcohol abuse. She denies illicit substance use. She has 1 biological child and adopted 6 other children. Code status: DNR/DNI (she reports that if she is in respiratory distress and noninvasive ventilator is unsuccessful she wants to be made comfortable and does not want to feel like she is drowning or struggling to breathe but she does not want intubation.) Surrogate decision maker: Yanira Low (daughter) Smoking packs per day: 1 Smoking cigarettes per day: 20.0 Years smoked: 45 Smoking pack-years: 45.00 Smoking status: Former smoker Tobacco type: cigarettes Second hand tobacco smoke exposure: Yes Smoking end date: 09/17/24 Alcohol intake: never Substance use: never Substance use type: does not use Lack of Transportation: No Lack of Food: Never True Current Housing: I Have Housing Concerned About Future Housing: No Difficulty Paying Gas/Electric Bills: No Difficulty Paying for Meds: No Currently Unemployed: No Education: Associate Degree Difficulty w/ Childcare or Family Care: No Spiritual care concerns: Yes Meds Home Medications and Allergies Home Medications ?Medication ?Instructions ?Recorded ?Confirmed ?Type buspirone 5 mg tablet 5 mg PO Q12HR #60 tabs 11/14/24 12/18/24 Rx fluticasone propionate 50 2 spray intranasal Q12HR #10 grams 11/14/24 12/18/24 Rx mcg/actuation nasal spray,suspension loratadine 10 mg tablet 10 mg PO QAM #100 tabs 11/14/24 12/18/24 Rx acetaminophen 500 mg capsule 500 mg PO BID 12/18/24 12/18/24 History fluconazole .ROUTE 12/18/24 History guaifenesin 600 mg tablet, 600 mg PO BID 12/18/24 12/18/24 History extended release 12 hr Allergies Allergy/AdvReac Type Severity Reaction Status Date / Time codeine Allergy Unknown Nausea and Verified 12/18/24 06:17 Vomiting ofloxacin Allergy Unknown SHORT OF Verified 12/18/24 06:17 BREATH Penicillins Allergy Unknown UNKNOWN Verified 12/18/24 06:17 fluoxetine AdvReac Severe Suicidal Verified 12/18/24 06:17 Ideation Vital Signs Vital Signs - 24 hr 12/17/24 18:50 12/17/24 19:59 12/17/24 21:20 Temperature 97.8 F Pulse Rate 132 H 118 H 123 H Respiratory Rate 20 18 26 H Blood Pressure 118/77 Pulse Oximetry 96 94 Oxygen Delivery Room Air 12/17/24 21:23 12/17/24 21:30 12/17/24 21:31 Temperature Pulse Rate 121 H 127 H 124 H Respiratory Rate 17 25 H 20 Blood Pressure 136/77 151/74 H Pulse Oximetry 98 95 96 Oxygen Delivery 12/17/24 21:45 12/17/24 21:46 12/17/24 22:00 Temperature Pulse Rate 117 H 121 H 118 H Respiratory Rate 18 13 19 Blood Pressure 131/69 Pulse Oximetry 96 97 98 Oxygen Delivery 12/17/24 22:01 12/17/24 22:02 12/17/24 22:15 Temperature Pulse Rate 119 H 117 H 114 H Respiratory Rate 19 19 17 Blood Pressure 127/62 Pulse Oximetry 97 96 97 Oxygen Delivery 12/17/24 22:16 12/17/24 22:30 12/17/24 22:31 Temperature Pulse Rate 115 H 114 H 116 H Respiratory Rate 19 16 18 Blood Pressure 131/63 134/66 Pulse Oximetry 97 98 97 Oxygen Delivery 12/17/24 22:45 12/17/24 22:46 12/17/24 23:00 Temperature Pulse Rate 121 H 123 H 138 H Respiratory Rate 18 20 29 H Blood Pressure 143/74 H Pulse Oximetry 96 96 96 Oxygen Delivery 12/17/24 23:01 12/17/24 23:02 12/17/24 23:15 Temperature Pulse Rate 138 H 136 H 121 H Respiratory Rate 20 16 15 Blood Pressure 167/82 H Pulse Oximetry 97 96 97 Oxygen Delivery 12/17/24 23:16 12/17/24 23:30 12/17/24 23:31 Temperature Pulse Rate 119 H 116 H 113 H Respiratory Rate 15 9 L 9 L Blood Pressure 115/86 113/61 Pulse Oximetry 97 97 97 Oxygen Delivery 12/17/24 23:45 12/17/24 23:46 12/18/24 00:00 Temperature Pulse Rate 109 H 109 H 112 H Respiratory Rate 17 14 20 Blood Pressure 113/66 Pulse Oximetry 96 95 96 Oxygen Delivery 12/18/24 00:01 12/18/24 00:15 12/18/24 00:16 Temperature Pulse Rate 110 H 120 H 114 H Respiratory Rate 16 18 9 L Blood Pressure 114/61 122/68 Pulse Oximetry 96 98 98 Oxygen Delivery 12/18/24 00:17 12/18/24 00:30 12/18/24 00:31 Temperature Pulse Rate 112 H 108 H 106 H Respiratory Rate 10 L 18 18 Blood Pressure 113/60 Pulse Oximetry 98 97 97 Oxygen Delivery 12/18/24 00:45 12/18/24 00:46 12/18/24 01:00 Temperature Pulse Rate 106 H 105 H 107 H Respiratory Rate 18 18 21 H Blood Pressure 118/61 Pulse Oximetry 98 98 98 Oxygen Delivery 12/18/24 01:01 12/18/24 01:15 12/18/24 01:16 Temperature Pulse Rate 106 H 114 H 103 H Respiratory Rate 19 22 H 18 Blood Pressure 114/62 114/60 Pulse Oximetry 99 98 98 Oxygen Delivery 12/18/24 01:30 12/18/24 01:31 12/18/24 01:45 Temperature Pulse Rate 105 H 103 H 101 H Respiratory Rate 20 19 17 Blood Pressure 118/53 L Pulse Oximetry 99 99 98 Oxygen Delivery 12/18/24 01:46 12/18/24 02:00 12/18/24 02:01 Temperature Pulse Rate 99 106 H 105 H Respiratory Rate 17 16 15 Blood Pressure 113/61 122/65 Pulse Oximetry 98 99 99 Oxygen Delivery 12/18/24 02:04 12/18/24 02:12 12/18/24 02:15 Temperature Pulse Rate 109 H 118 H 119 H Respiratory Rate 21 H 21 H 18 Blood Pressure Pulse Oximetry 100 Oxygen Delivery 12/18/24 02:16 12/18/24 02:17 12/18/24 02:30 Temperature Pulse Rate 123 H 121 H 110 H Respiratory Rate 19 17 16 Blood Pressure 135/81 Pulse Oximetry 98 98 96 Oxygen Delivery 12/18/24 02:31 12/18/24 02:45 12/18/24 02:46 Temperature Pulse Rate 109 H 111 H 109 H Respiratory Rate 18 18 18 Blood Pressure 116/58 L 109/59 L Pulse Oximetry 95 96 96 Oxygen Delivery 12/18/24 03:00 12/18/24 03:01 12/18/24 03:15 Temperature Pulse Rate 124 H 121 H 110 H Respiratory Rate 18 20 20 Blood Pressure 126/63 Pulse Oximetry 99 97 97 Oxygen Delivery 12/18/24 03:16 12/18/24 03:30 12/18/24 03:31 Temperature Pulse Rate 115 H 112 H 107 H Respiratory Rate 19 22 H 19 Blood Pressure 103/51 L 109/58 L Pulse Oximetry 98 98 98 Oxygen Delivery 12/18/24 03:45 12/18/24 03:46 12/18/24 04:00 Temperature Pulse Rate 108 H 106 H 109 H Respiratory Rate 17 16 23 H Blood Pressure 113/58 L Pulse Oximetry 98 98 97 Oxygen Delivery 12/18/24 04:01 12/18/24 04:02 12/18/24 04:15 Temperature 98.2 F Pulse Rate 115 H 112 H 113 H Respiratory Rate 16 18 18 Blood Pressure 121/58 L Pulse Oximetry 96 96 97 Oxygen Delivery 12/18/24 04:16 12/18/24 04:30 12/18/24 04:31 Temperature Pulse Rate 107 H 110 H 113 H Respiratory Rate 23 H 15 7 L Blood Pressure 117/60 117/63 Pulse Oximetry 98 98 97 Oxygen Delivery 12/18/24 04:32 12/18/24 04:45 12/18/24 04:46 Temperature Pulse Rate 112 H 100 107 H Respiratory Rate 11 L 14 27 H Blood Pressure 120/59 L Pulse Oximetry 98 98 98 Oxygen Delivery 12/18/24 05:00 12/18/24 05:01 12/18/24 05:15 Temperature Pulse Rate 103 H 103 H 103 H Respiratory Rate 18 15 17 Blood Pressure 116/62 Pulse Oximetry 97 97 95 Oxygen Delivery 12/18/24 05:16 12/18/24 05:30 12/18/24 05:31 Temperature Pulse Rate 101 H 97 96 Respiratory Rate 15 17 16 Blood Pressure 115/60 107/66 Pulse Oximetry 95 94 94 Oxygen Delivery 12/18/24 05:45 12/18/24 05:46 12/18/24 06:00 Temperature Pulse Rate 96 99 105 H Respiratory Rate 15 16 17 Blood Pressure 112/59 L Pulse Oximetry 96 96 96 Oxygen Delivery 12/18/24 06:01 12/18/24 06:15 12/18/24 06:16 Temperature Pulse Rate 99 107 H 103 H Respiratory Rate 17 21 H 24 H Blood Pressure 111/64 128/61 Pulse Oximetry 96 95 96 Oxygen Delivery 12/18/24 06:30 12/18/24 06:31 12/18/24 06:45 Temperature Pulse Rate 105 H 108 H 107 H Respiratory Rate 16 22 H 25 H Blood Pressure 116/60 Pulse Oximetry 94 96 96 Oxygen Delivery 12/18/24 06:46 Temperature Pulse Rate 111 H Respiratory Rate 29 H Blood Pressure 126/71 Pulse Oximetry 95 Oxygen Delivery Exam Narrative: Weight 56.8 kg BMI 17.5 Const: Other: Thin body habitus, appears older than stated age, anxious HENMT: Other: Nasal cannula in place, tacky mucous membranes Eyes: Other: Pupils are equal and reactive, slight deviation of the left try which patient reports is chronic, no scleral icterus, no conjunctival pallor Neck: Other: No JVD, no lymphadenopathy Resp: Other: Diffuse wheezing, conversational tachypnea Cardio: Other: Sinus tachycardia, 2+ bilateral radial pedal pulses GI: Other: Soft, nontender, nondistended, positive bowel sounds Skin: Other: No pallor, non jaundice Neuro: Other: Alert oriented x4, speech is clear, no facial asymmetry, no gross motor deficits noted during the course of conversation Extrem: Other: No cyanosis, no edema, moves all extremities equally Psych: Other: Pressured speech, Extremely anxious, pleasant and cooperative, judgment and insight intact H&P: Results Labs Labs: Laboratory Tests 12/17/24 19:22 12/17/24 19:21 12/17/24 12/17/24 12/17/24 19:15 19:21 19:21 WBC RBC Hgb Hct MCV MCH MCHC RDW Plt Count MPV Immature Gran % (Auto) Neut % (Auto) Lymph % (Auto) [place] % (Auto) Eos % (Auto) Baso % (Auto) Lymph # (Auto) [place] # (Auto) Eos # (Auto) Baso # (Auto) Abs Immat Gran (auto) Absolute Neuts (auto) Absolute Nucleated RBC Nucleated RBC % Puncture Site Right radial ABG pH 7.429 ABG pCO2 36.1 ABG pO2 62.8 L ABG PO2/FiO2 Ratio 2.99 ABG HCO3 23.4 ABG O2 Saturation 92.8 L ABG O2 Content 18.5 ABG Base Excess -0.5 A-a Gradient 43.7 Oxyhemoglobin 91.0 Carboxyhemoglobin 0.9 Methemoglobin 0.3 Reduced Hemoglobin 7.8 H Total Hemoglobin 14.5 O2 Delivery Device Not Reportable O2 Liters/Min Not Reportable FiO2 21 Sodium 137 Potassium 3.6 Chloride 101 Carbon Dioxide 27 Anion Gap 9 BUN 11 D Creatinine 0.86 Estim Creat Clear Calc 53 Estimated GFR > 60 Glucose 124 H Lactic Acid Calcium 9.7 Magnesium 3.3 H Cancelled Total Bilirubin 0.7 AST 31 ALT 18 Alkaline Phosphatase 99 Troponin I < 0.012 NT-Pro-B Natriuret Pep Total Protein Albumin SARS-CoV-2 RNA (RT-PCR) 12/17/24 12/17/24 12/17/24 19:21 19:21 19:22 WBC 10.6 H RBC 4.62 Hgb 14.3 Hct 42.8 MCV 92.6 MCH 31.0 MCHC 33.4 RDW 13.2 Plt Count 320 MPV 9.0 Immature Gran % (Auto) 0.6 H Neut % (Auto) 68.4 Lymph % (Auto) 17.9 L [place] % (Auto) 5.1 Eos % (Auto) 7.1 H Baso % (Auto) 0.9 Lymph # (Auto) 1.90 [place] # (Auto) 0.5 Eos # (Auto) 0.8 H Baso # (Auto) 0.1 Abs Immat Gran (auto) 0.06 H Absolute Neuts (auto) 7.2 H Absolute Nucleated RBC 0.000 Nucleated RBC % 0.0 Puncture Site ABG pH ABG pCO2 ABG pO2 ABG PO2/FiO2 Ratio ABG HCO3 ABG O2 Saturation ABG O2 Content ABG Base Excess A-a Gradient Oxyhemoglobin Carboxyhemoglobin Methemoglobin Reduced Hemoglobin Total Hemoglobin O2 Delivery Device O2 Liters/Min FiO2 Sodium Potassium Chloride Carbon Dioxide Anion Gap BUN Creatinine Estim Creat Clear Calc Estimated GFR Glucose Lactic Acid 1.8 Calcium Magnesium Total Bilirubin AST ALT Alkaline Phosphatase Troponin I Cancelled NT-Pro-B Natriuret Pep 559 H Cancelled Total Protein 8.4 H Albumin 4.6 SARS-CoV-2 RNA (RT-PCR) Negative Impressions Chest X-Ray 12/17/24 19:13 (on my review a noted patient's diaphragms appear somewhat flattened) Impression: No acute cardiopulmonary abnormality. Assessment and Plan Assessment and plan (1) Acute exacerbation of chronic obstructive pulmonary disease: Code(s): J44.1 - Chronic obstructive pulmonary disease with (acute) exacerbation Status: Acute (2) Acute hypoxic respiratory failure: Code(s): J96.01 - Acute respiratory failure with hypoxia Status: Acute (3) Sinus tachycardia: Code(s): R00.0 - Tachycardia, unspecified Status: Acute (4) Anxiety: Code(s): F41.9 - Anxiety disorder, unspecified Status: Acute (5) Protein calorie malnutrition: Qualifiers: Protein-calorie malnutrition severity: unspecified severity Qualified Code(s): E46 - Unspecified protein-calorie malnutrition Code(s): E46 - Unspecified protein-calorie malnutrition Status: Acute (6) Goals of care, counseling/discussion: Code(s): Z71.89 - Other specified counseling Status: Acute Plan Patient has acute COPD exacerbation with acute hypoxic respiratory failure. Will change the patient's nebulizer treatments to Xopenex and will schedule the Xopenex every 6 hours with p.r.n. nebulizer treatments to alternate every 3 hours in between. Will continue IV Solu-Medrol but will decrease dose to 40 mg q.6 hours. Patient does have dry mucous membranes and has a significant elevation in her serum protein from baseline. She likely has some dehydration due to secondary losses. She did receive 1 L IV fluid bolus in the ER. Will given additional 1 L IV fluid bolus followed by 1 L of fluids at 100 mL an hour and then re-evaluate fluid status. Also event occurred the patient to take more oral fluids. Will continue patient's home Mucinex. Will wean oxygen as tolerated O2 sats to range between 88 and 92%. Patient was congratulated on her continued cessation from tobacco. The patient's sinus tachycardia is multifactorial due to volume depletion, nebulizer administration and anxiety. Will continue to monitor on telemetry. The patient reports that nursing staff told her she had an episode of V-tach in the ER when she tried ambulate to the bathroom. This is not documented anywhere in the patient's chart. However patient did develop increasing sinus tachycardia with heart rates into the 140s per nursing documentation. The patient's heart rate fluctuates wildly with her changes in level of anxiety. Will resume the patient's home BusPar and will add Xanax 0.25 mg q.8 hours as needed for acute anxiety. However the patient has been educated that this is not a medication that she will be discharged on long-term and that she will need to follow-up with her primary care physician for recommendations on long-term anxiety management. The patient states that in a pre arrest situation if she were in SVT or ventricular tachycardia without actual cardiac arrest she would be okay with electrical cardioversion. However she would not want CPR or intubation. She stated that if respiratory support with noninvasive ventilator/BiPAP were not successful that she would want to be made comfortable in be allowed to have a natural . Subsequently the patient's code status has been changed to reflect this. Patient has been admitted as observation status. MEDICAL DECISION MAKING NARRATIVE -Spoke with the ED provider in detail regarding patient's evaluation, workup and management -Patient seen and examined at bedside -Collaborated with patient's nurse at the bedside in detail and addressed all concerns -Labs, electrolytes, radiology, investigations and test results personally reviewed and interpreted unless otherwise specified -ED/Consult/Nursing/Ancilliary notes on the chart reviewed and appreciated -Spoke with patient at bedside and diagnosis and plan of care was discussed. All questions answered. Quality VTE Prophylaxis VTE prophylaxis: pharmacologic ordered (40 mg Lovenox subQ daily) Hospitalist MIPS Advance Care Plan I have confirmed that the patient's Advanced Care Plan is present, code status is documented, or surrogate decision maker is listed in patient medical record.: Yes Medication Reconciliation I have utilized all available resources to obtain, update and review the patients current medications (includes all prescriptions, OTC, herbals, cannabis, and nutritional supplements).: Yes
[2024-12-18] MEDS: FLUTICASONE PROPIONATE 0.05% NA SPR 16 GM BTL (*BKC) 2 SPRAY NASAL ×2 (09:22→20:45)
[2024-12-18] MEDS: ENOXAPARIN 40 MG/0.4 ML SYRINGE SUB-Q (09:22)
[2024-12-18] MEDS: SODIUM CHLORIDE 0.9% IV 1,000 ML 999 ML IV CONT (09:22)
[2024-12-18] MEDS: ACETAMINOPHEN 500 MG TABLET PO ×2 (09:23→17:37)
[2024-12-18] MEDS: guaiFENesin 12 HR 600 MG TABCR PO ×2 (09:23→20:45)
[2024-12-18] MEDS: LORATADINE 10 MG TABLET PO (09:28)
--- NOTE | 2024-12-18 14:24 | ADMGEN ---
This patient, Jessica Kramer, was admitted to [facility] Surg Room 329-01. Patient/family oriented to hospital policies and general routines including ID bracelet, bed and alarms, visiting hours, pain management, procedures, bathroom and other care routines, personal items, smoking policy, room service/diet, and visiting hours. Information on how to activate the Rapid Response Team has been discussed. Patient/Family are encouraged to report perceived risks to care and to ask questions if they do not understand what they are told or what they should do.
--- NOTE | 2024-12-18 16:12 | PM.IMPN ---
Progress Note: A&P Assessment and Plan (1) Acute exacerbation of chronic obstructive pulmonary disease: Code(s): J44.1 - Chronic obstructive pulmonary disease with (acute) exacerbation Status: Acute Assessment and Plan: Patient presents with increasing SOB and found to have acute COPD exacerbation with acute hypoxic respiratory failure. Feeling better. Weaned to room air Continue Xopenex every 6 hours with p.r.n. Continue IV Solu-Medrol 40 mg q.6 hours. She is off IV fluids. Continue Mucinex, Claritin and Flonase Patient was congratulated on her continued cessation from tobacco. (2) Acute hypoxic respiratory failure: Code(s): J96.01 - Acute respiratory failure with hypoxia Status: Acute Assessment and Plan: As above (3) Sinus tachycardia: Code(s): R00.0 - Tachycardia, unspecified Status: Acute Assessment and Plan: Patient with sinus tachycardia felt to be multifactorial due to volume depletion, nebulizer administration and anxiety. The patient reports that nursing staff told her she had an episode of V-tach in the ER when she tried ambulate to the bathroom. This is not documented anywhere in the patient's chart. However patient did develop increasing sinus tachycardia with heart rates into the 140s per nursing documentation. EKG showing sinus tach with possible old septal [place]. Repeat EKG showing no change. On telemetry monitoring but no evidence of VTach. Will continue to monitor on telemetry. (4) Anxiety: Code(s): F41.9 - Anxiety disorder, unspecified Status: Acute Assessment and Plan: Heart rate fluctuates wildly with her changes in level of anxiety. Home BusPar resumed and will Xanax 0.25 mg q.8H added (5) Protein calorie malnutrition: Qualifiers: Protein-calorie malnutrition severity: unspecified severity Qualified Code(s): E46 - Unspecified protein-calorie malnutrition Code(s): E46 - Unspecified protein-calorie malnutrition Status: Acute Assessment and Plan: Patient has a poor diet. She drinks a considerable amount of milk and chocolate milk. She does eat cereal and oatmeal. Add supplements Plan DVT prophylaxis - Lovenox Code status - DNR Subjective Date/time seen: 12/18/24 16:12 Interval history: 64yo female with COPD/emphysema who presented to the ER with severe shortness of breath. She feels much better. Not on O2 or bipap at home. She does have a nebulizer. She was at the [place] ED 2 days ago and had a CT scan of the chest that showed no PNA, collapsed lung or PE. Exam Narrative: AF 98.1 131/61 98 16 94% ra Gen - NARD Chest - diffuse expiratory wheezes. good AE. nml RR. no conversational dyspnea CV - RRR S1/S2. Tele showing no acute dysrhytmias Abd - Soft, NT/ND, Positive BS Ext - No pedal edema Psych - Nml mood and affect Skin - Warm and dry Objective Data Vital Signs Vital Signs: Vital Signs - 24 hr 12/17/24 18:50 12/17/24 19:59 12/17/24 21:20 Temperature 97.8 F Pulse Rate 132 H 118 H 123 H Respiratory Rate 20 18 26 H Blood Pressure 118/77 Pulse Oximetry 96 94 Oxygen Delivery Room Air Oxygen Flow Rate 12/17/24 21:23 12/17/24 21:30 12/17/24 21:31 Temperature Pulse Rate 121 H 127 H 124 H Respiratory Rate 17 25 H 20 Blood Pressure 136/77 151/74 H Pulse Oximetry 98 95 96 Oxygen Delivery Oxygen Flow Rate 12/17/24 21:45 12/17/24 21:46 12/17/24 22:00 Temperature Pulse Rate 117 H 121 H 118 H Respiratory Rate 18 13 19 Blood Pressure 131/69 Pulse Oximetry 96 97 98 Oxygen Delivery Oxygen Flow Rate 12/17/24 22:01 12/17/24 22:02 12/17/24 22:15 Temperature Pulse Rate 119 H 117 H 114 H Respiratory Rate 19 19 17 Blood Pressure 127/62 Pulse Oximetry 97 96 97 Oxygen Delivery Oxygen Flow Rate 12/17/24 22:16 12/17/24 22:30 12/17/24 22:31 Temperature Pulse Rate 115 H 114 H 116 H Respiratory Rate 19 16 18 Blood Pressure 131/63 134/66 Pulse Oximetry 97 98 97 Oxygen Delivery Oxygen Flow Rate 12/17/24 22:45 12/17/24 22:46 12/17/24 23:00 Temperature Pulse Rate 121 H 123 H 138 H Respiratory Rate 18 20 29 H Blood Pressure 143/74 H Pulse Oximetry 96 96 96 Oxygen Delivery Oxygen Flow Rate 12/17/24 23:01 12/17/24 23:02 12/17/24 23:15 Temperature Pulse Rate 138 H 136 H 121 H Respiratory Rate 20 16 15 Blood Pressure 167/82 H Pulse Oximetry 97 96 97 Oxygen Delivery Oxygen Flow Rate 12/17/24 23:16 12/17/24 23:30 12/17/24 23:31 Temperature Pulse Rate 119 H 116 H 113 H Respiratory Rate 15 9 L 9 L Blood Pressure 115/86 113/61 Pulse Oximetry 97 97 97 Oxygen Delivery Oxygen Flow Rate 12/17/24 23:45 12/17/24 23:46 12/18/24 00:00 Temperature Pulse Rate 109 H 109 H 112 H Respiratory Rate 17 14 20 Blood Pressure 113/66 Pulse Oximetry 96 95 96 Oxygen Delivery Oxygen Flow Rate 12/18/24 00:01 12/18/24 00:15 12/18/24 00:16 Temperature Pulse Rate 110 H 120 H 114 H Respiratory Rate 16 18 9 L Blood Pressure 114/61 122/68 Pulse Oximetry 96 98 98 Oxygen Delivery Oxygen Flow Rate 12/18/24 00:17 12/18/24 00:30 12/18/24 00:31 Temperature Pulse Rate 112 H 108 H 106 H Respiratory Rate 10 L 18 18 Blood Pressure 113/60 Pulse Oximetry 98 97 97 Oxygen Delivery Oxygen Flow Rate 12/18/24 00:45 12/18/24 00:46 12/18/24 01:00 Temperature Pulse Rate 106 H 105 H 107 H Respiratory Rate 18 18 21 H Blood Pressure 118/61 Pulse Oximetry 98 98 98 Oxygen Delivery Oxygen Flow Rate 12/18/24 01:01 12/18/24 01:15 12/18/24 01:16 Temperature Pulse Rate 106 H 114 H 103 H Respiratory Rate 19 22 H 18 Blood Pressure 114/62 114/60 Pulse Oximetry 99 98 98 Oxygen Delivery Oxygen Flow Rate 12/18/24 01:30 12/18/24 01:31 12/18/24 01:45 Temperature Pulse Rate 105 H 103 H 101 H Respiratory Rate 20 19 17 Blood Pressure 118/53 L Pulse Oximetry 99 99 98 Oxygen Delivery Oxygen Flow Rate 12/18/24 01:46 12/18/24 02:00 12/18/24 02:01 Temperature Pulse Rate 99 106 H 105 H Respiratory Rate 17 16 15 Blood Pressure 113/61 122/65 Pulse Oximetry 98 99 99 Oxygen Delivery Oxygen Flow Rate 12/18/24 02:04 12/18/24 02:12 12/18/24 02:15 Temperature Pulse Rate 109 H 118 H 119 H Respiratory Rate 21 H 21 H 18 Blood Pressure Pulse Oximetry 100 Oxygen Delivery Oxygen Flow Rate 12/18/24 02:16 12/18/24 02:17 12/18/24 02:30 Temperature Pulse Rate 123 H 121 H 110 H Respiratory Rate 19 17 16 Blood Pressure 135/81 Pulse Oximetry 98 98 96 Oxygen Delivery Oxygen Flow Rate 12/18/24 02:31 12/18/24 02:45 12/18/24 02:46 Temperature Pulse Rate 109 H 111 H 109 H Respiratory Rate 18 18 18 Blood Pressure 116/58 L 109/59 L Pulse Oximetry 95 96 96 Oxygen Delivery Oxygen Flow Rate 12/18/24 03:00 12/18/24 03:01 12/18/24 03:15 Temperature Pulse Rate 124 H 121 H 110 H Respiratory Rate 18 20 20 Blood Pressure 126/63 Pulse Oximetry 99 97 97 Oxygen Delivery Oxygen Flow Rate 12/18/24 03:16 12/18/24 03:30 12/18/24 03:31 Temperature Pulse Rate 115 H 112 H 107 H Respiratory Rate 19 22 H 19 Blood Pressure 103/51 L 109/58 L Pulse Oximetry 98 98 98 Oxygen Delivery Oxygen Flow Rate 12/18/24 03:45 12/18/24 03:46 12/18/24 04:00 Temperature Pulse Rate 108 H 106 H 109 H Respiratory Rate 17 16 23 H Blood Pressure 113/58 L Pulse Oximetry 98 98 97 Oxygen Delivery Oxygen Flow Rate 12/18/24 04:01 12/18/24 04:02 12/18/24 04:15 Temperature 98.2 F Pulse Rate 115 H 112 H 113 H Respiratory Rate 16 18 18 Blood Pressure 121/58 L Pulse Oximetry 96 96 97 Oxygen Delivery Oxygen Flow Rate 12/18/24 04:16 12/18/24 04:30 12/18/24 04:31 Temperature Pulse Rate 107 H 110 H 113 H Respiratory Rate 23 H 15 7 L Blood Pressure 117/60 117/63 Pulse Oximetry 98 98 97 Oxygen Delivery Oxygen Flow Rate 12/18/24 04:32 12/18/24 04:45 12/18/24 04:46 Temperature Pulse Rate 112 H 100 107 H Respiratory Rate 11 L 14 27 H Blood Pressure 120/59 L Pulse Oximetry 98 98 98 Oxygen Delivery Oxygen Flow Rate 12/18/24 05:00 12/18/24 05:01 12/18/24 05:15 Temperature Pulse Rate 103 H 103 H 103 H Respiratory Rate 18 15 17 Blood Pressure 116/62 Pulse Oximetry 97 97 95 Oxygen Delivery Oxygen Flow Rate 12/18/24 05:16 12/18/24 05:30 12/18/24 05:31 Temperature Pulse Rate 101 H 97 96 Respiratory Rate 15 17 16 Blood Pressure 115/60 107/66 Pulse Oximetry 95 94 94 Oxygen Delivery Oxygen Flow Rate 12/18/24 05:45 12/18/24 05:46 12/18/24 06:00 Temperature Pulse Rate 96 99 105 H Respiratory Rate 15 16 17 Blood Pressure 112/59 L Pulse Oximetry 96 96 96 Oxygen Delivery Oxygen Flow Rate 12/18/24 06:01 12/18/24 06:15 12/18/24 06:16 Temperature Pulse Rate 99 107 H 103 H Respiratory Rate 17 21 H 24 H Blood Pressure 111/64 128/61 Pulse Oximetry 96 95 96 Oxygen Delivery Oxygen Flow Rate 12/18/24 06:30 12/18/24 06:31 12/18/24 06:45 Temperature Pulse Rate 105 H 108 H 107 H Respiratory Rate 16 22 H 25 H Blood Pressure 116/60 Pulse Oximetry 94 96 96 Oxygen Delivery Oxygen Flow Rate 12/18/24 06:46 12/18/24 09:31 12/18/24 09:33 Temperature Pulse Rate 111 H 107 H Respiratory Rate 29 H 14 Blood Pressure 126/71 Pulse Oximetry 95 95 Oxygen Delivery Nasal Cannula Oxygen Flow Rate 1 12/18/24 09:40 12/18/24 09:58 12/18/24 12:56 Temperature Pulse Rate 107 H 102 H 116 H Respiratory Rate 16 17 20 Blood Pressure 117/62 121/58 L Pulse Oximetry 90 92 Oxygen Delivery Oxygen Flow Rate 12/18/24 14:00 12/18/24 15:00 12/18/24 15:07 Temperature 98.1 F Pulse Rate 115 H 100 98 Respiratory Rate 20 16 16 Blood Pressure 131/61 Pulse Oximetry 94 Oxygen Delivery Oxygen Flow Rate 12/18/24 15:27 Temperature Pulse Rate Respiratory Rate Blood Pressure Pulse Oximetry Oxygen Delivery Room Air Oxygen Flow Rate Intake/Output Intake/Output: Intake & Output 12/15/24 12/16/24 12/17/24 12/18/24 23:59 23:59 23:59 23:59 Intake Total 1000 1000 Balance 1000 1000 Meds/Results Medications: Active Medications Generic Name Dose Route Start Last Admin Trade Name Freq PRN Reason Stop Dose Admin Acetaminophen 500 mg 12/18/24 09:00 12/18/24 09:23 Acetaminophen 500 Mg Tablet PO 500 mg BID ANDREW Administration Alprazolam 0.25 mg 12/18/24 05:10 Alprazolam (*Crx) 0.25 Mg Tablet PO TID PRN Anxiety Buspirone HCl 5 mg 12/18/24 09:00 12/18/24 09:23 Buspirone Hcl 5 Mg Tablet PO 5 mg Q12HR ANDREW Administration Enoxaparin Sodium 40 mg 12/18/24 09:00 12/18/24 09:22 Enoxaparin 40 Mg/0.4 Ml Syringe SUB-Q 40 mg DAILY ANDREW Administration Fluticasone Propionate 2 spray 12/18/24 09:00 12/18/24 09:22 Fluticasone Propionate 0.05% Na Spr 16 Gm Btl (*Bkc) NASAL 2 spray Q12HR ANDREW Administration Guaifenesin 600 mg 12/18/24 09:00 12/18/24 09:23 Guaifenesin 12 Hr 600 Mg Tabcr PO 600 mg Q12HR ANDREW Administration Levalbuterol HCl 1.25 mg 12/18/24 08:00 12/18/24 15:00 Levalbuterol Neb 1.25 Mg/3 Ml INHALATION 1.25 mg Q6HRT ANDREW Administration Levalbuterol HCl 1.25 mg 12/18/24 05:11 Levalbuterol Neb 1.25 Mg/3 Ml INHALATION Q6HRT PRN Shortness of breath Loratadine 10 mg 12/18/24 09:00 12/18/24 09:28 Loratadine 10 Mg Tablet PO 10 mg QAM ANDREW Administration Methylprednisolone Sodium Succinate 40 mg 12/18/24 12:00 12/18/24 12:39 Methylprednisolone Sod Succ 40 Mg Vial IV PUSH 40 mg Q6HR ANDREW Administration Radiology Results: ITS Impressions Chest X-Ray 12/17/24 19:13 Impression: No acute cardiopulmonary abnormality. Labs Labs: Laboratory Results - last 24 hr 12/17/24 12/17/24 12/17/24 19:15 19:21 19:21 WBC RBC Hgb Hct MCV MCH MCHC RDW Plt Count MPV Immature Gran % (Auto) Neut % (Auto) Lymph % (Auto) [place] % (Auto) Eos % (Auto) Baso % (Auto) Lymph # (Auto) [place] # (Auto) Eos # (Auto) Baso # (Auto) Abs Immat Gran (auto) Absolute Neuts (auto) Absolute Nucleated RBC Nucleated RBC % Puncture Site Right radial ABG pH 7.429 ABG pCO2 36.1 ABG pO2 62.8 L ABG PO2/FiO2 Ratio 2.99 ABG HCO3 23.4 ABG O2 Saturation 92.8 L ABG O2 Content 18.5 ABG Base Excess -0.5 A-a Gradient 43.7 Oxyhemoglobin 91.0 Carboxyhemoglobin 0.9 Methemoglobin 0.3 Reduced Hemoglobin 7.8 H Total Hemoglobin 14.5 O2 Delivery Device Not Reportable O2 Liters/Min Not Reportable FiO2 21 Sodium 137 Potassium 3.6 Chloride 101 Carbon Dioxide 27 Anion Gap 9 BUN 11 D Creatinine 0.86 Estim Creat Clear Calc 53 Estimated GFR > 60 Glucose 124 H Lactic Acid Calcium 9.7 Magnesium 3.3 H Cancelled Total Bilirubin 0.7 AST 31 ALT 18 Alkaline Phosphatase 99 Troponin I < 0.012 NT-Pro-B Natriuret Pep Total Protein Albumin SARS-CoV-2 RNA (RT-PCR) 12/17/24 12/17/24 12/17/24 19:21 19:21 19:22 WBC 10.6 H RBC 4.62 Hgb 14.3 Hct 42.8 MCV 92.6 MCH 31.0 MCHC 33.4 RDW 13.2 Plt Count 320 MPV 9.0 Immature Gran % (Auto) 0.6 H Neut % (Auto) 68.4 Lymph % (Auto) 17.9 L [place] % (Auto) 5.1 Eos % (Auto) 7.1 H Baso % (Auto) 0.9 Lymph # (Auto) 1.90 [place] # (Auto) 0.5 Eos # (Auto) 0.8 H Baso # (Auto) 0.1 Abs Immat Gran (auto) 0.06 H Absolute Neuts (auto) 7.2 H Absolute Nucleated RBC 0.000 Nucleated RBC % 0.0 Puncture Site ABG pH ABG pCO2 ABG pO2 ABG PO2/FiO2 Ratio ABG HCO3 ABG O2 Saturation ABG O2 Content ABG Base Excess A-a Gradient Oxyhemoglobin Carboxyhemoglobin Methemoglobin Reduced Hemoglobin Total Hemoglobin O2 Delivery Device O2 Liters/Min FiO2 Sodium Potassium Chloride Carbon Dioxide Anion Gap BUN Creatinine Estim Creat Clear Calc Estimated GFR Glucose Lactic Acid 1.8 Calcium Magnesium Total Bilirubin AST ALT Alkaline Phosphatase Troponin I Cancelled NT-Pro-B Natriuret Pep 559 H Cancelled Total Protein 8.4 H Albumin 4.6 SARS-CoV-2 RNA (RT-PCR) Negative
[2024-12-18] MEDS: ALPRAZolam (*CRX) 0.25 MG TABLET PO (20:45)
[2024-12-19] VITALS (8 sets, daily range): BP systolic 122; BP diastolic 65; PULSE 87–107; RESP 16–20; TEMP 36.6; O2SAT 93
[2024-12-19] MEDS: ENOXAPARIN 40 MG/0.4 ML SYRINGE SUB-Q (09:05)
[2024-12-19] MEDS: guaiFENesin 12 HR 600 MG TABCR PO (09:05)
[2024-12-19] MEDS: LORATADINE 10 MG TABLET PO (09:05)
[2024-12-19] MEDS: ACETAMINOPHEN 500 MG TABLET PO (09:05)
[2024-12-19] MEDS: FLUTICASONE PROPIONATE 0.05% NA SPR 16 GM BTL (*BKC) 2 SPRAY NASAL (09:28)
--- NOTE | 2024-12-19 13:21 | P.DS_ITS ---
DS: Admitting Diagnosis Discharge Date 12/19/24 Admitting Diagnosis Shortness of breath DS: Discharge Diagnosis Discharge Diagnosis (1) Acute exacerbation of chronic obstructive pulmonary disease: Code(s): J44.1 - Chronic obstructive pulmonary disease with (acute) exacerbation Status: Acute (2) Acute hypoxic respiratory failure: Code(s): J96.01 - Acute respiratory failure with hypoxia Status: Acute (3) Sinus tachycardia: Code(s): R00.0 - Tachycardia, unspecified Status: Acute (4) Anxiety: Code(s): F41.9 - Anxiety disorder, unspecified Status: Acute (5) Protein calorie malnutrition: Qualifiers: Protein-calorie malnutrition severity: unspecified severity Qualified Code(s): E46 - Unspecified protein-calorie malnutrition Code(s): E46 - Unspecified protein-calorie malnutrition Status: Acute (6) Lung mass: Code(s): R91.8 - Other nonspecific abnormal finding of lung field Status: Acute DS: Summary Hospital Course Reason for hospitalization: 64yo female with COPD/emphysema who presented to the ER with severe shortness of breath. Please see H&P for details. Hospital Course: Patient presents with increasing SOB and found to have acute COPD exacerbation with acute hypoxic respiratory failure. She reports that at home her oxygen saturations on her pulse oximeter were 85%. She reports significant improvement in symptoms with nebulizers and steroid treatment given during this ER visit. CXR was clear. She was at an outside ED on 12/17/24 and had a CTA chest showing no PE but did show emphysema and a spiculated nodule at 8.5mm RUL. The patient received 3 nebulizer treatments in route to the ER and 2 g of magnesium sulfate as well as 10 mg of Decadron per EMS. CBC and CMP showed no significant findings. BNP 559. Troponin was negative. She was treated with Solu-Medrol and Xopenex. Patient with sinus tachycardia felt to be multifactorial due to volume depletion, nebulizer administration and anxiety. The patient reports that nursing staff told her she had an episode of V-tach in the ER when she tried ambulate to the bathroom. This is not documented anywhere in the patient's chart. However patient did develop increasing sinus tachycardia with heart rates into the 140s per nursing documentation. EKG showing sinus tach with possible old septal [place]. Repeat EKG showing no change. On telemetry monitoring but no evidence of VTach. Feeling better. Weaned to room air. She began to have a productive cough. She has Albuterol tunde at home and she was instructed to use PRN. She overall did well and was requesting discharge. She was able to be discharged home on 12/19/24. Discharge instructions discussed including side effects of medications. All questions answered. Status at Discharge Cognitive/behavioral status at discharge: stable Time Spent with Patient Time attestation: Total time spent providing and/or coordinating discharge services: 35 minutes Time spent: Greater than 30 minutes Exam Narrative: AF 97.8 122/65 88 16 93% ra Gen - NARD Chest - prolonged expiratory phase. nml RR CV - RRR S1/S2. Tele showing no acute dysrhythmias Abd - Soft, NT/ND, Positive BS Ext - No pedal edema Psych - Nml mood and affect Skin - Warm and dry Discharge Plan Discharge Attending physician on discharge: Ubaldo Dorsey Discharging Clinician: Ubaldo Dorsey Anticipated Discharge Date/Time: 12/19/24 13:33 Patient Disposition: Home Activity: as tolerated Diet: regular Discharge Instructions: Please complete your antibiotic course even if you are starting to feel well. Take precautions to avoid falls. Rise slowly from a lying or sitting position. Pause before standing or walking. Contact your doctor or call 911 and come to the Emergency Room if you have fevers, increasing shortness of breath or other worrisome symptoms. Avoid NSAIDs (ibuprofen, naproxen, Aleve). Tylenol is safe to take. Follow-up with your primary care provider in 1-2 weeks. Please call for appointment. Follow-up with your lung doctor in 1-2 weeks. Please call for an appointment. Please talk with them about the lung nodule in the right upper lobe as we discussed Thank you for using [facility] for your health care needs. Patient Instructions: Antibiotic Form Patient Language: [place] Stand Alone Forms: General Discharge Information Follow-up/Referrals: Tonio Sorto DO [Primary Care Provider, Internal Medicine] - Call for Appointment Discharge Medications: New prednisone 20 mg tablet 40 mg PO DAILY 5 Days Qty: 10 0RF azithromycin 250 mg tablet See Rx Instructions .ROUTE .COMPLEX Qty: 6 0RF Rx Instructions: For 250 mg dose pack: take 500 mg today (day 1), then 250 mg for 4 days (days 2-5) Continued guaifenesin 600 mg tablet extended release 12hr 600 mg PO BID acetaminophen 500 mg capsule 500 mg PO BID buspirone 5 mg Tablet 5 mg PO Q12HR Qty: 60 0RF fluticasone propionate 50 mcg/actuation [place],Suspension 2 spray intranasal Q12HR Qty: 10 0RF loratadine 10 mg Tablet 10 mg PO QAM Qty: 100 0RF Discontinued fluconazole [Diflucan] .ROUTE Date of admission: 12/17/24 20:37 Primary Care Provider: Tonio Sorto Admitting Provider: Korina Grant Attending physician on admission: Korina Grant Condition: Stable Hospitalist MIPS Heart Failure (Exclusion) Patient has history of Heart Transplant or Left Ventricular Assistive Device?: No IF YES, STOP HERE Heart Failure (Qualifier) Patient has current or prior documentation of LVEF less than or equal to 40%, or mod/servere depressed LVSF?: No IF NO, STOP HERE
--- NOTE | 2024-12-26 08:13 | PC.NURSE ---
Blood cx show no growth.
== END 2024-12-19 14:30 | disposition home or self-care (01) ==
LOC: ANHED 21:10 → ANH3MEDSUR 12-19 13:35
PROVIDERS: Emergency Medicine; General Practice; Admitting Provider Internal Medicine; Emergency Provider Emergency Medicine; PCP Internal Medicine; Visit Provider Internal Medicine
DX: J44.1 Chronic obstructive pulmonary disease with (acute) exacerbation (principal); J96.01 Acute respiratory failure with hypoxia; R00.0 Tachycardia, unspecified; J43.9 Emphysema, unspecified; R91.8 Other nonspecific abnormal finding of lung field; F41.9 Anxiety disorder, unspecified; E46 Unspecified protein-calorie malnutrition; Z68.1 Body mass index [BMI] 19.9 or less, adult; Z71.89 Other specified counseling; Z20.822 Contact with and (suspected) exposure to COVID-19; F12.90 Cannabis use, unspecified, uncomplicated; Z79.899 Other long term (current) drug therapy; Z87.891 Personal history of nicotine dependence; Z96.60 Presence of unspecified orthopedic joint implant; Z79.51 Long term (current) use of inhaled steroids; Z83.3 Family history of diabetes mellitus; Z80.6 Family history of leukemia; Z80.9 Family history of malignant neoplasm, unspecified; Z82.49 Family history of ischemic heart disease and other diseases of the circulatory system
CPT/HCPCS: 36415; 36600; 71045; 80053; 82375; 82805; 83050; 83605; 83735; 83880; 84484; 85018; 85025; 87635; 93005; 94640; 96360; 96361; 96372; 96374; 96376; 99285; A9270; G0378; J1650; J2919; J7030

== ENCOUNTER 2025-01-03 04:07 | Emergency (ER) | payer SELFPAY ==
[2025-01-03] VITALS (28 sets, daily range): BP systolic 99–127; BP diastolic 46–80; PULSE 101–131; RESP 16–26; TEMP 36.7–37.2; O2SAT 93–98
--- NOTE | ~2025-01-03 | XR_ITS ---
Examination: XR chest 1V portable Clinical History: SOB Comparison: 12/17/2024 Technique: Portable AP Findings: Heart size normal. Lungs clear. No acute bony abnormality. IMPRESSION: 1. No acute cardiopulmonary findings given portable technique. Reviewed, dictated and finalized at location R.
--- NOTE | 2025-01-03 04:19 | ECG_ITS ---
Test Date: 2025-01-03 04:18:56 Measurements Intervals [place] Rate: 124 P: 80 OR: 132 QRS: 28 QRSD: 79 T: 75 QT: 305 QTc: 438 Interpretive Statements SINUS TACHYCARDIA ST-T WAVE ABNORMALITY IN ANTEROLAT/INF LEADS- CONSIDER ISCHEMIA BASELINE ARTIFACT- I, II, AVR, AVL ABNORMAL ECG Compared to ECG 12/17/2024 23:08:16 NO SIGNIFICANT CHANGE Electronically Signed On 01-03-2025 05:40:06 CDT by Mirza Wang D.O.
[2025-01-03 04:31] LABS: Hematocrit 40.8 % (37.0-47.0); Hemoglobin 13.3 g/dL (12.0-15.0); Immature Granulocyte Percent A 0.2 % (0-0.5); Lymphocytes Absolute Auto 2.65 K/mm3 (0.9-3.2); Mean Corpuscular HGB Conc 32.6 g/dl (32-36); Mean Corpuscular Hemoglobin 30.6 pg (26-34); Mean Corpuscular Volume 93.8 fl (80-100); Nucleated Red Blood Cells Absolute Auto 0.000 K/mm3 (0.0-0.012); Nucleated Red Blood Cells Perc 0.0 % (0.0-0.2); Platelet Count Result 374 k/mm3 (150-375); Red Blood Count 4.35 M/mm3 (4.2-5.4); White Blood Count 11.2 K/mm3 (4.5-10.0)
[2025-01-03 04:43] LABS: Alanine Aminotransferase 75 U/L (6-35); Albumin Level 4.3 g/dL (3.5-5.1); Alkaline Phosphatase 101 U/L (38-126); Anion Gap 8 mmol/L (4-12); Aspartate Amino Transferase 44 U/L (14-36); Bilirubin,Total 0.6 mg/dL (0.2-1.3); Blood Urea Nitrogen 16 mg/dL (7-17); Calcium 9.5 mg/dL (8.4-10.2); Carbon Dioxide 29 mmol/L (22-30); Chloride 100 mmol/L (98-107); Estimated CRCL calculation 62 ml/min; Estimated Glomerular Filt Rate > 60; Glucose 117 mg/dL (65-110); Potassium 3.9 mmol/L (3.4-5.0); Sodium 137 mmol/L (137-145); Total Protein 7.8 g/dL (6.3-8.2)
[2025-01-03] MEDS: MAGNESIUM SULF 2 GM/WATER 50ML 2 GM/50 ML BAG IVPB (05:46)
[2025-01-03] MEDS: dexAMETHasone SOD PHOS INJ 10 MG/ML 1 ML VIAL IV PUSH (05:46)
[2025-01-03] MEDS: SODIUM CHLORIDE 0.9% IV 1,000 ML 999 ML IV CONT (05:46)
[2025-01-03] MEDS: IPRATROPIUM 0.5 MG/ALBUTEROL SULFATE 2.5 MG (BASE) AMPUL.NEB 3 ML 6 ML INHALATION (05:54)
--- NOTE | 2025-01-03 09:35 | ED_ITS ---
HPI - SOB/Dyspnea General Chief Complaint: Shortness of Breath/Dyspnea Stated Complaint: Difficulty breathing Time Seen by Provider: 01/03/25 09:08 Source: patient Mode of arrival: EMS Limitations: no limitations History of Present Illness HPI Narrative: This is a 64 year old female that presents to the ER for shortness of breath. Worsening since last night. Reports wheezing, recent diagnosis of COPD. She was prescribed Trelegy by her centrifugal casting machine tender, but was unable to pick this up due to insurance reasons/cost. She tried a nebulizer treatment with little relief at home. Denies fevers, productive cough. Related Data Home Medications ?Medication ?Instructions ?Recorded ?Confirmed ?Last Taken ?Type acetaminophen 500 mg capsule 500 mg PO BID 12/18/24 Unknown History guaifenesin 600 mg tablet, 600 mg PO BID 12/18/2412/15 Unknown History extended release 12 hr Allergies Allergy/AdvReac Type Severity Reaction Status Date / Time codeine Allergy Unknown Nausea and Verified 01/03/25 04:09 Vomiting ofloxacin Allergy Unknown SHORT OF Verified 12/29/24 09:08 BREATH Penicillins Allergy Unknown UNKNOWN Verified 12/29/24 09:08 fluoxetine AdvReac Severe Suicidal Verified 12/29/24 09:08 Ideation Review of Systems 2 Review of Systems: All systems reviewed & are unremarkable except as noted in HPI and below PMFSH Past Medical History Medical History (Updated 01/03/25 @ 12:13 by Lida Jean Baptiste PA-C) Emphysema/COPD Anxiety Surgical History Surgical History Amblyopia of left eye With surgical repair as a child History of left knee surgery Multiple ligament repairs History of right knee surgery Multiple arthroscopic procedures H/O exploratory laparotomy X5 H/O: hysterectomy the patient reports that she had her reproductive organs removed over the course of ?5 surgeries with the last surgery being in 1999 Family History Family History Father Type 2 diabetes mellitus Glaucoma Grandparent CAD (coronary artery disease) Leukemia Cancer Mother Lung cancer COPD (chronic obstructive pulmonary disease) Sibling Primary chronic progressive multiple sclerosis Social History Social History Social History: She reports that she is since 2018. She lives with her 2 cats. 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 She smoked up to 2 packs of cigarettes per day from the time she was a teenager until age 64. She quit smoking August 2024. She denies any history of alcohol abuse. She denies illicit substance use. She has 1 biological child and adopted 6 other children. Code status: DNR/DNI (she reports that if she is in respiratory distress and noninvasive ventilator is unsuccessful she wants to be made comfortable and does not want to feel like she is drowning or struggling to breathe but she does not want intubation.) Surrogate decision maker: Yanira Low (daughter) Smoking packs per day: 1 Smoking cigarettes per day: 20.0 Years smoked: 45 Smoking pack-years: 45.00 Smoking status: Former smoker Tobacco type: cigarettes Second hand tobacco smoke exposure: Yes Smoking end date: 09/17/24 Alcohol intake: never Substance use: never Substance use type: does not use Lack of Transportation: No Lack of Food: Never True Current Housing: I Have Housing Concerned About Future Housing: No Difficulty Paying Gas/Electric Bills: No Difficulty Paying for Meds: No Currently Unemployed: No Education: Associate Degree Difficulty w/ Childcare or Family Care: No Spiritual care concerns: Yes Exam 2 Narrative: GENERAL: Well-appearing, well-nourished, and in no acute distress. HEAD: Normocephalic, atraumatic. EYES: EOMI. ENT: Nares clear, no rhinorrhea or epistaxis. Mucous membranes moist. Oropharynx without tonsillar hypertrophy exudate or other lesions. NECK: Supple. No JVD CHEST: Clear to auscultation. No respiratory distress. No wheezes rales or rhonchi HEART: Regular rate and rhythm. No murmur heard. Normal peripheral pulses. EXTREMITIES: Normal range of motion. No edema. SKIN: Warm, dry, no rash. NEURO: No focal deficits. Alert and oriented x3. PSYCH: Normal mood and affect Course Course Emergency Course: patient updated on her workup. I did involve care coordination to see if they are able to help figure out insurance issues. Patient also instructed to follow up with her centrifugal casting machine tender for further preventative care management Vital Signs Vital signs: Vital Signs Temperature 98.1 F 01/03/25 04:09 Pulse Rate 131 H 01/03/25 04:09 Respiratory Rate 18 01/03/25 04:09 Blood Pressure 127/73 01/03/25 04:09 Pulse Oximetry 94 01/03/25 04:09 Oxygen Delivery Room Air 01/03/25 04:09 Temperature 99.0 F 01/03/25 10:47 Pulse Rate 111 H 01/03/25 10:47 Respiratory Rate 19 01/03/25 10:47 Blood Pressure 112/61 01/03/25 10:46 Pulse Oximetry 95 01/03/25 10:47 Oxygen Delivery Room Air 01/03/25 05:56 Fraction of Inspired Oxygen 21 01/03/25 05:56 MDM - SOB/Dyspnea MDM Narrative Medical decision making narrative: Patient presents to the emergency department for shortness of breath, wheezing. Recent diagnosis of COPD. She was not able to obtain her Trelegy due to insurance reasons. Had worsening shortness of breath since last night. She is afebrile and nontoxic appearing. Tachycardic upon arrival, this down trended with management of COPD exacerbation and fluids. She was given nebulizer treatment, magnesium. Lungs are now clear. CBC with mild leukocytosis to 11.2. Metabolic panel without concerning findings. Influenza, RSV and COVID screens are negative. Chest x-ray without acute cardiopulmonary abnormality. Patient updated on her workup and agrees with plan of care. I did involve care coordination to see if they are able to help figure out insurance issues. Patient also instructed to follow up with her centrifugal casting machine tender for further preventative/maintenance medication management Differential Diagnosis Differential diagnosis: Likely acute exacerbation of chronic obstructive airways disease and community acquired pneumonia Lab Data Attestation: I reviewed the patient's lab results. 01/03/25 04:21 01/03/25 04:21 Labs: Lab Results 01/03/25 01/03/25 Range/Units 04:21 09:24 WBC 11.2 H (4.5-10.0) K/mm3 RBC 4.35 (4.2-5.4) M/mm3 Hgb 13.3 (12.0-15.0) g/dL Hct 40.8 (37.0-47.0) % MCV 93.8 (80-100) fl MCH 30.6 (26-34) pg MCHC 32.6 (32-36) g/dl RDW 13.2 (11.5-14.5) % Plt Count 374 (150-375) k/mm3 MPV 8.8 (7.4-10.4) fl Immature Gran % (Auto) 0.2 (0-0.5) % Neut % (Auto) 61.5 (45.5-73.1) % Lymph % (Auto) 23.6 (18.3-44.2) % [place] % (Auto) 7.7 (2.6-8.5) % Eos % (Auto) 6.4 H (0-4.4) % Baso % (Auto) 0.6 (0.2-1.2) % Lymph # (Auto) 2.65 (0.9-3.2) K/mm3 [place] # (Auto) 0.9 H (0.1-0.6) K/mm3 Eos # (Auto) 0.7 H (0-0.3) K/mm3 Baso # (Auto) 0.1 (0.0-0.1) K/mm3 Abs Immat Gran (auto) 0.02 (0.00-0.031) K/mm3 Absolute Neuts (auto) 6.9 H (1.3-6.7) K/mm3 Absolute Nucleated RBC 0.000 (0.0-0.012) K/mm3 Nucleated RBC % 0.0 (0.0-0.2) % Sodium 137 (137-145) mmol/L Potassium 3.9 (3.4-5.0) mmol/L Chloride 100 (98-107) mmol/L Carbon Dioxide 29 (22-30) mmol/L Anion Gap 8 (4-12) mmol/L BUN 16 (7-17) mg/dL Creatinine 0.82 (0.7-1.0) mg/dL Estim Creat Clear Calc 62 ml/min Estimated GFR > 60 (59 - ) Glucose 117 H (65-110) mg/dL Calcium 9.5 (8.4-10.2) mg/dL Total Bilirubin 0.6 (0.2-1.3) mg/dL AST 44 H (14-36) U/L ALT 75 H (6-35) U/L Alkaline Phosphatase 101 (38-126) U/L Total Protein 7.8 (6.3-8.2) g/dL Albumin 4.3 (3.5-5.1) g/dL Influenza A (RT-PCR) Negative (Negative) Influenza B (RT-PCR) Negative (Negative) RSV (RT-PCR) Negative (Negative) SARS-CoV-2 RNA (RT-PCR) Negative (Negative) Imaging Data Radiologist's impression: ITS Impressions Chest X-Ray 01/03/25 06:29 IMPRESSION: 1. No acute cardiopulmonary findings given portable technique. ECG Data EKG #1: ECG completion date: 01/03/25 EKG Interpretation: tachycardia, sinus rhythm, normal QT and no acute changes (compared to EKG 12/17) Critical Care Time Critical Care Time Critical Care Time: No Discharge Plan Discharge Clinical Impression: COPD exacerbation Patient Disposition: Home Condition: Improved Instructions: COPD (Chronic Obstructive Pulmonary Disease) (ED) Additional Instructions: Return to the emergency department for worsening symptoms, or any other concerns Remain well-hydrated, get plenty of rest. Continue steroid (Prednisone) as prescribed. Albuterol as needed for shortness of breath or wheezing Follow up with your centrifugal casting machine tender Patient Language: Tajik Prescriptions: New prednisone 20 mg tablet 40 mg PO DAILY 4 Days Qty: 8 0RF albuterol sulfate 2.5 mg/0.5 mL solution for nebulization 5 mg inhalation Q6H PRN (Reason: shortness of breath or wheezing) Qty: 30 0RF albuterol sulfate [Ventolin HFA] 90 mcg/actuation HFA aerosol inhaler 2 puff inhalation QID PRN (Reason: shortness of breath or wheezing) Qty: 8.5 0RF No Action buspirone 5 mg tablet 5 mg PO Q12HR Qty: 60 0RF guaifenesin 600 mg tablet extended release 12hr 600 mg PO BID acetaminophen 500 mg capsule 500 mg PO BID fluticasone propionate 50 mcg/actuation [place],Suspension 2 spray intranasal Q12HR Qty: 10 0RF loratadine 10 mg Tablet 10 mg PO QAM Qty: 100 0RF Follow-up/Referrals: Latonya Salvador APRN [Primary Care Provider, Internal Medicine]
[2025-01-03 10:09] LABS: Influenza A QL RT-PCR Negative (Negative); Influenza B QL RT-PCR Negative (Negative); RSV RNA, RT-PCR Negative (Negative); SARS-CoV-2 RNA PCR Negative (Negative)
--- OUTSIDE RECORDS SUMMARY | 2025-01-03 10:12 | XMS_ITS | Clinical Summary ---
Author Organization [facility] Address [address] [place] [address] Care Team Providers Care [employer] Name Role Phone Sadi Rob MD Primary [...] on file Legal Sex Female 5:55 PM SALES RECORD CLERK Gender Identity Female 02/06/2021 7:36 PM SALES RECORD CLERK Sexual Orientation Straight 02/06/2021 7: 36 PM SALES RECORD CLERK Obstetrics History Last Filed Vital Signs Vital Sign Reading Time Taken Comments Blood Pressure 131/74 06/08/2018 1:10 PM CDT Pulse 76 06/08/2018 1:10 PM CDT Temperature - - Respiratory Rate - - Oxygen Saturation - - Inhaled Oxygen Concentration - - Weight 60.3 kg (132 lb 15 oz) 02/07/2021 8:43 AM SALES RECORD CLERK Height 182.9 cm (6') 02/07/2021 8:43 AM SALES RECORD CLERK Body Mass Index 18.03 02/07/2021 8:43 AM SALES RECORD CLERK Plan of Treatment Not on file Insurance [employer] O/POS Care Teams [employer] Relationship Specialty Start Date End Date Sadi Rob MD PCP - General Obstetrics and Gynecology 01/28/21
--- NOTE | 2025-01-03 13:20 | PCCCNOTE ---
Requested pt be seen as she was prescribed Trelegy by her electric hoist operator that was not covered by her insurance and needs assistance with covering. Met with pt and she has paperwork from [employer] that just came to her after applying for [employer]. However her pharmacy told her she is not covered under [employer]. Call placed to Carlee with [employer] who is aware of pt and her [employer] application trials. Previously she did not qualify.Carlee met with pt and is attempting to contact [employer] to find out a final decision. This is likely to not be finalized today. Provider informed that we can not try to get medication coverage if we don't have an insurance to authorize through. Provider has been in contact with electric hoist operator and will supply pt with alternative medication until insurance can be finalized. Pt aware and accepting.
--- NOTE | 2025-01-03 13:26 | PC.NURSE ---
Pt states albuterol inhaler will not be available until 01/17.
== END 2025-01-03 13:42 | disposition home or self-care (01) ==
PROVIDERS: Emergency Medicine; Emergency Provider Physician Assistant
DX: J44.1 Chronic obstructive pulmonary disease with (acute) exacerbation (principal); D72.829 Elevated white blood cell count, unspecified; Z87.891 Personal history of nicotine dependence; Z66 Do not resuscitate; Z20.822 Contact with and (suspected) exposure to COVID-19
CPT/HCPCS: 36415; 71045; 80053; 85025; 87637; 93005; 94640; 96365; 96375; 99284; J1100; J3475; J7030